=== PATIENT | male | born 1955 | race Caucasian/White ===

== ENCOUNTER → 2016-10-16 | Outpatient (CLI) | payer BC ==
[2016-10-16 19:36] LABS: Anisocytosis Slight; Basophils % (A) 0 %; CH 34.3; CHCM 34.5; Eosinophils # (A) 0.1 k/uL (0-0.7); Eosinophils % (A) 2 %; HCT 38.4 % (39.0-53.0); HDW 3.91; HGB 12.5 gm/dL (13.0-17.5); Luc # (Auto) 0.05; Luc % (Auto) 1; Lymphocytes # (A) 0.8 k/uL (1.0-4.8); Lymphocytes % (A) 16 %; MCH 32.6 pg (25.0-35.0); MCHC 32.6 g/dL (31.0-37.0); MCV 100.1 fL (80.0-100.0); Macrocytosis Slight; Mean Platelet Volume 8.7; Monocytes # (A) 0.2 k/uL (0-1.0); Monocytes % (A) 3 %; Neutrophils # (A) 3.7 k/uL (1.3-7.7); Neutrophils % (A) 77 %; Poikilocytosis Slight; RBC 3.84 m/uL (4.30-5.90); RDW 16.3 % (11.5-15.5); WBC 4.9 k/uL (3.8-10.6); WBC (Perox) 5.12
[2016-10-16 19:47] LABS: ALT 27 U/L (21-72); AST 23 U/L (17-59); Alkaline Phosphatase 72 U/L (38-126); Anion Gap 11 mmol/L; Blood Urea Nitrogen 13 mg/dL (9-20); Calcium 9.3 mg/dL (8.4-10.2); Carbon Dioxide 29 mmol/L (22-30); Chloride 103 mmol/L (98-107); Cholesterol 152 mg/dL (<200); Glucose 98 mg/dL (74-99); HDL Cholesterol 37 mg/dL (40-60); Non-African American GFR(MDRD) >60 (>60 ml/min/1.73 sqM); Potassium 3.8 mmol/L (3.5-5.1); Sodium 143 mmol/L (137-145); Total Bilirubin 1.8 mg/dL (0.2-1.3); Triglycerides 169 mg/dL (<150)
== END | disposition home or self-care (01) ==
LOC: MMGSC 09:51
PROVIDERS: ATTEND Family Medicine
DX: Z00.00 Encounter for general adult medical examination without abnormal findings (principal)
CPT/HCPCS: 36415; 80053; 80061; 84439; 84443; 85025

== ENCOUNTER → 2017-06-22 | Outpatient (CLI) | payer BC ==
[2017-06-22 20:14] LABS: Basophils % (A) 0 %; CH 35.4; CHCM 34.3; Eosinophils # (A) 0.1 k/uL (0-0.7); Eosinophils % (A) 3 %; HCT 34.5 % (39.0-53.0); HDW 3.94; Luc # (Auto) 0.04; Luc % (Auto) 1; Lymphocytes # (A) 0.8 k/uL (1.0-4.8); Lymphocytes % (A) 17 %; MCH 36.3 pg (25.0-35.0); MCHC 34.8 g/dL (31.0-37.0); MCV 104.3 fL (80.0-100.0); Macrocytosis Moderate; Mean Platelet Volume 8.4; Monocytes # (A) 0.2 k/uL (0-1.0); Monocytes % (A) 4 %; Neutrophils # (A) 3.7 k/uL (1.3-7.7); Neutrophils % (A) 76 %; Poikilocytosis Slight; RDW 15.7 % (11.5-15.5); WBC 4.9 k/uL (3.8-10.6); WBC (Perox) 5.14
[2017-06-22 20:22] LABS: ALT 25 U/L (21-72); AST 18 U/L (17-59); Alkaline Phosphatase 81 U/L (38-126); Amylase 92 U/L (30-110); Anion Gap 8 mmol/L; Blood Urea Nitrogen 14 mg/dL (9-20); Calcium 9.3 mg/dL (8.4-10.2); Carbon Dioxide 25 mmol/L (22-30); Chloride 106 mmol/L (98-107); Glucose 85 mg/dL (74-99); Non-African American GFR(MDRD) >60 (>60 ml/min/1.73 sqM); Potassium 4.1 mmol/L (3.5-5.1); Sodium 139 mmol/L (137-145); Total Bilirubin 1.8 mg/dL (0.2-1.3); Total Protein 6.7 g/dL (6.3-8.2)
== END | disposition home or self-care (01) ==
LOC: MMGSC 16:28
PROVIDERS: ATTEND Family Medicine
DX: R19.7 Diarrhea, unspecified (principal); R63.4 Abnormal weight loss
CPT/HCPCS: 36415; 80053; 82150; 83690; 84443; 85025

== ENCOUNTER → 2017-07-02 | Outpatient (CLI) | payer BC | LOC: MMGSC 10:09 | PROVIDERS: ATTEND Family Medicine | DX: R94.8 Abnormal results of function studies of other organs and systems (principal) | CPT/HCPCS: 36415; 82607; 82746 ==

== ENCOUNTER → 2017-07-12 | Outpatient (CLI) | payer BC ==
--- NOTE | 2017-07-12 14:11 | CT ---
EXAMINATION TYPE: CT abdomen pelvis w con DATE OF EXAM: 07/12/2017 COMPARISON: NONE HISTORY: Weight loss and diarrhea CT DLP: 458.60 mGycm Automated exposure control for dose reduction was used. TECHNIQUE: Helical acquisition of images was performed from the lung bases through the pelvis. CONTRAST: Performed with Oral Contrast and with IV Contrast, patient injected with 100 ml mL of Omnipaque 300. FINDINGS: LUNG BASES: Subsegmental bibasilar atelectasis is seen, record and left there is minimal independent. LIVER/GB: Single 6 mm hypoattenuating lesion is seen within the inferior right hepatic lobe on series 3 image 33 within segment 6 that is too small to accurately characterize. There is suggestion of a s mall either noncalcified gallstone, gallbladder folds, or gallbladder polyp on series 3 image 34 camille uring 5.7 mm. No common bile duct enlargement or pericolonic fat stranding. PANCREAS: No significant abnormality is seen. SPLEEN: The spleen is enlarged measuring 14.5 cm in craniocaudal dimension. ADRENALS: No significant abnormality is seen. KIDNEYS: The kidneys enhance and excrete symmetrically without focal lesion of the left kidney or hyd ronephrosis. Within the right kidney there ise a 9 mm simple renal cyst of the medial upper pole. FREE AIR: No free air is visualized. ADENOPATHY: No greater than 1 cm lymph nodes within the abdomen or pelvis. OSSEOUS STRUCTURES: Osseous structures appear intact with mild degenerative changes of the thoracolu mbar and lumbosacral spine. BOWEL: Multiple regions within the large bowel are incompletely evaluated as no oral contrast is seen throughout multiple portions and portions are nondistended, specifically within the ascending and he patic flexure of the large bowel. No evidence of obstruction to suggest underlying circumferential ob structing mass. Small hiatal hernia is present. OTHER: IMPRESSION: LIMITED EVALUATION OF THE NONDISTENDED COLON. COLONOSCOPY IS RECOMMENDED IN THIS PATIENT IF NOT RECEN TLY PERFORMED TO ENSURE NO UNDERLYING MASS AND A PATIENT WITH WEIGHT LOSS. 2. SINGLE INCOMPLETELY CHARACTERIZED SUBCENTIMETER HEPATIC LESION. COMPARISON WITH ANY PRIOR OUTSIDE IMAGING COULD BE PERFORMED TO DETERMINE STABILITY. ALTERNATIVELY MR COULD BE PERFORMED FOR FURTHER EV ALUATION OR SURVEILLANCE. 3. SPLENOMEGALY. 4. SIMPLE RENAL CYSTS.
== END | disposition home or self-care (01) ==
LOC: RADCTMAIN 12:29
PROVIDERS: ATTEND Family Medicine
DX: N28.1 Cyst of kidney, acquired (principal); K76.9 Liver disease, unspecified; R16.1 Splenomegaly, not elsewhere classified; R19.7 Diarrhea, unspecified; R63.4 Abnormal weight loss
CPT/HCPCS: 74177; Q9967

== ENCOUNTER 2019-11-28 11:38 | Observation (INO) | payer MEDICARE ==
[2019-11-28] MEDS ORDERED: SODIUM CHLORIDE 0.9% 500 ML 500 ML IV STA (11:50)
--- NOTE | 2019-11-28 12:07 | ED ---
General Adult HPI - General Chief complaint: Chest Pain Stated complaint: chest pain Time Seen by Provider: 11/28/19 11:43 Source: patient, RN notes reviewed, old records reviewed Mode of arrival: wheelchair Limitations: no limitations - History of Present Illness Initial comments: 64-year-old male presenting for evaluation of palpitations, abnormal EKG from urgent care. Patient has no history of A. fib or atrial flutter, no known coronary artery disease. He has been sick for the past 3 days with cough and cold symptoms. Cough productive of yellow sputum. He experiences some dyspnea with his palpitations with a been ongoing for several days as well. He was found to have an abnormal EKG and sent to the emergency department. Patient has been experiencing some upper chest tightness and chest pain associated with his symptoms. - Related Data Home Medications Medication Instructions Recorded Confirmed buPROPion HCL [Wellbutrin] 150 mg PO DAILY 03/12/15 08/11/15 clonazePAM [KlonoPIN] 0.5 mg PO HS PRN 03/12/15 08/11/15 ARIPiprazole [Abilify] 5 mg PO HS 04/16/15 08/11/15 Multivitamins, Thera Liquid 5 ml PO DAILY@1200 04/16/15 08/11/15 [Theragran Liquid] L.acidoph,Paracasei, B.lactis 2 each PO PC-BRKFST 08/11/15 08/11/15 [Probiotic] Mucus Relief-[employer] Brand 1 tab PO Q4HR PRN 08/11/15 08/11/15 Omeprazole [PriLOSEC] 20 mg PO AC-BRKFST 08/11/15 08/11/15 Allergies Allergy/AdvReac Type Severity Reaction Status Date / Time oxytetracycline Allergy "PAIN OF Verified 11/28/19 11:45 [From Terramycin] SKIN" VERY WEAK oxytetracycline HCl Allergy "PAIN OF Verified 11/28/19 11:45 [From Terramycin] SKIN" VERY WEAK Review of Systems ROS Statement: Those systems with pertinent positive or pertinent negative responses have been documented in the HPI. ROS Other: All systems not noted in ROS Statement are negative. Past Medical History Past Medical History: Eye Disorder, GERD/Reflux Additional Past Medical History / Comment(s): HIATAL HERNIA, SOMETIMES FOOD COMES BACK UP WHEN EATING, LOOSE STOOLS, GLASSES DAILY USE History of Any Multi-Drug Resistant Organisms: None Reported Past Surgical History: Adenoidectomy, Hernia Repair, Orthopedic Surgery, Tonsillectomy Additional Past Surgical History / Comment(s): UMBILICAL HERNIA, KAREN.INGUINAL HERNIA , EGD /COLONOSCOPY 04/20/15, LT WRIST SURGERY Past Anesthesia/Blood Transfusion Reactions: No Reported Reaction Past Psychological History: Anxiety, Depression Smoking Status: Former smoker Past Alcohol Use History: Occasional Past Drug Use History: None Reported - Past Family History Mother Family Medical History: Dementia, Neurologic Disorder Additional Family Medical History / Comment(s): HX PARKINSON'S Father Family Medical History: Coronary Artery Disease (CAD), CVA/TIA General Exam Limitations: no limitations General appearance: alert, in no apparent distress Head exam: Present: atraumatic, normocephalic Eye exam: Present: normal appearance, PERRL ENT exam: Present: normal exam Neck exam: Present: normal inspection. Absent: tenderness, meningismus Respiratory exam: Present: normal lung sounds bilaterally. Absent: respiratory distress, wheezes Cardiovascular Exam: Present: normal rhythm, tachycardia GI/Abdominal exam: Present: soft. Absent: distended, tenderness, guarding, rebound Extremities exam: Present: normal inspection, normal capillary refill. Absent: pedal edema Neurological exam: Present: alert, oriented X3, CN II-XII intact. Absent: motor sensory deficit Psychiatric exam: Present: normal affect, normal mood Skin exam: Present: warm, dry, intact. Absent: cyanosis, diaphoretic Course Vital Signs 11/28/19 11/28/19 11/28/19 11:40 12:00 12:10 Temperature 97.9 F Pulse Rate 144 H 94 90 Respiratory 18 18 18 Rate Blood Pressure 111/92 111/92 122/70 O2 Sat by Pulse 98 100 100 Oximetry EKG Findings - EKG Comments: EKG Findings:: Initial EKG at 1146 suspect atrial flutter with 2-1 AV conduction, rate of 157, QRS duration 102, QTC 468, no ST segment elevation, no complex tachycardia. Repeat EKG at 1152 sinus rhythm with PACs, rate of 87, MA interval 144, QRS duration 82, QTC 428, no ST segment elevation Medical Decision Making - Medical Decision Making 64-year-old male presenting with chest pain, congestion, palpitations. Found to be in a flutter with a 2-1 conduction. He converts in emergency department to sinus rhythm. He has a normal CBC, normal CMP, negative initial troponin. His influenza A positive. His chest x-ray is negative for focal pneumonia. He will be kept on telemetry, on Cardizem for rate control. He is treated for influenza . Serial cardiac enzymes will be obtained and cardiology placed on consult. Case is discussed with Dr. Tinoco who will admit this patient. Chads 2 vasc:1 - Lab Data Result diagrams: 11/28/19 11:57 11/28/19 11:57 Lab Results 11/28/19 11/28/19 11/28/19 Range/Units 11:57 11:57 11:57 WBC 4.4 (3.8-10.6) k/uL RBC 3.89 L (4.30-5.90) m/uL Hgb 13.5 (13.0-17.5) gm/dL Hct 37.1 L (39.0-53.0) % MCV 95.4 (80.0-100.0) fL MCH 34.7 (25.0-35.0) pg MCHC 36.4 (31.0-37.0) g/dL RDW 15.5 (11.5-15.5) % Plt Count 122 L (150-450) k/uL Neutrophils % 71 % Lymphocytes % 20 % Monocytes % 6 % Eosinophils % 1 % Basophils % 0 % Neutrophils # 3.1 (1.3-7.7) k/uL Lymphocytes # 0.9 L (1.0-4.8) k/uL Monocytes # 0.3 (0-1.0) k/uL Eosinophils # 0.0 (0-0.7) k/uL Basophils # 0.0 (0-0.2) k/uL Hyperchromasia Moderate Poikilocytosis Slight PT 9.8 (9.0-12.0) sec INR 0.9 (<1.2) APTT 40.9 H (22.0-30.0) sec Sodium 136 L (137-145) mmol/L Potassium 4.5 (3.5-5.1) mmol/L Chloride 102 (98-107) mmol/L Carbon Dioxide 22 (22-30) mmol/L Anion Gap 12 mmol/L BUN 18 (9-20) mg/dL Creatinine 1.02 (0.66-1.25) mg/dL Est GFR (CKD-EPI)AfAm 89 (>60 ml/min/1.73 sqM) Est GFR (CKD-EPI)NonAf 77 (>60 ml/min/1.73 sqM) Glucose 102 H (74-99) mg/dL Calcium 9.6 (8.4-10.2) mg/dL Magnesium 2.1 (1.6-2.3) mg/dL Total Bilirubin 4.6 H (0.2-1.3) mg/dL AST 32 (17-59) U/L ALT 18 (4-49) U/L Alkaline Phosphatase 84 (38-126) U/L Troponin I (0.000-0.034) ng/mL Total Protein 8.1 (6.3-8.2) g/dL Albumin 4.9 (3.5-5.0) g/dL Influenza Type A RNA (Not Detectd) Influenza Type B (PCR) (Not Detectd) 11/28/19 11/28/19 Range/Units 11:57 12:15 WBC (3.8-10.6) k/uL RBC (4.30-5.90) m/uL Hgb (13.0-17.5) gm/dL Hct (39.0-53.0) % MCV (80.0-100.0) fL MCH (25.0-35.0) pg MCHC (31.0-37.0) g/dL RDW (11.5-15.5) % Plt Count (150-450) k/uL Neutrophils % % Lymphocytes % % Monocytes % % Eosinophils % % Basophils % % Neutrophils # (1.3-7.7) k/uL Lymphocytes # (1.0-4.8) k/uL Monocytes # (0-1.0) k/uL Eosinophils # (0-0.7) k/uL Basophils # (0-0.2) k/uL Hyperchromasia Poikilocytosis PT (9.0-12.0) sec INR (<1.2) APTT (22.0-30.0) sec Sodium (137-145) mmol/L Potassium (3.5-5.1) mmol/L Chloride (98-107) mmol/L Carbon Dioxide (22-30) mmol/L Anion Gap mmol/L BUN (9-20) mg/dL Creatinine (0.66-1.25) mg/dL Est GFR (CKD-EPI)AfAm (>60 ml/min/1.73 sqM) Est GFR (CKD-EPI)NonAf (>60 ml/min/1.73 sqM) Glucose (74-99) mg/dL Calcium (8.4-10.2) mg/dL Magnesium (1.6-2.3) mg/dL Total Bilirubin (0.2-1.3) mg/dL AST (17-59) U/L ALT (4-49) U/L Alkaline Phosphatase (38-126) U/L Troponin I <0.012 (0.000-0.034) ng/mL Total Protein (6.3-8.2) g/dL Albumin (3.5-5.0) g/dL Influenza Type A RNA Detected H (Not Detectd) Influenza Type B (PCR) Not Detected (Not Detectd) Critical Care Time Critical Care Time: Yes Total Critical Care Time: 35 Disposition Clinical Impression: Atrial flutter with rapid ventricular response, Influenza A Disposition: [facility]MITTED [facility] Condition: Stable Is patient prescribed a controlled substance at d/c from ED?: No Referrals: Mirna Sarah MD [Primary Care Provider] - 1-2 days Decision to Admit Reason: Admit from EC Decision Date: 11/28/19 Decision Time: 13:31
[2019-11-28] MEDS ORDERED: DILTIAZEM 125 MG in SODIUM CHLORIDE 0.9% 100 ML IV SCH (12:15)
[2019-11-28 12:22] LABS: Albumin 4.9 g/dL (3.5-5.0); Calcium 9.6 mg/dL (8.4-10.2); Magnesium 2.1 mg/dL (1.6-2.3); Potassium 4.5 mmol/L (3.5-5.1); Total Bilirubin 4.6 mg/dL (0.2-1.3); Total Protein 8.1 g/dL (6.3-8.2)
[2019-11-28 12:24] LABS: INR 0.9 (<1.2); Partial Thromboplastin Time 40.9 sec (22.0-30.0); Prothrombin Time 9.8 sec (9.0-12.0)
--- NOTE | 2019-11-28 12:28 | XR ---
EXAMINATION TYPE: XR chest 2V DATE OF EXAM: 11/28/2019 COMPARISON: NONE HISTORY: Dysrhythmia, cough TECHNIQUE: Frontal and lateral views of the chest are obtained. FINDINGS: There is no focal air space opacity, pleural effusion, or pneumothorax seen. The cardiac silhouette size is within normal limits. The osseous structures are intact, there is a spinal curva ture, there is thoracic spondylosis. There are overlying cardiac leads. IMPRESSION: No acute cardiopulmonary process.
[2019-11-28 12:33] LABS: Basophils % (A) 0 %; Eosinophils % (A) 1 %; HCT 37.1 % (39.0-53.0); HGB 13.5 gm/dL (13.0-17.5); Hyperchromasia Moderate; Lymphocytes # (A) 0.9 k/uL (1.0-4.8); Lymphocytes % (A) 20 %; MCH 34.7 pg (25.0-35.0); MCHC 36.4 g/dL (31.0-37.0); MCV 95.4 fL (80.0-100.0); Mean Platelet Volume 8.8; Monocytes # (A) 0.3 k/uL (0-1.0); Monocytes % (A) 6 %; Neutrophils # (A) 3.1 k/uL (1.3-7.7); Neutrophils % (A) 71 %; Platelet Count 122 k/uL (150-450); Poikilocytosis Slight; RBC 3.89 m/uL (4.30-5.90); RDW 15.5 % (11.5-15.5); WBC 4.4 k/uL (3.8-10.6)
[2019-11-28] MEDS ORDERED: OSELTAMIVIR 75 MG CAP PO STA (13:13)
[2019-11-28] MEDS ORDERED: ASPIRIN 325 MG TAB PO STA (13:15)
[2019-11-28] MEDS ORDERED: NALOXONE 0.4 MG/ML 1 ML VIAL IV PRN (13:23)
[2019-11-28] MEDS ORDERED: ACETAMINOPHEN TAB 325 MG TAB PO PRN (13:23)
--- NOTE | 2019-11-28 16:16 | P.HPIM ---
History of Present Illness H&P Date: 11/28/19 Chief Complaint: chest heaviness 64-year-old malesignificant past medical history Patient comes in with 3-4 day history of not feeling well. He noticed decreased exercise tolerance over the past few days and then later on he developed some mild cough then became associated with productive yellow sputum denies any hemoptysis he denies any sore throat does admit to runny nose. He reports whole body aches. However today he experienced chest heaviness with difficulty in breathing for which he went to an urgent care and they suggested that he goes to the ER for evaluation as they found abnormal EKG with palpitations. He denies any cardiac history. He denies any recent traveling. He denies any recent history of immobilization or active diagnoses of cancer. He reports decreased exercise tolerance over the past few days with easy fatigability. He reports that his weight has been stable around 160 pounds however over the past year he dropped from 180-125 pounds and regained his weight back to 160 and he's been maintaining that weight for 6 months now. He reports having this colonoscopy is done in the past that were normal he denies any GI bleeding. He denies any smoking. He reports occasional alcohol he denies any drug abuse. Patient also reports chronic loose bowel movements she was diagnosed with IBS In the ED he was found to be in a flutter was converted with vagal maneuver and then was started on Cardizem. Patient describes his chest pain as heaviness central with difficulty breathing denies any sweating dizziness or lightheadedness. His pain is rated as 8 out of 10 in severity. Review of Systems Pertinent positives as noted in HPI. All other systems were reviewed and are negative Past Medical History Past Medical History: Eye Disorder, GERD/Reflux Additional Past Medical History / Comment(s): HIATAL HERNIA, SOMETIMES FOOD COMES BACK UP WHEN EATING, LOOSE STOOLS, GLASSES DAILY USE History of Any Multi-Drug Resistant Organisms: None Reported Past Surgical History: Adenoidectomy, Hernia Repair, Orthopedic Surgery, Tonsillectomy Additional Past Surgical History / Comment(s): UMBILICAL HERNIA, KAREN.INGUINAL HERNIA , EGD /COLONOSCOPY 04/20/15, LT WRIST SURGERY Past Anesthesia/Blood Transfusion Reactions: No Reported Reaction Past Psychological History: Anxiety, Depression Smoking Status: Former smoker Past Alcohol Use History: Occasional Past Drug Use History: None Reported - Past Family History Mother Family Medical History: Dementia, Neurologic Disorder Additional Family Medical History / Comment(s): HX PARKINSON'S Father Family Medical History: Coronary Artery Disease (CAD), CVA/TIA Medications and Allergies Home Medications Medication Instructions Recorded Confirmed Type Tolterodine ER [Detrol LA] 4 mg PO DAILY 11/28/19 11/28/19 History Allergies Allergy/AdvReac Type Severity Reaction Status Date / Time oxytetracycline AdvReac "PAIN OF Verified 11/28/19 13:38 [From Terramycin] SKIN" VERY WEAK oxytetracycline HCl AdvReac "PAIN OF Verified 11/28/19 13:38 [From Terramycin] SKIN" VERY WEAK Physical Exam Vitals: Vital Signs Temp Pulse Resp BP Pulse Ox 11/28/19 14:34 76 19 116/58 100 11/28/19 12:10 90 18 122/70 100 11/28/19 12:00 94 18 111/92 100 11/28/19 11:40 97.9 F 144 H 18 111/92 98 Intake and Output 11/27/19 11/28/19 11/28/19 22:59 06:59 14:59 Other: Weight 70.307 kg Constitutional: No acute distress, conversant, pleasant Eyes: Anicteric sclerae, moist conjunctiva, no lid-lag Pupils equal round reactive to light ENMT: NC/AT Oropharynx clear, no erythema, exudates Neck: Supple, FROM, no masses, or JVD No carotid bruits No thyromegaly Lungs: Clear to auscultation Clear to percussion Normal respiratory effort, no accessory muscle use Cardiovascular: Heart irregular in rate and rhythm, No murmurs, gallops, or rubs No peripheral edema Abdominal: Soft Nontender, no guarding, rebound or rigidity Abdomen moving with respiration Normoactive bowel sounds No hepatomegaly, No splenomegaly No palpable mass No abdominal wall hernia noted Skin: Normal temperature, tone, texture, turgor No induration No subcutaneous nodules No rash, lesions No ulcers Extremities: No digital cyanosis No clubbing Pedal pulses intact and symmetrical Radial pulses intact and symmetrical No calf tenderness Psychiatric: Alert and oriented to person, place and time Appropriate affect fair judgement Neuro Muscles Strength 5/5 in all 4 extremities Sensation to light touch grossly present throughout Cranial nerves II-XII grossly intact No focal sensory deficits Lymphatics: no palpable cervical or supraclavicular , or inguinal lymph nodes Results CBC & Chem 7: 11/28/19 11:57 11/28/19 11:57 Labs: Abnormal Lab Results - Last 24 Hours (Table) 11/28/19 11/28/19 11/28/19 Range/Units 11:57 11:57 11:57 RBC 3.89 L (4.30-5.90) m/uL Hct 37.1 L (39.0-53.0) % Plt Count 122 L (150-450) k/uL Lymphocytes # 0.9 L (1.0-4.8) k/uL APTT 40.9 H (22.0-30.0) sec Sodium 136 L (137-145) mmol/L Glucose 102 H (74-99) mg/dL Total Bilirubin 4.6 H (0.2-1.3) mg/dL Influenza Type A RNA (Not Detectd) 11/28/19 Range/Units 12:15 RBC (4.30-5.90) m/uL Hct (39.0-53.0) % Plt Count (150-450) k/uL Lymphocytes # (1.0-4.8) k/uL APTT (22.0-30.0) sec Sodium (137-145) mmol/L Glucose (74-99) mg/dL Total Bilirubin (0.2-1.3) mg/dL Influenza Type A RNA Detected H (Not Detectd) Assessment and Plan Assessment: 64-year-old male no significant past medical history Comes in due to chest heaviness and difficulty in breathing he was found to have palpitations and abnormal EKG at urgent care and was sent to our facility for further evaluation Here he was found to be in a flutter started on Cardizem drip chads vasc 1 Tested positive for flu a Elevated bilirubin Admitted as an obs with anticipated length of stay less than 2 minutes Plan: Atrial flutter Chest pain cardizem drip CHADS VASC 1 aspirin cardio eval check echo , TSH check lipids viral pneumonia with influenza A positive tamiflu supportive care elevated bilirubin check liver US DVT PPX heparin sc tid unintentional weight loss with loose bowel movement Cscope per patient report has been normal check for thyrotoxicosis CODE STATUS: Full code Discussed with: Patient, ER, RN Anticipated length of stay less than [address]: Home A total of 60 minutes was spent on the care of this complex patient more than 50% of the time was spent in counseling and care coordination.
[2019-11-28] MEDS: HEPARIN SODIUM,PORCINE 5,000 UNIT/ML 1 ML VIAL SQ SCH (23:44)
[2019-11-28] MEDS: SODIUM CHLORIDE 0.9% 1,000 ML IV SCH (23:44)
[2019-11-29] MEDS: OSELTAMIVIR 75 MG CAP PO SCH ×3 (03:49→20:04)
[2019-11-29 06:41] LABS: Basophils % (A) 0 %; Eosinophils # (A) 0.1 k/uL (0-0.7); Eosinophils % (A) 2 %; HCT 29.1 % (39.0-53.0); Hyperchromasia Moderate; Lymphocytes # (A) 0.8 k/uL (1.0-4.8); Lymphocytes % (A) 31 %; MCH 34.1 pg (25.0-35.0); MCHC 35.5 g/dL (31.0-37.0); MCV 96.1 fL (80.0-100.0); Mean Platelet Volume 8.9; Monocytes # (A) 0.1 k/uL (0-1.0); Monocytes % (A) 5 %; Neutrophils # (A) 1.6 k/uL (1.3-7.7); Neutrophils % (A) 60 %; Poikilocytosis Moderate; RBC 3.03 m/uL (4.30-5.90); RDW 15.4 % (11.5-15.5); WBC 2.7 k/uL (3.8-10.6)
[2019-11-29 06:50] LABS: HGB 10.3 gm/dL (13.0-17.5)
[2019-11-29 06:56] LABS: ALT 15 U/L (4-49); AST 27 U/L (17-59); African American GFR (CKD) >90 (>60 ml/min/1.73 sqM); Albumin 3.8 g/dL (3.5-5.0); Alkaline Phosphatase 64 U/L (38-126); Anion Gap 7 mmol/L; Blood Urea Nitrogen 15 mg/dL (9-20); Calcium 8.3 mg/dL (8.4-10.2); Carbon Dioxide 24 mmol/L (22-30); Chloride 105 mmol/L (98-107); Glucose 90 mg/dL (74-99); Non-African American GFR(CKD) >90 (>60 ml/min/1.73 sqM); Potassium 4.2 mmol/L (3.5-5.1); Sodium 136 mmol/L (137-145); Total Bilirubin 3.6 mg/dL (0.2-1.3); Total Protein 6.4 g/dL (6.3-8.2)
[2019-11-29 07:14] LABS: Platelet Count 87 k/uL (150-450)
[2019-11-29] MEDS: OXYBUTYNIN XL 5 MG TAB.ER.24 PO SCH (09:37)
[2019-11-29] MEDS: HEPARIN SODIUM,PORCINE 5,000 UNIT/ML 1 ML VIAL SQ SCH ×3 (09:38→22:47)
--- NOTE | 2019-11-29 13:11 | P.CRDCN ---
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 The patient was in his usual state of health until Sunday night when he woke up from sleep complaining of extensive cough. Subsequently he started experiencing chest tightness associated with palpitations and heart racing. No shortness of breath, dizziness, or syncope. The patient was experiencing cough productive of sputum as well. He denies any fever or chills. He was found to be positive for influenza and currently he is on isolation. We involved in the care of the patient because of abnormal EKG. The initial impression and reason for the consult was atrial flutter/atrial fibrillation but further evaluation of the EKG is consistent with atrial tachycardia. Currently the patient back in normal sinus mechanism. The patient is not aware of any prior cardiac history and he never seen any carbon brushes assembler in the past. Hemodynamically he is a stable. The chest x-ray did not show any acute abnormalities. The plan is to discharge the patient later on today. I am going to start the patient on metoprolol 12.5 mg by mouth twice a day. He definitely needs to have a stress test as an outpatient to rule out any severe coronary artery disease behind the chest discomfort which is likely related to the atrial tachycardia. Otherwise the patient can be discharged home. 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 HAS 2-3 DRINKS A WEEK Past Drug Use History: None Reported - Past Family History Sister(s) Family Medical History: Diabetes Mellitus Mother Family Medical History: Dementia, Neurologic Disorder Additional Family Medical History / Comment(s): HX PARKINSON'S Father Family Medical History: Coronary Artery Disease (CAD), CVA/TIA Medications and Allergies Home Medications Medication Instructions Recorded Confirmed Type Tolterodine ER [Detrol LA] 4 mg PO DAILY 11/28/19 11/28/19 History Allergies Allergy/AdvReac Type Severity Reaction Status Date / Time oxytetracycline AdvReac "PAIN OF Verified 11/28/19 13:38 [From Terramycin] SKIN" VERY WEAK oxytetracycline HCl AdvReac "PAIN OF Verified 11/28/19 13:38 [From Terramycin] SKIN" VERY WEAK Physical Exam Vitals: Vital Signs Temp Pulse Pulse Resp BP BP Pulse Ox 11/29/19 11:34 75 11/29/19 11:33 75 16 106/69 98 11/29/19 08:00 98.5 F 73 16 92/59 100 11/29/19 04:00 75 12 11/29/19 03:42 98.0 F 75 12 103/67 100 11/29/19 00:00 97.5 F L 141 H 12 127/67 98 11/28/19 20:00 98.1 F 96 12 117/58 99 11/28/19 19:00 84 124/70 100 11/28/19 18:30 87 19 110/70 97 11/28/19 18:00 76 19 108/58 98 11/28/19 17:00 81 18 106/59 98 11/28/19 16:30 121 H 19 114/55 100 11/28/19 15:30 100 18 117/61 100 11/28/19 14:34 76 19 116/58 100 Intake and Output 11/28/19 11/29/19 11/29/19 22:59 06:59 14:59 Intake Total 100 360 Balance 100 360 Intake: Intake, IV Titration 100 Amount Diltiazem 125 mg In 20 Sodium Chloride 0.9% 100 ml @ 5 MG/HR 5 mls/hr IV .Q24H LUIS Rx#:[id number] Sodium Chloride 0.9% 500 80 ml 500 ml @ 999 mls/hr IV .Q31M STA Rx#:[id number] Oral 360 Other: Voiding Method Toilet Toilet # Voids 2 Weight 70.307 kg 70.7 kg - Constitutional General appearance: no acute distress - Respiratory Respiratory: bilateral: CTA - Cardiovascular Rhythm: regular Heart sounds: normal: S1, S2 Results 11/29/19 06:13 11/29/19 06:13 Cardiac Enzymes 11/28/19 11/29/19 11/29/19 Range/Units 18:22 00:15 06:13 AST 27 (17-59) U/L Troponin I <0.012 <0.012 (0.000-0.034) ng/mL CBC 11/29/19 Range/Units 06:13 WBC 2.7 L (3.8-10.6) k/uL RBC 3.03 L (4.30-5.90) m/uL Hgb 10.3 L D (13.0-17.5) gm/dL Hct 29.1 L (39.0-53.0) % Plt Count 87 L (150-450) k/uL Comprehensive Metabolic Panel 11/29/19 Range/Units 06:13 Sodium 136 L (137-145) mmol/L Potassium 4.2 (3.5-5.1) mmol/L Chloride 105 (98-107) mmol/L Carbon Dioxide 24 (22-30) mmol/L BUN 15 (9-20) mg/dL Creatinine 0.75 (0.66-1.25) mg/dL Glucose 90 (74-99) mg/dL Calcium 8.3 L (8.4-10.2) mg/dL AST 27 (17-59) U/L ALT 15 (4-49) U/L Alkaline Phosphatase 64 (38-126) U/L Total Protein 6.4 (6.3-8.2) g/dL Albumin 3.8 (3.5-5.0) g/dL Current Medications Generic Name Dose Route Start Last Admin Trade Name Freq PRN Reason Stop Dose Admin Acetaminophen 650 mg 11/28/19 13:23 Tylenol Tab PO Q6HR PRN Mild Pain or Fever > 100.5 Heparin Sodium (Porcine) 5,000 unit 11/29/19 00:00 11/29/19 09:38 Heparin SQ 5,000 unit Q8HR LUIS Administration Sodium Chloride 1,000 mls @ 20 mls/hr 11/28/19 13:30 11/28/19 23:44 Saline 0.9% IV 20 mls/hr .Q24H LUIS Administration Metoprolol Tartrate 12.5 mg 11/29/19 21:00 Lopressor PO BID LUIS Naloxone HCl 0.2 mg 11/28/19 13:23 Narcan IV Q2M PRN Opioid Reversal Oseltamivir Phosphate 75 mg 11/29/19 02:15 11/29/19 09:37 Tamiflu PO 12/03/19 09:01 75 mg Q12HR LUIS Administration Oxybutynin Chloride 10 mg 11/29/19 09:00 11/29/19 09:37 Ditropan Xl PO 10 mg DAILY LUIS Administration Intake and Output 11/28/19 11/29/19 11/29/19 22:59 06:59 14:59 Intake Total 100 360 Balance 100 360 Intake: Intake, IV Titration 100 Amount Diltiazem 125 mg In 20 Sodium Chloride 0.9% 100 ml @ 5 MG/HR 5 mls/hr IV .Q24H LUIS Rx#:[id number] Sodium Chloride 0.9% 500 80 ml 500 ml @ 999 mls/hr IV .Q31M STA Rx#:[id number] Oral 360 Other: Voiding Method Toilet Toilet # Voids 2 Weight 70.307 kg 70.7 kg 11/29/19 06:13 11/29/19 06:13 Assessment and Plan Assessment: Assessment #1 influenza symptoms #2 atrial tachycardia #3 anemia probably chronic Plan #1 start the patient on metoprolol at 12.5 mg by mouth twice a day #2 follow-up with the patient. Thank you for allowing us participate in his care
--- NOTE | 2019-11-29 13:19 | US ---
EXAMINATION TYPE: US liver DATE OF EXAM: 11/29/2019 COMPARISON: CT 07/12/2017 CLINICAL HISTORY: elevated bilirubin. EXAM MEASUREMENTS: Liver Length: 16.6 cm Gallbladder Wall: 0.2 cm CBD: 0.5 cm Right Kidney: 10.9 x 3.7 x 4.8 cm Pancreas: Tail obscured by overlying bowel gas, visualized portions wnl Liver: wnl Gallbladder: stones visualized Evidence for sonographic Jiménez's sign: No CBD: wnl Right Kidney: No hydronephrosis or masses seen Limited views of the pancreas are unremarkable. The liver is normal in size without biliary dilatation. There are stones within the gallbladder. The gallbladder wall measures 2 mm. This common hepatic duct measures 5 mm. There is no sonographic Jiménez's sign. The right kidney is unremarkable. IMPRESSION: CHOLELITHIASIS.
--- NOTE | 2019-11-29 15:14 | ECHOF ---
Referral Reason:new atrial flutter MEASUREMENTS -------- HEIGHT: 177.8 cm WEIGHT: 70.3 kg BP: 103/67 RVIDd: 3.3 cm (< 3.3) IVSd: 1.4 cm (0.6 - 1.1) LVIDd: 4.1 cm (3.9 - 5.3) LVPWd: 1.7 cm (0.6 - 1.1) IVSs: 2.1 cm LVIDs: 2.9 cm LVPWs: 1.9 cm LAESV Index (A-L): 23.39 ml/m Ao Diam: 3.1 cm (2.0 - 3.7) AV Cusp: 2.2 cm (1.5 - 2.6) MV EXCURSION: 19.848 mm (> 18.000) MV EF SLOPE: 117 mm/s (70 - 150) EPSS: 0.6 cm MV E Jeffrey: 0.69 m/s MV DecT: 256 ms MV A Jeffrey: 0.78 m/s MV E/A Ratio: 0.88 RAP: 5.00 mmHg RVSP: 29.59 mmHg FINDINGS -------- Sinus rhythm. This was a technically adequate study. The left ventricular size is normal. There is moderate concentric left ventricular hypertrophy. O verall left ventricular systolic function is low-normal with, an EF between 50 - 55 %. The diastoli c filling pattern is normal for the age of the patient 8.60. The right ventricle is mildly enlarged. Normal LA size by volume 22+/-6 ml/m2. The right atrial size is normal. Interatrial and interventricular septum intact. There is no evidence of aortic regurgitation. There is no evidence of aortic stenosis. Mild mitral regurgitation is present. Mild tricuspid regurgitation present. There is no evidence of pulmonary hypertension. The right v entricular systolic pressure, as measured by Doppler, is 29.59mmHg. There is no pulmonic regurgitation present. The aortic root size is normal. Normal inferior vena cava with normal inspiratory collapse consistent with estimated right atrial pre ssure of 5 mmHg. There is no pericardial effusion. CONCLUSIONS -------- 1. Sinus rhythm. 2. This was a technically adequate study. 3. The left ventricular size is normal. 4. There is moderate concentric left ventricular hypertrophy. 5. Overall left ventricular systolic function is low-normal with, an EF between 50 - 55 %. 6. The diastolic filling pattern is normal for the age of the patient 8.60 7. The right ventricle is mildly enlarged. 8. Normal LA size by volume 22+/-6 ml/m2. 9. The right atrial size is normal. 10. Interatrial and interventricular septum intact. 11. There is no evidence of aortic regurgitation. 12. There is no evidence of aortic stenosis. 13. Mild mitral regurgitation is present. 14. Mild tricuspid regurgitation present. 15. There is no evidence of pulmonary hypertension. 16. The right ventricular systolic pressure, as measured by Doppler, is 29.59mmHg. 17. There is no pulmonic regurgitation present. 18. The aortic root size is normal. 19. Normal inferior vena cava with normal inspiratory collapse consistent with estimated right atrial pressure of 5 mmHg. 20. There is no pericardial effusion. SUPERVISOR BRAIDING: Mita Georges RDCS
[2019-11-29 15:31] VITALS: RESP 18
[2019-11-29] MEDS: SODIUM CHLORIDE 0.9% 1,000 ML IV SCH (15:41)
[2019-11-29 17:03] LABS: % Iron Saturation 24.65 (15.00-50.00)
[2019-11-29 17:14] LABS: Ferritin 472.5 ng/mL (22.0-322.0)
--- NOTE | 2019-11-29 17:21 | P.PN ---
Subjective Progress Note Date: 11/29/19 (delayed charting seen at 1030) Principal diagnosis: cough and decreased exercise tolerance Patient is a 64-year-old male with GERD, irritable bowel syndrome diarrhea prone, prior tobacco abuse, and hiatal hernia who presented to the emergency department with cough, sore throat, and whole body aches. On presentation to the emergency department he was found have an elevated heart rate with palpitations. He took 3 deep breaths and his heart rate normalized. Initially in the ER was concerns for atrial flutter. Initial laboratory analysis showed a hemoglobin of 13.5, hematocrit 37.1, platelets 122, PTT 40.9, sodium 136, and bilirubin of 4.6. Initial troponin was negative. He was positive for influenza A. Initial chest x-ray showed no acute process. He was started on Tamiflu and admitted for further monitoring. Cardiology was consulted. Echocardiogram was obtained which showed an ejection fraction of 50- 55%. EKG was reviewed and showed sinus tachycardia but no signs of atrial flutter. Due to his elevated bilirubin he underwent a liver ultrasound which showed evidence of cholelithiasis but no cholecystitis. His troponin remained negative. On the morning of 11/29 he had developed some pancytopenia. Clinically he is feeling much improved. His chest discomfort had resolved when his heart rate normalized. Patient seen and examined at bedside. He states that his body aches are better, cough is about the same as yesterday, no shortness of breath, no additional chest pain or palpitations. Objective - Vital Signs Vital signs: Vital Signs Temp 97.9 F 11/29/19 15:31 Pulse 80 11/29/19 15:32 Resp 18 11/29/19 15:31 BP 108/63 11/29/19 15:31 Pulse Ox 100 11/29/19 15:31 Intake & Output 11/28/19 11/29/19 11/29/19 18:59 06:59 18:59 Intake Total 100 900 Balance 100 900 Weight 70.307 kg 70.7 kg Intake: Intake, IV Titration 100 Amount Diltiazem 125 mg In 20 Sodium Chloride 0.9% 100 ml @ 5 MG/HR 5 mls/hr IV .Q24H LUIS Rx#:[id number] Sodium Chloride 0.9% 500 80 ml 500 ml @ 999 mls/hr IV .Q31M STA Rx#:[id number] Oral 900 Other: Voiding Method Toilet # Voids 2 1 - Exam General: non toxic, no distress, appears at stated age Derm: warm, dry Head: atraumatic, normocephalic, symmetric Eyes: EOMI, no lid lag, anicteric sclera Mouth: no lip lesion, mucus membranes moist Cardiovascular: S1S2 regular, no murmur, positive posterior tibial pulse bilateral, Lungs: Rhonchi left base , no accessory muscle use Abdominal: soft, nontender to palpation, no guarding, no appreciable organomegaly Ext: no gross muscle atrophy, no edema, no contractures Neuro: CN II-XI grossly intact, no focal neuro deficits Psych: Alert, oriented, appropriate affect - Labs CBC & Chem 7: 11/29/19 06:13 11/29/19 06:13 Labs: Abnormal Lab Results - Last 24 Hours (Table) 11/29/19 11/29/19 Range/Units 06:13 06:13 WBC 2.7 L (3.8-10.6) k/uL RBC 3.03 L (4.30-5.90) m/uL Hgb 10.3 L D (13.0-17.5) gm/dL Hct 29.1 L (39.0-53.0) % Plt Count 87 L (150-450) k/uL Lymphocytes # 0.8 L (1.0-4.8) k/uL Sodium 136 L (137-145) mmol/L Calcium 8.3 L (8.4-10.2) mg/dL Total Bilirubin 3.6 H (0.2-1.3) mg/dL Assessment and Plan Assessment: Influenza a - Tamiflu -Repeat chest x-ray in the morning -Supportive care with IV fluids and Tylenol Atrial tachycardia -Cardiology recommendations appreciated: Stress test as an outpatient once influenza improved Pancytopenia Anemia: Appears chronic may be related to malabsorption -Follow CBC -Check ferritin, B12, folic acid Thrombocytopenia, chronic worsened -Likely reactive -Follow CBC Leukocpenia - likely reactive Elevated bilirubin with cholelithiasis -Surgical consultation -Ultrasound without evidence of dilated common bile duct Patient is not optimized for discharge home as he has developed some pancytopenia as evidenced worsening of his anemia, white blood cell count, and platelet count overnight. At this point in time he is not stable for care in the outpatient setting as he also has cholelithiasis. My concern would be for possible developing sepsis his white blood cell count is down less than 4, at 2.7. He will need continued monitoring including close vital sign monitoring, repeat CBC in a.m., pain control, antiemetics, and Tamiflu. DVT prophylaxis: SCDs Discussed with: Patient, and Dr. Richardson, nursing Anticipated discharge: In a.m. Anticipated discharge place: Home A total of 35 minutes was spent on the care of this complex patient more than 50% of the time was spent in counseling and care coordination.
[2019-11-29] MEDS: METOPROLOL TARTRATE 12.5 MG TAB PO SCH (20:04)
[2019-11-30 06:16] LABS: HCT 30.8 % (39.0-53.0); Hyperchromasia Moderate; MCHC 35.7 g/dL (31.0-37.0); MCV 95.3 fL (80.0-100.0); Mean Platelet Volume 8.5; Platelet Count 107 k/uL (150-450); Poikilocytosis Moderate; RBC 3.23 m/uL (4.30-5.90); RDW 15.6 % (11.5-15.5); WBC 4.1 k/uL (3.8-10.6)
[2019-11-30 06:29] LABS: INR 0.9 (<1.2); Prothrombin Time 9.9 sec (9.0-12.0)
[2019-11-30 06:31] LABS: ALT 13 U/L (4-49); AST 25 U/L (17-59); African American GFR (CKD) >90 (>60 ml/min/1.73 sqM); Albumin 3.9 g/dL (3.5-5.0); Alkaline Phosphatase 67 U/L (38-126); Anion Gap 6 mmol/L; Blood Urea Nitrogen 12 mg/dL (9-20); Calcium 8.8 mg/dL (8.4-10.2); Carbon Dioxide 26 mmol/L (22-30); Chloride 104 mmol/L (98-107); Glucose 86 mg/dL (74-99); Magnesium 2.1 mg/dL (1.6-2.3); Non-African American GFR(CKD) >90 (>60 ml/min/1.73 sqM); Potassium 4.1 mmol/L (3.5-5.1); Sodium 136 mmol/L (137-145); Total Bilirubin 3.6 mg/dL (0.2-1.3); Total Protein 6.6 g/dL (6.3-8.2)
--- NOTE | 2019-11-30 06:52 | XR ---
EXAMINATION TYPE: XR chest 1V portable DATE OF EXAM: 11/30/2019 HISTORY: pneumonia. REFERENCE: Previous study dated 11/28/2019. FINDINGS: Lungs remain clear. Pleural spaces are clear. Heart size is normal. IMPRESSION: NO ACTIVE INTRATHORACIC DISEASE.
[2019-11-30] MEDS: OXYBUTYNIN XL 5 MG TAB.ER.24 PO SCH (09:22)
[2019-11-30] MEDS: OSELTAMIVIR 75 MG CAP PO SCH (09:22)
[2019-11-30] MEDS: METOPROLOL TARTRATE 12.5 MG TAB PO SCH (09:22)
[2019-11-30] MEDS: HEPARIN SODIUM,PORCINE 5,000 UNIT/ML 1 ML VIAL SQ SCH (09:22)
[2019-11-30 10:13] VITALS: BP 105/74; PULSE 85; TEMP 97.8
--- NOTE | 2019-11-30 10:20 | P.GSHP ---
History of Present Illness H&P Date: 11/30/19 Chief Complaint: Cholelithiasis Patient hospitalized because of cough and weakness. Found to be positive for influenza. Patient's found have an elevated bilirubin. Alkaline phosphatase ALT and AST all normal. Ultrasound was performed which showed gallstones. No biliary dilation noted. Patient is not aware of his outpatient bilirubin levels. Looking back at prior lab values he was as high as 3.1 in 2015. He does have a history of heavier than average alcohol use in the past although not currently. Patient has no abdominal discomfort. - Review of Systems Comment: The patient denies any acute changes in vision or hearing, no dysphagia or odynophagia, no chest pain or shortness of breath, no dysuria or hematuria, no headache, no runny nose, no rectal bleeding or melena, no unexplained weight loss Past Medical History Past Medical History: Eye Disorder, GERD/Reflux Additional Past Medical History / Comment(s): HIATAL HERNIA, SOMETIMES FOOD COMES BACK UP WHEN EATING, LOOSE STOOLS, GLASSES DAILY USE Pt states he has IBSD History of Any Multi-Drug Resistant Organisms: None Reported Past Surgical History: Adenoidectomy, Hernia Repair, Orthopedic Surgery, Tonsillectomy Additional Past Surgical History / Comment(s): UMBILICAL HERNIA, KAREN.INGUINAL HERNIA , EGD /COLONOSCOPY 04/20/15, LT WRIST SURGERY Past Anesthesia/Blood Transfusion Reactions: No Reported Reaction Past Psychological History: Anxiety, Depression Smoking Status: Former smoker Past Alcohol Use History: Occasional Additional Past Alcohol Use History / Comment(s): STARTED SMOKING AT 1970 & QUIT 1996- WAS 2 1/2- 3 PPD. HAS 2-3 DRINKS A WEEK Past Drug Use History: None Reported - Past Family History Sister(s) Family Medical History: Diabetes Mellitus Mother Family Medical History: Dementia, Neurologic Disorder Additional Family Medical History / Comment(s): HX PARKINSON'S Father Family Medical History: Coronary Artery Disease (CAD), CVA/TIA Medications and Allergies Home Medications Medication Instructions Recorded Confirmed Type Tolterodine ER [Detrol LA] 4 mg PO DAILY 11/28/19 11/28/19 History Allergies Allergy/AdvReac Type Severity Reaction Status Date / Time oxytetracycline AdvReac "PAIN OF Verified 11/28/19 13:38 [From Terramycin] SKIN" VERY WEAK oxytetracycline HCl AdvReac "PAIN OF Verified 11/28/19 13:38 [From Terramycin] SKIN" VERY WEAK Surgical - Exam Vital Signs Temp Pulse Resp BP Pulse Ox 97.9 F 144 H 18 111/92 98 11/28/19 11:40 11/28/19 11:40 11/28/19 11:40 11/28/19 11:40 11/28/19 11:40 Physical exam: General: Well-developed, well-nourished HEENT: Normocephalic, sclerae nonicteric Abdomen: Nontender, nondistended Extremities: No edema Neuro: Alert and oriented Results - Labs 11/30/19 05:29 11/30/19 05:29 Abnormal Lab Results - Last 24 Hours (Table) 11/29/19 11/30/19 11/30/19 Range/Units 06:13 05:29 05:29 RBC 3.23 L (4.30-5.90) m/uL Hgb 11.0 L (13.0-17.5) gm/dL Hct 30.8 L (39.0-53.0) % RDW 15.6 H (11.5-15.5) % Plt Count 107 L (150-450) k/uL Sodium 136 L (137-145) mmol/L Ferritin 472.5 H (22.0-322.0) ng/mL Total Bilirubin 3.6 H (0.2-1.3) mg/dL Diabetes panel 11/30/19 Range/Units 05:29 Sodium 136 L (137-145) mmol/L Potassium 4.1 (3.5-5.1) mmol/L Chloride 104 (98-107) mmol/L Carbon Dioxide 26 (22-30) mmol/L BUN 12 (9-20) mg/dL Creatinine 0.89 (0.66-1.25) mg/dL Glucose 86 (74-99) mg/dL Calcium 8.8 (8.4-10.2) mg/dL AST 25 (17-59) U/L ALT 13 (4-49) U/L Alkaline Phosphatase 67 (38-126) U/L Total Protein 6.6 (6.3-8.2) g/dL Albumin 3.9 (3.5-5.0) g/dL Calcium panel 11/30/19 Range/Units 05:29 Calcium 8.8 (8.4-10.2) mg/dL Albumin 3.9 (3.5-5.0) g/dL Pituitary panel 11/30/19 Range/Units 05:29 Sodium 136 L (137-145) mmol/L Potassium 4.1 (3.5-5.1) mmol/L Chloride 104 (98-107) mmol/L Carbon Dioxide 26 (22-30) mmol/L BUN 12 (9-20) mg/dL Creatinine 0.89 (0.66-1.25) mg/dL Glucose 86 (74-99) mg/dL Calcium 8.8 (8.4-10.2) mg/dL Adrenal panel 11/30/19 Range/Units 05:29 Sodium 136 L (137-145) mmol/L Potassium 4.1 (3.5-5.1) mmol/L Chloride 104 (98-107) mmol/L Carbon Dioxide 26 (22-30) mmol/L BUN 12 (9-20) mg/dL Creatinine 0.89 (0.66-1.25) mg/dL Glucose 86 (74-99) mg/dL Calcium 8.8 (8.4-10.2) mg/dL Total Bilirubin 3.6 H (0.2-1.3) mg/dL AST 25 (17-59) U/L ALT 13 (4-49) U/L Alkaline Phosphatase 67 (38-126) U/L Total Protein 6.6 (6.3-8.2) g/dL Albumin 3.9 (3.5-5.0) g/dL Assessment and Plan (1) Cholelithiasis Narrative/Plan: 64-year-old male with elevated bilirubin and underlying gallstones. Do not believe the patient has any choledocholithiasis therefore elevated bilirubin likely unrelated to the findings of cholelithiasis. No surgical intervention planned. May discharge from my standpoint. Outpatient follow-up with primary care and possible GI. Current Visit: Yes Status: Acute Code(s): K80.20 - CALCULUS OF GALLBLADDER W/O CHOLECYSTITIS W/O OBSTRUCTION SNOMED Code(s): 085115719
--- NOTE | 2019-11-30 10:44 | P.DS ---
Providers Date of admission: 11/28/19 13:23 Expected date of discharge: 11/30/19 Attending physician: César Juárez MD Consults: 11/28/19 13:24 Consult Physician Routine Consulting Provider: Jeffery Richardson Consult Reason/Comments: New-onset atrial flutter with RVR Do you want consulting provider notified?: Yes 11/29/19 17:00 Consult Physician Routine Consulting Provider: Frankie Mae Consult Reason/Comments: cholelithiasis Do you want consulting provider notified?: Yes, Notify in am Primary care physician: Mirna Sarah [facility] Course: Discharge Diagnosis: Influenza A Atrial tachycardia Atypical chest pain Anemia, chronic Thrombocytopena Leukocpenia, resolved Elevated bilirubin, Chronic Cholelithisis Hospital Course: Patient is a 64-year-old male with GERD, irritable bowel syndrome diarrhea prone, prior tobacco abuse, and hiatal hernia who presented to the emergency department with cough, sore throat, and whole body aches. On presentation to the emergency department he was found have an elevated heart rate with palpitations. He took 3 deep breaths and his heart rate normalized. Initially in the ER was concerns for atrial flutter. Initial laboratory analysis showed a hemoglobin of 13.5, hematocrit 37.1, platelets 122, PTT 40.9, sodium 136, and bilirubin of 4.6. Initial troponin was negative. He was positive for influenza A. Initial chest x-ray showed no acute process. He was started on Tamiflu and admitted for further monitoring. Cardiology was consulted. Echocardiogram was obtained which showed an ejection fraction of 50- 55%. EKG was reviewed and showed atrial tachycardia but no signs of atrial flutter. Due to his elevated bilirubin he underwent a liver ultrasound which showed evidence of cholelithiasis but no cholecystitis. His troponin remained negative. On the morning of 11/29 he had developed some pancytopenia. Clinically he was feeling much improved. His chest discomfort had resolved when his heart rate normalized. He is moving to [facility] and has not had any gallbladder symptoms, he will follow-up down there. He will follow with Dr. Harmon next week. He was started on metoprolol for his atrial tachycardia. Patient seen and examined at bedside. No chest pain, breathing is good, body aches better, no palpitations, no n/v/abdominal pain. Vital signs reviewed and stable. General: non toxic, no distress, appears at stated age Derm: warm, dry Head: atraumatic, normocephalic, symmetric Eyes: EOMI, no lid lag, anicteric sclera Mouth: no lip lesion, mucus membranes moist Cardiovascular: S1S2 reg, no murmur, positive posterior tibial pulse bilateral, Lungs: CTA bilateral, no rhonchi, no rales , no accessory muscle use Abdominal: soft, nontender to palpation, no guarding, no appreciable organomegaly Ext: no gross muscle atrophy, no edema, no contractures Neuro: CN II-XI grossly intact, no focal neuro deficits Psych: Alert, oriented, appropriate affect A total of 35 minutes of time were spent preparing this complex discharge summary . Patient Condition at Discharge: Stable Plan - Discharge Summary Discharge Rx Participant: Yes New Discharge Prescriptions: New Metoprolol Tartrate [Lopressor] 12.5 mg PO BID #60 tab Oseltamivir [Tamiflu] 75 mg PO Q12HR #5 cap Continue Tolterodine ER [Detrol LA] 4 mg PO DAILY Discharge Medication List Tolterodine ER [Detrol LA] 4 mg PO DAILY 11/28/19 [History] Metoprolol Tartrate [Lopressor] 12.5 mg PO BID #60 tab 11/30/19 [Rx] Oseltamivir [Tamiflu] 75 mg PO Q12HR #5 cap 11/30/19 [Rx] Follow up Appointment(s)/Referral(s): Jeffery Richardson MD [STAFF PHYSICIAN] - 2 Weeks Mirna Sarah MD [Primary Care Provider] - 1-2 days Frankie Mae MD [Medical Doctor] - As Needed Patient Instructions/Handouts: Gallstones (DC), Cholecystitis (GEN) Activity/Diet/Wound Care/Special Instructions: Activity: as tolerated Diet: heart healthy Discharge Disposition: HOME SELF-CARE
--- NOTE | 2019-11-30 12:17 | P.PN ---
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 The patient was in his usual state of health until Sunday night when he woke up from sleep complaining of extensive cough. Subsequently he started experiencing chest tightness associated with palpitations and heart racing. No shortness of breath, dizziness, or syncope. The patient was experiencing cough productive of sputum as well. He denies any fever or chills. He was found to be positive for influenza and currently he is on isolation. We involved in the care of the patient because of abnormal EKG. The initial impression and reason for the consult was atrial flutter/atrial fibrillation but further evaluation of the EKG is consistent with atrial t achycardia. Currently the patient back in normal sinus mechanism. 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 Hemodynamically he is a stable. The chest x-ray did not show any acute abnormalities. The plan is to discharge the patient later on today. I am going to start the patient on metoprolol 12.5 mg by mouth twice a day. He definitely needs to have a stress test as an outpatient to rule out any severe coronary artery disease behind the chest discomfort which is likely related to the atrial tachycardia. Otherwise the patient can be discharged home. The patient was seen today, November 302019. He is feeling overall better. He denies any chest pain or chest discomfort. The palpitations/heart racing arbiter as well. He was started yesterday on metoprolol 12.5 mg by mouth twice a day. Also he was seen by a general surgeon regarding abnormal liver function test but a conservative medical approach was advised. From the cardiac standpoint, the patient can be discharged home. Objective - Vital Signs Vital signs: Vital Signs Temp 97.8 F 11/30/19 08:00 Pulse 85 11/30/19 08:00 Resp 18 11/30/19 08:00 BP 105/74 11/30/19 08:00 Pulse Ox 100 11/30/19 08:00 Intake & Output 11/29/19 11/30/19 11/30/19 18:59 06:59 18:59 Intake Total 1140 240 Balance 1140 240 Weight 70 kg Intake: Oral 1140 240 Other: Voiding Method Toilet # Voids 1 2 - Constitutional General appearance: Present: no acute distress - Respiratory Respiratory: bilateral: CTA - Cardiovascular Rhythm: regular Heart sounds: normal: S1, S2 - Labs CBC & Chem 7: 11/30/19 05:29 11/30/19 05:29 Labs: Abnormal Lab Results - Last 24 Hours (Table) 11/29/19 11/30/19 11/30/19 Range/Units 06:13 05:29 05:29 RBC 3.23 L (4.30-5.90) m/uL Hgb 11.0 L (13.0-17.5) gm/dL Hct 30.8 L (39.0-53.0) % RDW 15.6 H (11.5-15.5) % Plt Count 107 L (150-450) k/uL Sodium 136 L (137-145) mmol/L Ferritin 472.5 H (22.0-322.0) ng/mL Total Bilirubin 3.6 H (0.2-1.3) mg/dL Assessment and Plan Assessment: Assessment #1 influenza symptoms #2 atrial tachycardia #3 anemia probably chronic Plan #1 continue the current medical regimen #2 the patient can be discharged home
[2019-12-01 10:15] LABS: % Iron Saturation 31.46 (15.00-50.00); Iron 95 ug/dL (65-175); Total Iron Binding Capacity 302 ug/dL (228-460)
[2019-12-01 13:00] LABS: Ferritin 443.3 ng/mL (22.0-322.0)
== END 2019-11-30 13:08 | disposition home or self-care (01) ==
LOC: EC 11:38 → 3SCARD 13:23
PROVIDERS: ADMIT Internal Medicine; ATTEND Internal Medicine
DX: J10.1 Influenza due to other identified influenza virus with other respiratory manifestations (principal); I47.1 Supraventricular tachycardia; R07.89 Other chest pain; K21.9 Gastro-esophageal reflux disease without esophagitis; K44.9 Diaphragmatic hernia without obstruction or gangrene; D64.9 Anemia, unspecified; F41.9 Anxiety disorder, unspecified; F32.9 Major depressive disorder, single episode, unspecified; Z87.891 Personal history of nicotine dependence; K58.0 Irritable bowel syndrome with diarrhea; D69.6 Thrombocytopenia, unspecified; K80.20 Calculus of gallbladder without cholecystitis without obstruction; Z88.1 Allergy status to other antibiotic agents; Z79.899 Other long term (current) drug therapy; Z90.89 Acquired absence of other organs; Z82.49 Family history of ischemic heart disease and other diseases of the circulatory system; Z83.3 Family history of diabetes mellitus; Z82.3 Family history of stroke; Z82.0 Family history of epilepsy and other diseases of the nervous system
CPT/HCPCS: 96366 ×3; 96372 ×3; 93005 ×2; 96361; 96365; 99291; 36415; 93306; 82747 ×2; 80053 ×3; 84443; 82607 ×2; 82728 ×2; 83540 ×2; 83550 ×2; 83735 ×2; 84484 ×2; 85025 ×2; 85027; 85610 ×2; 85730; 87502; 71045; 71046; 76705; G0378 ×3; J1644 ×3

== ENCOUNTER → 2023-05-23 | Outpatient (CLI) | payer MEDICARE, BC ==
--- NOTE | 2023-05-29 10:41 | MR ---
EXAMINATION TYPE: MR shoulder RT wo con DATE OF EXAM: 05/23/2023 COMPARISON: Outside radiograph 05/15/2023 HISTORY: 68-year-old male M25.511, Rt shoulder pain TECHNIQUE: Multiplanar, multisequence imaging of the right shoulder is performed without contrast. FINDINGS: The long head biceps tendon appears intact. Mild tenosynovial fluid along the bicipital groove. Heterogeneous signal of the subscapularis tendon which remains intact. There is moderate overall degenerative change at the acromioclavicular joint. Extensive subchondral c ystic change and associated ganglion cyst formation extending both superiorly measuring up to 1.9 cm along the distal aspect of the clavicle and inferiorly extending towards the rotator cuff interval me asuring up to 1.2 x 0.8 cm. Bulky superior spurring is noted. Lesser degree of inferior spurring thou gh there is minimal mass effect on to the underlying cuff. Mild to moderate effusion within the subacromial/subdeltoid bursa. Marked diffuse heterogeneity and extensive intrasubstance change along with bursal sided fraying thro ughout both supraspinatus and infraspinatus tendons. No high-grade partial or full-thickness tear is identified. There is isolated moderate fatty atrophy of the teres minor muscle. No mass lesion within the quadril ateral space. No significant atrophy of the remainder of the rotator cuff musculature. Mild degenerative cartilage thinning throughout the glenohumeral joint. Mild inferior humeral head sp urring. Degenerative blunting of the superior and posterior labrum with suspected small tear along th e posterior superior quadrant. No para labral cyst. Small joint effusion likely physiologic. Loose daniel dies in the subcoracoid recess measuring up to 6 mm. No Hill-Sachs deformity or os acromiale. Prominent red marrow hyperplasia is present and can be seen in the setting of anemia, smoking, chroni c disease. IMPRESSION: 1. Diffuse rotator cuff tendinosis. Particularly involving the supraspinatus and infraspinatus tendon s which demonstrate areas of intrasubstance change and bursal sided fraying. No high-grade partial or full-thickness rotator cuff tear is seen. 2. Moderate AC joint OA with prominent subchondral cystic change and periarticular ganglion cyst form ation measuring up to 1.9 cm along the superior aspect of the distal clavicle and inferiorly extendin g towards the rotator cuff interval measuring up to 1.2 cm. 3. While the AC joint OA demonstrates bulkier superior spurring, some inferior spurring may contribut e to subacromial impingement. Mild to moderate bursal effusion. 4. Mild glenohumeral joint OA. A couple loose bodies measuring up to 6 mm located in the subcoracoid recess. Degenerative glenoid labrum with a posterior superior labral tear. 5. Isolated moderate atrophy of the teres minor muscle may be idiopathic. It can also be seen in the setting of quadrilateral space syndrome.
== END | disposition home or self-care (01) ==
LOC: RADMRIMAIN 20:45
PROVIDERS: ATTEND Orthopaedic Surgery
DX: S43.431A Superior glenoid labrum lesion of right shoulder, initial encounter (principal); M67.813 Other specified disorders of tendon, right shoulder; M19.011 Primary osteoarthritis, right shoulder; M67.411 Ganglion, right shoulder; M62.511 Muscle wasting and atrophy, not elsewhere classified, right shoulder; M25.411 Effusion, right shoulder

== ENCOUNTER → 2023-06-18 | Outpatient (CLI) | payer MEDICARE, BC ==
[2023-06-18 11:00] LABS: Basophils # (A) 0.02 X 10*3/uL (0.00-0.10); Basophils % (A) 0.5 %; Eosinophils # (A) 0.11 X 10*3/uL (0.04-0.35); Eosinophils % (A) 2.8 %; HCT 31.4 % (39.6-50.0); HGB 10.6 d/dL (13.0-17.0); Lymphocytes # (A) 0.61 X 10*3/uL (0.90-5.00); Lymphocytes % (A) 15.4 %; MCH 34.5 pg (27.0-32.0); MCHC 33.8 d/dL (32.0-37.0); MCV 102.3 FL (80.0-97.0); Mean Platelet Volume 10.9 FL (9.5-12.2); Monocytes # (A) 0.19 X 10*3/uL (0.20-1.00); Monocytes % (A) 4.8 %; NRBC Per 100 WBC 0 X 10*3/uL (0.00-0.01); Neutrophils % (A) 75.5 %; Platelet Count 103 X 10*3/uL (140-440); RBC 3.07 X 10*6/uL (4.40-5.60); RDW 15.8 % (11.5-14.5); WBC 3.97 X 10*3/uL (4.50-10.00)
[2023-06-18 11:10] LABS: BUN/Creat Ratio 11.33 Ratio (12.00-20.00); Blood Urea Nitrogen 10.2 mg/dL (9.0-27.0); Chloride 105 mmol/L (96-109); Glucose 104 mg/dL (70-110); Potassium 4.5 mmol/L (3.5-5.5); Sodium 142 mmol/L (135-145)
[2023-06-18 11:11] LABS: Calcium 9.1 mg/dL (8.7-10.3); Carbon Dioxide 29.2 mmol/L (21.6-31.8)
== END | disposition home or self-care (01) ==
LOC: LABPAT 08:02
PROVIDERS: ATTEND Orthopaedic Surgery
DX: Z01.812 Encounter for preprocedural laboratory examination (principal); M75.41 Impingement syndrome of right shoulder; R00.1 Bradycardia, unspecified; R94.31 Abnormal electrocardiogram [ECG] [EKG]
CPT/HCPCS: 80048; 85025; 93005

== ENCOUNTER → 2023-08-20 | Outpatient (CLI) | payer MEDICARE, BC ==
--- NOTE | 2023-08-20 12:23 | US ---
EXAMINATION TYPE: US abdomen complete DATE OF EXAM: 08/20/2023 COMPARISON: NONE CLINICAL INDICATION: Male, 68 years old with history of K76.9 LIVER DISEASE, UNSPECIFIED; Pancytopeni a TECHNIQUE: Multiple sonographic images of the abdomen are obtained. FINDINGS: EXAM MEASUREMENTS: Liver Length: 18.0 cm Gallbladder Wall: 0.5 cm CBD: 0.6 cm Spleen: 16.1 cm Right Kidney: 10.7 x 4.4 x 5.1 cm Left Kidney: 12.8 x 5.7 x 5.7 cm Pancreas: Tail obscured by overlying bowel gas Liver: appears wnl Gallbladder: stones, thickened GB wall Evidence for sonographic Jiménez's sign: no CBD: upper limits of normal Spleen: enlarged Right Kidney: no evidence of hydronephrosis Left Kidney: dilated renal pelvis Upper IVC: wnl Abd Aorta: calcifications noted The liver is homogenous. The intrahepatic portion of the IVC and proximal abdominal aorta are within normal limits. Common bile duct is unremarkable. The visualized portions of the pancreas are homog enous. Kidneys are symmetric and free of hydronephrosis. No renal lesions are seen. IMPRESSION: 1. Gallbladder wall thickening with cholelithiasis. 2. Splenomegaly.
== END | disposition home or self-care (01) ==
LOC: RADUSWWP 10:10
PROVIDERS: ATTEND Internal Medicine Hematology & Oncology
DX: K80.20 Calculus of gallbladder without cholecystitis without obstruction (principal); K76.9 Liver disease, unspecified; K82.8 Other specified diseases of gallbladder; D64.89 Other specified anemias; R16.1 Splenomegaly, not elsewhere classified
CPT/HCPCS: 76700

== ENCOUNTER 2024-05-20 08:30 | Day surgery (SDC) | payer MEDICARE ==
[~2024-05-20 08:30] MED LIST: LACTATED RINGERS 1,000 ML BAG ONE
[2024-05-20] MEDS ORDERED: PROPOFOL 10 MG/ML 20 ML VIAL IV ONE (08:41)
--- NOTE | 2024-05-30 15:53 | PCN ---
PROCEDURE NOTE REQUESTING PHYSICIAN: Dr. Vizcarra. BRIEF HISTORY: The patient is a 69-year-old pleasant white male scheduled for an elective colonoscopy as part of screening for colorectal neoplasia. His last colonoscopy was 10 years ago. PROCEDURE PERFORMED: Colonoscopy. PREOPERATIVE DIAGNOSIS: Screening for colon cancer. ANESTHESIA: IV sedation per Anesthesia. DESCRIPTION OF PROCEDURE: After informed consent was obtained from the patient, he was brought in to the endoscopy unit. IV conscious sedation was administered by Anesthesia and continuous monitoring. Initial digital rectal examination was normal. The Olympus CF-190 video colonoscope was entered into the rectum, gradually advanced to the cecum. Careful examination was performed as the scope was gradually being withdrawn. The ileocecal valve and appendiceal orifice were visualized and appeared normal. The prep was excellent. Cecum, ascending colon, transverse colon, descending colon, sigmoid colon, and rectum appeared normal. In the rectum, retroflexion was performed. No lesions were noted. The patient tolerated the procedure well. IMPRESSION: Normal-appearing colon, rectum, and cecum with no evidence of colitis or colorectal neoplasia. RECOMMENDATIONS: Findings of this examination were discussed with the patient as well as his family. He was advised to have a repeat screening colonoscopy in 10 years. MMODL / IJN: [id number] /
== END 2024-05-20 09:32 ==
LOC: ORWHC2ENDO 08:30
PROVIDERS: ATTEND Internal Medicine Gastroenterology
DX: Z12.11 Encounter for screening for malignant neoplasm of colon
CPT/HCPCS: 45378

== ENCOUNTER → 2024-11-29 | Outpatient (CLI) | payer MEDICARE ==
--- NOTE | 2024-11-29 14:22 | XR ---
EXAMINATION TYPE: XR ribs RT DATE OF EXAM: 11/29/2024 12:37 PM COMPARISON: None. CLINICAL INDICATION: Male, 69 years old with history of X23.41XA, pain TECHNIQUE: 2 view(s) obtained. FINDINGS: No pneumothorax is evident. No displaced rib fractures identified. IMPRESSION: 1. No acute right rib fractures radiographically apparent. [facility], , 11/29/2024 2:20 PM
== END | disposition home or self-care (01) ==
LOC: RADXRMAIN 07:48
PROVIDERS: ATTEND Family Medicine
DX: S23.41XA Sprain of ribs, initial encounter (principal); W19.XXXA Unspecified fall, initial encounter

== ENCOUNTER 2025-01-03 16:57 | Inpatient (IN) | payer MEDICARE ==
--- NOTE | 2025-01-03 17:05 | ED ---
General Adult HPI <Jasbir Steele - Last Filed: 01/03/25 20:39> <Eric Reynoso - Last Filed: 01/03/25 20:48> - General Stated complaint: Hypotension - History of Present Illness Initial comments: Patient is a 69-year-old male with history of atrial fibrillation not on anti coagulant presented to the ER with lightheadedness, dizziness over the past 2 days. Patient did have 2 episodes of falls over the past 2 days. First time happened this morning at 2 AM. Second time happened earlier this afternoon. Patient denies hitting his head, losing consciousness or passing out, having prodromal symptoms like chest pain, palpitations, shortness of breath prior to falls. Patient has been having a productive cough has been going on for the past few weeks with no improvement in symptoms. Patient also endorsed having about 3 episodes of loose stool and diarrhea yesterday. Denies any fever, chills, chest pain, shortness of breath, nausea, vomiting, belly pain, lower ext remity swelling or tenderness, dysuria. (Jasbir Steele) - Related Data Home Medications Medication Instructions Recorded Confirmed Folic Acid (Unknown Dose) 1 tab PO DAILY 06/29/23 07/04/23 Loratadine 10 mg PO DAILY 06/29/23 07/04/23 Vibegron [Gemtesa] 75 mg PO Q48H 06/29/23 07/04/23 Vitamin B-12 (Unknown Dose) 1 dose .ROUTE DIRECTED 06/29/23 07/04/23 tadalafiL [Cialis] 5 mg PO Q48H 06/29/23 07/04/23 Previous Rx's Medication Instructions Recorded HYDROcodone/APAP 7.5-325MG [[place] 1 each PO Q6HR PRN #21 tab 07/04/23 7.5] Allergies Allergy/AdvReac Type Severity Reaction Status Date / Time oxytetracycline AdvReac "PAIN OF Verified 01/03/25 17:08 [From Terramycin] SKIN" VERY WEAK oxytetracycline HCl AdvReac "PAIN OF Verified 01/03/25 17:08 [From Terramycin] SKIN" VERY WEAK Review of Systems ROS Other: All systems not noted in ROS Statement are negative. Constitutional: Denies: fever, chills Respiratory: Reports: cough. Denies: dyspnea Cardiovascular: Denies: chest pain, palpitations Gastrointestinal: Reports: diarrhea. Denies: abdominal pain, nausea, vomiting, constipation Genitourinary: Denies: urgency, dysuria Neurological: Reports: weakness <Jasbir Steele - Last Filed: 01/03/25 20:39> ROS Other: All systems not noted in ROS Statement are negative. <Eric Reynoso - Last Filed: 01/03/25 20:48> ROS Statement: Those systems with pertinent positive or pertinent negative responses have been documented in the HPI. 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 HAS 2-3 DRINKS A WEEK - Past Family History Sister(s) Family Medical History: Diabetes Mellitus Mother Family Medical History: Dementia, Neurologic Disorder Additional Family Medical History / Comment(s): HX PARKINSON'S. Father Family Medical History: Coronary Artery Disease (CAD), CVA/TIA <Jasbir Steele - Last Filed: 01/03/25 20:39> General Exam <Jasbir Steele - Last Filed: 01/03/25 20:39> - General Exam Comments Initial Comments: GENERAL: This is a 69-year-old in no apparent distress at the time of examination. Pleasant and cooperative. HEENT: Head is atraumatic, normocephalic. Pupils are equal, round, and reactive to light. Sclerae anicteric. Conjunctivae are clear. Dry oral mucosa. RESPIRATORY: Clear to auscultation. No wheezes, rales, or rhonchi. No use of accessory muscles. CARDIOVASCULAR: Regular rate and rhythm. S1 and S2 noted. No systolic or diastolic murmur auscultated. No JVD noted. No S3 or S4 noted. GASTROINTESTINAL: No distention noted. Abdomen soft and round. No pain or tenderness noted upon palpation. INTEGUMENTARY: No cyanosis. No jaundice. No rashes noted. No cellulitis noted. EXTREMITIES: 2+ peripheral pulses. No evidence of peripheral edema. No calf tenderness noted. NEUROLOGIC: Cranial nerves II-XII intact. PSYCHIATRIC: Awake, alert, and oriented X 3. Appropriate affect. Intact judgement and insight. (Jasbir Steele) Course Vital Signs 01/03/25 01/03/25 16:59 20:09 Temperature 98.4 F Pulse Rate 128 H 117 H Respiratory 18 20 Rate Blood Pressure 108/78 100/63 O2 Sat by Pulse 96 99 Oximetry Medical Decision Making - Lab Data Result diagrams: 01/03/25 17:52 01/03/25 17:52 <Jasbir Steele - Last Filed: 01/03/25 20:39> - Lab Data Result diagrams: 01/03/25 17:52 01/03/25 17:52 <Eric Reynoso - Last Filed: 01/03/25 20:48> - Medical Decision Making Was pt. sent in by a medical professional or institution (, PA, GAS WORKER, urgent care, hospital, or correction...) When possible be specific @ -No Did you speak to anyone other than the patient for history (EMS, parent, family, police, friend...)? What history was obtained from this source @ -No Did you review nursing and triage notes (agree or disagree)? Why? @ -I reviewed and agree with nursing and triage notes Were old charts reviewed (outside hosp., previous admission, EMS record, old EKG, old radiological studies, urgent care reports/EKG's, correction records)? Report findings @ -No old charts were reviewed Differential Diagnosis? @ -Differential Weakness: Hypoglycemia, shock, sepsis, hyponatremia, anemia, infection, [place], ETOH, adverse medicine reaction, overdose, stroke, this is not meant to be an all-inclusive list. EKG interpreted by me (3pts min.). @ -EKG showed atrial fibrillation with rapid ventricular response with ve ntricular rate of 149 bpm, QTc interval 391 ms, no ST elevation or depression. Repeat EKG showed atrial fibrillation with rapid ventricular response with ventricular rate of 129 bpm, QTc interval 361 ms, no ST elevation or depression X-rays interpreted by me (1pt min.). @ -None done CT interpreted by me (1pt min.). @ -None done U/S interpreted by me (1pt. min.). @ -None done What testing was considered but not performed or refused? (CT, X-rays, U/S, labs)? Why? @ -None What meds were considered but not given or refused? Why? @ -None Did you discuss the management of the patient with other professionals (professionals i.e. , PA, GAS WORKER, lab, RT, psych nurse, social security benefits interviewer, rouge presser, teacher, combat systems officer, caser)? Give summary @ -Discussed with attending physician Was smoking cessation discussed for >3mins.? @ -No Was critical care preformed (if so, how long)? @ -No Were there social determinants of health that impacted care today? How? (Homelessness, low income, unemployed, alcoholism, drug addiction, transportation, low edu. Level, literacy, decrease access to med. care, alf, rehab)? @ -No Was there de-escalation of care discussed even if they declined (Discuss DNR or withdrawal of care, Hospice)? DNR status @ -No What co-morbidities impacted this encounter? (DM, HTN, Smoking, COPD, CAD, Cancer, CVA, ARF, Chemo, Hep., AIDS, mental health diagnosis, sleep apnea, morbid obesity)? @ -Atrial fibrillation Was patient admitted / discharged? Hospital course, mention meds given and route, prescriptions, significant lab abnormalities, going to OR and other pertinent info. @ -69-year-old male history of atrial fibrillation presented to the ER with weakness and lightheadedness going on for the past 2 days. EKG showed atrial fibrillation with rapid ventricular response with ventricular rate of 149 bpm, QTc interval 391 ms, no ST elevation or depression. After 1 L bolus of normal saline was given, patient remained in atrial fibrillation with rapid ventricular response. Patient will be admitted to internal medicine service with consult to cardiology. A one time dose of 15mg IV cardizem given in the ED. Undiagnosed new problem with uncertain prognosis? @ -No Drug Therapy requiring intensive monitoring for toxicity (Heparin, Nitro, Insulin, Cardizem)? @ -No Were any procedures done? @ -No Diagnosis/symptom? @ -A-fib with RVR, COVID-19 Acute, or Chronic, or Acute on Chronic? @ -Acute Uncomplicated (without systemic symptoms) or Complicated (systemic symptoms)? @ -Uncomplicated Side effects of treatment? @ -No Exacerbation, Progression, or Severe Exacerbation? @ -No Poses a threat to life or bodily function? How? (Chest pain, [place], [place], pneumonia, PE, COPD, DKA, ARF, appy, cholecystitis, CVA, Diverticulitis, Homicidal, Suicidal, threat to staff... and all critical care pts) @ -No (Cedric,Jasbir) I personally saw the patient and performed the critical portion of the service. I discussed the patient care with the resident or medical student. I directed management, care planning and final disposition of the patient. This includes, but not limited to, review of all lab work, radiological studies, EKG's, consultations, vital signs, and nursing notes. EKG interpreted by me (3pts min.) @Both of the patient's EKGs were reviewed myself. They both demonstrate atrial fibrillation with RVR, normal QRS duration and no ST elevation. X-Rays interpreted by me (1 pt min.) @Chest x-ray was reviewed myself and shows no acute cardiopulmonary process. I agree with the radiologist's interpretation. CT interpreted by me ( 1pt min.) @None U/S interpreted by me (1 pt min.) @None (Eric Reynoso) - Lab Data Lab Results 01/03/25 01/03/25 01/03/25 Range/Units 17:52 17:52 17:52 WBC 3.6 L (3.8-10.6) k/uL RBC 2.66 L (4.30-5.90) m/uL Hgb 8.9 L (13.0-17.5) gm/dL Hct 25.3 L (39.0-53.0) % MCV 95.1 (80.0-100.0) fL MCH 33.5 (25.0-35.0) pg MCHC 35.2 (31.0-37.0) g/dL RDW 16.1 H (11.5-15.5) % Plt Count 102 L (150-450) k/uL MPV 9.1 Neutrophils % 74 % Lymphocytes % 19 % Monocytes % 4 % Eosinophils % 1 % Basophils % 0 % Neutrophils # 2.7 (1.3-7.7) k/uL Lymphocytes # 0.7 L (1.0-4.8) k/uL Monocytes # 0.2 (0-1.0) k/uL Eosinophils # 0.0 (0-0.7) k/uL Basophils # 0.0 (0-0.2) k/uL Poikilocytosis Slight Anisocytosis Slight PT 10.7 (10.0-12.5) sec INR 1.0 (<1.2) APTT 43.5 H (22.0-30.0) sec Sodium 137 (137-145) mmol/L Potassium 4.0 (3.5-5.1) mmol/L Chloride 104 (98-107) mmol/L Carbon Dioxide 26 (22-30) mmol/L Anion Gap 7 mmol/L BUN 23 H (9-20) mg/dL Creatinine 1.02 (0.66-1.25) mg/dL Est GFR (CKD-EPI)AfAm 86 (>60 ml/min/1.73 sqM) Est GFR (CKD-EPI)NonAf 74 (>60 ml/min/1.73 sqM) Glucose 96 (74-99) mg/dL Calcium 8.3 L (8.4-10.2) mg/dL Total Bilirubin 1.7 H (0.2-1.3) mg/dL AST 20 (17-59) U/L ALT 11 (4-49) U/L Alkaline Phosphatase 68 (38-126) U/L Troponin I (0.000-0.034) ng/mL NT-Pro-B Natriuret Pep 1860 pg/mL Total Protein 6.2 L (6.3-8.2) g/dL Albumin 3.6 (3.5-5.0) g/dL Urine Color Urine Appearance (Clear) Urine pH (5.0-8.0) Ur Specific Bessie (1.001-1.035) Urine Protein (Negative) Urine Glucose (UA) (Negative) Urine Ketones (Negative) Urine Blood (Negative) Urine Nitrite (Negative) Urine Bilirubin (Negative) Urine Urobilinogen (<2.0) mg/dL Ur Leukocyte Esterase (Negative) Urine RBC (0-5) /hpf Urine WBC (0-5) /hpf Hyaline Casts (0-2) /lpf Urine Mucus (None) /hpf Influenza Type A (PCR) (Not Detectd) Influenza Type B (PCR) (Not Detectd) RSV (PCR) (Not Detectd) SARS-CoV-2 (PCR) (Not Detectd) 01/03/25 01/03/25 01/03/25 Range/Units 17:52 17:52 18:49 WBC (3.8-10.6) k/uL RBC (4.30-5.90) m/uL Hgb (13.0-17.5) gm/dL Hct (39.0-53.0) % MCV (80.0-100.0) fL MCH (25.0-35.0) pg MCHC (31.0-37.0) g/dL RDW (11.5-15.5) % Plt Count (150-450) k/uL MPV Neutrophils % % Lymphocytes % % Monocytes % % Eosinophils % % Basophils % % Neutrophils # (1.3-7.7) k/uL Lymphocytes # (1.0-4.8) k/uL Monocytes # (0-1.0) k/uL Eosinophils # (0-0.7) k/uL Basophils # (0-0.2) k/uL Poikilocytosis Anisocytosis PT (10.0-12.5) sec INR (<1.2) APTT (22.0-30.0) sec Sodium (137-145) mmol/L Potassium (3.5-5.1) mmol/L Chloride (98-107) mmol/L Carbon Dioxide (22-30) mmol/L Anion Gap mmol/L BUN (9-20) mg/dL Creatinine (0.66-1.25) mg/dL Est GFR (CKD-EPI)AfAm (>60 ml/min/1.73 sqM) Est GFR (CKD-EPI)NonAf (>60 ml/min/1.73 sqM) Glucose (74-99) mg/dL Calcium (8.4-10.2) mg/dL Total Bilirubin (0.2-1.3) mg/dL AST (17-59) U/L ALT (4-49) U/L Alkaline Phosphatase (38-126) U/L Troponin I <0.012 (0.000-0.034) ng/mL NT-Pro-B Natriuret Pep pg/mL Total Protein (6.3-8.2) g/dL Albumin (3.5-5.0) g/dL Urine Color Yellow Urine Appearance Clear (Clear) Urine pH 6.0 (5.0-8.0) Ur Specific Bessie 1.022 (1.001-1.035) Urine Protein 1+ H (Negative) Urine Glucose (UA) Negative (Negative) Urine Ketones Trace H (Negative) Urine Blood Negative (Negative) Urine Nitrite Negative (Negative) Urine Bilirubin Negative (Negative) Urine Urobilinogen 2.0 (<2.0) mg/dL Ur Leukocyte Esterase Negative (Negative) Urine RBC 1 (0-5) /hpf Urine WBC 1 (0-5) /hpf Hyaline Casts 6 H (0-2) /lpf Urine Mucus Rare H (None) /hpf Influenza Type A (PCR) Not Detected (Not Detectd) Influenza Type B (PCR) Not Detected (Not Detectd) RSV (PCR) Not Detected (Not Detectd) SARS-CoV-2 (PCR) Detected A (Not Detectd) Disposition Time of Disposition: 20:35 <Jasbir Steele - Last Filed: 01/03/25 20:39> Is patient prescribed a controlled substance at d/c from ED?: No <Eric Reynoso - Last Filed: 01/03/25 20:48> Clinical Impression: Atrial fibrillation with rapid ventricular response, Acute COVID-19 Disposition: ADMITTED IP TO THIS HOSP Condition: Stable Referrals: Mirna Sarah MD [Primary Care Provider] - 1-2 days
[2025-01-03] MEDS: SODIUM CHLORIDE 0.9% 1,000 ML IV ONE (17:54)
[2025-01-03 18:00] LABS: Anisocytosis Slight; Basophils % (A) 0 %; Eosinophils % (A) 1 %; HCT 25.3 % (39.0-53.0); HGB 8.9 gm/dL (13.0-17.5); Lymphocytes # (A) 0.7 k/uL (1.0-4.8); Lymphocytes % (A) 19 %; MCH 33.5 pg (25.0-35.0); MCHC 35.2 g/dL (31.0-37.0); MCV 95.1 fL (80.0-100.0); Mean Platelet Volume 9.1; Monocytes # (A) 0.2 k/uL (0-1.0); Monocytes % (A) 4 %; Neutrophils # (A) 2.7 k/uL (1.3-7.7); Neutrophils % (A) 74 %; Platelet Count 102 k/uL (150-450); Poikilocytosis Slight; RBC 2.66 m/uL (4.30-5.90); RDW 16.1 % (11.5-15.5); WBC 3.6 k/uL (3.8-10.6)
[2025-01-03 18:13] LABS: Partial Thromboplastin Time 43.5 sec (22.0-30.0); Prothrombin Time 10.7 sec (10.0-12.5)
--- NOTE | 2025-01-03 18:20 | XR ---
EXAMINATION TYPE: XR chest 2V DATE OF EXAM: 01/03/2025 6:04 PM COMPARISON: Chest radiographs from 11/29/2024 TECHNIQUE: XR chest 2V Frontal and lateral views of the chest. CLINICAL INDICATION:Male, 69 years old with history of cough; FINDINGS: Lungs/Pleura: There is no evidence of pleural effusion, focal consolidation, or pneumothorax. Right apical pleural thickening. Pulmonary vascularity: Unremarkable. Heart/mediastinum: Cardiomediastinal silhouette is unremarkable. Musculoskeletal: Multiple level degenerative disc disease changes seen throughout the spine. IMPRESSION: No acute cardiopulmonary disease/process. [facility], , 01/03/2025 6:18 PM
[2025-01-03 18:34] LABS: Influenza A Not Detected (Not Detectd); Influenza B Not Detected (Not Detectd); RSV Not Detected (Not Detectd)
[2025-01-03 18:35] LABS: ALT 11 U/L (4-49); AST 20 U/L (17-59); African American GFR (CKD) 86 (>60 ml/min/1.73 sqM); Albumin 3.6 g/dL (3.5-5.0); Alkaline Phosphatase 68 U/L (38-126); Anion Gap 7 mmol/L; Blood Urea Nitrogen 23 mg/dL (9-20); Calcium 8.3 mg/dL (8.4-10.2); Carbon Dioxide 26 mmol/L (22-30); Chloride 104 mmol/L (98-107); Glucose 96 mg/dL (74-99); Non-African American GFR(CKD) 74 (>60 ml/min/1.73 sqM); Sodium 137 mmol/L (137-145); Total Bilirubin 1.7 mg/dL (0.2-1.3); Total Protein 6.2 g/dL (6.3-8.2)
[2025-01-03 18:43] LABS: NT-Pro-B-Type Natriuretic Pept 1860 pg/mL
[2025-01-03 19:01] LABS: Appearance,Urine Clear (Clear); Bilirubin,Urine Negative (Negative); Blood,Urine Negative (Negative); Color,Urine Yellow; Glucose,Urine (UA) Negative (Negative); Hyaline Casts,Urine 6 /lpf (0-2); Ketones,Urine Trace (Negative); Leukocyte Esterase,Urine Negative (Negative); Mucus,Urine Rare /hpf; Nitrite,Urine Negative (Negative); Protein,Urine 1+ (Negative); RBC,Urine 1 /hpf (0-5); Specific Gravity,Urine 1.022 (1.001-1.035); WBC,Urine 1 /hpf (0-5)
[2025-01-03] MEDS ORDERED: NALOXONE 0.4 MG/ML 1 ML VIAL IV PRN (20:31)
[2025-01-03] MEDS: DILTIAZEM 5 MG/ML 5 ML VIAL IVP STA (20:48)
[2025-01-03] MEDS: DILTIAZEM 125 MG in SODIUM CHLORIDE 0.9% 100 ML IV SCH (22:22)
[2025-01-03] MEDS: SODIUM CHLORIDE 0.9% 1,000 ML IV SCH (22:34)
[2025-01-03] MEDS ORDERED: ACETAMINOPHEN TAB 325 MG TAB PO PRN (22:56)
[2025-01-03] MEDS ORDERED: MELATONIN 5 MG TABLET PO PRN (22:56)
--- NOTE | 2025-01-03 22:58 | P.HPIM ---
History of Present Illness H&P Date: 01/03/25 Patient is a 69-year-old male with no significant medical history presented to the ED with lightheadedness and dizziness. Patient stated he been feeling dizzy for the past 2 days. Patient states last night at around 2 AM states that he fell down while going to the bathroom. He is reports that he lost balance and felt weak and fell down. Patient denies tripping over anything. He denies any head trauma. Patient denies any syncope, chest pain, heart palpitations, shortness shortness of breath prior to this fall. Patient states he has had a productive cough over the past month and had a minor cold as well. States symptoms have not improved. He also reports of having multiple episodes of non-bloody diarrhea yesterday and today. Patient currently denies any fever, chills, headache, vision changes, chest pain, shortness of breath, nausea, vomiting, vomiting, urinary symptoms. EKG independent with displaying atrial fibrillation with RVR, rate 129, QTc 361 ms CXR independently interpreted displaying no acute cardiopulmonary process T98.4 F, MA 128, RR 18, BP 108/78, O2 saturation 96% on room air Review of systems: Pertinent positives and negatives as discussed in HPI, a complete review of systems was performed and all other systems are negative. Physical examination: Vital signs reviewed General: non toxic, no distress, appears at stated age, normal weight Derm: no unusual rashes/lesions, warm Head: atraumatic, normocephalic, symmetric Eyes: EOMI, anicteric sclera, pupils equal round reactive to light ENT: Nose and ears atraumatic Mouth: no lip lesion, mucus membranes moist Cardiovascular: S1S2 reg, no murmur, positive dorsalis pedis pulse bilateral, no edema Lungs: CTA bilateral, bilateral coarse rhonchi, no rales, no accessory muscle use Abdominal: soft, nontender to palpation, no guarding Ext: muscle strength 5 out of 5 in all 4 extremities grossly, no gross muscle atrophy Neuro: CN II-XI grossly intact, no gross focal neuro deficits Psych: Alert, oriented to person, place, and time Assessment/Plan: Patient is a 69-year-old male with a PMH of atrial fibrillation not on anticoagulation presented to the ED with lightheadedness and dizziness. ED documentation reviewed. Discussed with the patient. The patient is admitted with an anticipated less than 2 midnight stay for evaluation of atrial fibrillation with RVR. #. Atrial fibrillation with RVR in setting of COVID-19 infection Patient currently asymptomatic [id number] 2 score of 1 , not currently on anticoagulation at home, full anticoagulation with lovenox sc 65 mg bid CXR displaying no acute cardiopulmonary process S/p [address] on Cardizem drip TSH ordered Echocardiogram ordered Cardiac telemetry Cardiology consulted #. Weakness/debility Fall precautions PT/OT consult #. Multiple episodes of diarrhea C. difficile negative Order Imodium 2mg PO prn Normal saline at 50 cc an hour #. Normocytic anemia #. Thrombocytopenia Hgb 8.9, MCV 95.1 Likely of chronic disease, possibly due to malabsorption B12, folate ordered No signs of acute bleeding F: NS at 50 cc an hour E: Replete electrolytes as needed N: Heart healthy diet A: Fall precautions, PT/OT consult DVT prophylaxis: Lovenox 65 mg sc bid for afib CODE STATUS: Full code Anticipated discharge place: Pending clinical course. Melida Dougherty MD PGY-1 IM Dictation was produced using [employer] dictation software. please excuse any grammatical, word or spelling errors. I have seen and evaluated the patient today. I Discussed the case with the resid ent and agree with the resident's findings I edited the assessment and plan as necessary as documented in the resident's note. Past Medical History Past Medical History: Eye Disorder, GERD/Reflux Additional Past Medical History / Comment(s): HIATAL HERNIA, SOMETIMES FOOD COMES BACK UP WHEN EATING, LOOSE STOOLS, History of Any Multi-Drug Resistant Organisms: None Reported Past Surgical History: Adenoidectomy, Hernia Repair, Orthopedic Surgery, Tonsillectomy Additional Past Surgical History / Comment(s): UMBILICAL HERNIA, KAREN.INGUINAL HERNIA , EGD /COLONOSCOPY 04/20/15, LT WRIST SURGERY Past Anesthesia/Blood Transfusion Reactions: No Reported Reaction Additional Past Alcohol Use History / Comment(s): STARTED SMOKING AT 1969 & QUIT 1996- WAS 2 1/2- 3 PPD. HAS 2-3 DRINKS A WEEK - Past Family History Sister(s) Family Medical History: Diabetes Mellitus Mother Family Medical History: Dementia, Neurologic Disorder Additional Family Medical History / Comment(s): HX PARKINSON'S. Father Family Medical History: Coronary Artery Disease (CAD), CVA/TIA Medications and Allergies Home Medications Medication Instructions Recorded Confirmed Type Folic Acid (Unknown Dose) 1 tab PO DAILY 06/29/23 07/04/23 History Loratadine 10 mg PO DAILY 06/29/23 07/04/23 History Vibegron [Gemtesa] 75 mg PO Q48H 06/29/23 07/04/23 History Vitamin B-12 (Unknown Dose) 1 dose .ROUTE DIRECTED 06/29/23 07/04/23 History tadalafiL [Cialis] 5 mg PO Q48H 06/29/23 07/04/23 History HYDROcodone/APAP 7.5-325MG [[place] 1 each PO Q6HR PRN #21 tab 07/04/23 Rx 7.5] Allergies Allergy/AdvReac Type Severity Reaction Status Date / Time oxytetracycline AdvReac "PAIN OF Verified 01/03/25 17:08 [From Terramycin] SKIN" VERY WEAK oxytetracycline HCl AdvReac "PAIN OF Verified 01/03/25 17:08 [From Terramycin] SKIN" VERY WEAK Physical Exam Vitals: Vital Signs Temp Pulse Resp BP Pulse Ox 01/03/25 20:09 117 H 20 100/63 99 01/03/25 16:59 98.4 F 128 H 18 108/78 96 Intake and Output 01/03/25 01/03/25 01/03/25 06:59 14:59 22:59 Other: Weight 65.771 kg Results CBC & Chem 7: 01/03/25 17:52 01/03/25 17:52 Labs: Abnormal Lab Results - Last 24 Hours (Table) 01/03/25 01/03/25 01/03/25 Range/Units 17:52 17:52 17:52 WBC 3.6 L (3.8-10.6) k/uL RBC 2.66 L (4.30-5.90) m/uL Hgb 8.9 L (13.0-17.5) gm/dL Hct 25.3 L (39.0-53.0) % RDW 16.1 H (11.5-15.5) % Plt Count 102 L (150-450) k/uL Lymphocytes # 0.7 L (1.0-4.8) k/uL APTT 43.5 H (22.0-30.0) sec BUN 23 H (9-20) mg/dL Calcium 8.3 L (8.4-10.2) mg/dL Total Bilirubin 1.7 H (0.2-1.3) mg/dL Total Protein 6.2 L (6.3-8.2) g/dL Urine Protein (Negative) Urine Ketones (Negative) Hyaline Casts (0-2) /lpf Urine Mucus (None) /hpf SARS-CoV-2 (PCR) (Not Detectd) 01/03/25 01/03/25 Range/Units 17:52 18:49 WBC (3.8-10.6) k/uL RBC (4.30-5.90) m/uL Hgb (13.0-17.5) gm/dL Hct (39.0-53.0) % RDW (11.5-15.5) % Plt Count (150-450) k/uL Lymphocytes # (1.0-4.8) k/uL APTT (22.0-30.0) sec BUN (9-20) mg/dL Calcium (8.4-10.2) mg/dL Total Bilirubin (0.2-1.3) mg/dL Total Protein (6.3-8.2) g/dL Urine Protein 1+ H (Negative) Urine Ketones Trace H (Negative) Hyaline Casts 6 H (0-2) /lpf Urine Mucus Rare H (None) /hpf SARS-CoV-2 (PCR) Detected A (Not Detectd)
[2025-01-04] MEDS: DILTIAZEM 125 MG in SODIUM CHLORIDE 0.9% 100 ML IV SCH (01:59)
[2025-01-04] MEDS: ENOXAPARIN 60 MG/0.6 ML SYRINGE SQ SCH (07:57)
[2025-01-04] MEDS: LOPERAMIDE 2 MG CAP PO PRN (08:02)
[2025-01-04 08:52] LABS: ALT 11 U/L (4-49); AST 17 U/L (17-59); African American GFR (CKD) >90 (>60 ml/min/1.73 sqM); Albumin 3.2 g/dL (3.5-5.0); Albumin/Globulin Ratio 1.3; Alkaline Phosphatase 66 U/L (38-126); Anion Gap 6 mmol/L; Blood Urea Nitrogen 19 mg/dL (9-20); Carbon Dioxide 25 mmol/L (22-30); Chloride 106 mmol/L (98-107); Globulin 2.5 g/dL; Glucose 95 mg/dL (74-99); Non-African American GFR(CKD) >90 (>60 ml/min/1.73 sqM); Potassium 3.7 mmol/L (3.5-5.1); Sodium 137 mmol/L (137-145); Total Bilirubin 1.4 mg/dL (0.2-1.3); Total Protein 5.7 g/dL (6.3-8.2)
[2025-01-04] MEDS ORDERED: ENOXAPARIN 40 MG/0.4 ML SYRINGE SQ SCH (09:00)
[2025-01-04 11:05] LABS: Basophils # (A) 0.01 X 10*3/uL (0.00-0.10); Basophils % (A) 0.2 %; Eosinophils # (A) 0.05 X 10*3/uL (0.04-0.35); Eosinophils % (A) 1.2 %; HCT 24.1 % (39.6-50.0); HGB 8.1 g/dL (13.0-17.0); Immature Platelet Fraction 5.6 % (1.1-6.1); Lymphocytes # (A) 0.86 X 10*3/uL (0.90-5.00); Lymphocytes % (A) 20.4 %; MCH 33.8 pg (27.0-32.0); MCHC 33.6 g/dL (32.0-37.0); MCV 100.4 FL (80.0-97.0); Mean Platelet Volume 10.6 FL (9.5-12.2); Monocytes # (A) 0.32 X 10*3/uL (0.20-1.00); Monocytes % (A) 7.6 %; NRBC Per 100 WBC 0 X 10*3/uL (0.00-0.01); Neutrophils # (A) 2.94 X 10*3/uL (1.80-7.70); Neutrophils % (A) 69.9 %; Platelet Count 83 X 10*3/uL (140-440); RDW 16.7 % (11.5-14.5); WBC 4.21 X 10*3/uL (4.50-10.00)
--- NOTE | 2025-01-04 12:03 | P.PN ---
Subjective Progress Note Date: 01/04/25 Hospital course: Patient is a very pleasant 69-year-old male with a past medical history of hiatal hernia with GERD. He presented to the emergency department on 01/03/2025 with a chief complaint of lightheadedness and dizziness x 2 days accompanied by diarrhea and productive cough/upper respiratory infection x 1 month.. On arrival to our facility, patient underwent evaluation in the emergency department. Vital signs upon arrival show blood pressure 108/78, heart rate 128, respiratory rate 18, temp 98.4 F, and SpO2 of 96% on room air. EKG completed showing atrial fibrillation with RVR to 149 bpm. Chest x-ray completed negative for acute cardiopulmonary process. Labs completed and reviewed. CBC showing pancytopenia with WBC count of 3.6, hemoglobin 8.9 and platelet count of 102. Coagulation profile showing elevated PTT of 43.5 otherwise normal findings. BMP showing mild prerenal azotemia with BUN of 23, creatinine 1.02 and GFR of 74. Blood glucose 96. Liver profile showing elevated total bili of 1.7 otherwise normal findings. Troponin was negative at less than 0.012 and proBNP was 1860. Urinalysis negative for infection. C. difficile was negative. Influenza A influenza B, and RSV were negative. COVID PCR was positive. Patient was given Cardizem bolus followed by infusion and started on therapeutic Lovenox 60 mg every 12 hours. He was admitted under our services with consult to cardiology. Repeat EKG showing patient converted from A-fib RVR into normal sinus rhythm at 62 with no noted T wave or ST abnormality showing no signs of acute ischemia. TSH was normal findings at 1.230. Physical exam: Patient seen and fully evaluated at bedside this morning he currently reports feeling better and states dizziness/lightheadedness has resolved and diarrhea has improved. Patient denies feeling any chest pain or palpitations. Heart rate was elevated in 160s this morning and Cardizem infusion was increased. Discussed plan of care with patient and all questions answered at this time. Vital signs reviewed and stable. General: Nontoxic, no distress and appears stated age. Derm: Skin warm and dry, normal coloration for ethnicity. Head: Atraumatic, normocephalic and symmetric. Eyes: EOM's intact, no lid lag, and anicteric sclera Mouth: no lip lesions, mucus membranes moist Cardiovascular: Irregularly irregular, no murmur, positive posterior tibial pulses bilaterally, and cap refill < 2 seconds. Lungs: Respirations even, regular, and unlabored on room air. Lungs CTA bilaterally, no rhonchi, no rales, no wheezing, and no accessory muscle usage. Abdominal: soft, nontender to palpation, no guarding, no appreciable organomegaly Ext: ROM intact. No gross muscle atrophy, no edema, no contractures Neuro: Speech clear, face symmetrical and CN II-XII grossly intact with no noted focal neuro deficits Psych: Alert and oriented to person, place, time, and situation. Appropriate and pleasant affect. Assessment and Plan of Care: Atrial fibrillation with RVR, new onset Dizziness and lightheadedness, secondary to above -Cardiology discussed plan of care with Dr. Richardson. -Secondary to persistent atrial fibrillation with RVR with heart rate in 160s patient's observation status upgraded to inpatient at this time. Patient requiring increased on rate of Cardizem infusion to 10 mg/h -Telemetry monitoring -Continue therapeutic Lovenox 60 mg IV every 12 hours, will transition to oral Eliquis once ventricular rate is controlled. -Echocardiogram COVID infection Pancytopenia, likely secondary to above Diarrhea, likely secondary to above -Symptomatic and supportive management. -Gentle IV fluid hydration with 0.9% normal saline at 100 cc/h. -C. difficile negative. -Imodium 2 mg p.o. 4 times daily as needed for diarrhea. -Continue close monitoring of CBC for improvement/resolution of pancytopenia. GERD -Protonix 40 mg daily for GI prophylaxis. Data and imaging reviewed: Morning labs reviewed. CBC showing cytopenia with WBC count of 4.21, hemoglobin of 8.1, and platelet count of 83. BMP unremarkable. Magnesium 2.0. Total bili elevated but improved to 1.4. Total protein 5.7 and albumin of 3.2. TSH was normal findings at 1.230. Vital signs reviewed. Blood pressure 107/64, heart rate 63, respiratory rate 18, temp 97.6 F, and SpO2 of 97% on room air. CODE STATUS: Full code DVT prophylaxis: Lovenox Discussed with: Patient, RN, and sporting goods sales associate Anticipated discharge date: Pending clinical course and control of rapid ventricular rate. Anticipated discharge place: Home Patient was seen independently by Nurse Pracitioner. This document was prepared using crobo dictation software. Please allow for errors in hospitalist nocturnist physician, while rare they do occur. Jamal Arana NP rendered care for this patient independently, reviewed the findings and plan as documented in the note above and agree with plan. I did not physically speak with or examine the patient on this date. Objective - Vital Signs Vital signs: Vital Signs Temp 97.6 F 01/04/25 07:23 Pulse 63 01/04/25 07:23 Resp 18 01/04/25 07:23 BP 107/64 01/04/25 07:23 Pulse Ox 97 01/04/25 07:23 FiO2 Intake & Output 01/03/25 01/04/25 01/04/25 18:59 06:59 18:59 Intake Total 29.583 Balance 29.583 Weight 65.771 kg 65.771 kg Intake: Intake, IV Titration 29.583 Amount Diltiazem 125 mg In 29.583 Sodium Chloride 0.9% 100 ml @ 5 MG/HR 5 mls/hr IV .Q24H [facility] Rx#:[id number] Other: # Voids 2 - Labs CBC & Chem 7: 01/04/25 06:26 01/04/25 06:26 Labs: Abnormal Lab Results - Last 24 Hours (Table) 01/03/25 01/03/25 01/03/25 Range/Units 17:52 17:52 17:52 WBC 3.6 L (3.8-10.6) k/uL RBC 2.66 L (4.30-5.90) m/uL Hgb 8.9 L (13.0-17.5) gm/dL Hct 25.3 L (39.0-53.0) % RDW 16.1 H (11.5-15.5) % Plt Count 102 L (150-450) k/uL Lymphocytes # 0.7 L (1.0-4.8) k/uL APTT 43.5 H (22.0-30.0) sec BUN 23 H (9-20) mg/dL Calcium 8.3 L (8.4-10.2) mg/dL Total Bilirubin 1.7 H (0.2-1.3) mg/dL Total Protein 6.2 L (6.3-8.2) g/dL Albumin (3.5-5.0) g/dL Urine Protein (Negative) Urine Ketones (Negative) Hyaline Casts (0-2) /lpf Urine Mucus (None) /hpf SARS-CoV-2 (PCR) (Not Detectd) 01/03/25 01/03/25 01/04/25 Range/Units 17:52 18:49 06:26 WBC (3.8-10.6) k/uL RBC (4.30-5.90) m/uL Hgb (13.0-17.5) gm/dL Hct (39.0-53.0) % RDW (11.5-15.5) % Plt Count (150-450) k/uL Lymphocytes # (1.0-4.8) k/uL APTT (22.0-30.0) sec BUN (9-20) mg/dL Calcium 8.0 L (8.4-10.2) mg/dL Total Bilirubin 1.4 H (0.2-1.3) mg/dL Total Protein 5.7 L (6.3-8.2) g/dL Albumin 3.2 L (3.5-5.0) g/dL Urine Protein 1+ H (Negative) Urine Ketones Trace H (Negative) Hyaline Casts 6 H (0-2) /lpf Urine Mucus Rare H (None) /hpf SARS-CoV-2 (PCR) Detected A (Not Detectd)
--- NOTE | 2025-01-04 12:46 | P.CRDCN ---
History of Present Illness Consult date: 01/04/25 History of present illness: The patient is a 69-year-old gentleman who does not follow-up with any medical data analyst on regular basis with a past medical history significant for chronic anemia continues to be seen by hematology on regular basis with a baseline hemoglobin around 10 but the patient does not recall the etiology for the anemia with no clear-cut evidence of GI bleeding as well as history of "atrial fibrillation" was not receiving any oral anticoagulation probably because of anemia was admitted to the hospital with generalized weakness and fatigue and he fell at home with no change in mental status. No other cardiovascular symptoms of any pain in the chest or shortness of breath or presyncope or syncope. He underwent further evaluation including troponin came to be unremarkable as well as EKG showing atrial fibrillation with RVR and subsequently was started on Cardizem drip and converted to normal sinus mechanism and has been in normal sinus mechanism since then. He was not on any AV duarte tess agents at home. The hemoglobin was around 8. The physical examination is remarkable for regular rhythm with a clear breathing sounds bilaterally and no edema was noted in the lower extremities. Also please note that the patient was tested positive for COVID-19 infection. Assessment COVID-19 infection Generalized weakness and fatigue Atrial fibrillation with RVR and currently the patient is in sinus mechanism History of anemia of unknown etiology Plan Start the patient on AV duarte tess agents with metoprolol Try to wean the patient from Cardizem IV Further risk stratification including an echocardiogram Hold on any anticoagulation at this point till we have more details about the etiology of the anemia Follow-up with the serial cardiac enzymes Follow-up with the patient Past Medical History Past Medical History: Eye Disorder, GERD/Reflux Additional Past Medical History / Comment(s): HIATAL HERNIA, SOMETIMES FOOD COMES BACK UP WHEN EATING, LOOSE STOOLS, History of Any Multi-Drug Resistant Organisms: None Reported Past Surgical History: Adenoidectomy, Hernia Repair, Orthopedic Surgery, Tonsillectomy Additional Past Surgical History / Comment(s): UMBILICAL HERNIA, KAREN.INGUINAL HERNIA , EGD /COLONOSCOPY 04/20/15, LT WRIST SURGERY Past Anesthesia/Blood Transfusion Reactions: No Reported Reaction Additional Past Alcohol Use History / Comment(s): STARTED SMOKING AT 1969 & QUIT 1996- WAS 2 1/2- 3 PPD. HAS 2-3 DRINKS A WEEK - Past Family History Sister(s) Family Medical History: Diabetes Mellitus Mother Family Medical History: Dementia, Neurologic Disorder Additional Family Medical History / Comment(s): HX PARKINSON'S. Father Family Medical History: Coronary Artery Disease (CAD), CVA/TIA Medications and Allergies Home Medications Medication Instructions Recorded Confirmed Type Mirabegron [Myrbetriq] 50 mg PO DAILY 01/04/25 01/04/25 History Allergies Allergy/AdvReac Type Severity Reaction Status Date / Time oxytetracycline AdvReac "PAIN OF Verified 01/04/25 12:18 [From Terramycin] SKIN" VERY WEAK oxytetracycline HCl AdvReac "PAIN OF Verified 01/04/25 12:18 [From Terramycin] SKIN" VERY WEAK Physical Exam Vitals: Vital Signs Temp Pulse Pulse Resp BP BP BP 01/04/25 07:53 160 H 01/04/25 07:23 97.6 F 63 18 107/64 01/04/25 03:03 112/64 01/04/25 02:05 123/69 01/04/25 00:55 97.6 F 117 H 17 108/67 01/03/25 23:21 97.6 F 63 17 100/63 01/03/25 22:28 97.8 F 62 17 93/58 01/03/25 21:53 64 01/03/25 20:09 117 H 20 100/63 01/03/25 16:59 98.4 F 128 H 18 108/78 Pulse Ox 01/04/25 07:53 01/04/25 07:23 97 01/04/25 03:03 01/04/25 02:05 01/04/25 00:55 96 01/03/25 23:21 95 01/03/25 22:28 96 01/03/25 21:53 99 01/03/25 20:09 99 01/03/25 16:59 96 Intake and Output 01/03/25 01/04/25 01/04/25 22:59 06:59 14:59 Intake Total 29.583 Balance 29.583 Intake: Intake, IV Titration 29.583 Amount Diltiazem 125 mg In 29.583 Sodium Chloride 0.9% 100 ml @ 5 MG/HR 5 mls/hr IV .Q24H [facility] Rx#:[id number] Other: # Voids 2 Weight 65.771 kg 65.771 kg Results 03/30/25 06:26 01/04/25 06:26 Cardiac Enzymes 01/03/25 01/03/25 01/04/25 Range/Units 17:52 17:52 06:26 AST 20 17 (17-59) U/L Troponin I <0.012 (0.000-0.034) ng/mL Coagulation 01/03/25 Range/Units 17:52 PT 10.7 (10.0-12.5) sec APTT 43.5 H (22.0-30.0) sec CBC 01/03/25 01/04/25 Range/Units 17:52 06:26 WBC 3.6 L 4.21 L (3.8-10.6) k/uL RBC 2.66 L 2.40 L (4.30-5.90) m/uL Hgb 8.9 L 8.1 L (13.0-17.5) gm/dL Hct 25.3 L 24.1 L (39.0-53.0) % Plt Count 102 L 83 L (150-450) k/uL Comprehensive Metabolic Panel 01/03/25 01/04/25 Range/Units 17:52 06:26 Sodium 137 137 (137-145) mmol/L Potassium 4.0 3.7 (3.5-5.1) mmol/L Chloride 104 106 (98-107) mmol/L Carbon Dioxide 26 25 (22-30) mmol/L BUN 23 H 19 (9-20) mg/dL Creatinine 1.02 0.76 (0.66-1.25) mg/dL Glucose 96 95 (74-99) mg/dL Calcium 8.3 L 8.0 L (8.4-10.2) mg/dL AST 20 17 (17-59) U/L ALT 11 11 (4-49) U/L Alkaline Phosphatase 68 66 (38-126) U/L Total Protein 6.2 L 5.7 L (6.3-8.2) g/dL Albumin 3.6 3.2 L (3.5-5.0) g/dL Current Medications Generic Name Dose Route Start Last Admin Trade Name Freq PRN Reason Stop Dose Admin Acetaminophen 650 mg 01/03/25 22:56 Acetaminophen Tab 325 Mg Tab PO Q6HR PRN Fever and/ or Pain Enoxaparin Sodium 60 mg 03/30/25 09:00 01/04/25 07:57 Enoxaparin 60 Mg/0.6 Ml Syringe SQ 60 mg Q12HR LUIS Administration Sodium Chloride 1,000 mls @ 100 mls/hr 01/03/25 22:45 01/03/25 22:34 Saline 0.9% IV 50 mls/hr .Q10H [facility] Administration Diltiazem HCl 125 mg/ Sodium 125 mls @ 10 mls/hr 01/04/25 01:45 01/04/25 07:54 Chloride IV 10 mg/hr .[id number] LUIS 10 mls/hr Infusion 10 MG/HR Loperamide HCl 2 mg 01/04/25 01:18 01/04/25 08:02 Loperamide 2 Mg Cap PO 2 mg QID PRN Administration Diarrhea Melatonin 5 mg 01/03/25 22:56 Melatonin 5 Mg Tablet PO HS PRN Insomnia Naloxone HCl 0.2 mg 01/03/25 20:31 Naloxone 0.4 Mg/Ml 1 Ml Vial IV Q2M PRN Opioid Reversal Pantoprazole Sodium 40 mg 01/04/25 12:00 Pantoprazole 40 Mg/10 Ml Vial IVP DAILY LUIS Intake and Output 01/03/25 01/04/25 01/04/25 22:59 06:59 14:59 Intake Total 29.583 Balance 29.583 Intake: Intake, IV Titration 29.583 Amount Diltiazem 125 mg In 29.583 Sodium Chloride 0.9% 100 ml @ 5 MG/HR 5 mls/hr IV .Q24H [facility] Rx#:[id number] Other: # Voids 2 Weight 65.771 kg 65.771 kg 01/04/25 06:26 01/04/25 06:26
[2025-01-04] MEDS ORDERED: METOPROLOL SUCCINATE (ER) 25 MG TAB.ER.24H PO STA (13:15)
[2025-01-04] MEDS: METOPROLOL TARTRATE 25 MG TAB PO STA (13:32)
[2025-01-04] MEDS: PANTOPRAZOLE 40 MG/10 ML VIAL IVP SCH (13:33)
[2025-01-04] MEDS: METOPROLOL TARTRATE 25 MG TAB PO SCH (20:24)
[2025-01-05 08:12] VITALS: RESP 16
[2025-01-05 09:17] LABS: ALT 8 U/L (10-49); AST 15 U/L (14-35); Albumin 3.4 g/dL (3.8-4.9); Alkaline Phosphatase 68 U/L (41-126); BUN/Creat Ratio 17.86 Ratio (12.00-20.00); Blood Urea Nitrogen 12.5 mg/dL (9.0-27.0); Calcium 7.8 mg/dL (8.7-10.3); Chloride 107 mmol/L (96-109); Glucose 99 mg/dL (70-110); Magnesium 1.9 mg/dL (1.5-2.4); Potassium 3.8 mmol/L (3.5-5.5); Sodium 140 mmol/L (135-145); Total Protein 5.4 g/dL (6.2-8.2)
[2025-01-05 10:17] LABS: HCT 23.2 % (39.6-50.0); HGB 7.8 g/dL (13.0-17.0); MCH 33.5 pg (27.0-32.0); MCHC 33.6 g/dL (32.0-37.0); MCV 99.6 FL (80.0-97.0); Mean Platelet Volume 10.7 FL (9.5-12.2); NRBC Per 100 WBC 0 X 10*3/uL (0.00-0.01); Platelet Count 82 X 10*3/uL (140-440); RBC 2.33 X 10*6/uL (4.40-5.60); RDW 16.9 % (11.5-14.5); WBC 4.34 X 10*3/uL (4.50-10.00)
--- NOTE | 2025-01-05 15:16 | P.DS ---
Providers Date of admission: 01/03/25 20:33 Expected date of discharge: 01/05/25 Attending physician: César Juárez MD Consults: 01/03/25 21:41 Consult Physician Urgent Consulting Provider: Jesse Andersen Consult Reason/Comments: a fib with rvr Do you want consulting provider notified?: Yes Primary care physician: [facility] Course: Discharge Diagnosis: Atrial fibrillation with RVR, new onset. Currently maintaining sinus mechanism. He was evaluated by cardiology and started on metoprolol 25 mg twice daily. Initially started on therapeutic Lovenox but this was discontinued per cardiology to hold off on anticoagulant pending further investigation on chronic anemia. Echocardiogram completed showing a preserved EF of 55 to 60% with mild pulmonary hypertension, left atrial enlargement and mild mitral regurgitation. Patient remains in normal sinus mechanism and is free from any complaints. He is medically optimized for discharge and to follow-up with PCP in 1 to 2 days and with food preparation kitchen aide in 1 week. Dizziness and lightheadedness, secondary to above. Resolved after conversion to normal sinus mechanism. COVID infection Pancytopenia, acute on chronic likely secondary to COVID-19 infection Diarrhea, likely secondary to COVID-19 infection and resolved. GERD Hospital Course: Patient is a very pleasant 69-year-old male with a past medical history of hiatal hernia with GERD. He presented to the emergency department on 01/03/2025 with a chief complaint of lightheadedness and dizziness x 2 days accompanied by diarrhea and productive cough/upper respiratory infection x 1 month.. On arrival to our facility, patient underwent evaluation in the emergency department. Vital signs upon arrival show blood pressure 108/78, heart rate 128, respiratory rate 18, temp 98.4 F, and SpO2 of 96% on room air. EKG completed showing atrial fibrillation with RVR to 149 bpm. Chest x-ray complet ed negative for acute cardiopulmonary process. Labs completed and reviewed. CBC showing pancytopenia with WBC count of 3.6, hemoglobin 8.9 and platelet count of 102. Coagulation profile showing elevated PTT of 43.5 otherwise normal findings. BMP showing mild prerenal azotemia with BUN of 23, creatinine 1.02 and GFR of 74. Blood glucose 96. Liver profile showing elevated total bili of 1.7 otherwise normal findings. Troponin was negative at less than 0.012 and proBNP was 1860. Urinalysis negative for infection. C. difficile was negative. Influenza A influenza B, and RSV were negative. COVID PCR was positive. Patient was given Cardizem bolus followed by infusion and started on therapeutic Lovenox 60 mg every 12 hours. He was admitted under our services with consult to cardiology. Repeat EKG showing patient converted from A-fib RVR into normal sinus rhythm at 62 with no noted T wave or ST abnormality showing no signs of acute ischemia. TSH was normal findings at 1.230. Patient has remained in normal sinus rhythm since conversion. He was evaluated by cardiology and started on metoprolol 25 mg twice daily. Lovenox discontinued per cardiology to hold off on anticoagulant pending further investigation on chronic anemia. Patient remains in normal sinus mechanism and he continues to deny having any complaints at this time. Echocardiogram completed showing a preserved EF of 55 to 60% with mild pulmonary hypertension, left atrial enlargement and mild mitral regurgitation. Patient medically optimized for discharge and to follow-up with PCP in 1 to 2 days and with food preparation kitchen aide in 1 week. Physical exam: Vital signs reviewed and stable. General: Nontoxic, no distress and appears stated age. Derm: Skin warm and dry, normal coloration for ethnicity. Head: Atraumatic, normocephalic and symmetric. Eyes: EOM's intact, no lid lag, and anicteric sclera Mouth: no lip lesions, mucus membranes moist Cardiovascular: Regular rate and rhythm, no murmur, positive posterior tibial pulses bilaterally, and cap refill < 2 seconds. Lungs: Respirations even, regular, and unlabored on room air. Lungs CTA bilaterally, no rhonchi, no rales, no wheezing, and no accessory muscle usage. Abdominal: soft, nontender to palpation, no guarding, no appreciable organomegaly Ext: ROM intact. No gross muscle atrophy, no edema, no contractures Neuro: Speech clear, face symmetrical and CN II-XII grossly intact with no noted focal neuro deficits Psych: Alert and oriented to person, place, time, and situation. Appropriate and pleasant affect. A total of 31 minutes of time were spent preparing this complex discharge summary. Pt was discharged on 01/05/2025 at 3:23 PM Patient was seen independently by Nurse Practitioner. This document was prepared using EVault dictation software. Please allow for errors in tufter operator while rare they do occur. Jamal Arana NP rendered care for this patient independently, reviewed the findings and plan as documented in the note above. I did not physically speak with or examine the patient on this date. Patient Condition at Discharge: Stable Plan - Discharge Summary Discharge Rx Participant: No New Discharge Prescriptions: New Metoprolol Tartrate [Lopressor] 25 mg PO BID 30 Days #60 tab Continue Mirabegron [Myrbetriq] 50 mg PO DAILY Discharge Medication List Mirabegron [Myrbetriq] 50 mg PO DAILY 01/04/25 [History] Metoprolol Tartrate [Lopressor] 25 mg PO BID 30 Days #60 tab 01/05/25 [Rx] Follow up Appointment(s)/Referral(s): Jeffery Richardson MD [STAFF PHYSICIAN] - 1 Week Mirna Sarah MD [Primary Care Provider] - 1-2 days Patient Instructions/Handouts: A-fib (Atrial Fibrillation) (DC), COVID-19 (Coronavirus Disease 2019) (DC) Activity/Diet/Wound Care/Special Instructions: Activity: As tolerated. Take breaks as needed. Diet: Heart healthy and carb consistent diet. Avoid salts, or foods with hidden salts such as canned or boxed foods and frozen dinners. Extra salt makes your heart work harder and traps the fluid in your body for longer. Special Instructions: Take all of your medications as directed and remember to keep all of your doctor's appointments and follow-up as needed. Per recommendations of food preparation kitchen aide, we are going to hold off on any anticoagulation at this point untill we have more details about the etiology of your chronic anemia from your assistant education director. Jennifer from [facility] office will be contacting you in the next 24 to 48 hours to schedule your appointment. Thank you for allowing us to participate in your care, it was truly a pleasure having you for our patient!!!
[2025-01-05 15:32] VITALS: BP 111/73; PULSE 62; TEMP 98.7
--- NOTE | 2025-01-05 16:38 | CA ---
Transthoracic Echo Report Name: Bebeto Harris Age: 69 Gender: M : 1955 Exam Date: 01/05/2025 08:52 Exam Location: [facility] Ht (in): 70 Wt (lb): 145 Ordering Physician: Melida Dougherty MD Attending/Referring Phys: County Judge Beatriz Dixon RDCS Procedure CPT: Indications: afib Cardiac Hx: Technical Quality: Good Contrast 1: Total Dose (mL): Contrast 2: Total Dose (mL): MEASUREMENTS (Male / Female) Normal Values 2D ECHO LV Diastolic Diameter PLAX 4.3 cm 4.2 - 5.9 / 3.9 - 5.3 cm LV Systolic Diameter PLAX 3.2 cm IVS Diastolic Thickness 1.1 cm 0.6 - 1.0 / 0.6 - 0.9 cm LVPW Diastolic Thickness 1.1 cm 0.6 - 1.0 / 0.6 - 0.9 cm LV Relative Wall Thickness 0.5 RV Internal Dim ED PLAX 3.4 cm LA Systolic Diameter LX 4.1 cm 3.0 - 4.0 / 2.7 - 3.8 cm LV Diastolic Volume MOD 4C 133.3 cm??? LV Systolic Volume MOD 4C 67.7 cm??? LV Ejection Fraction MOD 4C 49.2 % LV Cardiac Index MOD 4C 2370.8 cm???/min???m??? LV Diastolic Length 4C 8.5 cm LV Systolic Length 4C 6.9 cm LV Diastolic Volume MOD 2C 151.8 cm??? LV Systolic Volume MOD 2C 59.7 cm??? LV Ejection Fraction MOD 2C 60.7 % LV Cardiac Index MOD 2C 3330.3 cm???/min???m??? LV Diastolic Length 2C 9.2 cm LV Systolic Length 2C 7.3 cm LA Volume 82.6 cm??? 18 - 58 / 22 - 52 cm??? LA Volume Index 46.0 cm???/m??? 16 - 28 cm???/m??? M-MODE Aortic Root Diameter MM 3.4 cm DOPPLER AV Peak Velocity 112.0 cm/s AV Peak Gradient 5.0 mmHg MV Area PHT 3.3 cm??? Mitral E Point Velocity 128.9 cm/s Mitral A Point Velocity 94.4 cm/s Mitral E to A Ratio 1.4 MV Deceleration Time 229.9 ms TR Peak Velocity 303.9 cm/s TR Peak Gradient 36.9 mmHg Right Ventricular Systolic Press 41.2 mmHg FINDINGS Left Ventricle Left ventricular ejection fraction is estimated at 55-60 %. Left ventricular cavity size normal. Mildly increased septal wall thickness. No obvious regional wall motion abnormalities. Right Ventricle Mild right ventricular dilatation. Mild pulmonary hypertension. Right Atrium Mild right atrial dilatation. No right atrial thrombus or mass seen. Left Atrium Severely increased left atrial volume. Mildly increased left atrial area. No left atrial thrombus or mass present. Mitral Valve Structurally normal mitral valve. Mild mitral regurgitation. No evidence for mitral valve prolapse. No mitral stenosis. Aortic Valve Trileaflet aortic valve. No aortic valve stenosis or regurgitation. Tricuspid Valve Structurally normal tricuspid valve. Mild tricuspid regurgitation. Pulmonic Valve Structurally normal pulmonic valve. Trace pulmonic regurgitation. Pericardium No pericardial effusion. Aorta Normal size aortic root and proximal ascending aorta. CONCLUSIONS Indication: Atrial fibrillation Preserved LV systolic function Left atrial enlargement Mild mitral regurgitation Previewed by: Dr. Davie Grant MD (Electronically Signed) Final Date: 05 January 2025 16:37
--- NOTE | 2025-01-05 16:43 | P.PN ---
Subjective Progress Note Date: 01/05/25 Hospital course: Patient is a very pleasant 69-year-old male with a past medical history of hiatal hernia with GERD. He presented to the emergency department on 01/03/2025 with a chief complaint of lightheadedness and dizziness x 2 days accompanied by diarrhea and productive cough/upper respiratory infection x 1 month.. On arrival to our facility, patient underwent evaluation in the emergency department. Vital signs upon arrival show blood pressure 108/78, heart rate 128, respiratory rate 18, temp 98.4 F, and SpO2 of 96% on room air. EKG completed showing atrial fibrillation with RVR to 149 bpm. Chest x-ray completed negative for acute cardiopulmonary process. Labs completed and reviewed. CBC showing pancytopenia with WBC count of 3.6, hemoglobin 8.9 and platelet count of 102. Coagulation profile showing elevated PTT of 43.5 otherwise normal findings. BMP showing mild prerenal azotemia with BUN of 23, creatinine 1.02 and GFR of 74. Blood glucose 96. Liver profile showing elevated total bili of 1.7 otherwise normal findings. Troponin was negative at less than 0.012 and proBNP was 1860. Urinalysis negative for infection. C. difficile was negative. Influenza A influenza B, and RSV were negative. COVID PCR was positive. Patient was given Cardizem bolus followed by infusion and started on therapeutic Lovenox 60 mg every 12 hours. He was admitted under our services with consult to cardiology. Repeat EKG showing patient converted from A-fib RVR into normal sinus rhythm at 62 with no noted T wave or ST abnormality showing no signs of acute ischemia. TSH was normal findings at 1.230. Patient has remained in normal sinus rhythm since conversion. He continues to deny having any complaints at this time. Patient requesting discharge. Updated patient we are awaiting echocardiogram results and will plan for discharge later today. Physical exam: Patient seen and fully evaluated at bedside this morning he currently denies any complaints, questions, needs, or concerns. Vital signs reviewed and stable. General: Nontoxic, no distress and appears stated age. Derm: Skin warm and dry, normal coloration for ethnicity. Head: Atraumatic, normocephalic and symmetric. Eyes: EOM's intact, no lid lag, and anicteric sclera Mouth: no lip lesions, mucus membranes moist Cardiovascular: Regular rate and rhythm, no murmur, positive posterior tibial pulses bilaterally, and cap refill < 2 seconds. Lungs: Respirations even, regular, and unlabored on room air. Lungs CTA bilaterally, no rhonchi, no rales, no wheezing, and no accessory muscle usage. Abdominal: soft, nontender to palpation, no guarding, no appreciable organomegaly Ext: ROM intact. No gross muscle atrophy, no edema, no contractures Neuro: Speech clear, face symmetrical and CN II-XII grossly intact with no noted focal neuro deficits Psych: Alert and oriented to person, place, time, and situation. Appropriate and pleasant affect. Assessment and Plan of Care: Atrial fibrillation with RVR, new onset. Currently maintaining sinus mechanism. Dizziness and lightheadedness, secondary to above. Resolved. -Cardiology discussed plan of care with Dr. Richardson. -Continue metoprolol 25 mg twice daily. -Telemetry monitoring -Lovenox discontinued per cardiology hold off on Eliquis pending further investigation on chronic anemia. -Echocardiogram completed and pending results. COVID infection Pancytopenia, likely secondary to above Diarrhea, likely secondary to above and resolved. -Symptomatic and supportive management. -Gentle IV fluid hydration with 0.9% normal saline at 100 cc/h. -C. difficile negative. -Imodium 2 mg p.o. 4 times daily as needed for diarrhea. -Continue close monitoring of CBC for improvement/resolution of pancytopenia. GERD -Protonix 40 mg daily for GI prophylaxis. Data and imaging reviewed: Morning labs reviewed. CBC showing pancytopenia with hemoglobin of 7.8, WBC count of 4.34, platelet count of 82. Lovenox discontinued. BMP unremarkable. Magnesium 1.9. Total protein 5.4 and albumin 3.4. Vital signs reviewed. Blood pressure 133/73, heart rate 61, respiratory rate 16, temp 98.2 F, and SpO2 of 97% on room air CODE STATUS: Full code DVT prophylaxis: SCDs. Discussed with: Patient and RN Anticipated discharge date: Pending echocardiogram results. Anticipated discharge place: Home Patient was seen independently by Nurse Pracitioner. This document was prepared using [employer] dictation software. Please allow for errors in data processing systems project planner, while rare they do occur. Jamal Arana NP rendered care for this patient independently, reviewed the findings and plan as documented in the note above and agree with plan. I did not physically speak with or examine the patient on this date. Objective - Vital Signs Vital signs: Vital Signs Temp 98.2 F 01/05/25 07:30 Pulse 61 01/05/25 07:30 Resp 16 01/05/25 07:30 BP 133/73 01/05/25 07:30 Pulse Ox 97 01/05/25 07:30 FiO2 Intake & Output 01/04/25 01/05/25 01/05/25 18:59 06:59 18:59 Intake Total 505.833 Output Total 300 Balance 205.833 Intake: Intake, IV Titration 105.833 Amount Diltiazem 125 mg In 105.833 Sodium Chloride 0.9% 100 ml @ 10 MG/HR 10 mls/hr IV .[id number] [facility] Rx#: [id number] Oral 400 Output: Urine 300 Other: Voiding Method Toilet # Voids 2 - Labs CBC & Chem 7: 01/05/25 05:13 01/05/25 05:13 Labs: Abnormal Lab Results - Last 24 Hours (Table) 01/04/25 01/05/25 Range/Units 06:26 05:13 WBC 4.21 L (4.50-10.00) X 10*3/uL RBC 2.40 L (4.40-5.60) X 10*6/uL Hgb 8.1 L (13.0-17.0) g/dL Hct 24.1 L (39.6-50.0) % MCV 100.4 H (80.0-97.0) FL MCH 33.8 H (27.0-32.0) pg RDW 16.7 H (11.5-14.5) % Plt Count 83 L (140-440) X 10*3/uL Lymphocytes # 0.86 L (0.90-5.00) X 10*3/uL Calcium 7.8 L (8.7-10.3) mg/dL ALT 8 L (10-49) U/L Total Protein 5.4 L (6.2-8.2) g/dL Albumin 3.4 L (3.8-4.9) g/dL
== END 2025-01-05 16:51 | disposition home or self-care (01) | DRG 308 ==
LOC: EC 16:57 → 6NMEDSUR 20:33 → OBSVTOIN 20:34 → 6NMEDSUR 22:56
PROVIDERS: ADMIT Internal Medicine; ATTEND Internal Medicine
DX: I48.19 Other persistent atrial fibrillation (principal); U07.1 COVID-19; D61.818 Other pancytopenia; I27.22 Pulmonary hypertension due to left heart disease; D64.9 Anemia, unspecified; I34.0 Nonrheumatic mitral (valve) insufficiency; K90.9 Intestinal malabsorption, unspecified; D69.59 Other secondary thrombocytopenia; Z79.899 Other long term (current) drug therapy; W01.0XXA Fall on same level from slipping, tripping and stumbling without subsequent striking against object, initial encounter; Y92.002 Bathroom of unspecified non-institutional (private) residence as the place of occurrence of the external cause; R53.81 Other malaise; Z87.891 Personal history of nicotine dependence; K21.9 Gastro-esophageal reflux disease without esophagitis; I51.7 Cardiomegaly; R79.1 Abnormal coagulation profile
CPT/HCPCS: 36415; 71046; 80053; 81001; 82607; 82747; 83735; 83880; 84443; 84484; 85025; 85027; 85610; 85730; 87324; 87636; 93005; 93306; 96361; 96374; 99285

== ENCOUNTER 2025-01-22 18:15 | Emergency (ER) | payer MEDICARE ==
--- NOTE | 2025-01-22 19:14 | ED ---
General Adult HPI - General Chief complaint: Dizziness Stated complaint: Dizziness Time Seen by Provider: 01/22/25 18:17 Source: patient, EMS Mode of arrival: EMS Limitations: no limitations - History of Present Illness Initial comments: Dictation was produced using [employer] dictation software. please excuse any grammatical, word or spelling errors. Chief Complaint: 69 yo Male presents after fall History of Present Illness: Patient is a 69-year-old male states that he was at the grocery store. He was pushing a cart when the cart rolled in front of him. He states that he was able to grab onto the cart and slowly let himself down. Patient states that he is currently undergoing significant workup with neurology and cardiology for lightheadedness. States that he felt a little lightheaded when he fell. Denies any palpitations. Apparently he is scheduled to have a Holter monitor tomorrow. The ROS documented in this emergency department record has been reviewed and confirmed by me. Those systems with pertinent positive or negative responses have been documented in the HPI. All other systems are other negative and/or noncontributory. - Related Data Home Medications Medication Instructions Recorded Confirmed Mirabegron [Myrbetriq] 50 mg PO DAILY 01/04/25 01/04/25 Previous Rx's Medication Instructions Recorded Metoprolol Tartrate [Lopressor] 25 mg PO BID 30 Days #60 tab 01/05/25 Allergies Allergy/AdvReac Type Severity Reaction Status Date / Time oxytetracycline AdvReac "PAIN OF Verified 01/04/25 12:18 [From Terramycin] SKIN" VERY WEAK oxytetracycline HCl AdvReac "PAIN OF Verified 01/04/25 12:18 [From Terramycin] SKIN" VERY WEAK Review of Systems ROS Statement: Those systems with pertinent positive or pertinent negative responses have been documented in the HPI. ROS Other: All systems not noted in ROS Statement are negative. Past Medical History Past Medical History: Atrial Fibrillation, Eye Disorder, GERD/Reflux Additional Past Medical History / Comment(s): HIATAL HERNIA, SOMETIMES FOOD COMES BACK UP WHEN EATING, LOOSE STOOLS History of Any Multi-Drug Resistant Organisms: None Reported Past Surgical History: Adenoidectomy, Hernia Repair, Orthopedic Surgery, Tonsillectomy Additional Past Surgical History / Comment(s): UMBILICAL HERNIA, KAREN.INGUINAL HERNIA , EGD /COLONOSCOPY 04/20/15, LT WRIST SURGERY Past Anesthesia/Blood Transfusion Reactions: No Reported Reaction Past Psychological History: Anxiety Smoking Status: Former smoker Past Alcohol Use History: Rare Past Drug Use History: Marijuana - Past Family History Sister(s) Family Medical History: Diabetes Mellitus Mother Family Medical History: Dementia, Neurologic Disorder Additional Family Medical History / Comment(s): HX PARKINSON'S. Father Family Medical History: Coronary Artery Disease (CAD), CVA/TIA General Exam - General Exam Comments Initial Comments: PHYSICAL EXAM: General Impression: Alert and oriented x3, not in acute distress HEENT: Normocephalic atraumatic, extra-ocular movements intact, pupils equal and reactive to light bilaterally, mucous membranes moist. Cardiovascular: Heart regular rate and rhythm Chest: Able to complete full sentences, no retractions, no tachypnea Abdomen: abdomen soft, non-tender, non-distended, no organomegaly Musculoskeletal: Pulses present and equal in all extremities, no peripheral edema Motor: no focal deficits noted Neurological: CN II-XII grossly intact, no focal motor or sensory deficits noted Skin: Intact with no visualized rashes Psych: Normal affect and mood Limitations: no limitations Course Vital Signs 01/22/25 18:18 Temperature 99 F Pulse Rate 68 Respiratory 18 Rate Blood Pressure 111/63 O2 Sat by Pulse 98 Oximetry - Reevaluation(s) Reevaluation #1: 01/22/25 19:53 Patient observed in the emergency department for an hour and 45 minutes. alarm security or surveillance monitor reviewed showing no life-threatening dysrhythmias. EKG Findings - EKG Comments: EKG Findings:: My EKG interpretation: Ventricular rate 67, sinus rhythm,. 149, QRS 89, QTc 399. No VT prolongation, no QTC prolongation, no ST or T-wave changes notedOverall, this EKG is unremarkable Medical Decision Making - Medical Decision Making Was pt. sent in by a medical professional or institution (, PA, PALEONTOLOGY TEACHER, urgent care, hospital, or retirement...) When possible be specific @ -No Did you speak to anyone other than the patient for history (EMS, parent, family, police, friend...)? What history was obtained from this source @ -No Did you review nursing and triage notes (agree or disagree)? Why? @ -I reviewed and agree with nursing and triage notes Were old charts reviewed (outside hosp., previous admission, EMS record, old EKG, old radiological studies, urgent care reports/EKG's, retirement records)? Report findings @ -No old charts were reviewed Differential Diagnosis (chest pain, altered mental status, abdominal pain women, abdominal pain men, vaginal bleeding, musculoskeletal, weakness, fever, dyspnea, syncope, headache, dizziness, GI bleed, back pain, seizure, CVA, palpatations, mental health)? @ -Differential Weakness: Hypoglycemia, shock, sepsis, hyponatremia, anemia, infection, MO, ETOH, adverse medicine reaction, overdose, stroke, this is not meant to be an all-inclusive list. EKG interpreted by me (3pts min.). @ -See above X-rays interpreted by me (1pt min.). @ -None done CT interpreted by me (1pt min.). @ -None done U/S interpreted by me (1pt. min.). @ -None done What testing was considered but not performed or refused? (CT, X-rays, U/S, labs)? Why? @ -None What meds were considered but not given or refused? Why? @ -None Was smoking cessation discussed for >3mins.? @ -No Were there social determinants of health that impacted care today? How? (Homelessness, low income, unemployed, alcoholism, drug addiction, transportation, low edu. Level, literacy, decrease access to med. care, [place] [facility], rehab)? @ -No Was there de-escalation of care discussed even if they declined (Discuss DNR or withdrawal of care, Hospice)? DNR status @ -No What co-morbidities impacted this encounter? (DM, HTN, Smoking, COPD, CAD, Cancer, CVA, ARF, Chemo, Hep., AIDS, mental health diagnosis, sleep apnea, morbid obesity)? @ -None Was patient admitted / discharged? Hospital course, mention meds given and route, prescriptions, significant lab abnormalities, going to OR and other pertinent info. @ -69-year-old male presents to the emergency department after he fell his legs gave out and he fell to the ground. Patient states did not hurt himself does not take any anticoagulation medications. Patient undergoing extensive workup outpatient for weakness and falls. Vital signs are stable. Laboratory evaluation is unremarkable. Troponin is negative. Discussed with patient disposition options he is agreeable with discharge and to maintain his appointments with cardiology and neurology and primary care doctor. Did you discuss the management of the patient with other professionals (professionals i.e. , PA, PALEONTOLOGY TEACHER, lab, RT, psych nurse, oncology social worker, head of biology, teacher, loan review officer, watch caser)? Give summary @ -No Was critical care preformed (if so, how long)? @ -No Undiagnosed new problem with uncertain prognosis? @ -No Drug Therapy requiring intensive monitoring for toxicity (Heparin, Nitro, Insul in, Cardizem)? @ -No Were any procedures done? @ -No Diagnosis/symptom? Acute, or Chronic, or Acute on Chronic? Uncomplicated (without systemic symptoms) or Complicated (systemic symptoms)? @ -Fall Side effects of treatment? @ -No Exacerbation, Progression, or Severe Exacerbation? @ -No Poses a threat to life or bodily function? How? (Chest pain, USA, MO, pneumonia, PE, COPD, DKA, ARF, appy, cholecystitis, CVA, Diverticulitis, Homicidal, Suicidal, threat to staff... and all critical care pts) @ -No - Lab Data Result diagrams: 01/22/25 19:14 Lab Results 01/22/25 01/22/25 Range/Units 19:14 19:14 Sodium 139 (137-145) mmol/L Potassium 3.5 (3.5-5.1) mmol/L Chloride 103 (98-107) mmol/L Carbon Dioxide 28 (22-30) mmol/L Anion Gap 8 mmol/L BUN 12 (9-20) mg/dL Creatinine 0.75 (0.66-1.25) mg/dL Est GFR (CKD-EPI)AfAm >90 (>60 ml/min/1.73 sqM) Est GFR (CKD-EPI)NonAf >90 (>60 ml/min/1.73 sqM) Glucose 90 (74-99) mg/dL Calcium 8.5 (8.4-10.2) mg/dL Total Bilirubin 1.1 (0.2-1.3) mg/dL AST 16 L (17-59) U/L ALT 11 (4-49) U/L Alkaline Phosphatase 90 (38-126) U/L Troponin I <0.012 (0.000-0.034) ng/mL Total Protein 6.1 L (6.3-8.2) g/dL Albumin 3.2 L (3.5-5.0) g/dL Disposition Clinical Impression: Fall Disposition: HOME SELF-CARE Condition: Fair Instructions (If sedation given, give patient instructions): Fall Prevention for Older Adults (ED) Is patient prescribed a controlled substance at d/c from ED?: No Referrals: Mirna Sarah MD [Primary Care Provider] - 1-2 days Time of Disposition: 20:05
--- NOTE | 2025-01-22 19:35 | XR ---
EXAMINATION TYPE: XR chest 1V portable DATE OF EXAM: 01/22/2025 7:23 PM COMPARISON: Prior chest radiograph dated 01/03/2025. CLINICAL INDICATION: Male, 69 years old with history of syncope?; [facility] TECHNIQUE: XR chest 1V portable Frontal view of the chest. FINDINGS: Lungs/Pleura: There is no evidence of pleural effusion, focal consolidation, or pneumothorax. Mild a symmetric elevation of the left hemidiaphragm. Pulmonary vascularity: Unremarkable. Heart/mediastinum: Cardiomediastinal silhouette is unremarkable. Musculoskeletal: No acute osseous pathology. Other findings: None IMPRESSION: No acute cardiopulmonary disease/process. [facility], , 01/22/2025 7:33 PM
[2025-01-22 19:59] LABS: ALT 11 U/L (4-49); AST 16 U/L (17-59); African American GFR (CKD) >90 (>60 ml/min/1.73 sqM); Albumin 3.2 g/dL (3.5-5.0); Alkaline Phosphatase 90 U/L (38-126); Anion Gap 8 mmol/L; Blood Urea Nitrogen 12 mg/dL (9-20); Calcium 8.5 mg/dL (8.4-10.2); Carbon Dioxide 28 mmol/L (22-30); Chloride 103 mmol/L (98-107); Glucose 90 mg/dL (74-99); Non-African American GFR(CKD) >90 (>60 ml/min/1.73 sqM); Potassium 3.5 mmol/L (3.5-5.1); Sodium 139 mmol/L (137-145); Total Bilirubin 1.1 mg/dL (0.2-1.3); Total Protein 6.1 g/dL (6.3-8.2)
[2025-01-22 20:06] VITALS: BP 105/65; PULSE 65; RESP 16; TEMP 98.6
== END 2025-01-22 20:15 | disposition home or self-care (01) ==
LOC: EC 18:15
DX: R42 Dizziness and giddiness (principal); Z88.8 Allergy status to other drugs, medicaments and biological substances; Z87.891 Personal history of nicotine dependence
CPT/HCPCS: 36415; 71045; 80053; 84484; 93005; 99285

== ENCOUNTER 2025-02-26 03:17 | Inpatient (IN) | payer MEDICARE ==
--- NOTE | 2025-02-26 03:46 | ED ---
General Adult HPI - General Chief complaint: Weakness Stated complaint: Weakness Time Seen by Provider: 02/26/25 03:18 Source: EMS Mode of arrival: EMS - History of Present Illness Initial comments: Dictation was produced using [employer] dictation software. please excuse any grammatical, word or spelling errors. Chief Complaint: 69-year-old male with recently diagnosed A-fib presents to the emergency department weakness and hypotension History of Present Illness: Patient is a 69-year-old male presents emergency department the weakness and hypotension states that he went to bed last night in his usual state of health. Got up approximately 1 hour prior to arrival to go and use the bathroom. States that he had some diarrhea. Patient got up and felt really lightheaded and had to lower himself down slowly. Patient states he feels slightly weak at the bedside does have some mild right lower quadrant abdominal pain. The ROS documented in this emergency department record has been reviewed and confirmed by me. Those systems with pertinent positive or negative responses have been documented in the HPI. All other systems are other negative and/or noncontributory. - Related Data Home Medications Medication Instructions Recorded Confirmed Mirabegron [Myrbetriq] 50 mg PO DAILY 01/04/25 02/09/25 Certrazine 10 mg PO DAILY 02/03/25 02/09/25 Dicyclomine [Bentyl] 10 mg PO TID 02/03/25 02/09/25 Multivitamin [Multivitamins Adult 1 each PO DAILY 02/03/25 02/09/25 Gummies] Previous Rx's Medication Instructions Recorded Metoprolol Tartrate [Lopressor] 25 mg PO BID 30 Days #60 tab 01/05/25 Allergies Allergy/AdvReac Type Severity Reaction Status Date / Time oxytetracycline AdvReac "PAIN OF Verified 02/09/25 08:33 [From Terramycin] SKIN" VERY WEAK oxytetracycline HCl AdvReac "PAIN OF Verified 02/09/25 08:33 [From Terramycin] SKIN" VERY WEAK Review of Systems ROS Statement: Those systems with pertinent positive or pertinent negative responses have been documented in the HPI. ROS Other: All systems not noted in ROS Statement are negative. Past Medical History Past Medical History: Atrial Fibrillation, Eye Disorder, GERD/Reflux Additional Past Medical History / Comment(s): HIATAL HERNIA, SOMETIMES FOOD COMES BACK UP WHEN EATING, LOOSE STOOLS History of Any Multi-Drug Resistant Organisms: None Reported Past Surgical History: Adenoidectomy, Hernia Repair, Orthopedic Surgery, Tonsillectomy Additional Past Surgical History / Comment(s): UMBILICAL HERNIA, KAREN.INGUINAL HERNIA , EGD /COLONOSCOPY 04/20/15, LT WRIST SURGERY Past Anesthesia/Blood Transfusion Reactions: No Reported Reaction Past Psychological History: Anxiety Smoking Status: Former smoker Past Alcohol Use History: None Reported - Past Family History Sister(s) Family Medical History: Diabetes Mellitus Mother Family Medical History: Dementia, Neurologic Disorder Additional Family Medical History / Comment(s): HX PARKINSON'S. Father Family Medical History: Coronary Artery Disease (CAD), CVA/TIA General Exam - General Exam Comments Initial Comments: PHYSICAL EXAM: General Impression: Alert and oriented x3, not in acute distress HEENT: Normocephalic atraumatic, extra-ocular movements intact, pupils equal and reactive to light bilaterally, mucous membranes moist. Cardiovascular: Heart regular rate and rhythm Chest: Able to complete full sentences, no retractions, no tachypnea Abdomen: abdomen soft, mild palpatory right lower quadrant tenderness, non- distended, no organomegaly Musculoskeletal: Pulses present and equal in all extremities, no peripheral edema Motor: no focal deficits noted Neurological: CN II-XII grossly intact, no focal motor or sensory deficits noted Skin: Intact with no visualized rashes Psych: Normal affect and mood Course Vital Signs 02/26/25 02/26/25 03:20 05:13 Pulse Rate 77 68 Respiratory 18 16 Rate Blood Pressure 73/40 90/59 O2 Sat by Pulse 92 L 98 Oximetry EKG Findings - EKG Comments: EKG Findings:: My EKG interpretation: Ventricular rate 73, sinus rhythm,. 122, QRS 95, QTc 419. No CO prolongation, no QTC prolongation, no ST or T-wave changes noted. Overall, this EKG is unremarkable Procedures - Sepsis Sepsis Focused Exam #1 Time Sepsis Criteria Met: : Sepsis Focused Exam Date: 02/26/25 Sepsis Focused Exam Time: : Sepsis Focused Exam Complete: Yes Vital Signs & RN Notes Reviewed: Yes Capillary Refill: < 2 Seconds: Fingers, Toes Peripheral Pulses: Normal: Radial (R), Radial (L), Posterior Tibialis (R), Posterior Tibialis (L), Dorsalis Pedis (R), Dorsalis Pedis (L) Skin Color: Normal for Patient Respiratory Exam: normal lung sounds Cardiovascular Exam: regular rate Medical Decision Making - Medical Decision Making Was pt. sent in by a medical professional or institution (TREMAYNE Hyatt, REFLEXOLOGIST, urgent care, hospital, or penitentiary...) When possible be specific @ -No Did you speak to anyone other than the patient for history (EMS, parent, family, police, friend...)? What history was obtained from this source @ -No Did you review nursing and triage notes (agree or disagree)? Why? @ -I reviewed and agree with nursing and triage notes Were old charts reviewed (outside hosp., previous admission, EMS record, old EKG, old radiological studies, urgent care reports/EKG's, penitentiary records)? Report findings @ -No old charts were reviewed Differential Diagnosis (chest pain, altered mental status, abdominal pain women, abdominal pain men, vaginal bleeding, musculoskeletal, weakness, fever, dyspnea, syncope, headache, dizziness, GI bleed, back pain, seizure, CVA, palpatations, mental health)? @ -Differential Abdominal Pain Men: Appendicitis, cholecystitis, diverticulosis, ischemic bowel, pancreatitis, hepatitis, UTI, gastroenteritis, AAA, incarcerated hernia, bowel obstruction, constipation, inflammatory bowel, hepatitis, peptic ulcer disease, splenic infarction, perforated viscus, testicular torsion, this is not meant to be an all-inclusive list EKG interpreted by me (3pts min.). @ -Above X-rays interpreted by me (1pt min.). @ -X-ray shows no acute processes CT interpreted by me (1pt min.). @ -Brain shows no acute processes, CT shows acute cholecystitis U/S interpreted by me (1pt. min.). @ -None done What testing was considered but not performed or refused? (CT, X-rays, U/S, labs)? Why? @ -None What meds were considered but not given or refused? Why? @ -None Was smoking cessation discussed for >3mins.? @ -No Were there social determinants of health that impacted care today? How? (Homelessness, low income, unemployed, alcoholism, drug addiction, transportation, low edu. Level, literacy, decrease access to med. care, longterm, rehab)? @ -No Was there de-escalation of care discussed even if they declined (Discuss DNR or withdrawal of care, Hospice)? DNR status @ -No What co-morbidities impacted this encounter? (DM, HTN, Smoking, COPD, CAD, Cancer, CVA, ARF, Chemo, Hep., AIDS, mental health diagnosis, sleep apnea, morb id obesity)? @ -None Was patient admitted / discharged? Hospital course, mention meds given and rou te, prescriptions, significant lab abnormalities, going to OR and other pertinent info. @ -69-year-old male with dizziness lightheadedness and abdominal pain. Vital signs upon arrival shows blood pressure of 73/40. Patient given 30 cc/kg bolus based on ideal body weight. Patient otherwise afebrile not having any constitutional symptoms. Does have some tenderness to his right abdomen. Laboratory evaluation obtained. No leukocytosis. Labs otherwise within acceptable limits except for some mild hypokalemia treated with parenteral potassium. Viral testing negative. CT brain negative. Chest x-ray is nonacute. CT abdomen pelvis shows emphysematous acute cholecystitis. Patient started antibiotics. Case discussed with general surgery Dr. Estes. Patient's blood pressure improved after IV fluids. Still however has soft blood pressure. Will be admitted to ICU. Did you discuss the management of the patient with other professionals (professionals i.e. , PA, REFLEXOLOGIST, lab, RT, psych nurse, social worker health services, community health agent, teacher, chief technical officer, nurse case manager)? Give summary @ -See above Was critical care preformed (if so, how long)? @ -yes, 33 minutes for management of septic shock Undiagnosed new problem with uncertain prognosis? @ -No Drug Therapy requiring intensive monitoring for toxicity (Heparin, Nitro, Insulin, Cardizem)? @ -No Were any procedures done? @ -No Diagnosis/symptom? Acute, or Chronic, or Acute on Chronic? Uncomplicated (without systemic symptoms) or Complicated (systemic symptoms)? @ -Acute complicated cholecystitis Side effects of treatment? @ -No Exacerbation, Progression, or Severe Exacerbation? @ -No Poses a threat to life or bodily function? How? (Chest pain, USA, MD, pneumonia, PE, COPD, DKA, ARF, appy, cholecystitis, CVA, Diverticulitis, Homicidal, Suicidal, threat to staff... and all critical care pts) @ -yes - Lab Data Result diagrams: 02/26/25 03:40 02/26/25 03:40 Lab Results 02/26/25 02/26/25 02/26/25 Range/Units 03:40 03:40 03:40 WBC 7.36 (4.50-10.00) 10*3/uL RBC 2.70 L (4.40-5.60) 10*6/uL Hgb 8.0 L (13.0-17.0) g/dL Hct 24.7 L (39.6-50.0) % MCV 91.5 (80.0-97.0) fL MCH 29.6 (27.0-32.0) pg MCHC 32.4 (32.0-37.0) g/dL Plt Count 120 L (140-440) 10*3/uL MPV 9.9 (9.5-12.2) fL Immature Gran % (Auto) 0.7 % Neutrophils % 90.2 % Lymphocytes % 3.4 % Monocytes % 5.4 % Eosinophils % 0.0 % Basophils % 0.3 % Immature Gran # 0.05 H (0.00-0.04) 10*3/uL Neutrophils # 6.64 (1.80-7.70) 10*3/uL Lymphocytes # 0.25 L (0.90-5.00) 10*3/uL Monocytes # 0.40 (0.20-1.00) 10*3/uL Eosinophils # 0.00 L (0.04-0.35) 10*3/uL Basophils # 0.02 (0.00-0.10) 10*3/uL PT (10.0-12.5) sec INR (<1.2) APTT (22.0-30.0) sec Sodium 135 L (137-145) mmol/L Potassium 3.0 L (3.5-5.1) mmol/L Chloride 102 (98-107) mmol/L Carbon Dioxide 25 (22-30) mmol/L Anion Gap 8 mmol/L BUN 27 H (9-20) mg/dL Creatinine 0.84 (0.66-1.25) mg/dL Est GFR (CKD-EPI)AfAm >90 (>60 ml/min/1.73 sqM) Est GFR (CKD-EPI)NonAf 89 (>60 ml/min/1.73 sqM) Glucose 127 H (74-99) mg/dL Plasma Lactic Acid Seng (0.7-2.0) mmol/L Calcium 8.0 L (8.4-10.2) mg/dL Magnesium 1.9 (1.6-2.3) mg/dL Total Bilirubin 2.2 H (0.2-1.3) mg/dL AST 48 (17-59) U/L ALT 28 (4-49) U/L Alkaline Phosphatase 87 (38-126) U/L Troponin I (0.000-0.034) ng/mL Total Protein 5.3 L (6.3-8.2) g/dL Albumin 2.6 L (3.5-5.0) g/dL Influenza Type A (PCR) Not Detected (Not Detectd) Influenza Type B (PCR) Not Detected (Not Detectd) RSV (PCR) Not Detected (Not Detectd) SARS-CoV-2 (PCR) Not Detected (Not Detectd) 02/26/25 02/26/25 02/26/25 Range/Units 03:40 03:40 03:40 WBC (4.50-10.00) 10*3/uL RBC (4.40-5.60) 10*6/uL Hgb (13.0-17.0) g/dL Hct (39.6-50.0) % MCV (80.0-97.0) fL MCH (27.0-32.0) pg MCHC (32.0-37.0) g/dL Plt Count (140-440) 10*3/uL MPV (9.5-12.2) fL Immature Gran % (Auto) % Neutrophils % % Lymphocytes % % Monocytes % % Eosinophils % % Basophils % % Immature Gran # (0.00-0.04) 10*3/uL Neutrophils # (1.80-7.70) 10*3/uL Lymphocytes # (0.90-5.00) 10*3/uL Monocytes # (0.20-1.00) 10*3/uL Eosinophils # (0.04-0.35) 10*3/uL Basophils # (0.00-0.10) 10*3/uL PT 13.5 H (10.0-12.5) sec INR 1.3 H (<1.2) APTT 33.1 H (22.0-30.0) sec Sodium (137-145) mmol/L Potassium (3.5-5.1) mmol/L Chloride (98-107) mmol/L Carbon Dioxide (22-30) mmol/L Anion Gap mmol/L BUN (9-20) mg/dL Creatinine (0.66-1.25) mg/dL Est GFR (CKD-EPI)AfAm (>60 ml/min/1.73 sqM) Est GFR (CKD-EPI)NonAf (>60 ml/min/1.73 sqM) Glucose (74-99) mg/dL Plasma Lactic Acid Seng 1.9 (0.7-2.0) mmol/L Calcium (8.4-10.2) mg/dL Magnesium (1.6-2.3) mg/dL Total Bilirubin (0.2-1.3) mg/dL AST (17-59) U/L ALT (4-49) U/L Alkaline Phosphatase (38-126) U/L Troponin I <0.012 (0.000-0.034) ng/mL Total Protein (6.3-8.2) g/dL Albumin (3.5-5.0) g/dL Influenza Type A (PCR) (Not Detectd) Influenza Type B (PCR) (Not Detectd) RSV (PCR) (Not Detectd) SARS-CoV-2 (PCR) (Not Detectd) Disposition Clinical Impression: Acute cholecystitis Disposition: ADMITTED IP TO THIS [facility] Condition: Critical Referrals: Mirna Sarah MD [Primary Care Provider] - 1-2 days Decision Time: 06:10
[2025-02-26 03:51] LABS: Basophils # (A) 0.02 10*3/uL (0.00-0.10); Basophils % (A) 0.3 %; HCT 24.7 % (39.6-50.0); Lymphocytes # (A) 0.25 10*3/uL (0.90-5.00); Lymphocytes % (A) 3.4 %; MCH 29.6 pg (27.0-32.0); MCHC 32.4 g/dL (32.0-37.0); MCV 91.5 fL (80.0-97.0); Mean Platelet Volume 9.9 fL (9.5-12.2); Monocytes % (A) 5.4 %; Neutrophils # (A) 6.64 10*3/uL (1.80-7.70); Neutrophils % (A) 90.2 %; Platelet Count 120 10*3/uL (140-440); RDW 19.9 % (11.5-14.5); WBC 7.36 10*3/uL (4.50-10.00)
[2025-02-26] MEDS: SODIUM CHLORIDE 0.9% IV STA (04:02)
[2025-02-26] MEDS: SODIUM CHLORIDE 0.9% 1,000 ML IV STA (04:03)
[2025-02-26 04:08] LABS: INR 1.3 (<1.2); Partial Thromboplastin Time 33.1 sec (22.0-30.0); Prothrombin Time 13.5 sec (10.0-12.5)
[2025-02-26 04:15] LABS: ALT 28 U/L (4-49); AST 48 U/L (17-59); African American GFR (CKD) >90 (>60 ml/min/1.73 sqM); Albumin 2.6 g/dL (3.5-5.0); Alkaline Phosphatase 87 U/L (38-126); Anion Gap 8 mmol/L; Blood Urea Nitrogen 27 mg/dL (9-20); Carbon Dioxide 25 mmol/L (22-30); Chloride 102 mmol/L (98-107); Glucose 127 mg/dL (74-99); Magnesium 1.9 mg/dL (1.6-2.3); Non-African American GFR(CKD) 89 (>60 ml/min/1.73 sqM); Sodium 135 mmol/L (137-145); Total Bilirubin 2.2 mg/dL (0.2-1.3); Total Protein 5.3 g/dL (6.3-8.2)
[2025-02-26 04:27] LABS: Influenza A Not Detected (Not Detectd); Influenza B Not Detected (Not Detectd); RSV Not Detected (Not Detectd)
--- NOTE | 2025-02-26 04:57 | CT ---
EXAM: CT Head Without Intravenous Contrast CLINICAL HISTORY: ITS.REASON CT Reason: fall TECHNIQUE: Axial computed tomography images of the head/brain without intravenous contrast. CTDI is 49.1 mGy and DLP is 1152 mGy-cm. This CT exam was performed using one or more of the following dose reduction techniques: automated exposure control, adjustment of the mA and/or kV according to patient size, and/or use of iterative reconstruction technique. COMPARISON: No relevant prior studies available. FINDINGS: No acute intracranial hemorrhage. No midline shift or mass effect. The territorial bullock-white matter differentiation is maintained throughout. Age-related cerebral volume loss. Periventricular and subcortical white matter hypoattenuation, consistent with chronic microangiopathy. The visualized orbits appear grossly unremarkable. The calvarium is intact. The visualized paranasal sinuses and mastoid air cells are grossly clear. IMPRESSION: No acute intracranial hemorrhage, midline shift, or mass effect.
--- NOTE | 2025-02-26 05:34 | XR ---
EXAM: XR Chest, 1 View CLINICAL HISTORY: weak TECHNIQUE: Frontal view of the chest. COMPARISON: No relevant prior studies available. FINDINGS: Lungs: Small amount of bibasilar atelectasis. Pleural space: Unremarkable. Mediastinum: Unremarkable. Normal mediastinal contour. Bones/joints: No acute findings. IMPRESSION: Small amount of bibasilar atelectasis.
--- NOTE | 2025-02-26 05:41 | CT ---
EXAM: CT Abdomen and Pelvis With Intravenous Contrast CLINICAL HISTORY: Generalized weakness, hypotensive, dizziness. RLQ pain TECHNIQUE: Axial computed tomography images of the abdomen and pelvis with intravenous contrast. Coronal and sagittal reconstructions are performed. CTDI is 8.6 mGy and DLP is 551.5 mGy-cm. This CT exam was performed using one or more of the following dose reduction techniques: automated exposure control, adjustment of the mA and/or kV according to patient size, and/or use of iterative reconstruction technique. COMPARISON: No relevant prior studies available. FINDINGS: Lung bases: Small amount of bibasilar atelectasis. Small scattered pleural calcification/thickening. ABDOMEN: Liver: Mild periportal edema, nonspecific, can be related to gallbladder findings. Moderate hepatomegaly. Tiny pockets of gas possibly within the liver parenchyma on series 501 image 37 adjacent to the gallbladder Gallbladder and bile ducts: Gallbladder is markedly overdistended with 2 large stones in the dependent portion measuring up to 17 mm, likely mixed with sludge. Tiny pockets of gas in the nondependent portion, possibly within the wall of the gallbladder. Suspect surrounding mesenteric inflammation. Pancreas: Unremarkable. No mass. No ductal dilation. Spleen: Moderate splenomegaly measuring about 17 cm craniocaudally. Adrenals: Unremarkable. No mass. Kidneys and ureters: 14 mm upper pole right renal cyst. No hydronephrosis. Stomach and bowel: Unremarkable. No obstruction. No mucosal thickening. PELVIS: Appendix: No findings to suggest acute appendicitis. Bladder: Unremarkable. No mass. Reproductive: No acute findings. ABDOMEN and PELVIS: Intraperitoneal space: Unremarkable. No free air. No significant fluid collection. Bones/joints: No acute findings. Soft tissues: Moderate anasarca. Vasculature: Unremarkable. No abdominal aortic aneurysm. Lymph nodes: Unremarkable. No enlarged lymph nodes. IMPRESSION: 1. Findings of the gallbladder suggest cholecystitis. Tiny pockets of gas within the gallbladder and possibly within adjacent liver parenchyma suggest abscess versus emphysematous cholecystitis. 2. Moderate anasarca. <MYCVCSECTION> Communications: 02/26/25 06:46 Verify Receipt Verified receipt with clerk Reina on 02/26 06:46 (-04:00)
[2025-02-26] MEDS ORDERED: NALOXONE 0.4 MG/ML 1 ML VIAL IV PRN (06:04)
[2025-02-26] MEDS: PIPERACILLIN-TAZOBACTAM 3.375 GM in SODIUM CHLORIDE 0.9% 100 ML IVPB ONE (06:39)
[2025-02-26] MEDS: LACTATED RINGERS 1,000 ML IV SCH (06:40)
--- NOTE | 2025-02-26 07:16 | P.CNPUL ---
History of Present Illness Consult date: 02/26/25 Requesting physician: Aries Palmer Reason for consult: other (Hypertension, cholecystitis) Chief complaint: Abdominal pain History of present illness: Patient is a 69-year-old male with past medical history significant for atrial fibrillation, hypertension, GERD, hiatal hernia, Monet fundoplication, cholelithiasis. Presented to the emergency department via EMS earlier this morning with chief complaint of right-sided abdominal pain. Also, noted to be weak and lightheaded. Found to be hypotensive in the ED. Blood pressure was 73/40 mmHg. Patient was bolused with 2.5 L of normal saline. Workup including abdominal/pelvis showing markedly distended gallbladder with 2 large stones in the dependent portion, tiny pockets of gas within the gallbladder and possibly within adjacent liver parenchyma, and surrounding mesenteric inflammation. Concerning for abscess versus emphysematous cholecystitis. Remaining workup including a CBC with a WBC count of 7.4, hemoglobin 8, platelets 120. CMP: Sodium 135, potassium 3, chloride 102, serum bicarb 25, BUN 27, creatinine 0.84, glucose 127. Total bilirubin 2.2. LFTs not elevated. Lactic 1.9. Troponin less than 0.012. Patient currently being evaluated in the emergency department. Resting comfortably on room air. Blood pressures currently 100/54 mmHg. Nontachycardic. Lactated Ringer's infusing at 130 mL/h. Abdominal pain is currently rated 3 out of 10 on a 10 point numerical scale. Localized to the right lower abdominal quadrant. No radiation. No nausea or vomiting. He states the pain for started approximately 3 to 4 days ago. He has not had much of an appetite. No nausea or vomiting. Awaiting general surgery recommendation Review of Systems Constitutional: Reports poor appetite, Denies chills, Denies fatigue, Denies fever, Denies weight gain, Denies weight loss Ears, nose, mouth and throat: Denies dysphagia, Denies headache, Denies nasal co ngestion, Denies nasal discharge, Denies post-nasal drip, Denies sinus pain, Denies sinus pressure, Denies sore throat Cardiovascular: Reports leg edema, Denies chest pain, Denies lightheadedness, Denies orthopnea, Denies palpitations, Denies paroxysmal nocturnal dyspnea, De nies syncope Respiratory: Denies congestion, Denies cough, Denies cough with sputum, Denies home oxygen Gastrointestinal: Reports as per HPI Genitourinary: Denies dysuria Musculoskeletal: Denies limitation of motion Integumentary: Denies rash Neurological: Denies seizures, Denies syncope Psychiatric: Denies anxiety, Denies depression Past Medical History Past Medical History: Atrial Fibrillation, Eye Disorder, GERD/Reflux Additional Past Medical History / Comment(s): HIATAL HERNIA, SOMETIMES FOOD COMES BACK UP WHEN EATING, LOOSE STOOLS History of Any Multi-Drug Resistant Organisms: None Reported Past Surgical History: Adenoidectomy, Hernia Repair, Orthopedic Surgery, Tonsillectomy Additional Past Surgical History / Comment(s): UMBILICAL HERNIA, KAREN.INGUINAL HERNIA , EGD /COLONOSCOPY 04/20/15, LT WRIST SURGERY Past Anesthesia/Blood Transfusion Reactions: No Reported Reaction Past Psychological History: Anxiety Smoking Status: Former smoker Past Alcohol Use History: None Reported - Past Family History Sister(s) Family Medical History: Diabetes Mellitus Mother Family Medical History: Dementia, Neurologic Disorder Additional Family Medical History / Comment(s): HX PARKINSON'S. Father Family Medical History: Coronary Artery Disease (CAD), CVA/TIA Medications and Allergies Home Medications Medication Instructions Recorded Confirmed Type Mirabegron [Myrbetriq] 50 mg PO DAILY 01/04/25 02/09/25 History Metoprolol Tartrate [Lopressor] 25 mg PO BID 30 Days #60 tab 01/05/25 02/09/25 Rx Certrazine 10 mg PO DAILY 02/03/25 02/09/25 History Dicyclomine [Bentyl] 10 mg PO TID 02/03/25 02/09/25 History Multivitamin [Multivitamins Adult 1 each PO DAILY 02/03/25 02/09/25 History Gummies] Allergies Allergy/AdvReac Type Severity Reaction Status Date / Time oxytetracycline AdvReac "PAIN OF Verified 02/09/25 08:33 [From Terramycin] SKIN" VERY WEAK oxytetracycline HCl AdvReac "PAIN OF Verified 02/09/25 08:33 [From Terramycin] SKIN" VERY WEAK Physical Exam Vitals: Vital Signs Pulse Resp BP Pulse Ox 02/26/25 05:13 68 16 90/59 98 02/26/25 03:20 77 18 73/40 92 L Intake and Output 02/25/25 02/25/25 02/26/25 14:59 22:59 06:59 Other: Weight 63.957 kg GENERAL EXAM: Alert, 69-year-old male, fairly comfortable in no apparent distress. HEAD: Normocephalic and atraumatic EYES: Normal reaction of pupils, equal size. NOSE: Clear with pink turbinates. THROAT: No erythema or exudates. NECK: No masses, no JVD. CHEST: No chest wall deformity. LUNGS: Equal air entry with no crackles, wheeze, rhonchi or dullness. On room air. No conversational dyspnea or accessory muscle use.. CVS: S1 and S2 normal with no audible murmur, regular rhythm. No extra heart sounds ABDOMEN: Soft abdomen, active bowel sounds, positive Jiménez sign. SPINE: No scoliosis or deformity SKIN: No rashes CENTRAL NERVOUS SYSTEM: No focal deficits, tone is normal in all 4 extremities. EXTREMITIES: There is no peripheral edema, clubbing, or cyanosis. Peripheral pulses are intact. Results - Laboratory Findings CBC and BMP: 02/26/25 03:40 02/26/25 03:40 PT/INR, D-dimer PT 13.5 sec (10.0-12.5) H 02/26/25 03:40 INR 1.3 (<1.2) H 02/26/25 03:40 Abnormal lab findings: Abnormal Labs 02/26/25 02/26/25 02/26/25 03:40 03:40 03:40 RBC 2.70 L Hgb 8.0 L Hct 24.7 L Plt Count 120 L Immature Gran # 0.05 H Lymphocytes # 0.25 L Eosinophils # 0.00 L PT 13.5 H INR 1.3 H APTT 33.1 H Sodium 135 L Potassium 3.0 L BUN 27 H Glucose 127 H Calcium 8.0 L Total Bilirubin 2.2 H Total Protein 5.3 L Albumin 2.6 L - Diagnostic Findings Chest x-ray: image reviewed Assessment and Plan Assessment: Acute cholecystitis, with possible abscess versus emphysematous cholecystitis. General surgery is on the case. Hypotension, improved fluid 2.5 L normal saline fluid resuscitation. History of hypertension History of atrial fibrillation, currently sinus mechanism Chronic anemia History of hiatal hernia with previous Monet fundoplication GERD Plan: General Surgery has been consulted, tentative plans for exploratory laparotomy Blood pressure improved with fluid resuscitation No need for vasopressors at this time Empiric Zosyn has been added In the meantime, patient is going to be monitored in the intensive care unit I have personally seen and examined the patient, performed the documentation and the assessment and plan as written. Number of minutes spent on the visit:20 Time with Patient: Greater than 30
[2025-02-26] MEDS: ACETAMINOPHEN IV (For NPO) 1,000 MG in SALINE 1 100ML.BAG IVPB ONE (07:20)
[2025-02-26] MEDS: POTASSIUM CHLORIDE 40 MEQ in WATER FOR INJECTION 1 100ML.BAG IVPB STA (07:42)
[2025-02-26] MEDS: PANTOPRAZOLE 40 MG/10 ML VIAL IVP SCH (08:37)
[2025-02-26] MEDS ORDERED: Potassium Replacement Protocol 1 EACH MISC MISCELLANE PRN (09:32)
[2025-02-26] MEDS ORDERED: Magnesium Replacement Protocol 1 EACH MISC MISCELLANE PRN (09:32)
[2025-02-26 09:41] LABS: Glucose,Whole Blood 145 mg/dL (70-110)
[2025-02-26] MEDS ORDERED: MIDAZOLAM 2 MG/2 ML VIAL ONE (10:31)
[2025-02-26] MEDS ORDERED: fentaNYL (PF) 50 MCG/ML 2 ML AMP ONE (10:31)
[2025-02-26] MEDS ORDERED: PHENYLEPHRINE 10 MG/ML VIAL ONE (10:31)
[2025-02-26] MEDS ORDERED: ETOMIDATE 2 MG/ML 10 ML VIAL ONE (10:31)
[2025-02-26] MEDS ORDERED: SUCCINYLCHOLINE CHLORIDE 200 MG/10 ML VIAL IV ONE (10:31)
[2025-02-26] MEDS ORDERED: ROCURONIUM 10 MG/ML (5 ML VIAL) IV ONE (10:31)
[2025-02-26] MEDS ORDERED: LIDOCAINE 1% INJ 10MG/ML (20 ML MDV) ONE (10:31)
[2025-02-26] MEDS ORDERED: ePHEDrine 50 MG/ML 1 ML VIAL ONE (10:31)
[2025-02-26] MEDS: LACTATED RINGERS 1,000 ML IV ONE ×2 (10:36→11:27)
[2025-02-26] MEDS: SODIUM CHLORIDE 0.9% 100 ML with ceFAZolin 1,000 MG IV ONE (11:02)
[2025-02-26] MEDS: LIDOCAINE 1%-EPI 1:100,000 20 ML VIAL SQ ONE (11:04)
--- NOTE | 2025-02-26 11:17 | P.ANPRN ---
Procedure Note - Anesthesia - Invasive Line Left Arterial Line Time Out Performed: Yes Date of Procedure: 02/26/25 Time of Procedure: 10:45 Location of Patient: OR Preparation: Sterile Prep, Sterile Dressing Arterial Line Location: Radial Ultrasound Used: No Purpose - Visualization and Identification of Vasculature: No Needle Guage: 20 Image Stored and Saved: No Narrative: Invasive line placement per sterile protocol utilized.
--- NOTE | 2025-02-26 11:59 | P.OP ---
Date of Procedure: 02/26/25 Preoperative Diagnosis: ccholecystitis Postoperative Diagnosis: gangrenous cholecystitis with almost complete necrosis of gallbladder Abscess with 500 mL of purulent fluid Cholelithiasis Procedure(s) Performed: diagnostic laparoscopy Exploratory laparotomy Cholecystectomy Drainage of abscess Anesthesia: ARUN Surgeon: Brian Estes Estimated Blood Loss (ml): 20 Pathology: other (gallbladder) Condition: critical Disposition: ICU Operative Findings: almost complete necrosis of gallbladder with 500 mL abscess Description of Procedure: patient's placed on the operative table in supine position. He received general anesthesia. His abdomen was prepped and draped usual sterile fashion. The patient had a previous hernia repair at his umbilicus. Due to this a 5 mm optical trochars placed under direct vision the left upper quadrant. The abdom en was insufflated. After adequate insufflation a 500 trochars placed near the umbilicus. The camera is placed at the umbilicus and the right upper quadrant exam. There appeared to be inflammatory mass or quadrant. Due to the massive side perform an open cholecystectomy. The abdomen was entered through a right subcostal incision. The abdominal wall was divided with electrocautery. The mass was palpated. It appeared to be approximately 15 cm diameter. The dome of the gallbladder appeared to be necrotic. This was peeled away from the omentum and then a large abscess cavity was entered. The prostate 500 mL of pus was aspirated from the abscess. The gallbladder wall was also incontinent entirely necrosis. There is a small portion of the dome of the gallbladder which appeared to be skin. This was divided left cautery and sent to pathology. The gallbladder liver bed appeared to be necrosis as well. A stone was found at the base of the gallbladder cavity. This was removed and sent to pathology. Due to the dense inflammation no attempt was made to find the cystic duct. This point a ALONSO drain is placed in the gallbladder fossa and brought out through the left abdominal wall. The abdomen was irrigated there is no bleeding seen. The fascia is closed with looped #1 PDS suture. Skin was closed clint. Patient was sent to the ICU intubated.
[2025-02-26 12:21] LABS: Glucose,Whole Blood 134 mg/dL (70-110)
[2025-02-26] MEDS: PIPERACILLIN-TAZOBACTAM 3.375 GM in SODIUM CHLORIDE 0.9% 100 ML IVPB SCH (12:45)
[2025-02-26] MEDS: POTASSIUM CHLORIDE 20 MEQ in WATER FOR INJECTION 1 100ML.BAG IVPB STA ×2 (12:47→16:36)
[2025-02-26] MEDS ORDERED: DEXTROSE 50% SYRINGE 50 ML IVP PRN ×2 (12:50)
--- NOTE | 2025-02-26 13:05 | XR ---
EXAMINATION TYPE: XR chest 1V portable DATE OF EXAM: 02/26/2025 12:58 PM COMPARISON: Earlier today CLINICAL INDICATION: Male, 69 years old with history of Tube placement, , FINDINGS: ET and NG tubes are satisfactory. Heart upper limits of normal in size. Diffuse interstitial densitie s persist. Patchy bibasilar opacities have increased since earlier today. Small left pleural effusion again noted. IMPRESSION: Similar to slightly worsened CHF with pulmonary vascular congestion. Suspect early interstitial pulmo nary edema. Patchy bibasilar opacities have worsened. Ongoing small left pleural effusion. [facility], Workstation: [id number], 02/26/2025 1:02 PM
[2025-02-26 13:11] LABS: ABG Base Excess 0.1 mmol/L; ABG HCO3 27 mmol/L (21-25); ABG Oxygen Saturation >100.0 % (94-97); ABG PCO2 53 mmHg (35-45); ABG PH 7.31 (7.35-7.45); ABG PO2 418 mmHg (83-108); ABG TCO2 28 mmol/L (19-24); Allen Test Performed? Yes
[2025-02-26] MEDS ORDERED: POTASSIUM BICARBONATE/CIT AC 20 MEQ TABLET.EFF PO ONE (14:00)
--- NOTE | 2025-02-26 14:47 | P.GSHP ---
History of Present Illness H&P Date: 02/26/25 CHIEF COMPLAINT: Weakness HISTORY OF PRESENT ILLNESS: This is a 69-year-old male who presented to the ER with weakness and hypotension. Patient had diarrhea at home. Had reported right lower abdominal pain. He felt lightheaded. CT scan abdomen pelvis reports findings of the gallbladder suggest cholecystitis. Tiny pockets of gas within the gallbladder and possibly within the adjacent liver parenchyma suggest abscess versus emphysematous cholecystitis. Moderate anasarca. Patient been hypotensive. Patient admitted to surgical service for cholecystitis. PAST MEDICAL HISTORY: Atrial Fibrillation, Eye Disorder, GERD/Reflux, hiatal hernia PAST SURGICAL HISTORY: UMBILICAL HERNIA, KAREN.INGUINAL HERNIA , EGD /COLONOSCOPY 04/20/15, LT WRIST SURGERY, adenoidectomy MEDICATIONS: See below ALLERGIES: See below SOCIAL HISTORY: No illicit drug use. REVIEW OF SYSTEMS: CONSTITUTIONAL: Denies fever or chills. HEENT: Denies blurred vision, vision changes, or eye pain. Denies hemoptysis CARDIOVASCULAR: Denies chest pain or pressure. RESPIRATORY: No shortness of breath. GASTROINTESTINAL: See HPI for pertinent findings HEMATOLOGIC: Denies bleeding disorders. GENITOURINARY: Denies any blood in urine or increased urinary frequency. SKIN: Denies pruitis. Denies rash. PHYSICAL EXAM: Patient seen and examined by Dr. Estes VITAL SIGNS: Reviewed GENERAL: Well-developed in no acute distress. HEENT: No sclera icterus. Extraocular movements grossly intact. Moist buccal mucosa. Head is atraumatic, normocephalic. No nasal drainage. ABDOMEN: Soft. Nondistended. Tenderness palpation right side abdomen NEUROLOGIC: Alert and oriented. Cranial nerves II through XII grossly intact. LABORATORY DATA: WBC 7.36 Hgb 8.0 platelets 120 INR 1.3 Sodium 135 potassium 3.0 creatinine 0.84 Lactic acid 1.9 total bilirubin 2.2 LFTs normal IMAGING: CT scan abdomen pelvis reports findings of the gallbladder suggest cholecystitis. Tiny pockets of gas within the gallbladder and possibly within the adjacent liver proximal suggest abscess versus emphysematous cholecystitis. Moderate anasarca. ASSESSMENT: 1. Acute cholecystitis. CT scan findings report tiny pockets of gas within the gallbladder and possibly within the adjacent liver suggest abscess versus emphysematous cholecystitis PLAN: - Patient scheduled for laparoscopic cholecystectomy today with Dr. Estes - Continue IV antibiotics - Continue IV fluids - Patient admitted to the ICU Physician [employer] Officer note has been reviewed by physician. Signing provider agrees with the documented findings, assessment, and plan of care. Past Medical History Past Medical History: Atrial Fibrillation, Eye Disorder, GERD/Reflux Additional Past Medical History / Comment(s): HIATAL HERNIA, SOMETIMES FOOD COMES BACK UP WHEN EATING, LOOSE STOOLS History of Any Multi-Drug Resistant Organisms: None Reported Past Surgical History: Adenoidectomy, Hernia Repair, Orthopedic Surgery, Tonsillectomy Additional Past Surgical History / Comment(s): UMBILICAL HERNIA, KAREN.INGUINAL HERNIA , EGD /COLONOSCOPY 04/20/15, LT WRIST SURGERY Past Anesthesia/Blood Transfusion Reactions: No Reported Reaction Past Psychological History: Anxiety Smoking Status: Former smoker Past Alcohol Use History: None Reported - Past Family History Sister(s) Family Medical History: Diabetes Mellitus Mother Family Medical History: Dementia, Neurologic Disorder Additional Family Medical History / Comment(s): HX PARKINSON'S. Father Family Medical History: Coronary Artery Disease (CAD), CVA/TIA Medications and Allergies Home Medications Medication Instructions Recorded Confirmed Type Mirabegron [Myrbetriq] 50 mg PO DAILY 01/04/25 02/26/25 History Metoprolol Tartrate [Lopressor] 25 mg PO BID 30 Days #60 tab 01/05/25 02/26/25 Rx Dicyclomine [Bentyl] 10 mg PO AC-TID 02/03/25 02/26/25 History Multivitamin [Multivitamins Adult 1 tab PO DAILY 02/03/25 02/26/25 History Gummies] Cetirizine HCl [Zyrtec] 10 mg PO DAILY 02/26/25 02/26/25 History Allergies Allergy/AdvReac Type Severity Reaction Status Date / Time oxytetracycline AdvReac "PAIN OF Verified 02/26/25 08:00 [From Terramycin] SKIN" VERY WEAK oxytetracycline HCl AdvReac "PAIN OF Verified 02/26/25 08:00 [From Terramycin] SKIN" VERY WEAK Surgical - Exam Vital Signs Temp Pulse Resp BP Pulse Ox 97.4 F L 77 18 73/40 92 L 02/26/25 03:20 02/26/25 03:20 02/26/25 03:20 02/26/25 03:20 02/26/25 03:20 Results - Labs 02/26/25 03:40 02/26/25 03:40 Abnormal Lab Results - Last 24 Hours (Table) 02/26/25 02/26/25 02/26/25 Range/Units 03:40 03:40 03:40 RBC 2.70 L (4.40-5.60) 10*6/uL Hgb 8.0 L (13.0-17.0) g/dL Hct 24.7 L (39.6-50.0) % Plt Count 120 L (140-440) 10*3/uL Immature Gran # 0.05 H (0.00-0.04) 10*3/uL Lymphocytes # 0.25 L (0.90-5.00) 10*3/uL Eosinophils # 0.00 L (0.04-0.35) 10*3/uL PT 13.5 H (10.0-12.5) sec INR 1.3 H (<1.2) APTT 33.1 H (22.0-30.0) sec ABG pH (7.35-7.45) ABG pCO2 (35-45) mmHg ABG pO2 (83-108) mmHg ABG HCO3 (21-25) mmol/L ABG Total CO2 (19-24) mmol/L ABG O2 Saturation (94-97) % Hemoglobin (13.0-17.5) gm/dL Sodium 135 L (137-145) mmol/L Potassium 3.0 L (3.5-5.1) mmol/L BUN 27 H (9-20) mg/dL Glucose 127 H (74-99) mg/dL POC Glucose (mg/dL) (70-110) mg/dL Calcium 8.0 L (8.4-10.2) mg/dL Total Bilirubin 2.2 H (0.2-1.3) mg/dL Total Protein 5.3 L (6.3-8.2) g/dL Albumin 2.6 L (3.5-5.0) g/dL 02/26/25 02/26/25 02/26/25 Range/Units 09:40 12:20 13:06 RBC (4.40-5.60) 10*6/uL Hgb (13.0-17.0) g/dL Hct (39.6-50.0) % Plt Count (140-440) 10*3/uL Immature Gran # (0.00-0.04) 10*3/uL Lymphocytes # (0.90-5.00) 10*3/uL Eosinophils # (0.04-0.35) 10*3/uL PT (10.0-12.5) sec INR (<1.2) APTT (22.0-30.0) sec ABG pH 7.31 L (7.35-7.45) ABG pCO2 53 H (35-45) mmHg ABG pO2 418 H (83-108) mmHg ABG HCO3 27 H (21-25) mmol/L ABG Total CO2 28 H (19-24) mmol/L ABG O2 Saturation >100.0 H (94-97) % Hemoglobin 6.7 L* (13.0-17.5) gm/dL Sodium (137-145) mmol/L Potassium (3.5-5.1) mmol/L BUN (9-20) mg/dL Glucose (74-99) mg/dL POC Glucose (mg/dL) 145 H 134 H (70-110) mg/dL Calcium (8.4-10.2) mg/dL Total Bilirubin (0.2-1.3) mg/dL Total Protein (6.3-8.2) g/dL Albumin (3.5-5.0) g/dL Diabetes panel 02/26/25 Range/Units 03:40 Sodium 135 L (137-145) mmol/L Potassium 3.0 L (3.5-5.1) mmol/L Chloride 102 (98-107) mmol/L Carbon Dioxide 25 (22-30) mmol/L BUN 27 H (9-20) mg/dL Creatinine 0.84 (0.66-1.25) mg/dL Glucose 127 H (74-99) mg/dL Calcium 8.0 L (8.4-10.2) mg/dL AST 48 (17-59) U/L ALT 28 (4-49) U/L Alkaline Phosphatase 87 (38-126) U/L Total Protein 5.3 L (6.3-8.2) g/dL Albumin 2.6 L (3.5-5.0) g/dL Calcium panel 02/26/25 Range/Units 03:40 Calcium 8.0 L (8.4-10.2) mg/dL Albumin 2.6 L (3.5-5.0) g/dL Pituitary panel 02/26/25 Range/Units 03:40 Sodium 135 L (137-145) mmol/L Potassium 3.0 L (3.5-5.1) mmol/L Chloride 102 (98-107) mmol/L Carbon Dioxide 25 (22-30) mmol/L BUN 27 H (9-20) mg/dL Creatinine 0.84 (0.66-1.25) mg/dL Glucose 127 H (74-99) mg/dL Calcium 8.0 L (8.4-10.2) mg/dL Adrenal panel 02/26/25 Range/Units 03:40 Sodium 135 L (137-145) mmol/L Potassium 3.0 L (3.5-5.1) mmol/L Chloride 102 (98-107) mmol/L Carbon Dioxide 25 (22-30) mmol/L BUN 27 H (9-20) mg/dL Creatinine 0.84 (0.66-1.25) mg/dL Glucose 127 H (74-99) mg/dL Calcium 8.0 L (8.4-10.2) mg/dL Total Bilirubin 2.2 H (0.2-1.3) mg/dL AST 48 (17-59) U/L ALT 28 (4-49) U/L Alkaline Phosphatase 87 (38-126) U/L Total Protein 5.3 L (6.3-8.2) g/dL Albumin 2.6 L (3.5-5.0) g/dL
[2025-02-26] MEDS ORDERED: HYDROmorphone 1 MG/ML 1 ML SYRINGE IVP PRN (14:54)
[2025-02-26] MEDS: NOREPINEPHRINE 4 MG in SODIUM CHLORIDE 0.9% 250 ML IV SCH (15:18)
[2025-02-26] MEDS: SODIUM CHLORIDE 0.9% 1,000 ML IV ONE (15:20)
--- NOTE | 2025-02-26 16:29 | P.CONS ---
History of Present Illness - Reason for Consult Consult date: 02/26/25 - History of Present Illness Patient is a 69-year-old male with past medical history of A-fib with RVR not on anticoagulation due to chronic anemia, chronic anemia, chronic thrombocytopenia, GERD, history of cholelithiasis, Monet fundoplication, who presented to the ER on 02/26 with right lower quadrant abdominal pain with associated weakness and lightheadedness. Symptoms ongoing for the past couple days. On arrival afebrile, heart rate in 70s, BP low 73/40, SpO2 92% on room air. Patient received fluid resuscitation in the ER. Lab work significant for normal WBC count, hemoglobin 8.0, stable from 2 months ago, platelet count 120, improved from 2-month ago, INR 1.3, sodium 135, potassium 3.0, normal bicarb, creatinine, glucose elevated 127, lactic acid 1.9, total bilirubin 2.2, normal AST, ALT, ALP, magnesium normal, troponin negative, Cepheid negative. EKG sinus rhythm with PVCs, low QRS voltage, QTc 419. CT abdomen showed markedly distended gallbladder with large stones, tiny pockets of gas within the gallbladder and possibly within adjacent liver parenchyma suggest abscess versus emphysematous cholecystitis, moderate hepatomegaly, unremarkable pancreas, moderate splenomegaly unremarkable adrenals, moderate anasarca Chest x-ray bibasilar atelectasis. CT brain showed no acute findings. Patient admitted to ICU under surgery service for possible ex lap, started on Zosyn, pulm crit consulted, sound physicians consulted for medical management. Patient was taken to the OR for ex lap, was found to have gangrenous cholecystitis, abscess with 500 cc of purulent fluid aspirated, he was transferred to the ICU, intubated on propofol, Levophed. Pertinent positives and negatives as discussed in HPI, a complete review of systems was performed and all other systems are negative. Patient seen and examined at bedside. Vital signs reviewed General: Intubated and sedated Derm: warm, dry Head: atraumatic, normocephalic, symmetric Eyes: , pupils equal round reactive to light ENT: Nose and ears atraumatic Neck: No thyromegaly, supple Mouth: no lip lesion, mucus membranes moist Cardiovascular: S1S2 reg, no murmur, no edema Lungs: clear to auscultation bilateral, no rhonchi, no rales, no wheeze, no accessory muscle use Abdominal: Surgical dressing intact Ext: no gross muscle atrophy, intubated sedated Neuro: Intubated sedated Psych: Intubated and sedated Assessment/Plan: Sepsis secondary to acute gangrenous cholecystitis, abscess status post ex lap with cholecystectomy and drainage of abscess on 02/26/2025 Intubated and sedated after ex lap Cholelithiasis moderate hepatomegaly moderate splenomegaly moderate anasarca -Continue vent management per ICU -Continue propofol, Levophed, wean off as tolerated - Your surgical management -Will start scheduled Zosyn 3.375 every 8 hours SOT 02/26/2025 -Ordered daily CBC and CMP -Follow-up blood cultures, intraoperative cultures -Continue IV fluids with LR at 130 cc/h Hypokalemia: Replaced with 40 mEq IV, monitor BMP daily of A-fib with RVR not on anticoagulation due to chronic anemia chronic anemia: At baseline, monitor CBC daily chronic thrombocytopenia: Improved from before, monitor daily CBC GERD: Holding home PPIs, proceed with IV Protonix 40 daily Monet fundoplication Hypertension: Hold home metoprolol 25 p.o. twice daily due to hypotension DVT prophylaxis: SCD Past Medical History Past Medical History: Atrial Fibrillation, Eye Disorder, GERD/Reflux Additional Past Medical History / Comment(s): HIATAL HERNIA, SOMETIMES FOOD COMES BACK UP WHEN EATING, LOOSE STOOLS History of Any Multi-Drug Resistant Organisms: None Reported Past Surgical History: Adenoidectomy, Hernia Repair, Orthopedic Surgery, Tonsillectomy Additional Past Surgical History / Comment(s): UMBILICAL HERNIA, KAREN.INGUINAL HERNIA , EGD /COLONOSCOPY 04/20/15, LT WRIST SURGERY Past Anesthesia/Blood Transfusion Reactions: No Reported Reaction Past Psychological History: Anxiety Smoking Status: Former smoker Past Alcohol Use History: None Reported - Past Family History Sister(s) Family Medical History: Diabetes Mellitus Mother Family Medical History: Dementia, Neurologic Disorder Additional Family Medical History / Comment(s): HX PARKINSON'S. Father Family Medical History: Coronary Artery Disease (CAD), CVA/TIA Medications and Allergies Home Medications Medication Instructions Recorded Confirmed Type Mirabegron [Myrbetriq] 50 mg PO DAILY 01/04/25 02/26/25 History Metoprolol Tartrate [Lopressor] 25 mg PO BID 30 Days #60 tab 01/05/25 02/26/25 Rx Dicyclomine [Bentyl] 10 mg PO AC-TID 02/03/25 02/26/25 History Multivitamin [Multivitamins Adult 1 tab PO DAILY 02/03/25 02/26/25 History Gummies] Cetirizine HCl [Zyrtec] 10 mg PO DAILY 02/26/25 02/26/25 History Allergies Allergy/AdvReac Type Severity Reaction Status Date / Time oxytetracycline AdvReac "PAIN OF Verified 02/26/25 08:00 [From Terramycin] SKIN" VERY WEAK oxytetracycline HCl AdvReac "PAIN OF Verified 02/26/25 08:00 [From Terramycin] SKIN" VERY WEAK Physical Exam Vitals: Vital Signs Temp Pulse Resp BP Pulse Ox 02/26/25 07:19 62 17 85/54 95 02/26/25 06:40 68 16 100/54 99 02/26/25 05:13 68 16 90/59 98 02/26/25 03:20 97.4 F L 77 18 73/40 92 L Intake and Output 02/25/25 02/26/25 02/26/25 22:59 06:59 14:59 Other: Weight 63.957 kg Results CBC & Chem 7: 02/26/25 03:40 02/26/25 15:30 Labs: Abnormal Lab Results - Last 24 Hours (Table) 02/26/25 02/26/25 02/26/25 Range/Units 03:40 03:40 03:40 RBC 2.70 L (4.40-5.60) 10*6/uL Hgb 8.0 L (13.0-17.0) g/dL Hct 24.7 L (39.6-50.0) % Plt Count 120 L (140-440) 10*3/uL Immature Gran # 0.05 H (0.00-0.04) 10*3/uL Lymphocytes # 0.25 L (0.90-5.00) 10*3/uL Eosinophils # 0.00 L (0.04-0.35) 10*3/uL PT 13.5 H (10.0-12.5) sec INR 1.3 H (<1.2) APTT 33.1 H (22.0-30.0) sec Sodium 135 L (137-145) mmol/L Potassium 3.0 L (3.5-5.1) mmol/L BUN 27 H (9-20) mg/dL Glucose 127 H (74-99) mg/dL Calcium 8.0 L (8.4-10.2) mg/dL Total Bilirubin 2.2 H (0.2-1.3) mg/dL Total Protein 5.3 L (6.3-8.2) g/dL Albumin 2.6 L (3.5-5.0) g/dL
[2025-02-26 17:41] LABS: Glucose,Whole Blood 143 mg/dL (70-110)
[2025-02-27 00:04] LABS: Glucose,Whole Blood 157 mg/dL (70-110)
[2025-02-27 05:04] LABS: Glucose,Whole Blood 145 mg/dL (70-110)
[2025-02-27] MEDS: NOREPINEPHRINE 8 MG in SODIUM CHLORIDE 0.9% 250 ML IV SCH (05:14)
[2025-02-27 05:40] LABS: ALT 45 U/L (4-49); AST 50 U/L (17-59); African American GFR (CKD) >90 (>60 ml/min/1.73 sqM); Albumin 2.2 g/dL (3.5-5.0); Alkaline Phosphatase 95 U/L (38-126); Anion Gap 4 mmol/L; Blood Urea Nitrogen 15 mg/dL (9-20); Calcium 8.2 mg/dL (8.4-10.2); Carbon Dioxide 27 mmol/L (22-30); Chloride 107 mmol/L (98-107); Glucose 118 mg/dL (74-99); Magnesium 1.9 mg/dL (1.6-2.3); Non-African American GFR(CKD) >90 (>60 ml/min/1.73 sqM); Potassium 3.9 mmol/L (3.5-5.1); Sodium 138 mmol/L (137-145); Total Protein 4.8 g/dL (6.3-8.2)
[2025-02-27 06:12] LABS: Basophils # (A) 0.02 10*3/uL (0.00-0.10); Basophils % (A) 0.3 %; Eosinophils # (A) 0.07 10*3/uL (0.04-0.35); Eosinophils % (A) 1.1 %; Lymphocytes # (A) 0.49 10*3/uL (0.90-5.00); Lymphocytes % (A) 7.9 %; MCHC 31.1 g/dL (32.0-37.0); MCV 93.2 fL (80.0-97.0); Mean Platelet Volume 9.7 fL (9.5-12.2); Monocytes # (A) 0.31 10*3/uL (0.20-1.00); Neutrophils % (A) 85.1 %; Platelet Count 141 10*3/uL (140-440); RBC 2.07 10*6/uL (4.40-5.60); RDW 20.2 % (11.5-14.5); WBC 6.23 10*3/uL (4.50-10.00)
[2025-02-27 06:18] LABS: ABG HCO3 27 mmol/L (21-25); ABG Oxygen Saturation >100.0 % (94-97); ABG PCO2 40 mmHg (35-45); ABG PH 7.43 (7.35-7.45); ABG PO2 154 mmHg (83-108); ABG TCO2 28 mmol/L (19-24); Allen Test Performed? Yes
[2025-02-27] MEDS: POTASSIUM BICARBONATE/CIT AC 20 MEQ TABLET.EFF NG-TUBE SCH (06:29)
[2025-02-27 06:31] LABS: HCT 19.3 % (39.6-50.0)
[2025-02-27] MEDS: MAGNESIUM SULFATE-D5W PMX 1 GM in DEXTROSE/WATER 1 100ML.BAG IVPB ONE (06:39)
--- NOTE | 2025-02-27 08:17 | XR ---
EXAMINATION TYPE: XR chest 1V portable DATE OF EXAM: 02/27/2025 5:32 AM COMPARISON: 02/26/2025 CLINICAL INDICATION: Male, 69 years old with history of Tube placement, , FINDINGS: ET tube satisfactory. NG tube appears to have pulled back, tip now near the GE junction level. Recomm end further advancement so that the sidehole in the stomach. Heart borderline enlarged. Diffuse inter stitial opacities persist. Patchy bibasilar opacities persist, slightly worsened. IMPRESSION: 1. Note that the NG tube has been pulled back, tip now at the GE junction level. Recommend further ad vancement so that the side hole enters the stomach. 2. Correlate for ongoing pulmonary vascular congestion. Worsening small bilateral pleural effusions w ith adjacent atelectasis and/or consolidation. [facility], , 02/27/2025 8:15 AM
[2025-02-27] MEDS: ACETAMINOPHEN IV (For NPO) 1,000 MG in EMPTY BAG 1 BAG IVPB SCH (10:55)
[2025-02-27 11:57] LABS: ABG HCO3 27 mmol/L (21-25); ABG Oxygen Saturation >100.0 % (94-97); ABG PCO2 39 mmHg (35-45); ABG PH 7.45 (7.35-7.45); ABG PO2 149 mmHg (83-108); ABG TCO2 29 mmol/L (19-24); Allen Test Performed? Yes
[2025-02-27 12:02] LABS: Glucose,Whole Blood 121 mg/dL (70-110)
--- NOTE | 2025-02-27 12:15 | P.PN ---
Subjective Progress Note Date: 02/27/25 Principal diagnosis: Acute cholecystitis, and sepsis Patient is a 69-year-old male with past medical history significant for atrial fibrillation, hypertension, GERD, hiatal hernia, Monet fundoplication, cholelithiasis. Presented to the emergency department via EMS earlier this morning with chief complaint of right-sided abdominal pain. Also, noted to be weak and lightheaded. Found to be hypotensive in the ED. Blood pressure was 73/40 mmHg. Patient was bolused with 2.5 L of normal saline. Workup including abdominal/pelvis showing markedly distended gallbladder with 2 large stones in the dependent portion, tiny pockets of gas within the gallbladder and possibly within adjacent liver parenchyma, and surrounding mesenteric inflammation. Concerning for abscess versus emphysematous cholecystitis. Remaining workup including a CBC with a WBC count of 7.4, hemoglobin 8, platelets 120. CMP: Sodium 135, potassium 3, chloride 102, serum bicarb 25, BUN 27, creatinine 0.84, glucose 127. Total bilirubin 2.2. LFTs not elevated. Lactic 1.9. Troponin less than 0.012. Patient currently being evaluated in the emergency department. Resting comfortably on room air. Blood pressures currently 100/54 mmHg. Nontachycardic. Lactated Ringer's infusing at 130 mL/h. Abdominal pain is currently rated 3 out of 10 on a 10 point numerical scale. Localized to the right lower abdominal quadrant. No radiation. No nausea or vomiting. He states the pain for started approximately 3 to 4 days ago. He has not had much of an appetite. No nausea or vomiting. Awaiting general surgery recommendation Patient was seen today on 02/27/2025, remains in the ICU, intubated and mechanically ventilated. He is on assist-control rate of 20 tidal volume 450 FiO2 40% PEEP of 5 ABG showed a pO2 of 154 pCO2 4 0 pH of 7.43. Patient still on LR at 150 cc/h norepinephrine at 0.06 mcg/kg/min propofol at 20 mg/kg/min, his hemoglobin this morning is 6, patient is receiving a unit of packed RBCs. Patient has good urine output, his blood pressure is soft/marginal, I think will likely improve after unit of packed RBCs, patient's hemoglobin today is 6. Remains on Zosyn, today I plan to give the patient a weaning trial, will check weaning parameters, and if tolerated may even consider extubating the patient today. Speech ABG was noted and his FiO2 was cut down to 35%. Chest x-ray showed minimal pulmonary vascular congestion with small pleural effusion/atelectasis. Objective - Vital Signs Vital signs: Vital Signs Temp 99.9 F H 02/27/25 10:37 Pulse 68 02/27/25 11:15 Resp 20 02/27/25 11:15 BP 105/58 02/27/25 11:15 Pulse Ox 100 02/27/25 11:15 FiO2 35 02/27/25 11:25 Intake & Output 02/26/25 02/27/25 02/27/25 18:59 06:59 18:59 Intake Total 3264.065 0775.299 3229.316 Output Total 727 910 400 Balance 2537.065 506.446 0001.316 Weight 73.9 kg Intake: IV 1100 1463 665 0.9 pressure bag 33 15 Lactated Ringers 1,000 ml 1430 650 @ 130 mls/hr IV .Q7H42M [facility] Rx#:[id number] Intake, IV Titration 2164.065 444.956 553.316 Amount ACETAMINOPHEN IV (For NPO 100 ) 1,000 mg In Empty Bag 1 bag @ 400 mls/hr IVPB Q6HR [facility] Rx#:[id number] Lactated Ringers 1,000 ml 910 130 @ 130 mls/hr IV .Q7H42M [facility] Rx#:[id number] Magnesium Sulfate-D5w Pmx 100 1 gm In Dextrose/Water 1 100ml.bag @ 100 mls/hr IVPB ONCE ONE Rx#: [id number] Norepinephrine 4 mg In 13.483 251.637 85.328 Sodium Chloride 0.9% 250 ml @ 0.03 MCG/KG/MIN 7.31 mls/hr IV .Q24H [facility] Rx#: [id number] Piperacillin-Tazobactam 3 100 .375 gm In Sodium Chloride 0.9% 100 ml @ 200 mls/hr IVPB ONCE ONE Rx#:[id number] Piperacillin-Tazobactam 3 200 .375 gm In Sodium Chloride 0.9% 100 ml @ 25 mls/hr IVPB Q8HR [facility] Rx# :[id number] Potassium Chloride 20 meq 100 In Water For Injection 1 100ml.bag @ 50 mls/hr IVPB ONCE STA Rx#: [id number] Sodium Chloride 0.9% 1, 1000 000 ml @ 999 mls/hr IV . Q1H1M [facility] Rx#:[id number] propofoL 1,000 mg In 40.582 63.319 67.988 Empty Bag 1 bag @ 15 MCG/ KG/MIN 5.756 mls/hr IV . [id number] [facility] Rx#:[id number] Blood Product 310 Rc As-1 Unit 310 [id number] Output: Drainage 90 40 Left Abdomen 90 40 Urine 615 870 400 Stool 2 Estimated Blood Loss 20 Other: Voiding Method Indwelling Catheter # Voids 1 # Bowel Movements 0 ABP, PAP, CO, CI - Last Documented Arterial Blood Pressure 110/46 - Exam GENERAL EXAM: Alert, 69-year-old male, intubated mechanically ventilated, arousable but lethargic on propofol. HEAD: Normocephalic and atraumatic endotracheal tube and orogastric tube are intact. EYES: Normal reaction of pupils, equal size. NOSE: Clear with pink turbinates. THROAT: No erythema or exudates. NECK: No masses, no JVD. CHEST: No chest wall deformity. LUNGS: Diminished breath sounds at the bases no rhonchi no wheezes CVS: S1 and S2 normal with no audible murmur, regular rhythm. No extra heart sounds ABDOMEN: Postsurgical, soft, ALONSO drain is noted SKIN: No rashes CENTRAL NERVOUS SYSTEM: No focal deficits, tone is normal in all 4 extremities. EXTREMITIES: There is no peripheral edema, clubbing, or cyanosis. Peripheral pulses are intact. - Labs CBC & Chem 7: 02/27/25 05:56 02/27/25 05:00 Labs: Abnormal Lab Results - Last 24 Hours (Table) 02/26/25 02/26/25 02/26/25 Range/Units 12:20 13:06 17:39 RBC (4.40-5.60) 10*6/uL Hgb (13.0-17.0) g/dL Hct (39.6-50.0) % MCHC (32.0-37.0) g/dL Lymphocytes # (0.90-5.00) 10*3/uL ABG pH 7.31 L (7.35-7.45) ABG pCO2 53 H (35-45) mmHg ABG pO2 418 H (83-108) mmHg ABG HCO3 27 H (21-25) mmol/L ABG Total CO2 28 H (19-24) mmol/L ABG O2 Saturation >100.0 H (94-97) % Hemoglobin 6.7 L* (13.0-17.5) gm/dL Creatinine (0.66-1.25) mg/dL Glucose (74-99) mg/dL POC Glucose (mg/dL) 134 H 143 H (70-110) mg/dL Calcium (8.4-10.2) mg/dL Total Bilirubin (0.2-1.3) mg/dL Total Protein (6.3-8.2) g/dL Albumin (3.5-5.0) g/dL Crossmatch 02/27/25 02/27/25 02/27/25 Range/Units 00:03 05:00 05:02 RBC (4.40-5.60) 10*6/uL Hgb (13.0-17.0) g/dL Hct (39.6-50.0) % MCHC (32.0-37.0) g/dL Lymphocytes # (0.90-5.00) 10*3/uL ABG pH (7.35-7.45) ABG pCO2 (35-45) mmHg ABG pO2 (83-108) mmHg ABG HCO3 (21-25) mmol/L ABG Total CO2 (19-24) mmol/L ABG O2 Saturation (94-97) % Hemoglobin (13.0-17.5) gm/dL Creatinine 0.61 L (0.66-1.25) mg/dL Glucose 118 H (74-99) mg/dL POC Glucose (mg/dL) 157 H 145 H (70-110) mg/dL Calcium 8.2 L (8.4-10.2) mg/dL Total Bilirubin 2.0 H (0.2-1.3) mg/dL Total Protein 4.8 L (6.3-8.2) g/dL Albumin 2.2 L (3.5-5.0) g/dL Crossmatch 02/27/25 02/27/25 02/27/25 Range/Units 05:56 06:04 06:14 RBC 2.07 L (4.40-5.60) 10*6/uL Hgb 6.0 L* D (13.0-17.0) g/dL Hct 19.3 L* (39.6-50.0) % MCHC 31.1 L (32.0-37.0) g/dL Lymphocytes # 0.49 L (0.90-5.00) 10*3/uL ABG pH (7.35-7.45) ABG pCO2 (35-45) mmHg ABG pO2 154 H (83-108) mmHg ABG HCO3 27 H (21-25) mmol/L ABG Total CO2 28 H (19-24) mmol/L ABG O2 Saturation >100.0 H (94-97) % Hemoglobin 6.3 L* (13.0-17.5) gm/dL Creatinine (0.66-1.25) mg/dL Glucose (74-99) mg/dL POC Glucose (mg/dL) (70-110) mg/dL Calcium (8.4-10.2) mg/dL Total Bilirubin (0.2-1.3) mg/dL Total Protein (6.3-8.2) g/dL Albumin (3.5-5.0) g/dL Crossmatch See Detail Assessment and Plan Assessment: Impression Acute abdominal sepsis secondary to acute cholecystitis Status post laparoscopic cholecystectomy and abscess drainage of gallbladder. Hypotension secondary to hypovolemia and possible septic shock, requiring pressors and requiring blood transfusion Acute blood loss anemia History of chronic anemia Chronic atrial fibrillation, patient is now in sinus rhythm History of hiatal hernia with previous Monet fundoplication. Recommendation: Continue ventilatory support however the plan is to try to wean norepinephrine, transfuse patient with 1 unit of packed RBCs, and give the patient a weaning trial if tolerated may even consider extubating the patient today. Titrate norepinephrine accordingly maintaining mean arterial pressure above 65. Continue antibiotics/Zosyn Close monitoring of CBC today in the next few hours after his blood transfusion and daily thereafter. Continue GI and DVT prophylaxis Continue hemodynamic support but titrate norepinephrine as possible and possibly discontinue after the blood transfusion Nutritional support to be addressed, patient will likely be placed on enteral feeding if not we could consider TPN Patient remains critically ill Critical care time is 34 minutes Time with Patient: Greater than 30
--- NOTE | 2025-02-27 12:24 | P.PN ---
Subjective Progress Note Date: 02/27/25 SURGICAL PROGRESS NOTE CHIEF COMPLAINT: Gangrenous cholecystitis HISTORY OF PRESENT ILLNESS: Patient is postop day #1 status post diagnostic laparoscopy, exploratory laparotomy, cholecystectomy, drainage of abscess. Patient is currently in the ICU intubated and mechanical ventilation. Patient is undergoing weaning trial and likely be extubated later today. His hemoglobin did drop to 6 and he is receiving 1 unit of blood. Patient is awake. Does have some abdominal pain. ALONSO drain 110ml serosanguineous output but more serous in color. Low-grade temp 99.9 WBC 6.23 Hgb 6.0 platelets 141 total bilirubin 2.0 LFTs normal. Patient is on a small amount of Levophed. PHYSICAL EXAM: VITAL SIGNS: Reviewed. GENERAL: Well-developed in no acute distress. HEENT: No sclera icterus. Extraocular movements grossly intact. Moist buccal mucosa. Head is atraumatic, normocephalic. ABDOMEN: Soft. Mildly distended. Incisional dressings clean dry and intact. ALONSO drain serosanguineous drainage more serous NEUROLOGIC: Awake and currently on the vent ASSESSMENT: 1. Gangrenous cholecystitis with almost complete necrosis of gallbladder, Abscess with 500 mL of purulent fluid, Cholelithiasis 2. Anemia is dilutional PLAN: -Add IV Dilaudid and IV Tylenol for pain -Consult infectious disease for antibiotic management of gangrenous cholecystitis -Patient received 1 unit of blood for hemoglobin of 6 - Repeat CBC in a.m. -Continue antibiotics -Continue supportive care -Continue IV fluids -DVT prophylaxis SCDs Physician Concession Worker note has been reviewed by physician. Signing provider agrees with the documented findings, assessment, and plan of care. Objective - Vital Signs Vital signs: Vital Signs Temp 99.9 F H 02/27/25 10:37 Pulse 68 02/27/25 11:15 Resp 20 02/27/25 11:15 BP 105/58 02/27/25 11:15 Pulse Ox 100 02/27/25 11:15 FiO2 35 02/27/25 11:25 Intake & Output 02/26/25 02/27/25 02/27/25 18:59 06:59 18:59 Intake Total 3264.065 1257.425 4508.316 Output Total 727 910 400 Balance 2537.065 067.030 5387.316 Weight 73.9 kg Intake: IV 1100 1463 665 0.9 pressure bag 33 15 Lactated Ringers 1,000 ml 1430 650 @ 130 mls/hr IV .Q7H42M [facility] Rx#:[id number] Intake, IV Titration 2164.065 444.956 553.316 Amount ACETAMINOPHEN IV (For NPO 100 ) 1,000 mg In Empty Bag 1 bag @ 400 mls/hr IVPB Q6HR [facility] Rx#:[id number] Lactated Ringers 1,000 ml 910 130 @ 130 mls/hr IV .Q7H42M [facility] Rx#:[id number] Magnesium Sulfate-D5w Pmx 100 1 gm In Dextrose/Water 1 100ml.bag @ 100 mls/hr IVPB ONCE ONE Rx#: [id number] Norepinephrine 4 mg In 13.483 251.637 85.328 Sodium Chloride 0.9% 250 ml @ 0.03 MCG/KG/MIN 7.31 mls/hr IV .Q24H [facility] Rx#: [id number] Piperacillin-Tazobactam 3 100 .375 gm In Sodium Chloride 0.9% 100 ml @ 200 mls/hr IVPB ONCE ONE Rx#:[id number] Piperacillin-Tazobactam 3 200 .375 gm In Sodium Chloride 0.9% 100 ml @ 25 mls/hr IVPB Q8HR [facility] Rx# :[id number] Potassium Chloride 20 meq 100 In Water For Injection 1 100ml.bag @ 50 mls/hr IVPB ONCE STA Rx#: [id number] Sodium Chloride 0.9% 1, 1000 000 ml @ 999 mls/hr IV . Q1H1M [facility] Rx#:[id number] propofoL 1,000 mg In 40.582 63.319 67.988 Empty Bag 1 bag @ 15 MCG/ KG/MIN 5.756 mls/hr IV . [id number] [facility] Rx#:[id number] Blood Product 310 Rc As-1 Unit 310 [id number] Output: Drainage 90 40 Left Abdomen 90 40 Urine 615 870 400 Stool 2 Estimated Blood Loss 20 Other: Voiding Method Indwelling Catheter # Voids 1 # Bowel Movements 0 ABP, PAP, CO, CI - Last Documented Arterial Blood Pressure 110/46 - Labs CBC & Chem 7: 02/27/25 05:56 02/27/25 05:00 Labs: Abnormal Lab Results - Last 24 Hours (Table) 02/26/25 02/26/25 02/26/25 Range/Units 12:20 13:06 17:39 RBC (4.40-5.60) 10*6/uL Hgb (13.0-17.0) g/dL Hct (39.6-50.0) % MCHC (32.0-37.0) g/dL Lymphocytes # (0.90-5.00) 10*3/uL ABG pH 7.31 L (7.35-7.45) ABG pCO2 53 H (35-45) mmHg ABG pO2 418 H (83-108) mmHg ABG HCO3 27 H (21-25) mmol/L ABG Total CO2 28 H (19-24) mmol/L ABG O2 Saturation >100.0 H (94-97) % Hemoglobin 6.7 L* (13.0-17.5) gm/dL Creatinine (0.66-1.25) mg/dL Glucose (74-99) mg/dL POC Glucose (mg/dL) 134 H 143 H (70-110) mg/dL Calcium (8.4-10.2) mg/dL Total Bilirubin (0.2-1.3) mg/dL Total Protein (6.3-8.2) g/dL Albumin (3.5-5.0) g/dL Crossmatch 02/27/25 02/27/25 02/27/25 Range/Units 00:03 05:00 05:02 RBC (4.40-5.60) 10*6/uL Hgb (13.0-17.0) g/dL Hct (39.6-50.0) % MCHC (32.0-37.0) g/dL Lymphocytes # (0.90-5.00) 10*3/uL ABG pH (7.35-7.45) ABG pCO2 (35-45) mmHg ABG pO2 (83-108) mmHg ABG HCO3 (21-25) mmol/L ABG Total CO2 (19-24) mmol/L ABG O2 Saturation (94-97) % Hemoglobin (13.0-17.5) gm/dL Creatinine 0.61 L (0.66-1.25) mg/dL Glucose 118 H (74-99) mg/dL POC Glucose (mg/dL) 157 H 145 H (70-110) mg/dL Calcium 8.2 L (8.4-10.2) mg/dL Total Bilirubin 2.0 H (0.2-1.3) mg/dL Total Protein 4.8 L (6.3-8.2) g/dL Albumin 2.2 L (3.5-5.0) g/dL Crossmatch 02/27/25 02/27/25 02/27/25 Range/Units 05:56 06:04 06:14 RBC 2.07 L (4.40-5.60) 10*6/uL Hgb 6.0 L* D (13.0-17.0) g/dL Hct 19.3 L* (39.6-50.0) % MCHC 31.1 L (32.0-37.0) g/dL Lymphocytes # 0.49 L (0.90-5.00) 10*3/uL ABG pH (7.35-7.45) ABG pCO2 (35-45) mmHg ABG pO2 154 H (83-108) mmHg ABG HCO3 27 H (21-25) mmol/L ABG Total CO2 28 H (19-24) mmol/L ABG O2 Saturation >100.0 H (94-97) % Hemoglobin 6.3 L* (13.0-17.5) gm/dL Creatinine (0.66-1.25) mg/dL Glucose (74-99) mg/dL POC Glucose (mg/dL) (70-110) mg/dL Calcium (8.4-10.2) mg/dL Total Bilirubin (0.2-1.3) mg/dL Total Protein (6.3-8.2) g/dL Albumin (3.5-5.0) g/dL Crossmatch See Detail 02/27/25 02/27/25 Range/Units 11:55 12:00 RBC (4.40-5.60) 10*6/uL Hgb (13.0-17.0) g/dL Hct (39.6-50.0) % MCHC (32.0-37.0) g/dL Lymphocytes # (0.90-5.00) 10*3/uL ABG pH (7.35-7.45) ABG pCO2 (35-45) mmHg ABG pO2 149 H (83-108) mmHg ABG HCO3 27 H (21-25) mmol/L ABG Total CO2 29 H (19-24) mmol/L ABG O2 Saturation >100.0 H (94-97) % Hemoglobin 6.7 L* (13.0-17.5) gm/dL Creatinine (0.66-1.25) mg/dL Glucose (74-99) mg/dL POC Glucose (mg/dL) 121 H (70-110) mg/dL Calcium (8.4-10.2) mg/dL Total Bilirubin (0.2-1.3) mg/dL Total Protein (6.3-8.2) g/dL Albumin (3.5-5.0) g/dL Crossmatch
--- NOTE | 2025-02-27 13:37 | P.PN ---
Subjective Progress Note Date: 02/27/25 Patient is a 69-year-old male with past medical history of A-fib with RVR not on anticoagulation due to chronic anemia, chronic anemia, chronic thrombocytopenia, GERD, history of cholelithiasis, Monet fundoplication, who presented to the ER on 02/26 with right lower quadrant abdominal pain with associated weakness and lightheadedness. Symptoms ongoing for the past couple days. On arrival afebrile, heart rate in 70s, BP low 73/40, SpO2 92% on room air. Patient received fluid resuscitation in the ER. Lab work significant for normal WBC count, hemoglobin 8.0, stable from 2 months ago, platelet count 120, improved from 2-month ago, INR 1.3, sodium 135, potassium 3.0, normal bicarb, creatinine, glucose elevated 127, lactic acid 1.9, total bilirubin 2.2, normal AST, ALT, ALP, magnesium normal, troponin negative, Cepheid negative. EKG sinus rhythm with PVCs, low QRS voltage, QTc 419. CT abdomen showed markedly distended gallbladder with large stones, tiny pockets of gas within the gallbladder and possibly within adjacent liver parenchyma suggest abscess versus emphysematous cholecystitis, moderate hepatomegaly, unremarkable pancreas, moderate splenomegaly unremarkable adrenals, moderate anasarca Chest x-ray bibasilar atelectasis. CT brain showed no acute findings. Patient admitted to ICU under surgery service for possible ex lap, started on Zosyn, pulm crit consulted, sound physicians consulted for medical management. Patient was taken to the OR for ex lap, was found to have gangrenous cholecystitis, abscess with 500 cc of purulent fluid aspirated, he was transferred to the ICU, intubated on propofol, Levophed. 02/27/2025: Seen and examined at bedside, intubated, awake, follows commands, tries to communicate. Denied abdominal pain. Discussed with RN, plan for SBT, possible extubation. Maintain on norepinephrine. CBC this morning showed hemoglobin of 6.0, 1 unit of PRBC ordered. Sodium, potassium normal, creatinine 0.61, total bili 2.0, normal AST and ALT, ABG showed normal pH. Cultures pending, continue Zosyn Patient seen and examined at bedside. Vital signs reviewed General: Intubated, nontoxic appearance Derm: warm, dry Head: atraumatic, normocephalic, symmetric Eyes: , pupils equal round reactive to light ENT: Nose and ears atraumatic Neck: No thyromegaly, supple Mouth: no lip lesion, mucus membranes moist Cardiovascular: S1S2 reg, no murmur, no edema Lungs: clear to auscultation bilateral, no rhonchi, no rales, no wheeze, no accessory muscle use Abdominal: Surgical dressing intact Ext: no gross muscle atrophy, intubated Neuro: Follows commands Psych: Alert, oriented Assessment/Plan: Sepsis secondary to acute gangrenous cholecystitis, abscess status post ex lap with cholecystectomy and drainage of abscess on 02/26/2025 Intubated after ex lap Cholelithiasis moderate hepatomegaly moderate splenomegaly moderate anasarca -Continue vent management per ICU -Continue Levophed, wean off as tolerated - Your surgical management - Continue Zosyn 3.375 every 8 hours SOT 02/26/2025, ID consulted -daily CBC and CMP -discussed with RN, possible extubation today, 1 U PRBC -Follow-up blood cultures, intraoperative cultures -Continue IV fluids with LR at 130 cc/h Hypokalemia: Replaced with 40 mEq IV, monitor BMP daily of A-fib with RVR not on anticoagulation due to chronic anemia Acute blood loss anemia Chronic anemia - Hemoglobin down to 6.0, 1 unit of PRBC 02/27/2025, monitor CBC chronic thrombocytopenia: Improved from before, monitor daily CBC GERD: Holding home PPIs, proceed with IV Protonix 40 daily Monet fundoplication Hypertension: Hold home metoprolol 25 p.o. twice daily due to hypotension DVT prophylaxis: SCD Objective - Vital Signs Vital signs: Vital Signs Temp 98.4 F 02/27/25 12:15 Pulse 70 02/27/25 13:30 Resp 28 H 02/27/25 13:30 BP 93/51 02/27/25 13:30 Pulse Ox 100 02/27/25 13:30 FiO2 35 02/27/25 11:45 Intake & Output 02/26/25 02/27/25 02/27/25 18:59 06:59 18:59 Intake Total 3264.065 4212.839 8186.927 Output Total 727 910 400 Balance 2537.065 686.119 6034.927 Weight 73.9 kg Intake: IV 1100 1463 665 0.9 pressure bag 33 15 Lactated Ringers 1,000 ml 1430 650 @ 130 mls/hr IV .Q7H42M [facility] Rx#:[id number] Intake, IV Titration 2164.065 444.956 561.927 Amount ACETAMINOPHEN IV (For NPO 100 ) 1,000 mg In Empty Bag 1 bag @ 400 mls/hr IVPB Q6HR [facility] Rx#:[id number] Lactated Ringers 1,000 ml 910 130 @ 130 mls/hr IV .Q7H42M [facility] Rx#:[id number] Magnesium Sulfate-D5w Pmx 100 1 gm In Dextrose/Water 1 100ml.bag @ 100 mls/hr IVPB ONCE ONE Rx#: [id number] Norepinephrine 4 mg In 13.483 251.637 93.939 Sodium Chloride 0.9% 250 ml @ 0.03 MCG/KG/MIN 7.31 mls/hr IV .Q24H [facility] Rx#: [id number] Piperacillin-Tazobactam 3 100 .375 gm In Sodium Chloride 0.9% 100 ml @ 200 mls/hr IVPB ONCE ONE Rx#:[id number] Piperacillin-Tazobactam 3 200 .375 gm In Sodium Chloride 0.9% 100 ml @ 25 mls/hr IVPB Q8HR [facility] Rx# :[id number] Potassium Chloride 20 meq 100 In Water For Injection 1 100ml.bag @ 50 mls/hr IVPB ONCE STA Rx#: [id number] Sodium Chloride 0.9% 1, 1000 000 ml @ 999 mls/hr IV . Q1H1M [facility] Rx#:[id number] propofoL 1,000 mg In 40.582 63.319 67.988 Empty Bag 1 bag @ 15 MCG/ KG/MIN 5.756 mls/hr IV . [id number] [facility] Rx#:[id number] Blood Product 310 Rc As-1 Unit 310 [id number] Output: Drainage 90 40 Left Abdomen 90 40 Urine 615 870 400 Stool 2 Estimated Blood Loss 20 Other: Voiding Method Indwelling Catheter # Voids 1 # Bowel Movements 0 ABP, PAP, CO, CI - Last Documented Arterial Blood Pressure 112/50 - Labs CBC & Chem 7: 02/27/25 05:56 02/27/25 05:00 Labs: Abnormal Lab Results - Last 24 Hours (Table) 05/22/25 05/23/25 05/23/25 Range/Units 17:39 00:03 05:00 RBC (4.40-5.60) 10*6/uL Hgb (13.0-17.0) g/dL Hct (39.6-50.0) % MCHC (32.0-37.0) g/dL Lymphocytes # (0.90-5.00) 10*3/uL ABG pO2 (83-108) mmHg ABG HCO3 (21-25) mmol/L ABG Total CO2 (19-24) mmol/L ABG O2 Saturation (94-97) % Hemoglobin (13.0-17.5) gm/dL Creatinine 0.61 L (0.66-1.25) mg/dL Glucose 118 H (74-99) mg/dL POC Glucose (mg/dL) 143 H 157 H (70-110) mg/dL Calcium 8.2 L (8.4-10.2) mg/dL Total Bilirubin 2.0 H (0.2-1.3) mg/dL Total Protein 4.8 L (6.3-8.2) g/dL Albumin 2.2 L (3.5-5.0) g/dL Crossmatch 02/27/25 02/27/25 02/27/25 Range/Units 05:02 05:56 06:04 RBC 2.07 L (4.40-5.60) 10*6/uL Hgb 6.0 L* D (13.0-17.0) g/dL Hct 19.3 L* (39.6-50.0) % MCHC 31.1 L (32.0-37.0) g/dL Lymphocytes # 0.49 L (0.90-5.00) 10*3/uL ABG pO2 (83-108) mmHg ABG HCO3 (21-25) mmol/L ABG Total CO2 (19-24) mmol/L ABG O2 Saturation (94-97) % Hemoglobin (13.0-17.5) gm/dL Creatinine (0.66-1.25) mg/dL Glucose (74-99) mg/dL POC Glucose (mg/dL) 145 H (70-110) mg/dL Calcium (8.4-10.2) mg/dL Total Bilirubin (0.2-1.3) mg/dL Total Protein (6.3-8.2) g/dL Albumin (3.5-5.0) g/dL Crossmatch See Detail 02/27/25 02/27/25 02/27/25 Range/Units 06:14 11:55 12:00 RBC (4.40-5.60) 10*6/uL Hgb (13.0-17.0) g/dL Hct (39.6-50.0) % MCHC (32.0-37.0) g/dL Lymphocytes # (0.90-5.00) 10*3/uL ABG pO2 154 H 149 H (83-108) mmHg ABG HCO3 27 H 27 H (21-25) mmol/L ABG Total CO2 28 H 29 H (19-24) mmol/L ABG O2 Saturation >100.0 H >100.0 H (94-97) % Hemoglobin 6.3 L* 6.7 L* (13.0-17.5) gm/dL Creatinine (0.66-1.25) mg/dL Glucose (74-99) mg/dL POC Glucose (mg/dL) 121 H (70-110) mg/dL Calcium (8.4-10.2) mg/dL Total Bilirubin (0.2-1.3) mg/dL Total Protein (6.3-8.2) g/dL Albumin (3.5-5.0) g/dL Crossmatch Microbiology - Last 24 Hours (Table) 02/26/25 11:53 Gram Stain - Preliminary Other - Other
[2025-02-27 13:46] LABS: Basophils # (A) 0.01 10*3/uL (0.00-0.10); Basophils % (A) 0.2 %; Eosinophils # (A) 0.07 10*3/uL (0.04-0.35); Eosinophils % (A) 1.4 %; HCT 20.1 % (39.6-50.0); Lymphocytes # (A) 0.45 10*3/uL (0.90-5.00); Lymphocytes % (A) 9.1 %; MCH 29.4 pg (27.0-32.0); MCHC 31.8 g/dL (32.0-37.0); MCV 92.2 fL (80.0-97.0); Mean Platelet Volume 9.7 fL (9.5-12.2); Monocytes # (A) 0.32 10*3/uL (0.20-1.00); Monocytes % (A) 6.4 %; Neutrophils # (A) 4.09 10*3/uL (1.80-7.70); Neutrophils % (A) 82.3 %; Platelet Count 139 10*3/uL (140-440); RBC 2.18 10*6/uL (4.40-5.60); RDW 19.4 % (11.5-14.5); WBC 4.97 10*3/uL (4.50-10.00)
[2025-02-27 14:08] LABS: HGB 6.4 g/dL (13.0-17.0)
[2025-02-27 17:14] LABS: Glucose,Whole Blood 121 mg/dL (70-110)
[2025-02-27 20:23] LABS: Basophils # (A) 0.02 10*3/uL (0.00-0.10); Basophils % (A) 0.4 %; Eosinophils # (A) 0.09 10*3/uL (0.04-0.35); Eosinophils % (A) 1.6 %; HCT 21.8 % (39.6-50.0); Lymphocytes # (A) 0.57 10*3/uL (0.90-5.00); Lymphocytes % (A) 10.1 %; MCH 28.8 pg (27.0-32.0); MCHC 32.1 g/dL (32.0-37.0); MCV 89.7 fL (80.0-97.0); Mean Platelet Volume 9.3 fL (9.5-12.2); Monocytes # (A) 0.32 10*3/uL (0.20-1.00); Monocytes % (A) 5.6 %; Neutrophils # (A) 4.63 10*3/uL (1.80-7.70); Neutrophils % (A) 81.6 %; Platelet Count 129 10*3/uL (140-440); RBC 2.43 10*6/uL (4.40-5.60); RDW 20.1 % (11.5-14.5); WBC 5.67 10*3/uL (4.50-10.00)
[2025-02-27 21:16] LABS: Glucose,Whole Blood 110 mg/dL (70-110)
[2025-02-27] MEDS: HYDROmorphone 0.5 MG/0.5 ML SYRINGE IVP PRN (21:26)
[2025-02-27 23:31] LABS: Glucose,Whole Blood 109 mg/dL (70-110)
[2025-02-28 04:56] LABS: Basophils # (A) 0.01 10*3/uL (0.00-0.10); Basophils % (A) 0.2 %; Eosinophils # (A) 0.14 10*3/uL (0.04-0.35); Eosinophils % (A) 2.6 %; HCT 21.9 % (39.6-50.0); Lymphocytes # (A) 0.64 10*3/uL (0.90-5.00); Lymphocytes % (A) 11.9 %; MCH 28.5 pg (27.0-32.0); MCHC 31.5 g/dL (32.0-37.0); MCV 90.5 fL (80.0-97.0); Mean Platelet Volume 10.8 fL (9.5-12.2); Monocytes # (A) 0.26 10*3/uL (0.20-1.00); Monocytes % (A) 4.8 %; Neutrophils # (A) 4.29 10*3/uL (1.80-7.70); Neutrophils % (A) 79.9 %; Platelet Count 140 10*3/uL (140-440); RBC 2.42 10*6/uL (4.40-5.60); RDW 20.3 % (11.5-14.5); WBC 5.37 10*3/uL (4.50-10.00)
[2025-02-28 04:58] LABS: ALT 33 U/L (4-49); AST 30 U/L (17-59); African American GFR (CKD) >90 (>60 ml/min/1.73 sqM); Alkaline Phosphatase 87 U/L (38-126); Anion Gap 5 mmol/L; Blood Urea Nitrogen 14 mg/dL (9-20); Carbon Dioxide 25 mmol/L (22-30); Chloride 105 mmol/L (98-107); Glucose 84 mg/dL (74-99); Magnesium 2.1 mg/dL (1.6-2.3); Non-African American GFR(CKD) >90 (>60 ml/min/1.73 sqM); Potassium 3.8 mmol/L (3.5-5.1); Sodium 135 mmol/L (137-145); Total Bilirubin 1.7 mg/dL (0.2-1.3); Total Protein 4.5 g/dL (6.3-8.2)
[2025-02-28 05:04] LABS: HGB 6.9 g/dL (13.0-17.0)
[2025-02-28 05:47] LABS: Glucose,Whole Blood 101 mg/dL (70-110)
[2025-02-28 06:05] LABS: HCT 22.2 % (39.6-50.0); HGB 7.1 g/dL (13.0-17.0); MCH 28.9 pg (27.0-32.0); MCV 90.2 fL (80.0-97.0); Mean Platelet Volume 10.1 fL (9.5-12.2); Platelet Count 136 10*3/uL (140-440); RBC 2.46 10*6/uL (4.40-5.60); RDW 20.1 % (11.5-14.5); WBC 5.56 10*3/uL (4.50-10.00)
[2025-02-28] MEDS: POTASSIUM CHLORIDE 10 MEQ in WATER FOR INJECTION 1 100ML.BAG IVPB SCH (06:51)
--- NOTE | 2025-02-28 09:18 | P.PN ---
Subjective Progress Note Date: 02/28/25 Patient is resting comfortably in his bed. He denies any significant abdominal pain. He states he feels better overall. On exam vital signs appear stable. Abdomen soft. Incision is clean dry intact. There is a change in the quality of his ALONSO drainage. There appears to be a slight bile tinge to it. This is new compared to yesterday. Status post subtotal cholecystectomy for gangrenous gallbladder with full- thickness necrosis of gallbladder wall and subsequent empyema of gallbladder. The patient will continue to receive IV antibiotics to be observed. If his bilious drainage increases he will need ERCP stent placement. I have discussed this with the patient. Objective - Vital Signs Vital signs: Vital Signs Temp 97.7 F 02/28/25 07:45 Pulse 74 02/28/25 09:00 Resp 14 02/28/25 09:00 BP 105/59 02/27/25 20:00 Pulse Ox 97 02/28/25 09:00 FiO2 35 02/27/25 12:00 Intake & Output 02/27/25 02/28/25 02/28/25 18:59 06:59 18:59 Intake Total 2905.706 2353 699 Output Total 755 700 165 Balance 2150.706 1653 534 Weight 77.5 kg Intake: IV 1596 1593 399 0.9 pressure bag 36 33 9 Lactated Ringers 1,000 ml 1560 1560 390 @ 130 mls/hr IV .Q7H42M [facility] Rx#:[id number] Intake, IV Titration 689.706 300 300 Amount ACETAMINOPHEN IV (For NPO 100 200 ) 1,000 mg In Empty Bag 1 bag @ 400 mls/hr IVPB Q6HR [facility] Rx#:[id number] Magnesium Sulfate-D5w Pmx 100 1 gm In Dextrose/Water 1 100ml.bag @ 100 mls/hr IVPB ONCE ONE Rx#: [id number] Norepinephrine 4 mg In 121.718 Sodium Chloride 0.9% 250 ml @ 0.03 MCG/KG/MIN 7.31 mls/hr IV .Q24H [facility] Rx#: [id number] Piperacillin-Tazobactam 3 300 100 200 .375 gm In Sodium Chloride 0.9% 100 ml @ 25 mls/hr IVPB Q8HR [facility] Rx# :[id number] Potassium Chloride 10 meq 100 In Water For Injection 1 100ml.bag @ 100 mls/hr IVPB Q1H [facility] Rx#: [id number] propofoL 1,000 mg In 67.988 Empty Bag 1 bag @ 15 MCG/ KG/MIN 5.756 mls/hr IV . [id number] [facility] Rx#:[id number] Oral 460 Blood Product 620 Rc As-1 Unit 310 [id number] Rc As-1 Unit 310 [id number] Output: Drainage 80 170 Left Abdomen 80 170 Urine 675 530 165 Other: Voiding Method Indwelling Catheter Indwelling Catheter Indwelling Catheter # Voids 1 ABP, PAP, CO, CI - Last Documented Arterial Blood Pressure 130/48 - Labs CBC & Chem 7: 02/28/25 05:46 02/28/25 04:25 Labs: Abnormal Lab Results - Last 24 Hours (Table) 02/27/25 02/27/25 02/27/25 Range/Units 06:04 11:55 12:00 RBC (4.40-5.60) 10*6/uL Hgb (13.0-17.0) g/dL Hct (39.6-50.0) % MCHC (32.0-37.0) g/dL Plt Count (140-440) 10*3/uL MPV (9.5-12.2) fL Lymphocytes # (0.90-5.00) 10*3/uL ABG pO2 149 H (83-108) mmHg ABG HCO3 27 H (21-25) mmol/L ABG Total CO2 29 H (19-24) mmol/L ABG O2 Saturation >100.0 H (94-97) % Hemoglobin 6.7 L* (13.0-17.5) gm/dL Sodium (137-145) mmol/L Creatinine (0.66-1.25) mg/dL POC Glucose (mg/dL) 121 H (70-110) mg/dL Calcium (8.4-10.2) mg/dL Total Bilirubin (0.2-1.3) mg/dL Total Protein (6.3-8.2) g/dL Albumin (3.5-5.0) g/dL Crossmatch See Detail 02/27/25 02/27/25 02/27/25 Range/Units 13:28 17:12 20:17 RBC 2.18 L 2.43 L (4.40-5.60) 10*6/uL Hgb 6.4 L* 7.0 L (13.0-17.0) g/dL Hct 20.1 L 21.8 L (39.6-50.0) % MCHC 31.8 L (32.0-37.0) g/dL Plt Count 139 L 129 L (140-440) 10*3/uL MPV 9.3 L (9.5-12.2) fL Lymphocytes # 0.45 L 0.57 L (0.90-5.00) 10*3/uL ABG pO2 (83-108) mmHg ABG HCO3 (21-25) mmol/L ABG Total CO2 (19-24) mmol/L ABG O2 Saturation (94-97) % Hemoglobin (13.0-17.5) gm/dL Sodium (137-145) mmol/L Creatinine (0.66-1.25) mg/dL POC Glucose (mg/dL) 121 H (70-110) mg/dL Calcium (8.4-10.2) mg/dL Total Bilirubin (0.2-1.3) mg/dL Total Protein (6.3-8.2) g/dL Albumin (3.5-5.0) g/dL Crossmatch 02/28/25 02/28/25 02/28/25 Range/Units 04:25 04:25 05:46 RBC 2.42 L 2.46 L (4.40-5.60) 10*6/uL Hgb 6.9 L* 7.1 L (13.0-17.0) g/dL Hct 21.9 L 22.2 L (39.6-50.0) % MCHC 31.5 L (32.0-37.0) g/dL Plt Count 136 L (140-440) 10*3/uL MPV (9.5-12.2) fL Lymphocytes # 0.64 L (0.90-5.00) 10*3/uL ABG pO2 (83-108) mmHg ABG HCO3 (21-25) mmol/L ABG Total CO2 (19-24) mmol/L ABG O2 Saturation (94-97) % Hemoglobin (13.0-17.5) gm/dL Sodium 135 L (137-145) mmol/L Creatinine 0.63 L (0.66-1.25) mg/dL POC Glucose (mg/dL) (70-110) mg/dL Calcium 8.0 L (8.4-10.2) mg/dL Total Bilirubin 1.7 H (0.2-1.3) mg/dL Total Protein 4.5 L (6.3-8.2) g/dL Albumin 2.0 L (3.5-5.0) g/dL Crossmatch Microbiology - Last 24 Hours (Table) 02/26/25 11:53 Gram Stain - Preliminary Other - Other Wound Culture - Preliminary Escherichia coli
--- NOTE | 2025-02-28 11:27 | P.CONS ---
History of Present Illness - Reason for Consult Consult date: 02/27/25 Gangrenous gallbladder Requesting physician: Awa Cespedes - Chief Complaint Weakness abdominal pain x 1 day - History of Present Illness Patient is a 69-year-old male with a past medical history significant for atrial fibrillation reflux presenting to the hospital for evaluation of diarrhea felt lightheaded complaining of weakness and did have right upper fareed drant pain patient was describing pain to be sharp moderate to severe intensity without radiation some nausea but no vomiting patient on presentation to the hospital was afebrile did have low-grade fever of 99.9 F this morning patient was not tachycardic hypotensive did have white count 5.67 creatinine 0.63 liver enzymes with mild elevated, patient did have abdominal pelvis CT concerning for cholecystitis and tiny pockets of gas within the gallbladder patient was eval by general surgery he was taken to the OR with evidence of gangrenous cord status cholelithiasis status post laparotomy cholecystectomy and drainage of the abscess abdominal cultures were obtained patient is being treated with Zosyn infectious disease was consulted for further management of antibiotic therapy Review of Systems Positive point and negatives has been mentioned in the HPI, complete review of systems was performed and all other systems are negative Past Medical History Past Medical History: Atrial Fibrillation, Eye Disorder, GERD/Reflux Additional Past Medical History / Comment(s): HIATAL HERNIA, SOMETIMES FOOD COMES BACK UP WHEN EATING, LOOSE STOOLS History of Any Multi-Drug Resistant Organisms: None Reported Past Surgical History: Adenoidectomy, Hernia Repair, Orthopedic Surgery, Tonsillectomy Additional Past Surgical History / Comment(s): UMBILICAL HERNIA, KAREN.INGUINAL HERNIA , EGD /COLONOSCOPY 04/20/15, LT WRIST SURGERY Past Anesthesia/Blood Transfusion Reactions: No Reported Reaction Past Psychological History: Anxiety Smoking Status: Former smoker Past Alcohol Use History: None Reported - Past Family History Sister(s) Family Medical History: Diabetes Mellitus Mother Family Medical History: Dementia, Neurologic Disorder Additional Family Medical History / Comment(s): HX PARKINSON'S. Father Family Medical History: Coronary Artery Disease (CAD), CVA/TIA Medications and Allergies Home Medications Medication Instructions Recorded Confirmed Type Mirabegron [Myrbetriq] 50 mg PO DAILY 01/04/25 02/26/25 History Metoprolol Tartrate [Lopressor] 25 mg PO BID 30 Days #60 tab 01/05/25 02/26/25 Rx Dicyclomine [Bentyl] 10 mg PO AC-TID 02/03/25 02/26/25 History Multivitamin [Multivitamins Adult 1 tab PO DAILY 02/03/25 02/26/25 History Gummies] Cetirizine HCl [Zyrtec] 10 mg PO DAILY 02/26/25 02/26/25 History Allergies Allergy/AdvReac Type Severity Reaction Status Date / Time oxytetracycline AdvReac "PAIN OF Verified 02/26/25 08:00 [From Terramycin] SKIN" VERY WEAK oxytetracycline HCl AdvReac "PAIN OF Verified 02/26/25 08:00 [From Terramycin] SKIN" VERY WEAK Physical Exam Vitals: Vital Signs Temp Pulse Resp BP Pulse Ox FiO2 02/27/25 11:25 35 02/27/25 11:15 68 20 105/58 100 02/27/25 11:00 67 20 105/58 100 02/27/25 10:45 68 20 100 02/27/25 10:37 99.9 F H 66 21 118/48 100 02/27/25 10:30 69 20 100 02/27/25 10:15 69 22 100 02/27/25 10:00 67 20 100 35 02/27/25 09:45 71 21 100 02/27/25 09:30 70 22 100 02/27/25 09:15 70 21 100 02/27/25 09:00 71 21 100/50 100 02/27/25 08:57 99.4 F 70 21 121/50 100 02/27/25 08:45 71 21 100 02/27/25 08:37 99.1 F 71 24 115/44 100 02/27/25 08:34 40 02/27/25 08:30 70 21 100 02/27/25 08:27 98.8 F 71 21 124/48 100 02/27/25 08:15 69 20 100 02/27/25 08:00 98.8 F 68 20 100 40 02/27/25 07:45 67 20 100 02/27/25 07:30 66 20 100 02/27/25 07:15 68 20 100 02/27/25 07:00 66 20 102/58 100 02/27/25 06:45 66 20 106/54 100 02/27/25 06:30 66 20 100 05 06:15 66 20 100 05 06:00 65 20 106/54 100 05 05:45 64 20 100 05 05:30 66 20 100 05 05:15 68 20 100 05 05:00 67 20 106/58 100 05 04:45 68 20 100 05 04:42 40 05 04:30 67 20 100 05 04:15 67 20 100 05 04:00 98.9 F 63 20 104/62 100 40 05 03:45 68 20 100 05 03:30 67 20 100 05 03:21 40 05 03:15 66 20 100 05 03:00 66 20 104/62 100 05 02:45 67 20 100 05 02:30 67 20 100 05 02:15 67 20 100 05 02:00 68 20 103/55 100 05 01:45 67 20 100 05 01:30 66 20 100 05 01:15 66 20 100 05 01:00 66 21 107/60 100 05 00:45 68 20 100 05 00:30 66 20 100 05 00:15 67 20 100 05 00:00 99.2 F 67 20 103/55 100 40 05 23:52 40 05 23:45 67 20 100 05 23:30 66 20 100 0525 23:15 68 20 100 05 23:00 69 20 108/54 100 0525 22:45 69 20 100 0525 22:30 68 20 100 0525 22:15 70 20 100 05 22:00 71 20 108/58 100 0525 21:45 72 20 100 05 21:30 71 20 100 052225 21:15 72 20 100 052225 21:00 72 20 107/56 100 05 20:51 40 05 20:45 74 20 100 02/26/25 20:30 73 22 100 02/26/25 20:15 74 20 100 02/26/25 20:00 97.5 F L 73 20 107/58 100 40 02/26/25 19:45 74 20 100 02/26/25 19:30 74 20 99/65 100 02/26/25 19:15 74 20 100 02/26/25 19:00 75 21 109/67 100 02/26/25 18:00 77 22 100 02/26/25 17:00 86 22 136/70 100 02/26/25 16:00 97.8 F 87 16 96 40 02/26/25 15:56 40 02/26/25 15:00 86 21 112/60 100 02/26/25 14:00 87 20 125/64 99 02/26/25 13:22 40 Intake and Output 02/26/25 02/27/25 02/27/25 22:59 06:59 14:59 Intake Total 5365.163 4337.374 1528.316 Output Total 665 610 400 Balance 565.975 632.723 4812.316 Intake: IV 399 1064 665 0.9 pressure bag 9 24 15 Lactated Ringers 1,000 ml 390 1040 650 @ 130 mls/hr IV .Q7H42M [facility] Rx#:[id number] Intake, IV Titration 831.975 186.374 553.316 Amount ACETAMINOPHEN IV (For NPO 100 ) 1,000 mg In Empty Bag 1 bag @ 400 mls/hr IVPB Q6HR [facility] Rx#:[id number] Lactated Ringers 1,000 ml 650 @ 130 mls/hr IV .Q7H42M [facility] Rx#:[id number] Magnesium Sulfate-D5w Pmx 100 1 gm In Dextrose/Water 1 100ml.bag @ 100 mls/hr IVPB ONCE ONE Rx#: [id number] Norepinephrine 4 mg In 142.065 123.055 85.328 Sodium Chloride 0.9% 250 ml @ 0.03 MCG/KG/MIN 7.31 mls/hr IV .Q24H [facility] Rx#: [id number] Piperacillin-Tazobactam 3 200 .375 gm In Sodium Chloride 0.9% 100 ml @ 25 mls/hr IVPB Q8HR [facility] Rx# :[id number] propofoL 1,000 mg In 39.91 63.319 67.988 Empty Bag 1 bag @ 15 MCG/ KG/MIN 5.756 mls/hr IV . [id number] [facility] Rx#:[id number] Blood Product 310 Rc As-1 Unit 310 [id number] Output: Drainage 130 Left Abdomen 130 Urine 535 610 400 Other: Voiding Method Indwelling Catheter Indwelling Catheter # Bowel Movements 0 Weight 73.9 kg ABP, PAP, CO, CI - Last 8 Hours Arterial Blood Pressure 110/46 Arterial Blood Pressure 101/43 Arterial Blood Pressure 107/45 Arterial Blood Pressure 120/49 Arterial Blood Pressure 122/54 Arterial Blood Pressure 111/44 Arterial Blood Pressure 97/40 Arterial Blood Pressure 113/45 Arterial Blood Pressure 126/50 Arterial Blood Pressure 103/40 Arterial Blood Pressure 113/45 Arterial Blood Pressure 118/46 Arterial Blood Pressure 119/47 Arterial Blood Pressure 122/49 Arterial Blood Pressure 103/43 Arterial Blood Pressure 121/49 Arterial Blood Pressure 108/45 Arterial Blood Pressure 114/46 Arterial Blood Pressure 109/44 Arterial Blood Pressure 110/44 Arterial Blood Pressure 116/45 Arterial Blood Pressure 123/48 Arterial Blood Pressure 112/44 Arterial Blood Pressure 118/47 GENERAL DESCRIPTION: Elderly male lying in bed, no distress. No tachypnea or accessory muscle of respiration use. HEENT: Shows Pallor , no scleral icterus. Oral mucous membrane is dry. No pharyngeal erythema or thrush NECK: Trachea central, no thyromegaly. LUNGS: Unlabored breathing. Clear to auscultation anteriorly. No wheeze or crackle. HEART: S1, S2, regular rate and rhythm. No loud murmur ABDOMEN: Soft, mild tenderness ,no guarding or rigidity, no organomegaly EXTREMITIES: No edema of feet. SKIN: No rash, no masses palpable. NEUROLOGICAL: The patient is awake, alert, oriented x3, mood and affect normal. Results CBC & Chem 7: 02/28/25 05:46 02/28/25 04:25 Labs: Abnormal Lab Results - Last 24 Hours (Table) 02/26/25 02/27/25 02/27/25 Range/Units 17:39 00:03 05:00 RBC (4.40-5.60) 10*6/uL Hgb (13.0-17.0) g/dL Hct (39.6-50.0) % MCHC (32.0-37.0) g/dL Lymphocytes # (0.90-5.00) 10*3/uL ABG pO2 (83-108) mmHg ABG HCO3 (21-25) mmol/L ABG Total CO2 (19-24) mmol/L ABG O2 Saturation (94-97) % Hemoglobin (13.0-17.5) gm/dL Creatinine 0.61 L (0.66-1.25) mg/dL Glucose 118 H (74-99) mg/dL POC Glucose (mg/dL) 143 H 157 H (70-110) mg/dL Calcium 8.2 L (8.4-10.2) mg/dL Total Bilirubin 2.0 H (0.2-1.3) mg/dL Total Protein 4.8 L (6.3-8.2) g/dL Albumin 2.2 L (3.5-5.0) g/dL Crossmatch 02/27/25 02/27/25 02/27/25 Range/Units 05:02 05:56 06:04 RBC 2.07 L (4.40-5.60) 10*6/uL Hgb 6.0 L* D (13.0-17.0) g/dL Hct 19.3 L* (39.6-50.0) % MCHC 31.1 L (32.0-37.0) g/dL Lymphocytes # 0.49 L (0.90-5.00) 10*3/uL ABG pO2 (83-108) mmHg ABG HCO3 (21-25) mmol/L ABG Total CO2 (19-24) mmol/L ABG O2 Saturation (94-97) % Hemoglobin (13.0-17.5) gm/dL Creatinine (0.66-1.25) mg/dL Glucose (74-99) mg/dL POC Glucose (mg/dL) 145 H (70-110) mg/dL Calcium (8.4-10.2) mg/dL Total Bilirubin (0.2-1.3) mg/dL Total Protein (6.3-8.2) g/dL Albumin (3.5-5.0) g/dL Crossmatch See Detail 02/27/25 02/27/25 02/27/25 Range/Units 06:14 11:55 12:00 RBC (4.40-5.60) 10*6/uL Hgb (13.0-17.0) g/dL Hct (39.6-50.0) % MCHC (32.0-37.0) g/dL Lymphocytes # (0.90-5.00) 10*3/uL ABG pO2 154 H 149 H (83-108) mmHg ABG HCO3 27 H 27 H (21-25) mmol/L ABG Total CO2 28 H 29 H (19-24) mmol/L ABG O2 Saturation >100.0 H >100.0 H (94-97) % Hemoglobin 6.3 L* 6.7 L* (13.0-17.5) gm/dL Creatinine (0.66-1.25) mg/dL Glucose (74-99) mg/dL POC Glucose (mg/dL) 121 H (70-110) mg/dL Calcium (8.4-10.2) mg/dL Total Bilirubin (0.2-1.3) mg/dL Total Protein (6.3-8.2) g/dL Albumin (3.5-5.0) g/dL Crossmatch Microbiology - Last 24 Hours (Table) 02/26/25 11:53 Gram Stain - Preliminary Other - Other Assessment and Plan (1) Acute cholecystitis Current Visit: Yes Status: Acute Code(s): K81.0 - ACUTE CHOLECYSTITIS SNOMED Code(s): 02402053 Plan: 1patient presented to hospital with weakness abdominal pain has been diagnosed with gangrenous cholecystitis with empyema in this patient who is status post open cholecystectomy and drainage of the abscess will need to cover for the enteric gram-negative due to the likely pathogen 2-abdominal cultures obtained will check blood culture as well 3-patient to be treated with Zosyn 3.375 g every 8 hours while waiting for the culture final We will follow on clinical condition and cultures to further adjust medication if needed Thank you for this consultation we will follow the patient along with you Dictation was produced using irisnote dictation software. please excuse any grammatical, word or spelling errors. Time with Patient: Greater than 30
[2025-02-28 11:53] LABS: Glucose,Whole Blood 139 mg/dL (70-110)
--- NOTE | 2025-02-28 12:41 | P.PN ---
Subjective Progress Note Date: 02/28/25 Patient is a 69-year-old male with past medical history of A-fib with RVR not on anticoagulation due to chronic anemia, chronic anemia, chronic thrombocytopenia, GERD, history of cholelithiasis, Monet fundoplication, who presented to the ER on 02/26 with right lower quadrant abdominal pain with associated weakness and lightheadedness. Symptoms ongoing for the past couple days. On arrival afebrile, heart rate in 70s, BP low 73/40, SpO2 92% on room air. Patient received fluid resuscitation in the ER. Lab work significant for normal WBC count, hemoglobin 8.0, stable from 2 months ago, platelet count 120, improved from 2-month ago, INR 1.3, sodium 135, potassium 3.0, normal bicarb, creatinine, glucose elevated 127, lactic acid 1.9, total bilirubin 2.2, normal AST, ALT, ALP, magnesium normal, troponin negative, Cepheid negative. EKG sinus rhythm with PVCs, low QRS voltage, QTc 419. CT abdomen showed markedly distended gallbladder with large stones, tiny pockets of gas within the gallbladder and possibly within adjacent liver parenchyma suggest abscess versus emphysematous cholecystitis, moderate hepatomegaly, unremarkable pancreas, moderate splenomegaly unremarkable adrenals, moderate anasarca Chest x-ray bibasilar atelectasis. CT brain showed no acute findings. Patient admitted to ICU under surgery service for possible ex lap, started on Zosyn, pulm crit consulted, sound physicians consulted for medical management. Patient was taken to the OR for ex lap, was found to have gangrenous cholecystitis, abscess with 500 cc of purulent fluid aspirated, he was transferred to the ICU, intubated on propofol, Levophed. 02/27/2025: Seen and examined at bedside, intubated, awake, follows commands, tries to communicate. Denied abdominal pain. Discussed with RN, plan for SBT, possible extubation. Maintain on norepinephrine. CBC this morning showed hemoglobin of 6.0, 1 unit of PRBC ordered. Sodium, potassium normal, creatinine 0.61, total bili 2.0, normal AST and ALT, ABG showed normal pH. Cultures pending, continue Zosyn. Later on 02/27 patient received 1 more unit of PRBC for hemoglobin of 6.4. 02/28/2025: Seen and examined at bedside, sitting in the recliner, patient was extubated, now on room air, states that he has dull abdominal discomfort, does not pass gas. Levo was of, maintains blood pressure. Abdominal drain in place with dark brown drainage.. Intraoperative cultures growing E. coli, pansensitive, ID was consulted by surgical team. Patient seen and examined at bedside. Vital signs reviewed General: Not in acute distress, nontoxic Derm: warm, dry Head: atraumatic, normocephalic, symmetric Eyes: , pupils equal round reactive to light ENT: Nose and ears atraumatic Neck: No thyromegaly, supple Mouth: no lip lesion, mucus membranes moist Cardiovascular: S1S2 reg, no murmur, Lungs: clear to auscultation bilateral, no rhonchi, no rales, no wheeze, no accessory muscle use Abdominal: Surgical dressing intact, drain in place with dark brown output with some greenish Ext: no gross muscle atrophy, bilateral pedal edema 2+ Neuro: Intact Psych: Alert, oriented Assessment/Plan: Sepsis secondary to acute gangrenous cholecystitis, abscess status post ex lap with cholecystectomy and drainage of abscess on 02/26/2025 Intubated after ex lap, s/p extubation Cholelithiasis moderate hepatomegaly moderate splenomegaly moderate anasarca - Your surgical management - Continue Zosyn 3.375 every 8 hours SOT 02/26/2025, ID consulted -daily CBC and CMP -Repeat CBC 1 PM -Follow-up blood cultures, intraoperative cultures-pansensitive E. coli - Continue LR at 75 cc/h, surgery advance diet to CLD Hypokalemia: Replaced with 40 mEq IV, monitor BMP daily of A-fib with RVR not on anticoagulation due to chronic anemia Acute blood loss anemia Chronic anemia - Hemoglobin down to 6.0, 2 unit of PRBC 02/27/2025, monitor CBC additional CBC for this afternoon, discussed with tape calender thrombocytopenia: Improved from before, monitor daily CBC GERD: Holding home PPIs, proceed with IV Protonix 40 daily Monet fundoplication Hypertension: Hold home metoprolol 25 p.o. twice daily due to hypotension DVT prophylaxis: SCD Objective - Vital Signs Vital signs: Vital Signs Temp 98.5 F 02/28/25 11:30 Pulse 79 02/28/25 12:00 Resp 23 02/28/25 12:00 BP 105/59 02/27/25 20:00 Pulse Ox 95 02/28/25 12:00 FiO2 35 02/27/25 12:00 Intake & Output 02/27/25 02/28/25 02/28/25 18:59 06:59 18:59 Intake Total 2905.706 2353 943 Output Total 755 700 360 Balance 2150.706 1653 583 Weight 77.5 kg Intake: IV 1596 1593 743 0.9 pressure bag 36 33 18 Lactated Ringers 1,000 ml 1560 1560 725 @ 75 mls/hr IV .[id number] [facility] Rx#:[id number] Intake, IV Titration 689.706 300 200 Amount ACETAMINOPHEN IV (For NPO 100 200 ) 1,000 mg In Empty Bag 1 bag @ 400 mls/hr IVPB Q6HR [facility] Rx#:[id number] Magnesium Sulfate-D5w Pmx 100 1 gm In Dextrose/Water 1 100ml.bag @ 100 mls/hr IVPB ONCE ONE Rx#: [id number] Norepinephrine 4 mg In 121.718 Sodium Chloride 0.9% 250 ml @ 0.03 MCG/KG/MIN 7.31 mls/hr IV .Q24H [facility] Rx#: [id number] Piperacillin-Tazobactam 3 300 100 100 .375 gm In Sodium Chloride 0.9% 100 ml @ 25 mls/hr IVPB Q8HR [facility] Rx# :[id number] Potassium Chloride 10 meq 100 In Water For Injection 1 100ml.bag @ 100 mls/hr IVPB Q1H [facility] Rx#: [id number] propofoL 1,000 mg In 67.988 Empty Bag 1 bag @ 15 MCG/ KG/MIN 5.756 mls/hr IV . [id number] [facility] Rx#:[id number] Oral 460 Blood Product 620 Rc As-1 Unit 310 [id number] Rc As-1 Unit 310 [id number] Output: Drainage 80 170 30 Left Abdomen 80 170 30 Urine 675 530 330 Other: Voiding Method Indwelling Catheter Indwelling Catheter Indwelling Catheter # Voids 1 ABP, PAP, CO, CI - Last Documented Arterial Blood Pressure 141/55 - Labs CBC & Chem 7: 02/28/25 05:46 02/28/25 04:25 Labs: Abnormal Lab Results - Last 24 Hours (Table) 02/27/25 02/27/25 02/27/25 Range/Units 06:04 13:28 17:12 RBC 2.18 L (4.40-5.60) 10*6/uL Hgb 6.4 L* (13.0-17.0) g/dL Hct 20.1 L (39.6-50.0) % MCHC 31.8 L (32.0-37.0) g/dL Plt Count 139 L (140-440) 10*3/uL MPV (9.5-12.2) fL Lymphocytes # 0.45 L (0.90-5.00) 10*3/uL Sodium (137-145) mmol/L Creatinine (0.66-1.25) mg/dL POC Glucose (mg/dL) 121 H (70-110) mg/dL Calcium (8.4-10.2) mg/dL Total Bilirubin (0.2-1.3) mg/dL Total Protein (6.3-8.2) g/dL Albumin (3.5-5.0) g/dL Crossmatch See Detail 02/27/25 02/28/25 02/28/25 Range/Units 20:17 04:25 04:25 RBC 2.43 L 2.42 L (4.40-5.60) 10*6/uL Hgb 7.0 L 6.9 L* (13.0-17.0) g/dL Hct 21.8 L 21.9 L (39.6-50.0) % MCHC 31.5 L (32.0-37.0) g/dL Plt Count 129 L (140-440) 10*3/uL MPV 9.3 L (9.5-12.2) fL Lymphocytes # 0.57 L 0.64 L (0.90-5.00) 10*3/uL Sodium 135 L (137-145) mmol/L Creatinine 0.63 L (0.66-1.25) mg/dL POC Glucose (mg/dL) (70-110) mg/dL Calcium 8.0 L (8.4-10.2) mg/dL Total Bilirubin 1.7 H (0.2-1.3) mg/dL Total Protein 4.5 L (6.3-8.2) g/dL Albumin 2.0 L (3.5-5.0) g/dL Crossmatch 02/28/25 02/28/25 Range/Units 05:46 11:51 RBC 2.46 L (4.40-5.60) 10*6/uL Hgb 7.1 L (13.0-17.0) g/dL Hct 22.2 L (39.6-50.0) % MCHC (32.0-37.0) g/dL Plt Count 136 L (140-440) 10*3/uL MPV (9.5-12.2) fL Lymphocytes # (0.90-5.00) 10*3/uL Sodium (137-145) mmol/L Creatinine (0.66-1.25) mg/dL POC Glucose (mg/dL) 139 H (70-110) mg/dL Calcium (8.4-10.2) mg/dL Total Bilirubin (0.2-1.3) mg/dL Total Protein (6.3-8.2) g/dL Albumin (3.5-5.0) g/dL Crossmatch Microbiology - Last 24 Hours (Table) 02/26/25 11:53 Gram Stain - Final Other - Other Wound Culture - Final Escherichia coli
[2025-02-28 12:49] LABS: HCT 22.7 % (39.6-50.0); HGB 7.4 g/dL (13.0-17.0); MCH 29.1 pg (27.0-32.0); MCHC 32.6 g/dL (32.0-37.0); MCV 89.4 fL (80.0-97.0); Mean Platelet Volume 9.4 fL (9.5-12.2); Platelet Count 146 10*3/uL (140-440); RBC 2.54 10*6/uL (4.40-5.60); WBC 6.53 10*3/uL (4.50-10.00)
--- NOTE | 2025-02-28 13:39 | P.PN ---
Subjective Progress Note Date: 02/28/25 Principal diagnosis: Acute cholecystitis, and sepsis Patient is a 69-year-old male with past medical history significant for atrial fibrillation, hypertension, GERD, hiatal hernia, Monet fundoplication, cholelithiasis. Presented to the emergency department via EMS earlier this morning with chief complaint of right-sided abdominal pain. Also, noted to be weak and lightheaded. Found to be hypotensive in the ED. Blood pressure was 73/40 mmHg. Patient was bolused with 2.5 L of normal saline. Workup including abdominal/pelvis showing markedly distended gallbladder with 2 large stones in the dependent portion, tiny pockets of gas within the gallbladder and possibly within adjacent liver parenchyma, and surrounding mesenteric inflammation. Concerning for abscess versus emphysematous cholecystitis. Remaining workup including a CBC with a WBC count of 7.4, hemoglobin 8, platelets 120. CMP: Sodium 135, potassium 3, chloride 102, serum bicarb 25, BUN 27, creatinine 0.84, glucose 127. Total bilirubin 2.2. LFTs not elevated. Lactic 1.9. Troponin less than 0.012. Patient currently being evaluated in the emergency department. Resting comfortably on room air. Blood pressures currently 100/54 mmHg. Nontachycardic. Lactated Ringer's infusing at 130 mL/h. Abdominal pain is currently rated 3 out of 10 on a 10 point numerical scale. Localized to the right lower abdominal quadrant. No radiation. No nausea or vomiting. He states the pain for started approximately 3 to 4 days ago. He has not had much of an appetite. No nausea or vomiting. Awaiting general surgery recommendation Patient was seen today on 02/27/2025, remains in the ICU, intubated and mechanically ventilated. He is on assist-control rate of 20 tidal volume 450 FiO2 40% PEEP of 5 ABG showed a pO2 of 154 pCO2 4 0 pH of 7.43. Patient still on LR at 150 cc/h norepinephrine at 0.06 mcg/kg/min propofol at 20 mg/kg/min, his hemoglobin this morning is 6, patient is receiving a unit of packed RBCs. Patient has good urine output, his blood pressure is soft/marginal, I think will likely improve after unit of packed RBCs, patient's hemoglobin today is 6. Remains on Zosyn, today I plan to give the patient a weaning trial, will check weaning parameters, and if tolerated may even consider extubating the patient today. Speech ABG was noted and his FiO2 was cut down to 35%. Chest x-ray showed minimal pulmonary vascular congestion with small pleural effusion/atelectasis. Patient was seen today on 02/24/2025, patient is in no distress, doing well, on room air, IV fluid at 130 cc/h and I cut it down to 75 cc/h in the form of LR. Patient is doing well with incentive spirometry, his hemoglobin however drifted down yesterday and he required 2 units of packed RBCs. Remains on antibiotics, continues to have ALONSO drain in place, hemoglobin this morning is 7.1, follow-up was 7.4. Remains on GI and DVT prophylaxis, pain is fairly well-controlled. Antibiotics jean patient is on Zosyn. Objective - Vital Signs Vital signs: Vital Signs Temp 98.5 F 02/28/25 11:30 Pulse 77 02/28/25 13:00 Resp 21 02/28/25 13:00 BP 105/59 02/27/25 20:00 Pulse Ox 98 02/28/25 13:00 FiO2 35 02/27/25 12:00 Intake & Output 02/27/25 02/28/25 02/28/25 18:59 06:59 18:59 Intake Total 2905.706 2353 943 Output Total 755 700 360 Balance 2150.706 1653 583 Weight 77.5 kg Intake: IV 1596 1593 743 0.9 pressure bag 36 33 18 Lactated Ringers 1,000 ml 1560 1560 725 @ 75 mls/hr IV .[id number] [facility] Rx#:[id number] Intake, IV Titration 689.706 300 200 Amount ACETAMINOPHEN IV (For NPO 100 200 ) 1,000 mg In Empty Bag 1 bag @ 400 mls/hr IVPB Q6HR [facility] Rx#:[id number] Magnesium Sulfate-D5w Pmx 100 1 gm In Dextrose/Water 1 100ml.bag @ 100 mls/hr IVPB ONCE ONE Rx#: [id number] Norepinephrine 4 mg In 121.718 Sodium Chloride 0.9% 250 ml @ 0.03 MCG/KG/MIN 7.31 mls/hr IV .Q24H [facility] Rx#: [id number] Piperacillin-Tazobactam 3 300 100 100 .375 gm In Sodium Chloride 0.9% 100 ml @ 25 mls/hr IVPB Q8HR [facility] Rx# :[id number] Potassium Chloride 10 meq 100 In Water For Injection 1 100ml.bag @ 100 mls/hr IVPB Q1H [facility] Rx#: [id number] propofoL 1,000 mg In 67.988 Empty Bag 1 bag @ 15 MCG/ KG/MIN 5.756 mls/hr IV . [id number] [facility] Rx#:[id number] Oral 460 Blood Product 620 Rc As-1 Unit 310 [id number] Rc As-1 Unit 310 [id number] Output: Drainage 80 170 30 Left Abdomen 80 170 30 Urine 675 530 330 Other: Voiding Method Indwelling Catheter Indwelling Catheter Indwelling Catheter # Voids 1 ABP, PAP, CO, CI - Last Documented Arterial Blood Pressure 124/83 - Exam GENERAL EXAM: Alert, 69-year-old male, sitting at the bedside chair, in no distress HEAD: Normocephalic and atraumatic EYES: Normal reaction of pupils, equal size. NOSE: Clear with pink turbinates. THROAT: No erythema or exudates. NECK: No masses, no JVD. CHEST: No chest wall deformity. LUNGS: Diminished breath sounds at the bases no rhonchi no wheezes CVS: S1 and S2 normal with no audible murmur, regular rhythm. No extra heart sounds ABDOMEN: Postsurgical, soft, ALONSO drain is noted SKIN: No rashes CENTRAL NERVOUS SYSTEM: Alert oriented x 3 no focal deficit EXTREMITIES: There is no peripheral edema, clubbing, or cyanosis. Peripheral pulses are intact. - Labs CBC & Chem 7: 02/28/25 12:26 02/28/25 04:25 Labs: Abnormal Lab Results - Last 24 Hours (Table) 02/27/25 02/27/25 02/27/25 Range/Units 06:04 13:28 17:12 RBC 2.18 L (4.40-5.60) 10*6/uL Hgb 6.4 L* (13.0-17.0) g/dL Hct 20.1 L (39.6-50.0) % MCHC 31.8 L (32.0-37.0) g/dL Plt Count 139 L (140-440) 10*3/uL MPV (9.5-12.2) fL Lymphocytes # 0.45 L (0.90-5.00) 10*3/uL Sodium (137-145) mmol/L Creatinine (0.66-1.25) mg/dL POC Glucose (mg/dL) 121 H (70-110) mg/dL Calcium (8.4-10.2) mg/dL Total Bilirubin (0.2-1.3) mg/dL Total Protein (6.3-8.2) g/dL Albumin (3.5-5.0) g/dL Crossmatch See Detail 02/27/25 02/28/25 02/28/25 Range/Units 20:17 04:25 04:25 RBC 2.43 L 2.42 L (4.40-5.60) 10*6/uL Hgb 7.0 L 6.9 L* (13.0-17.0) g/dL Hct 21.8 L 21.9 L (39.6-50.0) % MCHC 31.5 L (32.0-37.0) g/dL Plt Count 129 L (140-440) 10*3/uL MPV 9.3 L (9.5-12.2) fL Lymphocytes # 0.57 L 0.64 L (0.90-5.00) 10*3/uL Sodium 135 L (137-145) mmol/L Creatinine 0.63 L (0.66-1.25) mg/dL POC Glucose (mg/dL) (70-110) mg/dL Calcium 8.0 L (8.4-10.2) mg/dL Total Bilirubin 1.7 H (0.2-1.3) mg/dL Total Protein 4.5 L (6.3-8.2) g/dL Albumin 2.0 L (3.5-5.0) g/dL Crossmatch 02/28/25 02/28/25 02/28/25 Range/Units 05:46 11:51 12:26 RBC 2.46 L 2.54 L (4.40-5.60) 10*6/uL Hgb 7.1 L 7.4 L (13.0-17.0) g/dL Hct 22.2 L 22.7 L (39.6-50.0) % MCHC (32.0-37.0) g/dL Plt Count 136 L (140-440) 10*3/uL MPV 9.4 L (9.5-12.2) fL Lymphocytes # (0.90-5.00) 10*3/uL Sodium (137-145) mmol/L Creatinine (0.66-1.25) mg/dL POC Glucose (mg/dL) 139 H (70-110) mg/dL Calcium (8.4-10.2) mg/dL Total Bilirubin (0.2-1.3) mg/dL Total Protein (6.3-8.2) g/dL Albumin (3.5-5.0) g/dL Crossmatch Microbiology - Last 24 Hours (Table) 02/26/25 11:53 Gram Stain - Final Other - Other Wound Culture - Final Escherichia coli Assessment and Plan Assessment: Impression Acute abdominal sepsis secondary to acute cholecystitis Status post laparoscopic cholecystectomy and abscess drainage of gallbladder. Postoperative day #2 Hypotension secondary to hypovolemia and possible septic shock, requiring pressors and requiring blood transfusion, patient received a total of 2 units of packed RBCs Acute blood loss anemia History of chronic anemia Chronic atrial fibrillation, patient is now in sinus rhythm History of hiatal hernia with previous Monet fundoplication. Recommendation: Continue to monitor in the ICU for the next 24 hours Continue present supportive care Continue IV fluids but cut down to 75 cc/h Continue antibiotics/Zosyn Continue to monitor serial hemoglobin hematocrit/CBC Continue GI and DVT prophylaxis Advance diet as recommended by surgery Incentive spirometry Early ambulation Will continue to follow Time with Patient: Less than 30
--- NOTE | 2025-02-28 15:28 | P.PN ---
Subjective Progress Note Date: 02/28/25 Principal diagnosis: Reason for follow-up is gangrenous cholecystitis Patient is a 69-year-old male with a past medical history significant for atrial fibrillation reflux presenting to the hospital for evaluation of diarrhea felt lightheaded complaining of weakness and did have right upper quadrant pain, patient be diagnosed with gangrenous cholecystitis status post open cholecystectomy and drainage of the abscess. On today's evaluation that is 02/28/2025,the patient remains to be afebrile, patient is on 2 L nasal cannula supplemental oxygen and denies any shortness of breath no chest pain or cough.Patient abdominal pain is currently controlled no nausea vomiting or diarrhea. Patient white count 6.53 creatinine 0.63 abdominal culture with E. coli that is a sensitive pathogen Objective - Vital Signs Vital signs: Vital Signs Temp 97.7 F 02/28/25 07:45 Pulse 78 02/28/25 11:00 Resp 24 02/28/25 11:00 BP 105/59 02/27/25 20:00 Pulse Ox 95 02/28/25 11:00 FiO2 35 02/27/25 12:00 Intake & Output 02/27/25 02/28/25 02/28/25 18:59 06:59 18:59 Intake Total 2905.706 2353 865 Output Total 755 700 315 Balance 2150.706 1653 550 Weight 77.5 kg Intake: IV 1596 1593 665 0.9 pressure bag 36 33 15 Lactated Ringers 1,000 ml 1560 1560 650 @ 75 mls/hr IV .[id number] [facility] Rx#:[id number] Intake, IV Titration 689.706 300 200 Amount ACETAMINOPHEN IV (For NPO 100 200 ) 1,000 mg In Empty Bag 1 bag @ 400 mls/hr IVPB Q6HR [facility] Rx#:[id number] Magnesium Sulfate-D5w Pmx 100 1 gm In Dextrose/Water 1 100ml.bag @ 100 mls/hr IVPB ONCE ONE Rx#: [id number] Norepinephrine 4 mg In 121.718 Sodium Chloride 0.9% 250 ml @ 0.03 MCG/KG/MIN 7.31 mls/hr IV .Q24H [facility] Rx#: [id number] Piperacillin-Tazobactam 3 300 100 100 .375 gm In Sodium Chloride 0.9% 100 ml @ 25 mls/hr IVPB Q8HR [facility] Rx# :[id number] Potassium Chloride 10 meq 100 In Water For Injection 1 100ml.bag @ 100 mls/hr IVPB Q1H [facility] Rx#: [id number] propofoL 1,000 mg In 67.988 Empty Bag 1 bag @ 15 MCG/ KG/MIN 5.756 mls/hr IV . [id number] [facility] Rx#:[id number] Oral 460 Blood Product 620 Rc As-1 Unit 310 [id number] Rc As-1 Unit 310 [id number] Output: Drainage 80 170 30 Left Abdomen 80 170 30 Urine 675 530 285 Other: Voiding Method Indwelling Catheter Indwelling Catheter Indwelling Catheter # Voids 1 ABP, PAP, CO, CI - Last Documented Arterial Blood Pressure 139/53 - Exam GENERAL DESCRIPTION: An elderly male lying in bed in no distress RESPIRATORY SYSTEM: Unlabored breathing , decreased breath sounds at bases HEART: S1 S2 regular rate and rhythm , ABDOMEN: Soft , no tenderness EXTREMITIES: No edema feet - Labs CBC & Chem 7: 02/28/25 12:26 02/28/25 04:25 Labs: Abnormal Lab Results - Last 24 Hours (Table) 02/27/25 02/27/25 02/27/25 Range/Units 06:04 11:55 12:00 RBC (4.40-5.60) 10*6/uL Hgb (13.0-17.0) g/dL Hct (39.6-50.0) % MCHC (32.0-37.0) g/dL Plt Count (140-440) 10*3/uL MPV (9.5-12.2) fL Lymphocytes # (0.90-5.00) 10*3/uL ABG pO2 149 H (83-108) mmHg ABG HCO3 27 H (21-25) mmol/L ABG Total CO2 29 H (19-24) mmol/L ABG O2 Saturation >100.0 H (94-97) % Hemoglobin 6.7 L* (13.0-17.5) gm/dL Sodium (137-145) mmol/L Creatinine (0.66-1.25) mg/dL POC Glucose (mg/dL) 121 H (70-110) mg/dL Calcium (8.4-10.2) mg/dL Total Bilirubin (0.2-1.3) mg/dL Total Protein (6.3-8.2) g/dL Albumin (3.5-5.0) g/dL Crossmatch See Detail 02/27/25 02/27/25 02/27/25 Range/Units 13:28 17:12 20:17 RBC 2.18 L 2.43 L (4.40-5.60) 10*6/uL Hgb 6.4 L* 7.0 L (13.0-17.0) g/dL Hct 20.1 L 21.8 L (39.6-50.0) % MCHC 31.8 L (32.0-37.0) g/dL Plt Count 139 L 129 L (140-440) 10*3/uL MPV 9.3 L (9.5-12.2) fL Lymphocytes # 0.45 L 0.57 L (0.90-5.00) 10*3/uL ABG pO2 (83-108) mmHg ABG HCO3 (21-25) mmol/L ABG Total CO2 (19-24) mmol/L ABG O2 Saturation (94-97) % Hemoglobin (13.0-17.5) gm/dL Sodium (137-145) mmol/L Creatinine (0.66-1.25) mg/dL POC Glucose (mg/dL) 121 H (70-110) mg/dL Calcium (8.4-10.2) mg/dL Total Bilirubin (0.2-1.3) mg/dL Total Protein (6.3-8.2) g/dL Albumin (3.5-5.0) g/dL Crossmatch 02/28/25 02/28/25 02/28/25 Range/Units 04:25 04:25 05:46 RBC 2.42 L 2.46 L (4.40-5.60) 10*6/uL Hgb 6.9 L* 7.1 L (13.0-17.0) g/dL Hct 21.9 L 22.2 L (39.6-50.0) % MCHC 31.5 L (32.0-37.0) g/dL Plt Count 136 L (140-440) 10*3/uL MPV (9.5-12.2) fL Lymphocytes # 0.64 L (0.90-5.00) 10*3/uL ABG pO2 (83-108) mmHg ABG HCO3 (21-25) mmol/L ABG Total CO2 (19-24) mmol/L ABG O2 Saturation (94-97) % Hemoglobin (13.0-17.5) gm/dL Sodium 135 L (137-145) mmol/L Creatinine 0.63 L (0.66-1.25) mg/dL POC Glucose (mg/dL) (70-110) mg/dL Calcium 8.0 L (8.4-10.2) mg/dL Total Bilirubin 1.7 H (0.2-1.3) mg/dL Total Protein 4.5 L (6.3-8.2) g/dL Albumin 2.0 L (3.5-5.0) g/dL Crossmatch Microbiology - Last 24 Hours (Table) 02/26/25 11:53 Gram Stain - Final Other - Other Wound Culture - Final Escherichia coli Assessment and Plan (1) Acute cholecystitis Current Visit: Yes Status: Acute Code(s): K81.0 - ACUTE CHOLECYSTITIS SNOMED Code(s): 13136956 Plan: 1patient presented to hospital with weakness abdominal pain has been diagnosed with gangrenous cholecystitis with empyema in this patient who is status post open cholecystectomy and drainage of the abscess will need to cover for the enteric gram-negative due to the likely pathogen 2-abdominal cultures currently growing E. coli that is a sensitive pathogen 3-I will discontinue Zosyn and start the patient on Unasyn and monitor clinical course closely Dictation was produced using [employer] dictation software. please excuse any gramma tical, word or spelling errors. Time with Patient: Less than 30
[2025-02-28] MEDS: AMPICILLIN-SULBACTAM 3 GM in SODIUM CHLORIDE 0.9% 100 ML IVPB SCH (17:10)
[2025-02-28 17:57] LABS: Glucose,Whole Blood 177 mg/dL (70-110)
[2025-02-28 23:07] LABS: Glucose,Whole Blood 127 mg/dL (70-110)
[2025-02-28] MEDS: LACTATED RINGERS 1,000 ML IV SCH (23:47)
[2025-02-28] MEDS: SODIUM CHLORIDE 0.9% 1,000 ML IV ONE (23:47)
[2025-03-01 05:15] LABS: Eosinophils # (A) 0.14 10*3/uL (0.04-0.35); Eosinophils % (A) 2.6 %; HCT 22.8 % (39.6-50.0); HGB 7.3 g/dL (13.0-17.0); Lymphocytes # (A) 0.85 10*3/uL (0.90-5.00); MCH 28.6 pg (27.0-32.0); MCV 89.4 fL (80.0-97.0); Mean Platelet Volume 9.8 fL (9.5-12.2); Monocytes # (A) 0.27 10*3/uL (0.20-1.00); Monocytes % (A) 5.1 %; Neutrophils # (A) 3.99 10*3/uL (1.80-7.70); Neutrophils % (A) 75.2 %; Platelet Count 139 10*3/uL (140-440); RBC 2.55 10*6/uL (4.40-5.60); RDW 19.8 % (11.5-14.5); WBC 5.31 10*3/uL (4.50-10.00)
[2025-03-01 05:31] LABS: ALT 24 U/L (4-49); AST 20 U/L (17-59); African American GFR (CKD) >90 (>60 ml/min/1.73 sqM); Alkaline Phosphatase 92 U/L (38-126); Anion Gap 4 mmol/L; Blood Urea Nitrogen 8 mg/dL (9-20); Calcium 7.7 mg/dL (8.4-10.2); Carbon Dioxide 28 mmol/L (22-30); Chloride 102 mmol/L (98-107); Glucose 93 mg/dL (74-99); Non-African American GFR(CKD) >90 (>60 ml/min/1.73 sqM); Potassium 3.6 mmol/L (3.5-5.1); Sodium 134 mmol/L (137-145); Total Bilirubin 1.2 mg/dL (0.2-1.3); Total Protein 4.6 g/dL (6.3-8.2)
[2025-03-01] MEDS ORDERED: Potassium Replacement Protocol 1 EACH MISC MISCELLANE PRN (06:47)
[2025-03-01] MEDS: POTASSIUM CHLORIDE ER 20 MEQ TAB.ER PO SCH (07:00)
--- NOTE | 2025-03-01 08:28 | XR ---
EXAMINATION TYPE: XR chest 1V portable DATE OF EXAM: 03/01/2025 7:54 AM COMPARISON: 02/28/2025 CLINICAL INDICATION: Male, 69 years old with history of sob, TECHNIQUE: XR chest 1V portable view(s) obtained. FINDINGS: The heart size is normal. The pulmonary vasculature is normal. Bibasilar infiltrates are present. Small effusions are likely present. Lines and catheters been removed. IMPRESSION: 1. Bibasilar infiltrates. Correlate for atelectasis and small effusions. [facility], , 03/01/2025 8:26 AM
[2025-03-01] MEDS: FUROSEMIDE 10 MG/ML 2 ML VIAL IV ONE (08:31)
--- NOTE | 2025-03-01 09:16 | P.PN ---
Subjective Progress Note Date: 03/01/25 The patient is up in his chair. He states he feels better. He has less abdominal pain. On exam vital signs appear stable. There is less bilious tinge in the ALONSO drain this morning. Incision is clean dry intact. Status post cholecystectomy for gangrenous purulent cholecystitis. Patient's ALONSO drain will be watched closely. He may require ERCP with stent placement. Objective - Vital Signs Vital signs: Vital Signs Temp 97.9 F 03/01/25 08:00 Pulse 74 03/01/25 09:00 Resp 16 03/01/25 09:00 BP 110/69 03/01/25 09:00 Pulse Ox 99 03/01/25 09:00 FiO2 35 02/27/25 12:00 Intake & Output 02/28/25 03/01/25 03/01/25 18:59 06:59 18:59 Intake Total 1411 2653 1719 Output Total 740 860 680 Balance 671 1793 1039 Weight 79.4 kg Intake: IV 1211 408 9 0.9 pressure bag 36 33 9 Lactated Ringers 1,000 ml 1175 375 @ 75 mls/hr IV .[id number] [facility] Rx#:[id number] Intake, IV Titration 200 2075 270 Amount Ampicillin-Sulbactam 3 gm 200 In Sodium Chloride 0.9% 100 ml @ 200 mls/hr IVPB Q6HR [facility] Rx#:[id number] Lactated Ringers 1,000 ml 875 270 @ 20 mls/hr IV .Q24H [facility] Rx#:[id number] Piperacillin-Tazobactam 3 100 .375 gm In Sodium Chloride 0.9% 100 ml @ 25 mls/hr IVPB Q8HR [facility] Rx# :[id number] Potassium Chloride 10 meq 100 In Water For Injection 1 100ml.bag @ 100 mls/hr IVPB Q1H [facility] Rx#: [id number] Sodium Chloride 0.9% 1, 1000 000 ml @ 999 mls/hr IV . Q1H1M ONE Rx#:[id number] Oral 170 1440 Output: Drainage 60 140 65 Left Abdomen 60 140 65 Urine 680 720 615 Other: Voiding Method Indwelling Catheter Indwelling Catheter Indwelling Catheter ABP, PAP, CO, CI - Last Documented Arterial Blood Pressure 135/50 - Labs CBC & Chem 7: 03/01/25 05:00 05/25/25 05:00 Labs: Abnormal Lab Results - Last 24 Hours (Table) 02/28/25 02/28/25 02/28/25 Range/Units 11:51 12:26 17:56 RBC 2.54 L (4.40-5.60) 10*6/uL Hgb 7.4 L (13.0-17.0) g/dL Hct 22.7 L (39.6-50.0) % Plt Count (140-440) 10*3/uL MPV 9.4 L (9.5-12.2) fL Immature Gran # (0.00-0.04) 10*3/uL Lymphocytes # (0.90-5.00) 10*3/uL Sodium (137-145) mmol/L BUN (9-20) mg/dL Creatinine (0.66-1.25) mg/dL POC Glucose (mg/dL) 139 H 177 H (70-110) mg/dL Calcium (8.4-10.2) mg/dL Total Protein (6.3-8.2) g/dL Albumin (3.5-5.0) g/dL 02/28/25 03/01/25 03/01/25 Range/Units 23:06 05:00 05:00 RBC 2.55 L (4.40-5.60) 10*6/uL Hgb 7.3 L (13.0-17.0) g/dL Hct 22.8 L (39.6-50.0) % Plt Count 139 L (140-440) 10*3/uL MPV (9.5-12.2) fL Immature Gran # 0.06 H (0.00-0.04) 10*3/uL Lymphocytes # 0.85 L (0.90-5.00) 10*3/uL Sodium 134 L (137-145) mmol/L BUN 8 L (9-20) mg/dL Creatinine 0.55 L (0.66-1.25) mg/dL POC Glucose (mg/dL) 127 H (70-110) mg/dL Calcium 7.7 L (8.4-10.2) mg/dL Total Protein 4.6 L (6.3-8.2) g/dL Albumin 2.0 L (3.5-5.0) g/dL Microbiology - Last 24 Hours (Table) 02/27/25 13:28 Blood Culture - Preliminary Blood 02/26/25 11:53 Gram Stain - Final Other - Other Wound Culture - Final Escherichia coli
--- NOTE | 2025-03-01 10:25 | P.PN ---
Subjective Progress Note Date: 03/01/25 Principal diagnosis: Acute cholecystitis, and sepsis Patient is a 69-year-old male with past medical history significant for atrial fibrillation, hypertension, GERD, hiatal hernia, Monet fundoplication, cholelithiasis. Presented to the emergency department via EMS earlier this morning with chief complaint of right-sided abdominal pain. Also, noted to be weak and lightheaded. Found to be hypotensive in the ED. Blood pressure was 73/40 mmHg. Patient was bolused with 2.5 L of normal saline. Workup including abdominal/pelvis showing markedly distended gallbladder with 2 large stones in the dependent portion, tiny pockets of gas within the gallbladder and possibly within adjacent liver parenchyma, and surrounding mesenteric inflammation. Concerning for abscess versus emphysematous cholecystitis. Remaining workup including a CBC with a WBC count of 7.4, hemoglobin 8, platelets 120. CMP: Sodium 135, potassium 3, chloride 102, serum bicarb 25, BUN 27, creatinine 0.84, glucose 127. Total bilirubin 2.2. LFTs not elevated. Lactic 1.9. Troponin less than 0.012. Patient currently being evaluated in the emergency department. Resting comfortably on room air. Blood pressures currently 100/54 mmHg. Nontachycardic. Lactated Ringer's infusing at 130 mL/h. Abdominal pain is currently rated 3 out of 10 on a 10 point numerical scale. Localized to the right lower abdominal quadrant. No radiation. No nausea or vomiting. He states the pain for started approximately 3 to 4 days ago. He has not had much of an appetite. No nausea or vomiting. Awaiting general surgery recommendation Patient was seen today on 02/27/2025, remains in the ICU, intubated and mechanically ventilated. He is on assist-control rate of 20 tidal volume 450 FiO2 40% PEEP of 5 ABG showed a pO2 of 154 pCO2 4 0 pH of 7.43. Patient still on LR at 150 cc/h norepinephrine at 0.06 mcg/kg/min propofol at 20 mg/kg/min, his hemoglobin this morning is 6, patient is receiving a unit of packed RBCs. Patient has good urine output, his blood pressure is soft/marginal, I think will likely improve after unit of packed RBCs, patient's hemoglobin today is 6. Remains on Zosyn, today I plan to give the patient a weaning trial, will check weaning parameters, and if tolerated may even consider extubating the patient today. Speech ABG was noted and his FiO2 was cut down to 35%. Chest x-ray showed minimal pulmonary vascular congestion with small pleural effusion/atelectasis. Patient was seen today on 02/28/2025, patient is in no distress, doing well, on room air, IV fluid at 130 cc/h and I cut it down to 75 cc/h in the form of LR. Patient is doing well with incentive spirometry, his hemoglobin however drifted down yesterday and he required 2 units of packed RBCs. Remains on antibiotics, continues to have ALONSO drain in place, hemoglobin this morning is 7.1, follow-up was 7.4. Remains on GI and DVT prophylaxis, pain is fairly well-controlled. Antibiotics jean patient is on Zosyn. Patient was seen today on 03/01/2025, remains in the ICU, he had a bit of issues with low blood pressure last night, given fluid boluses did not require pressors, responded well to fluids. This morning his chest x-ray is showing evidence of fluid overload, hence I recommended cutting down the IV fluids and I recommended Lasix x 1 dose. Patient is sitting at the bedside chair, does not seem to be in any distress, he is on room air, hemodynamically stable. Labs were reviewed WBC count is 5.3 hemoglobin 7.3 electrolytes are normal renal profile is normal patient is doing better with incentive spirometry, he does have also some component of atelectasis at the base of his lungs but overall is doing great. Objective - Vital Signs Vital signs: Vital Signs Temp 97.9 F 03/01/25 08:00 Pulse 80 03/01/25 10:00 Resp 16 03/01/25 10:00 BP 96/59 03/01/25 10:00 Pulse Ox 98 03/01/25 10:00 FiO2 35 02/27/25 12:00 Intake & Output 02/28/25 03/01/25 03/01/25 18:59 06:59 18:59 Intake Total 1411 2653 2222 Output Total 686 658 0839 Balance 671 1793 567 Weight 79.4 kg Intake: IV 1211 408 12 0.9 pressure bag 36 33 12 Lactated Ringers 1,000 ml 1175 375 @ 75 mls/hr IV .[id number] [facility] Rx#:[id number] Intake, IV Titration 200 2075 290 Amount Ampicillin-Sulbactam 3 gm 200 In Sodium Chloride 0.9% 100 ml @ 200 mls/hr IVPB Q6HR [facility] Rx#:[id number] Lactated Ringers 1,000 ml 875 290 @ 20 mls/hr IV .Q24H [facility] Rx#:[id number] Piperacillin-Tazobactam 3 100 .375 gm In Sodium Chloride 0.9% 100 ml @ 25 mls/hr IVPB Q8HR [facility] Rx# :[id number] Potassium Chloride 10 meq 100 In Water For Injection 1 100ml.bag @ 100 mls/hr IVPB Q1H [facility] Rx#: [id number] Sodium Chloride 0.9% 1, 1000 000 ml @ 999 mls/hr IV . Q1H1M [facility] Rx#:[id number] Oral 170 1920 Output: Drainage 60 140 65 Left Abdomen 60 140 65 Urine 515 104 3854 Other: Voiding Method Indwelling Catheter Indwelling Catheter Indwelling Catheter ABP, PAP, CO, CI - Last Documented Arterial Blood Pressure 135/50 - Exam GENERAL EXAM: Alert, 69-year-old male, sitting at the bedside chair, in no distress, on room air HEAD: Normocephalic and atraumatic EYES: Normal reaction of pupils, equal size. NOSE: Clear with pink turbinates. THROAT: No erythema or exudates. NECK: No masses, no JVD. CHEST: No chest wall deformity. LUNGS: Diminished breath sounds at the bases no rhonchi no wheezes CVS: S1 and S2 normal with no audible murmur, regular rhythm. No extra heart sounds ABDOMEN: Postsurgical, soft, ALONSO drain is noted SKIN: No rashes CENTRAL NERVOUS SYSTEM: Alert oriented x 3 no focal deficit EXTREMITIES: There is no peripheral edema, clubbing, or cyanosis. Peripheral pulses are intact. - Labs CBC & Chem 7: 03/01/25 05:00 03/01/25 05:00 Labs: Abnormal Lab Results - Last 24 Hours (Table) 02/28/25 02/28/25 02/28/25 Range/Units 11:51 12:26 17:56 RBC 2.54 L (4.40-5.60) 10*6/uL Hgb 7.4 L (13.0-17.0) g/dL Hct 22.7 L (39.6-50.0) % Plt Count (140-440) 10*3/uL MPV 9.4 L (9.5-12.2) fL Immature Gran # (0.00-0.04) 10*3/uL Lymphocytes # (0.90-5.00) 10*3/uL Sodium (137-145) mmol/L BUN (9-20) mg/dL Creatinine (0.66-1.25) mg/dL POC Glucose (mg/dL) 139 H 177 H (70-110) mg/dL Calcium (8.4-10.2) mg/dL Total Protein (6.3-8.2) g/dL Albumin (3.5-5.0) g/dL 02/28/25 03/01/25 03/01/25 Range/Units 23:06 05:00 05:00 RBC 2.55 L (4.40-5.60) 10*6/uL Hgb 7.3 L (13.0-17.0) g/dL Hct 22.8 L (39.6-50.0) % Plt Count 139 L (140-440) 10*3/uL MPV (9.5-12.2) fL Immature Gran # 0.06 H (0.00-0.04) 10*3/uL Lymphocytes # 0.85 L (0.90-5.00) 10*3/uL Sodium 134 L (137-145) mmol/L BUN 8 L (9-20) mg/dL Creatinine 0.55 L (0.66-1.25) mg/dL POC Glucose (mg/dL) 127 H (70-110) mg/dL Calcium 7.7 L (8.4-10.2) mg/dL Total Protein 4.6 L (6.3-8.2) g/dL Albumin 2.0 L (3.5-5.0) g/dL Microbiology - Last 24 Hours (Table) 02/27/25 13:28 Blood Culture - Preliminary Blood 02/26/25 11:53 Gram Stain - Final Other - Other Wound Culture - Final Escherichia coli Assessment and Plan Assessment: Impression Acute abdominal sepsis secondary to acute cholecystitis Status post laparoscopic cholecystectomy and abscess drainage of gallbladder. Postoperative day #3 Hypotension secondary to hypovolemia and possible septic shock, requiring pressors and requiring blood transfusion, patient received a total of 2 units of packed RBCs Acute blood loss anemia History of chronic anemia Chronic atrial fibrillation, patient is now in sinus rhythm History of hiatal hernia with previous Monet fundoplication. Postoperative atelectasis, expected will improve with incentive spirometry and some component of fluid overload,, will improve with diuretics Recommendation: Discontinue arterial line Consider transfer to a cardiac floor/3 S. Gentle diuresis IV fluid to KVO Continue present supportive care Continue Zosyn Continue to monitor daily labs and hemoglobin. Continue GI and DVT prophylaxis Advance diet as recommended by surgery Continue incentive spirometry Ambulate as tolerated Will continue to follow Time with Patient: Less than 30
--- NOTE | 2025-03-01 10:44 | P.PN ---
Subjective Progress Note Date: 03/01/25 Patient is a 69-year-old male with past medical history of A-fib with RVR not on anticoagulation due to chronic anemia, chronic anemia, chronic thrombocytopenia, GERD, history of cholelithiasis, Monet fundoplication, who presented to the ER on 02/26 with right lower quadrant abdominal pain with associated weakness and lightheadedness. Symptoms ongoing for the past couple days. On arrival afebrile, heart rate in 70s, BP low 73/40, SpO2 92% on room air. Patient received fluid resuscitation in the ER. Lab work significant for normal WBC count, hemoglobin 8.0, stable from 2 months ago, platelet count 120, improved from 2-month ago, INR 1.3, sodium 135, potassium 3.0, normal bicarb, creatinine, glucose elevated 127, lactic acid 1.9, total bilirubin 2.2, normal AST, ALT, ALP, magnesium normal, troponin negative, Cepheid negative. EKG sinus rhythm with PVCs, low QRS voltage, QTc 419. CT abdomen showed markedly distended gallbladder with large stones, tiny pockets of gas within the gallbladder and possibly within adjacent liver parenchyma suggest abscess versus emphysematous cholecystitis, moderate hepatomegaly, unremarkable pancreas, moderate splenomegaly unremarkable adrenals, moderate anasarca Chest x-ray bibasilar atelectasis. CT brain showed no acute findings. Patient admitted to ICU under surgery service for possible ex lap, started on Zosyn, pulm crit consulted, sound physicians consulted for medical management. Patient was taken to the OR for ex lap, was found to have gangrenous cholecystitis, abscess with 500 cc of purulent fluid aspirated, he was transferred to the ICU, intubated on propofol, Levophed. 02/27 hemoglobin of 6.0, 1 unit of PRBC ordered. Later on 02/27 patient received 1 more unit of PRBC for hemoglobin of 6.4. Extubated later that day 02/28. Levo was of, Abdominal drain in place with dark brown drainage.. Intraoperative cultures growing E. coli, pansensitive, ID was consulted by surgical team. Patient switched to Unasyn. 03/01: Examined at bedside, overnight became hypotensive and responded well to fluids, however, morning x-ray showed fluid overload and 1 dose of IV Lasix 20 provide by ICU team. Patient was significantly recliner, he ambulated well in the hallway today, does not pass gas, very mild abdominal pain, surgery is watc rpimo ALONSO drain output. Hemoglobin stabilized at 7.3, kidney function normal. Patient will be downgraded to 3 S. Patient seen and examined at bedside. Vital signs reviewed General: Not in acute distress, nontoxic Derm: warm, dry Head: atraumatic, normocephalic, symmetric Eyes: , pupils equal round reactive to light ENT: Nose and ears atraumatic Neck: No thyromegaly, supple Mouth: no lip lesion, mucus membranes moist Cardiovascular: S1S2 reg, no murmur, Lungs: clear to auscultation bilateral, no rhonchi, no rales, no wheeze, no accessory muscle use Abdominal: Surgical dressing intact, drain in place with dark brown output with some greenish Ext: no gross muscle atrophy, bilateral pedal edema 2+ Neuro: Intact Psych: Alert, oriented Assessment/Plan: Sepsis secondary to acute gangrenous cholecystitis, abscess status post ex lap with cholecystectomy and drainage of abscess on 02/26/2025 Intubated after ex lap, s/p extubation Cholelithiasis moderate hepatomegaly moderate splenomegaly moderate anasarca - Your surgical management - Continue Unasyn 3 g every 6 hours per ID, antibiotics SOT 02/26/2025 -daily CBC and CMP -Follow-up blood cultures, intraoperative cultures-pansensitive E. 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 twice daily due to hypotension DVT prophylaxis: SCD Objective - Vital Signs Vital signs: Vital Signs Temp 97.9 F 03/01/25 08:00 Pulse 80 03/01/25 10:00 Resp 16 03/01/25 10:00 BP 96/59 03/01/25 10:00 Pulse Ox 98 03/01/25 10:00 FiO2 35 02/27/25 12:00 Intake & Output 02/28/25 03/01/2525 18:59 06:59 18:59 Intake Total 1411 2653 2222 Output Total 509 717 5397 Balance 671 1793 567 Weight 79.4 kg Intake: IV 1211 408 12 0.9 pressure bag 36 33 12 Lactated Ringers 1,000 ml 1175 375 @ 75 mls/hr IV .[id number] [facility] Rx#:[id number] Intake, IV Titration 200 2075 290 Amount Ampicillin-Sulbactam 3 gm 200 In Sodium Chloride 0.9% 100 ml @ 200 mls/hr IVPB Q6HR [facility] Rx#:[id number] Lactated Ringers 1,000 ml 875 290 @ 20 mls/hr IV .Q24H [facility] Rx#:[id number] Piperacillin-Tazobactam 3 100 .375 gm In Sodium Chloride 0.9% 100 ml @ 25 mls/hr IVPB Q8HR [facility] Rx# :[id number] Potassium Chloride 10 meq 100 In Water For Injection 1 100ml.bag @ 100 mls/hr IVPB Q1H [facility] Rx#: [id number] Sodium Chloride 0.9% 1, 1000 000 ml @ 999 mls/hr IV . Q1H1M [facility] Rx#:[id number] Oral 170 1920 Output: Drainage 60 140 65 Left Abdomen 60 140 65 Urine 869 552 7860 Other: Voiding Method Indwelling Catheter Indwelling Catheter Indwelling Catheter ABP, PAP, CO, CI - Last Documented Arterial Blood Pressure 135/50 - Labs CBC & Chem 7: 03/01/25 05:00 03/01/25 05:00 Labs: Abnormal Lab Results - Last 24 Hours (Table) 02/28/25 02/28/25 02/28/25 Range/Units 11:51 12:26 17:56 RBC 2.54 L (4.40-5.60) 10*6/uL Hgb 7.4 L (13.0-17.0) g/dL Hct 22.7 L (39.6-50.0) % Plt Count (140-440) 10*3/uL MPV 9.4 L (9.5-12.2) fL Immature Gran # (0.00-0.04) 10*3/uL Lymphocytes # (0.90-5.00) 10*3/uL Sodium (137-145) mmol/L BUN (9-20) mg/dL Creatinine (0.66-1.25) mg/dL POC Glucose (mg/dL) 139 H 177 H (70-110) mg/dL Calcium (8.4-10.2) mg/dL Total Protein (6.3-8.2) g/dL Albumin (3.5-5.0) g/dL 02/28/25 03/01/25 03/01/25 Range/Units 23:06 05:00 05:00 RBC 2.55 L (4.40-5.60) 10*6/uL Hgb 7.3 L (13.0-17.0) g/dL Hct 22.8 L (39.6-50.0) % Plt Count 139 L (140-440) 10*3/uL MPV (9.5-12.2) fL Immature Gran # 0.06 H (0.00-0.04) 10*3/uL Lymphocytes # 0.85 L (0.90-5.00) 10*3/uL Sodium 134 L (137-145) mmol/L BUN 8 L (9-20) mg/dL Creatinine 0.55 L (0.66-1.25) mg/dL POC Glucose (mg/dL) 127 H (70-110) mg/dL Calcium 7.7 L (8.4-10.2) mg/dL Total Protein 4.6 L (6.3-8.2) g/dL Albumin 2.0 L (3.5-5.0) g/dL Microbiology - Last 24 Hours (Table) 02/27/25 13:28 Blood Culture - Preliminary Blood 02/26/25 11:53 Gram Stain - Final Other - Other Wound Culture - Final Escherichia coli
--- NOTE | 2025-03-01 14:44 | P.PN ---
Subjective Progress Note Date: 03/01/25 Principal diagnosis: Reason for follow-up is gangrenous cholecystitis Patient is a 69-year-old male with a past medical history significant for atrial fibrillation reflux presenting to the hospital for evaluation of diarrhea felt lightheaded complaining of weakness and did have right upper quadrant pain, patient be diagnosed with gangrenous cholecystitis status post open cholecystectomy and drainage of the abscess. On today's evaluation that is 03/01/2025, the patient continues to be afebrile, the patient is on 1 L nasal oxygen and breathing comfortably, the Pt denies having any chest pain or cough, the patient abdominal pain decrease in intensity no nausea vomiting or diarrhea. Patient white count is 5.31, creatinine 0.55 blood culture negative Objective - Vital Signs Vital signs: Vital Signs Temp 98.1 F 03/01/25 12:00 Pulse 75 03/01/25 14:00 Resp 35 H 03/01/25 14:00 BP 91/58 03/01/25 14:00 Pulse Ox 98 03/01/25 14:00 FiO2 35 02/27/25 12:00 Intake & Output 02/28/25 03/01/25 03/01/25 18:59 06:59 18:59 Intake Total 1411 2653 4234 Output Total 296 222 4512 Balance 671 1793 1759 Weight 79.4 kg Intake: IV 1211 408 24 0.9 pressure bag 36 33 24 Lactated Ringers 1,000 ml 1175 375 @ 75 mls/hr IV .[id number] [facility] Rx#:[id number] Intake, IV Titration 200 2075 370 Amount Ampicillin-Sulbactam 3 gm 200 In Sodium Chloride 0.9% 100 ml @ 200 mls/hr IVPB Q6HR [facility] Rx#:[id number] Lactated Ringers 1,000 ml 875 370 @ 20 mls/hr IV .Q24H [facility] Rx#:[id number] Piperacillin-Tazobactam 3 100 .375 gm In Sodium Chloride 0.9% 100 ml @ 25 mls/hr IVPB Q8HR [facility] Rx# :[id number] Potassium Chloride 10 meq 100 In Water For Injection 1 100ml.bag @ 100 mls/hr IVPB Q1H [facility] Rx#: [id number] Sodium Chloride 0.9% 1, 1000 000 ml @ 999 mls/hr IV . Q1H1M [facility] Rx#:[id number] Oral 170 3840 Output: Drainage 60 140 110 Left Abdomen 60 140 110 Urine 102 404 6115 Other: Voiding Method Indwelling Catheter Indwelling Catheter Indwelling Catheter ABP, PAP, CO, CI - Last Documented Arterial Blood Pressure 135/50 - Exam GENERAL DESCRIPTION: An elderly male lying in bed in no distress RESPIRATORY SYSTEM: Unlabored breathing , decreased breath sounds at bases HEART: S1 S2 regular rate and rhythm , ABDOMEN: Soft , no tenderness EXTREMITIES: No edema feet - Labs CBC & Chem 7: 03/01/25 05:00 03/01/25 05:00 Labs: Abnormal Lab Results - Last 24 Hours (Table) 02/28/25 02/28/25 03/01/25 Range/Units 17:56 23:06 05:00 RBC 2.55 L (4.40-5.60) 10*6/uL Hgb 7.3 L (13.0-17.0) g/dL Hct 22.8 L (39.6-50.0) % Plt Count 139 L (140-440) 10*3/uL Immature Gran # 0.06 H (0.00-0.04) 10*3/uL Lymphocytes # 0.85 L (0.90-5.00) 10*3/uL Sodium (137-145) mmol/L BUN (9-20) mg/dL Creatinine (0.66-1.25) mg/dL POC Glucose (mg/dL) 177 H 127 H (70-110) mg/dL Calcium (8.4-10.2) mg/dL Total Protein (6.3-8.2) g/dL Albumin (3.5-5.0) g/dL 03/01/25 Range/Units 05:00 RBC (4.40-5.60) 10*6/uL Hgb (13.0-17.0) g/dL Hct (39.6-50.0) % Plt Count (140-440) 10*3/uL Immature Gran # (0.00-0.04) 10*3/uL Lymphocytes # (0.90-5.00) 10*3/uL Sodium 134 L (137-145) mmol/L BUN 8 L (9-20) mg/dL Creatinine 0.55 L (0.66-1.25) mg/dL POC Glucose (mg/dL) (70-110) mg/dL Calcium 7.7 L (8.4-10.2) mg/dL Total Protein 4.6 L (6.3-8.2) g/dL Albumin 2.0 L (3.5-5.0) g/dL Microbiology - Last 24 Hours (Table) 02/27/25 13:28 Blood Culture - Preliminary Blood Assessment and Plan (1) Acute cholecystitis Current Visit: Yes Status: Acute Code(s): K81.0 - ACUTE CHOLECYSTITIS SNOMED Code(s): 14931790 Plan: 1patient presented to hospital with weakness abdominal pain has been diagnosed with gangrenous cholecystitis with empyema in this patient who is status post open cholecystectomy and drainage of the abscess will need to cover for the en teric gram-negative due to the likely pathogen 2-abdominal cultures currently growing E. coli that is a sensitive pathogen 3-patient is afebrile white count has been normal we will continue with Unasyn and monitor clinical course closely Dictation was produced using [employer] dictation software. please excuse any grammatical, word or spelling errors. Time with Patient: Less than 30
[2025-03-01] MEDS: ZOLPIDEM 5 MG TAB PO PRN (21:10)
[2025-03-02] MEDS: FUROSEMIDE 10 MG/ML 2 ML VIAL IV ONE (02:46)
[2025-03-02 05:59] LABS: MCH 28.5 pg (27.0-32.0); MCHC 31.4 g/dL (32.0-37.0); MCV 90.6 fL (80.0-97.0); Mean Platelet Volume 10.4 fL (9.5-12.2); Platelet Count 168 10*3/uL (140-440); RBC 3.09 10*6/uL (4.40-5.60); RDW 19.9 % (11.5-14.5); WBC 6.52 10*3/uL (4.50-10.00)
[2025-03-02 06:01] LABS: HGB 8.8 g/dL (13.0-17.0)
[2025-03-02 06:13] LABS: African American GFR (CKD) >90 (>60 ml/min/1.73 sqM); Anion Gap 5 mmol/L; Blood Urea Nitrogen 8 mg/dL (9-20); Calcium 8.2 mg/dL (8.4-10.2); Carbon Dioxide 34 mmol/L (22-30); Chloride 98 mmol/L (98-107); Glucose 119 mg/dL (74-99); Non-African American GFR(CKD) >90 (>60 ml/min/1.73 sqM); Potassium 3.5 mmol/L (3.5-5.1); Sodium 137 mmol/L (137-145)
--- NOTE | 2025-03-02 08:38 | XR ---
EXAMINATION TYPE: XR chest 1V portable DATE OF EXAM: 03/02/2025 5:33 AM COMPARISON: 03/01/2025 CLINICAL INDICATION: Male, 69 years old with history of increased work of breathing post extubation, TECHNIQUE: XR chest 1V portable view(s) obtained. FINDINGS: The heart size is normal. There is shift of the mediastinum to the right The pulmonary vasculature is normal. There is opacification of right mid and lower lung field. IMPRESSION: 1. Correlate for worsening right lower lobe pneumonia. Pleural effusion may be present. Follow-up is recommended [facility] Jose Dunham, , 03/02/2025 8:36 AM
--- NOTE | 2025-03-02 10:26 | P.PN ---
Subjective Progress Note Date: 03/02/25 Principal diagnosis: Acute cholecystitis, and sepsis Patient is a 69-year-old male with past medical history significant for atrial fibrillation, hypertension, GERD, hiatal hernia, Monet fundoplication, cholelithiasis. Presented to the emergency department via EMS earlier this morning with chief complaint of right-sided abdominal pain. Also, noted to be weak and lightheaded. Found to be hypotensive in the ED. Blood pressure was 73/40 mmHg. Patient was bolused with 2.5 L of normal saline. Workup including abdominal/pelvis showing markedly distended gallbladder with 2 large stones in the dependent portion, tiny pockets of gas within the gallbladder and possibly within adjacent liver parenchyma, and surrounding mesenteric inflammation. Concerning for abscess versus emphysematous cholecystitis. Remaining workup including a CBC with a WBC count of 7.4, hemoglobin 8, platelets 120. CMP: Sodium 135, potassium 3, chloride 102, serum bicarb 25, BUN 27, creatinine 0.84, glucose 127. Total bilirubin 2.2. LFTs not elevated. Lactic 1.9. Troponin less than 0.012. Patient currently being evaluated in the emergency department. Resting comfortably on room air. Blood pressures currently 100/54 mmHg. Nontachycardic. Lactated Ringer's infusing at 130 mL/h. Abdominal pain is currently rated 3 out of 10 on a 10 point numerical scale. Localized to the right lower abdominal quadrant. No radiation. No nausea or vomiting. He states the pain for started approximately 3 to 4 days ago. He has not had much of an appetite. No nausea or vomiting. Awaiting general surgery recommendation Patient was seen today on 02/27/2025, remains in the ICU, intubated and mechanically ventilated. He is on assist-control rate of 20 tidal volume 450 FiO2 40% PEEP of 5 ABG showed a pO2 of 154 pCO2 4 0 pH of 7.43. Patient still on LR at 150 cc/h norepinephrine at 0.06 mcg/kg/min propofol at 20 mg/kg/min, his hemoglobin this morning is 6, patient is receiving a unit of packed RBCs. Patient has good urine output, his blood pressure is soft/marginal, I think will likely improve after unit of packed RBCs, patient's hemoglobin today is 6. Remains on Zosyn, today I plan to give the patient a weaning trial, will check weaning parameters, and if tolerated may even consider extubating the patient today. Speech ABG was noted and his FiO2 was cut down to 35%. Chest x-ray showed minimal pulmonary vascular congestion with small pleural effusion/atelectasis. Patient was seen today on 02/28/2025, patient is in no distress, doing well, on room air, IV fluid at 130 cc/h and I cut it down to 75 cc/h in the form of LR. Patient is doing well with incentive spirometry, his hemoglobin however drifted down yesterday and he required 2 units of packed RBCs. Remains on antibiotics, continues to have ALONSO drain in place, hemoglobin this morning is 7.1, follow-up was 7.4. Remains on GI and DVT prophylaxis, pain is fairly well-controlled. Antibiotics jean patient is on Zosyn. Patient was seen today on 03/01/2025, remains in the ICU, he had a bit of issues with low blood pressure last night, given fluid boluses did not require pressors, responded well to fluids. This morning his chest x-ray is showing evidence of fluid overload, hence I recommended cutting down the IV fluids and I recommended Lasix x 1 dose. Patient is sitting at the bedside chair, does not seem to be in any distress, he is on room air, hemodynamically stable. Labs were reviewed WBC count is 5.3 hemoglobin 7.3 electrolytes are normal renal profile is normal patient is doing better with incentive spirometry, he does have also some component of atelectasis at the base of his lungs but overall is doing great. Patient was seen today on 03/02/2025, yesterday the patient was downgraded to go to medical surgical floor, however overnight the patient developed opacification of the right t lung, and this is certainly secondary to mucous plugging involving the left mainstem bronchus. Has the patient had to be placed on BiPAP, he is now on chest PT, albuterol with acetylcysteine, and encouraged to use incentive spirometry to clear his own mucous plugs. The right lung is not fully opacified, there is a chance that the patient may not require bronchoscopy however if it does become completely opacified in the next 24 hours and there is no improvement, patient may have to undergo bedside bronchoscopy and suctioning of mucous plugs. Will try conservative measures for now before proceeding with bronchoscopy. Patient looks comfortable, he is not in any distress, and he is moving good tidal volumes on BiPAP. WBC count is 6.5 hemoglobin 8.8 electrolytes are normal bicarb is 34 BUN is 8 creatinine 0.57 antibiotics jean, patient remains on Zosyn. Objective - Vital Signs Vital signs: Vital Signs Temp 97.0 F L 03/02/25 04:00 Pulse 78 03/02/25 04:00 Resp 20 03/02/25 04:00 BP 114/61 03/02/25 04:00 Pulse Ox 96 03/02/25 05:42 FiO2 40 03/02/25 08:38 Intake & Output 03/01/25 03/02/25 03/02/25 18:59 06:59 18:59 Intake Total 2386 23 Output Total 2710 740 Balance -324 -717 Weight 75.1 kg Intake: IV 36 3 0.9 pressure bag 36 3 Intake, IV Titration 430 20 Amount Lactated Ringers 1,000 ml 430 20 @ 20 mls/hr IV .Q24H [facility] Rx#:[id number] Oral 1920 Output: Drainage 110 140 Left Abdomen 110 140 Urine 2600 600 Other: Voiding Method Indwelling Catheter # Voids 1 ABP, PAP, CO, CI - Last Documented Arterial Blood Pressure 135/50 - Exam GENERAL EXAM: Alert, 69-year-old male, sitting at the bedside chair, in no distress, on BiPAP 12/5/40% HEAD: Normocephalic and atraumatic EYES: Normal reaction of pupils, equal size. NOSE: Clear with pink turbinates. THROAT: No erythema or exudates. NECK: No masses, no JVD. CHEST: No chest wall deformity. LUNGS: Diminished breath sounds at the right base, left side is relatively clear CVS: S1 and S2 normal with no audible murmur, regular rhythm. No extra heart sounds ABDOMEN: Postsurgical, soft, ALONSO drain is noted SKIN: No rashes CENTRAL NERVOUS SYSTEM: Alert oriented x 3 no focal deficit EXTREMITIES: There is no peripheral edema, clubbing, or cyanosis. Peripheral pulses are intact. - Labs CBC & Chem 7: 03/02/25 05:26 03/02/25 05:26 Labs: Abnormal Lab Results - Last 24 Hours (Table) 03/02/25 03/02/25 Range/Units 05: 05: RBC 3.09 L (4.40-5.60) 10*6/uL Hgb 8.8 L D (13.0-17.0) g/dL Hct 28.0 L (39.6-50.0) % MCHC 31.4 L (32.0-37.0) g/dL Carbon Dioxide 34 H (22-30) mmol/L BUN 8 L (9-20) mg/dL Creatinine 0.57 L (0.66-1.25) mg/dL Glucose 119 H (74-99) mg/dL Calcium 8.2 L (8.4-10.2) mg/dL Microbiology - Last 24 Hours (Table) 02/27/25 13:28 Blood Culture - Preliminary Blood Assessment and Plan Assessment: Impression Acute abdominal sepsis secondary to acute cholecystitis Status post laparoscopic cholecystectomy and abscess drainage of gallbladder. Postoperative day #4 Hypotension secondary to hypovolemia and possible septic shock, requiring pressors and requiring blood transfusion, patient received a total of 2 units of packed RBCs Acute blood loss anemia History of chronic anemia Chronic atrial fibrillation, patient is now in sinus rhythm History of hiatal hernia with previous Monet fundoplication. Right lower lobe pneumonia, possible endobronchial mucous plugging with opacification of the right lung and tracheal shift to the ipsilateral side. Recommendation: Patient to remain in the ICU today. Continue antibiotics/Zosyn Incentive spirometry, chest PT, albuterol with Mucomyst Repeat chest x-ray in a.m. Gentle diuresis IV fluid to KVO Continue present supportive care Monitor daily labs, Continue GI DVT prophylaxis Advance diet as tolerated Ambulate as tolerated Will continue to follow Time with Patient: Less than 30
--- NOTE | 2025-03-02 10:29 | P.PN ---
Progress Note - Text Progress Note Date: 03/02/25 Patient had some shortness of breath overnight. Patient has whiteout of the right lung. Pulmonology believes he has a mucous f plug. Apparently he will be undergo bronchoscopy tomorrow. The patient's ALONSO drain is mainly serosanguineous. There is no bile in the drain today. On exam vital signs appear stable. Patient is currently on BiPAP. Abdomen is soft incisions clean dry intact. Status post open cholecystectomy for gangrenous cholecystitis. Patient will continue receive supportive care. He may undergo bronchoscopy in the a.m.
[2025-03-02] MEDS: ACETYLCYSTEINE 800 MG/4 ML VIAL INHALATION SCH (12:48)
[2025-03-02] MEDS: ALBUTEROL NEBULIZED 2.5 MG/3 ML INHALATION SCH (12:48)
--- NOTE | 2025-03-02 15:25 | P.PN ---
Subjective Progress Note Date: 03/02/25 Principal diagnosis: Reason for follow-up is gangrenous cholecystitis Patient is a 69-year-old male with a past medical history significant for atrial fibrillation reflux presenting to the hospital for evaluation of diarrhea felt lightheaded complaining of weakness and did have right upper quadrant pain, patient be diagnosed with gangrenous cholecystitis status post open cholecystectomy and drainage of the abscess. On today's evaluation that is 03/02/2025, Patient is afebrile patient is currently on 4 L current oxygen patient did require BiPAP this morning denies any chest pain worsening cough no abdominal pain or diarrhea. Patient white count 6.52, creatinine 0.57 blood culture have been negative chest x-ray with worsening right lower lobe pneumonia Objective - Vital Signs Vital signs: Vital Signs Temp 99.2 F 03/02/25 13:00 Pulse 80 03/02/25 14:00 Resp 20 03/02/25 14:00 BP 93/54 03/02/25 14:00 Pulse Ox 98 03/02/25 14:00 FiO2 40 03/02/25 08:38 Intake & Output 03/01/25 03/02/25 03/02/25 18:59 06:59 18:59 Intake Total 2386 23 600 Output Total 2710 740 500 Balance -324 -717 100 Weight 75.1 kg Intake: IV 36 3 100 0.9 pressure bag 36 3 Ampicillin-Sulbactam 3 gm 100 In Sodium Chloride 0.9% 100 ml @ 200 mls/hr IVPB Q6HR [facility] Rx#:[id number] Intake, IV Titration 430 20 20 Amount Lactated Ringers 1,000 ml 430 20 20 @ 20 mls/hr IV .Q24H [facility] Rx#:[id number] Oral 1920 480 Output: Drainage 110 140 Left Abdomen 110 140 Urine 2600 600 500 Other: Voiding Method Indwelling Catheter External Catheter # Voids 1 ABP, PAP, CO, CI - Last Documented Arterial Blood Pressure 135/50 - Exam GENERAL DESCRIPTION: An elderly male lying in bed in no distress RESPIRATORY SYSTEM: Unlabored breathing , decreased breath sounds at bases HEART: S1 S2 regular rate and rhythm , ABDOMEN: Soft , no tenderness EXTREMITIES: No edema feet - Labs CBC & Chem 7: 03/02/25 05:26 03/02/25 05:26 Labs: Abnormal Lab Results - Last 24 Hours (Table) 03/02/25 03/02/25 Range/Units 05:26 05:26 RBC 3.09 L (4.40-5.60) 10*6/uL Hgb 8.8 L D (13.0-17.0) g/dL Hct 28.0 L (39.6-50.0) % MCHC 31.4 L (32.0-37.0) g/dL Carbon Dioxide 34 H (22-30) mmol/L BUN 8 L (9-20) mg/dL Creatinine 0.57 L (0.66-1.25) mg/dL Glucose 119 H (74-99) mg/dL Calcium 8.2 L (8.4-10.2) mg/dL Microbiology - Last 24 Hours (Table) 02/27/25 13:28 Blood Culture - Preliminary Blood Assessment and Plan (1) Acute cholecystitis Current Visit: Yes Status: Acute Code(s): K81.0 - ACUTE CHOLECYSTITIS SNOMED Code(s): 00628430 Plan: 1patient presented to hospital with weakness abdominal pain has been diagnosed with gangrenous cholecystitis with empyema in this patient who is status post open cholecystectomy and drainage of the abscess will need to cover for the enteric gram-negative due to the likely pathogen 2-abdominal cultures currently growing E. coli that is a sensitive pathogen 3-patient is afebrile white count has been normal seem to have worsening of his respiratory status and question of possible mucous plugging per discussion with nursing staff possible plan for bronchoscopy tomorrow for now continue with the BiPAP along with the Unasyn and monitor clinical course closely Dictation was produced using [employer] dictation software. please excuse any grammatical, word or spelling errors. Time with Patient: Less than 30
[2025-03-02] MEDS: DEXTROSE 5% IN WATER 100 ML with AMIODARONE 150 MG IV ONE (17:30)
[2025-03-02] MEDS: MAGNESIUM SULFATE-D5W PMX 1 GM in DEXTROSE/WATER 1 100ML.BAG IVPB SCH (17:41)
--- NOTE | 2025-03-02 17:59 | P.PN ---
Subjective Progress Note Date: 03/02/25 Patient was seen and examined this morning. On BiPAP. No bowel movement. Not passing gas. No nausea or vomiting. CBC and BMP significant for RBC 3.09, Hg 8.8, Hct 28, bicarb 34, BUN 8, Cr 0.57, glu 119, Ca 8.2. CXR done today shows RLL PNA. BP 96/55, HR 82, RR 23, 99% on 4L NC. General: no distress, appears at stated age Derm: warm, dry Head: atraumatic, normocephalic, symmetric Mouth: no lip lesion, mucus membranes moist Cardiovascular: S1 S2 reg. No murmur Lungs: Decreased BS bilaterally, no accessory muscle use Abd: No bowel sounds appreciated. + ALONSO drain Ext: no gross muscle atrophy, no edema, no contractures. Neuro: No focal neurologic deficits. Psych: Alert and oriented Based on my assessment of this patient, this patient meets a high complexity level of care. Acute hypoxic respiratory failure secondary to RLL PNA versus mucous plugging: Albuterol neb QID scheduled. Mucormyst 200 mg INH TID. Possible bronchoscopy if not improved. Supplemental O2 to maintain O2 sat > 92%. Pulmonary on board. Septic shock secondary to gangrenous cholecystitis: Status post ex lap with cholecystectomy and drainage of abscess on 02/26/2025. Intraoperative cultures growing E. coli. Continue Unasyn 3g IV Q6H. Diet advanced per Surgery. ID and Surgery on board. Acute blood loss anemia: Status post 2 unit PRBC. Daily CBC. Transfuse if Hg < 7. A-fib with RVR: Likely due to acute anemia. Metoprolol on hold due to hypotension. AC on hold due to anemia. Cardiology consulted. GERD with history of Monet fundoplication: Holding home PPIs, proceed with IV Protonix 40 daily CODE STATUS: FULL CODE DVT Prophylaxis: SCD GI Prophylaxis: Protonix IV Designated medical POA if patient is not able to make medical decisions for themselves: I have reviewed the following regional sales consultant notes: Pulmonary, Surgery, ID I have reviewed the results of the following tests: CBC, BMP. I have ordered the following tests: CBC and BMP in the AM. I have discussed the care of this patient with the following independent historian: . I have independently interpreted the following test below: I have discussed the management of this patient with the following physician: Objective - Vital Signs Vital signs: Vital Signs Temp 99.2 F 03/02/25 13:00 Pulse 82 03/02/25 16:00 Resp 23 03/02/25 16:00 BP 96/55 03/02/25 16:00 Pulse Ox 99 03/02/25 16:00 FiO2 40 03/02/25 08:38 Intake & Output 03/01/25 03/02/25 03/02/25 18:59 06:59 18:59 Intake Total 2386 23 600 Output Total 2710 740 500 Balance -324 -717 100 Weight 75.1 kg Intake: IV 36 3 100 0.9 pressure bag 36 3 Ampicillin-Sulbactam 3 gm 100 In Sodium Chloride 0.9% 100 ml @ 200 mls/hr IVPB Q6HR [facility] Rx#:[id number] Intake, IV Titration 430 20 20 Amount Lactated Ringers 1,000 ml 430 20 20 @ 20 mls/hr IV .Q24H [facility] Rx#:[id number] Oral 1920 480 Output: Drainage 110 140 Left Abdomen 110 140 Urine 2600 600 500 Other: Voiding Method Indwelling Catheter External Catheter # Voids 1 ABP, PAP, CO, CI - Last Documented Arterial Blood Pressure 135/50 - Labs CBC & Chem 7: 03/02/25 05:26 03/02/25 05:26 Labs: Abnormal Lab Results - Last 24 Hours (Table) 03/02/25 03/02/25 Range/Units 05:26 05:26 RBC 3.09 L (4.40-5.60) 10*6/uL Hgb 8.8 L D (13.0-17.0) g/dL Hct 28.0 L (39.6-50.0) % MCHC 31.4 L (32.0-37.0) g/dL Carbon Dioxide 34 H (22-30) mmol/L BUN 8 L (9-20) mg/dL Creatinine 0.57 L (0.66-1.25) mg/dL Glucose 119 H (74-99) mg/dL Calcium 8.2 L (8.4-10.2) mg/dL Microbiology - Last 24 Hours (Table) 02/27/25 13:28 Blood Culture - Preliminary Blood
[2025-03-02] MEDS: HEPARIN SODIUM 1,000 UN/ML (10ML VL) IV ONE (18:59)
[2025-03-02] MEDS: HEPARIN SOD,PORK IN 0.45% NACL 25,000 UNIT in 0.45% NACL 1 250ML.BAG IV SCH (19:00)
[2025-03-02 20:28] LABS: INR 1.2 (<1.2); Prothrombin Time 12.9 sec (10.0-12.5)
[2025-03-02 20:31] LABS: Partial Thromboplastin Time 166.8 sec (22.0-30.0)
[2025-03-02] MEDS: AMIODARONE 360 MG in DEXTROSE 5% IN WATER 200 ML IV ONE (20:38)
[2025-03-03] MEDS: ACETAMINOPHEN TAB 325 MG TAB PO PRN (00:05)
[2025-03-03] MEDS: MELATONIN 5 MG TABLET PO SCH (00:30)
[2025-03-03] MEDS: AMIODARONE 450 MG in DEXTROSE 5% IN WATER 250 ML IV SCH (02:44)
[2025-03-03] MEDS: HEPARIN SODIUM 1,000 UN/ML (10ML VL) IV PRN (02:47)
[2025-03-03 05:33] LABS: Basophils # (A) 0.01 10*3/uL (0.00-0.10); Basophils % (A) 0.2 %; Eosinophils # (A) 0.13 10*3/uL (0.04-0.35); Eosinophils % (A) 2.5 %; HCT 22.8 % (39.6-50.0); HGB 7.4 g/dL (13.0-17.0); Lymphocytes # (A) 0.88 10*3/uL (0.90-5.00); Lymphocytes % (A) 16.9 %; MCHC 32.5 g/dL (32.0-37.0); MCV 89.4 fL (80.0-97.0); Mean Platelet Volume 9.9 fL (9.5-12.2); Monocytes # (A) 0.26 10*3/uL (0.20-1.00); Neutrophils % (A) 74.6 %; Platelet Count 147 10*3/uL (140-440); RBC 2.55 10*6/uL (4.40-5.60); RDW 19.9 % (11.5-14.5); WBC 5.22 10*3/uL (4.50-10.00)
[2025-03-03 05:45] LABS: African American GFR (CKD) >90 (>60 ml/min/1.73 sqM); Anion Gap 4 mmol/L; Blood Urea Nitrogen 9 mg/dL (9-20); Calcium 7.8 mg/dL (8.4-10.2); Carbon Dioxide 34 mmol/L (22-30); Chloride 96 mmol/L (98-107); Glucose 111 mg/dL (74-99); Non-African American GFR(CKD) >90 (>60 ml/min/1.73 sqM); Potassium 3.4 mmol/L (3.5-5.1); Sodium 134 mmol/L (137-145)
[2025-03-03 06:08] LABS: INR 1.2 (<1.2); Prothrombin Time 12.5 sec (10.0-12.5)
[2025-03-03] MEDS: POTASSIUM CHLORIDE ER 20 MEQ TAB.ER PO SCH (06:23)
--- NOTE | 2025-03-03 07:23 | XR ---
EXAMINATION TYPE: XR chest 1V portable DATE OF EXAM: 03/03/2025 6:01 AM COMPARISON: 03/02/2025 CLINICAL INDICATION: Male, 69 years old with history of f/u right lung opacification, with tracheal s hift, TECHNIQUE: XR chest 1V portable views of the chest are obtained. FINDINGS: Demonstrated are scattered senescent parenchymal change. Significant improvement in right lower lobe pneumonia with residual noted. Small right-sided effusion . The heart is stable. Hilar and mediastinal structures are within normal limits. Degenerative changes are seen of the dorsal spine. IMPRESSION: 1. Significant improvement in right lower lobe pneumonia with residual noted. Small right-sided effu ramiro. [facility], , 03/03/2025 7:20 AM
--- NOTE | 2025-03-03 10:34 | P.HPCAR ---
History of Present Illness This is Dr. Grant dictating a consult on this patient The patient was interviewed and examined IMPRESSION / ASSESSMENT: Postoperative pneumonitis and postoperative atrial fibrillation with RVR Transient benefit with IV magnesium 4 g over 1 hour. IV amiodarone initiated PLAN: Switch from IV heparin to p.o. Eliquis 5 mg twice daily Short-term amiodarone 200 twice daily for 4 weeks then stop completely Continue anticoagulation thereafter and if he has no further atrial fibrillation in the next few months thereafter then this will be discontinued. Continue metoprolol HPI Patient presented to the ER with weakness and low blood pressure. The diagnosis in the ER was acute cholecystitis. EKG on 26 February showed sinus rhythm normal [place] narrow QRS. Yyesterday cardiology was consulted for A-fib with RVR. I treated him with IV magnesium 4 g over 1 hour. Initial rate control down to 120 beats a minute followed by cardioversion. However he had a recurrence and then amiodarone was initiated. He is in sinus rhythm this morning. Feels well He is being treated for pneumonitis His white count is normal hemoglobin is 7.4. He is on IV heparin and IV amiodarone. Potassium 3.5 normal kidney function ROS: No fever chills or rigors, no cough, phlegm or expectoration, no nausea, vomiting or diarrhea, no hematuria, dysuria, no musculoskeletal complaints, no strokes or seizures, no skin lesions. EXAMINATION: Blood pressure 103/61 mmHg pulse rate 74 beats a minute in sinus rhythm Heart sounds S1-S2 normal Breath sounds are reduced bilaterally especially right side REVIEW OF LABS, ECG & MEDICAL DATA Currently on IV amiodarone, IV heparin Home medications include Lopressor 25 mg twice daily Physical Exam Vitals: Vital Signs Temp Pulse Resp BP Pulse Ox FiO2 03/03/25 10:00 74 21 103/61 95 03/03/25 09:17 72 03/03/25 09:04 68 03/03/25 09:00 70 23 101/58 99 03/03/25 08:00 98.4 F 67 14 113/64 99 03/03/25 07:00 64 18 117/73 99 03/03/25 06:00 68 16 102/62 95 03/03/25 05:00 63 15 109/66 99 03/03/25 04:23 40 03/03/25 04:00 97.6 F 63 19 95/54 98 50 05/27/25 03:00 68 19 97/56 98 03/03/25 02:00 68 18 93/56 99 03/03/25 01:00 115 H 18 68/57 97 03/03/25 00:00 97.6 F 115 H 29 H 86/59 97 55 03/02/25 23:43 113 H 22 90/60 95 03/02/25 23:00 78 26 H 78/57 99 55 03/02/25 22:00 123 H 21 84/51 99 03/02/25 21:00 138 H 25 H 80/59 99 50 03/02/25 20:32 79 20 03/02/25 20:25 81 20 03/02/25 20:00 97.6 F 83 22 98/54 98 03/02/25 19:00 140 H 31 H 88/52 99 03/02/25 18:00 138 H 15 73/52 97 03/02/25 17:00 152 H 24 130/67 98 03/02/25 16:00 82 23 96/55 99 03/02/25 15:36 80 03/02/25 15:25 76 03/02/25 15:00 78 21 108/62 96 03/02/25 14:00 80 20 93/54 98 03/02/25 13:00 99.2 F 82 30 H 138/71 100 03/02/25 12:48 79 03/02/25 12:00 78 29 H 116/64 97 03/02/25 11:00 71 18 135/70 95 Intake and Output 03/02/25 03/03/25 03/03/25 22:59 06:59 14:59 Intake Total 895.02 34.246 798 Output Total 160 410 450 Balance 735.02 -375.754 348 Intake: IV 400 Ampicillin-Sulbactam 3 gm 100 In Sodium Chloride 0.9% 100 ml @ 200 mls/hr IVPB Q6HR [facility] Rx#:[id number] Magnesium Sulfate-D5w Pmx 300 1 gm In Dextrose/Water 1 100ml.bag @ 400 mls/hr IVPB Q15M [facility] Rx#: [id number] Intake, IV Titration 15.02 34.246 78 Amount Amiodarone 450 mg In 48 Dextrose 5% in Water 250 ml @ 0.5 MG/MIN 16.667 mls/hr IV .Q15H [facility] Rx#: [id number] Heparin Sod,Pork in 0.45% 15.02 34.246 NaCl 25,000 unit In 0.45 % NaCl 1 250ml.bag @ 12 UNITS/KG/HR 9.012 mls/hr IV .Q24H [facility] Rx#: [id number] Lactated Ringers 1,000 ml 30 @ 20 mls/hr IV .Q24H [facility] Rx#:[id number] Oral 480 720 Output: Drainage 60 60 30 Left Abdomen 60 60 30 Urine 100 350 420 Other: Voiding Method External Catheter External Catheter External Catheter # Bowel Movements 2 1 Weight 88.2 kg Past Medical History Past Medical History: Atrial Fibrillation, Eye Disorder, GERD/Reflux Additional Past Medical History / Comment(s): HIATAL HERNIA, SOMETIMES FOOD COMES BACK UP WHEN EATING, LOOSE STOOLS History of Any Multi-Drug Resistant Organisms: None Reported Past Surgical History: Adenoidectomy, Hernia Repair, Orthopedic Surgery, Tonsill ectomy Additional Past Surgical History / Comment(s): UMBILICAL HERNIA, KAREN.INGUINAL HERNIA , EGD /COLONOSCOPY 04/20/15, LT WRIST SURGERY Past Anesthesia/Blood Transfusion Reactions: No Reported Reaction Past Psychological History: Anxiety Smoking Status: Former smoker Past Alcohol Use History: None Reported - Past Family History Sister(s) Family Medical History: Diabetes Mellitus Mother Family Medical History: Dementia, Neurologic Disorder Additional Family Medical History / Comment(s): HX PARKINSON'S. Father Family Medical History: Coronary Artery Disease (CAD), CVA/TIA Physical Examination Vital Signs Temp Pulse Resp BP Pulse Ox FiO2 03/03/25 10:00 74 21 103/61 95 03/03/25 09:17 72 03/03/25 09:04 68 03/03/25 09:00 70 23 101/58 99 03/03/25 08:00 98.4 F 67 14 113/64 99 03/03/25 07:00 64 18 117/73 99 03/03/25 06:00 68 16 102/62 95 03/03/25 05:00 63 15 109/66 99 03/03/25 04:23 40 03/03/25 04:00 97.6 F 63 19 95/54 98 50 03/03/25 03:00 68 19 97/56 98 03/03/25 02:00 68 18 93/56 99 03/03/25 01:00 115 H 18 68/57 97 03/03/25 00:00 97.6 F 115 H 29 H 86/59 97 55 03/02/25 23:43 113 H 22 90/60 95 03/02/25 23:00 78 26 H 78/57 99 55 03/02/25 22:00 123 H 21 84/51 99 03/02/25 21:00 138 H 25 H 80/59 99 50 03/02/25 20:32 79 20 03/02/25 20:25 81 20 03/02/25 20:00 97.6 F 83 22 98/54 98 03/02/25 19:00 140 H 31 H 88/52 99 03/02/25 18:00 138 H 15 73/52 97 03/02/25 17:00 152 H 24 130/67 98 03/02/25 16:00 82 23 96/55 99 03/02/25 15:36 80 03/02/25 15:25 76 03/02/25 15:00 78 21 108/62 96 03/02/25 14:00 80 20 93/54 98 03/02/25 13:00 99.2 F 82 30 H 138/71 100 03/02/25 12:48 79 03/02/25 12:00 78 29 H 116/64 97 03/02/25 11:00 71 18 135/70 95 Intake and Output 03/02/25 03/03/25 03/03/25 22:59 06:59 14:59 Intake Total 895.02 34.246 798 Output Total 160 410 450 Balance 735.02 -375.754 348 Intake: IV 400 Ampicillin-Sulbactam 3 gm 100 In Sodium Chloride 0.9% 100 ml @ 200 mls/hr IVPB Q6HR [facility] Rx#:[id number] Magnesium Sulfate-D5w Pmx 300 1 gm In Dextrose/Water 1 100ml.bag @ 400 mls/hr IVPB Q15M [facility] Rx#: [id number] Intake, IV Titration 15.02 34.246 78 Amount Amiodarone 450 mg In 48 Dextrose 5% in Water 250 ml @ 0.5 MG/MIN 16.667 mls/hr IV .Q15H [facility] Rx#: [id number] Heparin Sod,Pork in 0.45% 15.02 34.246 NaCl 25,000 unit In 0.45 % NaCl 1 250ml.bag @ 12 UNITS/KG/HR 9.012 mls/hr IV .Q24H [facility] Rx#: [id number] Lactated Ringers 1,000 ml 30 @ 20 mls/hr IV .Q24H [facility] Rx#:[id number] Oral 480 720 Output: Drainage 60 60 30 Left Abdomen 60 60 30 Urine 100 350 420 Other: Voiding Method External Catheter External Catheter External Catheter # Bowel Movements 2 1 Weight 88.2 kg Results 03/03/25 05:07 03/03/25 05:07 Coagulation 03/02/25 03/03/25 03/03/25 Range/Units 19:27 00:37 05:07 PT 12.9 H 12.5 (10.0-12.5) sec APTT 166.8 H* 32.6 H (22.0-30.0) sec 03/03/25 Range/Units 08:50 PT (10.0-12.5) sec APTT 37.7 H (22.0-30.0) sec CBC 03/03/25 Range/Units 05:07 WBC 5.22 (4.50-10.00) 10*3/uL RBC 2.55 L (4.40-5.60) 10*6/uL Hgb 7.4 L (13.0-17.0) g/dL Hct 22.8 L (39.6-50.0) % Plt Count 147 (140-440) 10*3/uL Comprehensive Metabolic Panel 03/03/25 Range/Units 05:07 Sodium 134 L (137-145) mmol/L Potassium 3.4 L (3.5-5.1) mmol/L Chloride 96 L (98-107) mmol/L Carbon Dioxide 34 H (22-30) mmol/L BUN 9 (9-20) mg/dL Creatinine 0.57 L (0.66-1.25) mg/dL Glucose 111 H (74-99) mg/dL Calcium 7.8 L (8.4-10.2) mg/dL Current Medications Generic Name Dose Route Start Last Admin Trade Name Freq PRN Reason Stop Dose Admin Acetaminophen 650 mg 03/02/25 23:31 03/03/25 00:05 Acetaminophen Tab 325 Mg Tab PO 650 mg Q6HR PRN Administration Fever and/ or Pain Acetylcysteine 200 mg 03/02/25 13:00 03/03/25 08:56 Acetylcysteine 800 Mg/4 Ml Vial INHALATION 03/05/25 07:00 200 mg RT-TID [facility] Administration Albuterol Sulfate 2.5 mg 03/02/25 12:00 03/03/25 08:56 Albuterol Nebulized 2.5 Mg/3 Ml INHALATION 2.5 mg RT-QID [facility] Administration Amiodarone HCl 200 mg 03/03/25 21:00 Amiodarone 200 Mg Tab PO BID [facility] Apixaban 5 mg 03/03/25 10:15 Apixaban 5 Mg Tab PO BID [facility] Protocol Dextrose/Water 25 ml 02/26/25 12:50 Dextrose 50% Syringe 50 Ml IVP PER PROTOCOL PRN Hypoglycemia Protocol Dextrose/Water 50 ml 02/26/25 12:50 Dextrose 50% Syringe 50 Ml IVP PER PROTOCOL PRN Hypoglycemia Protocol Hydromorphone HCl 1 mg 02/27/25 09:44 03/01/25 06:22 Hydromorphone 0.5 Mg/0.5 Ml Syringe IVP 1 mg Q3HR PRN Administration Pain Ampicillin Sodium/Sulbactam 100 mls @ 200 mls/hr 02/28/25 18:00 03/03/25 06:23 Sodium 3 gm/ Sodium Chloride IVPB 200 mls/hr Q6HR [facility] Administration Protocol Lactated Ringer's 1,000 mls @ 20 mls/hr 02/28/25 23:45 03/03/25 07:48 Lactated Ringers IV Not Given .Q24H [facility] Melatonin 5 mg 03/03/25 00:24 03/03/25 00:30 Melatonin 5 Mg Tablet PO 5 mg HS [facility] Administration Miscellaneous Information 1 each 02/26/25 09:32 Magnesium Replacement Protocol 1 Each Misc MISCELLANE DAILY PRN Per Protocol Protocol Miscellaneous Information 1 each 03/01/25 06:47 Potassium Replacement Protocol 1 Each Misc MISCELLANE DAILY PRN Per Protocol Protocol Naloxone HCl 0.2 mg 02/26/25 06:04 Naloxone 0.4 Mg/Ml 1 Ml Vial IV Q2M PRN Opioid Reversal Pantoprazole Sodium 40 mg 02/26/25 09:00 03/03/25 07:50 Pantoprazole 40 Mg/10 Ml Vial IVP 40 mg DAILY [facility] Administration Intake and Output 03/02/25 03/03/25 03/03/25 22:59 06:59 14:59 Intake Total 895.02 34.246 798 Output Total 160 410 450 Balance 735.02 -375.754 348 Intake: IV 400 Ampicillin-Sulbactam 3 gm 100 In Sodium Chloride 0.9% 100 ml @ 200 mls/hr IVPB Q6HR [facility] Rx#:[id number] Magnesium Sulfate-D5w Pmx 300 1 gm In Dextrose/Water 1 100ml.bag @ 400 mls/hr IVPB Q15M [facility] Rx#: [id number] Intake, IV Titration 15.02 34.246 78 Amount Amiodarone 450 mg In 48 Dextrose 5% in Water 250 ml @ 0.5 MG/MIN 16.667 mls/hr IV .Q15H [facility] Rx#: [id number] Heparin Sod,Pork in 0.45% 15.02 34.246 NaCl 25,000 unit In 0.45 % NaCl 1 250ml.bag @ 12 UNITS/KG/HR 9.012 mls/hr IV .Q24H [facility] Rx#: [id number] Lactated Ringers 1,000 ml 30 @ 20 mls/hr IV .Q24H [facility] Rx#:[id number] Oral 480 720 Output: Drainage 60 60 30 Left Abdomen 60 60 30 Urine 100 350 420 Other: Voiding Method External Catheter External Catheter External Catheter # Bowel Movements 2 1 Weight 88.2 kg 03/03/25 05:07 03/03/25 05:07
[2025-03-03] MEDS: APIXABAN 5 MG TAB PO SCH (10:40)
--- NOTE | 2025-03-03 11:18 | P.PN ---
Subjective Progress Note Date: 03/03/25 69 year old M with PMH AFib, GERD presents to the ED for RLQ abdominal pain, generalized weakness, lightheadedness and diarrhea. In the ED he underwent extensive evaluation. BP 73/40, HR 77, T 97.4F, RR 18, 92% on RA. Labs significant for RBC 2.7, Hg 8, Hct 24.7, Plt 120, PT 13.5, INR 1.3, APTT 33.1, Na 135, K 3, BUN 27, glu 127, Ca 8, T. Bili 2.2, alb 2.6. Trop < 0.012. Mag 1.9. Lactic acid 1.9. ABG pH 7.31, pCO2 53, pO2 [address] AP concerning for cholecystitis with abscess versus emphysematous cholecystitis and moderate anasarca. Started on IV hydration, Zosyn and admitted to surgery. Underwent ex lap with cholecystectomy and drainage of abscess on 02/26/2025. Intraoperative cultures growing E. coli, ID consulted, Abx switched to Unasyn. Hospital course complicated by ABLA requiring 2 unit PRBC and post operative dyspnea with CXR showing RLL PNA versus mucous plugging. 03/03 Patient was seen and examined this morning. Went into A-Fib with RVR yesterday, Cardiology consulted, started on Amiodarone drip and Heparin drip. On 4L NC. 2 bowel movements over the past 24H. CBC, Coag panel and BMP significant for RBC 2.55, Hg 7.4, Hct 22.8, INR 1.2, APTT 37.7, Na 134, K 3.4, Cl 96, bicarb 34, Cr 0.57, glu 111, Ca 7.8. CXR done today shows significant improvement in RLL PNA. BP 103/61, HR 74, RR 21, 95% on 4L NC. General: no distress, appears at stated age Derm: warm, dry Head: atraumatic, normocephalic, symmetric Mouth: no lip lesion, mucus membranes moist Cardiovascular: S1 S2 reg. No murmur Lungs: Decreased BS bilaterally, no accessory muscle use Abd: Sluggish bowel sounds appreciated. + ALONSO drain Ext: no gross muscle atrophy, no edema, no contractures. Neuro: No focal neurologic deficits. Psych: Alert and oriented Based on my assessment of this patient, this patient meets a high complexity level of care. Acute hypoxic respiratory failure secondary to RLL PNA versus mucous plugging: Albuterol neb QID scheduled. Mucormyst 200 mg INH TID. Possible bronchoscopy if not improved. Supplemental O2 to maintain O2 sat > 92%. Pulmonary on board. A-fib with RVR: Likely due to acute anemia. Plans to transition Amiodarone drip to Metoprolol today. Continue heparin drip with plans to transition to Eliquis. Monitor APTT. Cardiology on board. Septic shock secondary to gangrenous cholecystitis: Status post ex lap with cholecystectomy and drainage of abscess on 02/26/2025. Intraoperative cultures growing E. coli. Continue Unasyn 3g IV Q6H. Diet advanced per Surgery. ID and Surgery on board. Acute blood loss anemia: Status post 2 unit PRBC. Daily CBC. Transfuse if Hg < 7 . GERD with history of Monet fundoplication: Holding home PPIs, proceed with IV Protonix 40 daily CODE STATUS: FULL CODE DVT Prophylaxis: SCD GI Prophylaxis: Protonix IV Designated medical POA if patient is not able to make medical decisions for themselves: I have reviewed the following market research consultant notes: Cardio I have reviewed the results of the following tests: CBC, BMP, Coag panel I have ordered the following tests: CBC and BMP in the AM. I have discussed the care of this patient with the following independent historian: DILIA. I have independently interpreted the following test below: I have discussed the management of this patient with the following physician: Objective - Vital Signs Vital signs: Vital Signs Temp 98.4 F 03/03/25 08:00 Pulse 74 03/03/25 10:00 Resp 21 03/03/25 10:00 BP 103/61 03/03/25 10:00 Pulse Ox 95 03/03/25 10:00 FiO2 40 03/03/25 04:23 Intake & Output 03/02/25 03/03/25 03/03/25 18:59 06:59 18:59 Intake Total 1380 149.266 798 Output Total 600 470 450 Balance 780 -320.734 348 Weight 88.2 kg Intake: IV 400 100 Ampicillin-Sulbactam 3 gm 200 In Sodium Chloride 0.9% 100 ml @ 200 mls/hr IVPB Q6HR [facility] Rx#:[id number] Magnesium Sulfate-D5w Pmx 200 100 1 gm In Dextrose/Water 1 100ml.bag @ 400 mls/hr IVPB Q15M [facility] Rx#: [id number] Intake, IV Titration 20 49.266 78 Amount Amiodarone 450 mg In 48 Dextrose 5% in Water 250 ml @ 0.5 MG/MIN 16.667 mls/hr IV .Q15H [facility] Rx#: [id number] Heparin Sod,Pork in 0.45% 49.266 NaCl 25,000 unit In 0.45 % NaCl 1 250ml.bag @ 12 UNITS/KG/HR 9.012 mls/hr IV .Q24H [facility] Rx#: [id number] Lactated Ringers 1,000 ml 20 30 @ 20 mls/hr IV .Q24H [facility] Rx#:[id number] Oral 960 720 Output: Drainage 120 30 Left Abdomen 120 30 Urine 600 350 420 Other: Voiding Method External Catheter External Catheter External Catheter # Bowel Movements 2 1 ABP, PAP, CO, CI - Last Documented Arterial Blood Pressure 135/50 - Labs CBC & Chem 7: 03/03/25 05:07 03/03/25 05:07 Labs: Abnormal Lab Results - Last 24 Hours (Table) 03/02/25 03/03/25 03/03/25 Range/Units 19:27 00:37 05:07 RBC 2.55 L (4.40-5.60) 10*6/uL Hgb 7.4 L (13.0-17.0) g/dL Hct 22.8 L (39.6-50.0) % Lymphocytes # 0.88 L (0.90-5.00) 10*3/uL PT 12.9 H (10.0-12.5) sec INR 1.2 H (<1.2) APTT 166.8 H* 32.6 H (22.0-30.0) sec Sodium (137-145) mmol/L Potassium (3.5-5.1) mmol/L Chloride (98-107) mmol/L Carbon Dioxide (22-30) mmol/L Creatinine (0.66-1.25) mg/dL Glucose (74-99) mg/dL Calcium (8.4-10.2) mg/dL 03/03/25 03/03/25 03/03/25 Range/Units 05:07 05:07 08:50 RBC (4.40-5.60) 10*6/uL Hgb (13.0-17.0) g/dL Hct (39.6-50.0) % Lymphocytes # (0.90-5.00) 10*3/uL PT (10.0-12.5) sec INR 1.2 H (<1.2) APTT 37.7 H (22.0-30.0) sec Sodium 134 L (137-145) mmol/L Potassium 3.4 L (3.5-5.1) mmol/L Chloride 96 L (98-107) mmol/L Carbon Dioxide 34 H (22-30) mmol/L Creatinine 0.57 L (0.66-1.25) mg/dL Glucose 111 H (74-99) mg/dL Calcium 7.8 L (8.4-10.2) mg/dL Microbiology - Last 24 Hours (Table) 02/27/25 13:28 Blood Culture - Preliminary Blood
[2025-03-03] MEDS ORDERED: HYDROmorphone 1 MG/ML 1 ML SYRINGE IVP PRN (11:21)
--- NOTE | 2025-03-03 11:21 | P.PN ---
Subjective Progress Note Date: 03/03/25 SURGICAL PROGRESS NOTE CHIEF COMPLAINT: Gangrenous cholecystitis HISTORY OF PRESENT ILLNESS: Patient is postop day #5 status post diagnostic laparoscopy, exploratory laparotomy, cholecystectomy, drainage of abscess. Patient currently in ICU. He reports his abdominal pain is controlled. He is having bowel movements. He tolerated regular diet. Denies any nausea or vomiting. Chest x-ray reported improving pneumonia. ALONSO drain 90 mL serous output. WBC 5.22 Hgb 8.8 down to 7.4 potassium 3.4 and receiving supplement. Cardiology started Eliquis today for his A-fib PHYSICAL EXAM: VITAL SIGNS: Reviewed. GENERAL: Well-developed in no acute distress. HEENT: No sclera icterus. Extraocular movements grossly intact. Moist buccal mucosa. Head is atraumatic, normocephalic. ABDOMEN: Soft. Nondistended. Incisional dressings clean dry and intact. ALONSO drain serous NEUROLOGIC: Awake and alert orientated x 3 ASSESSMENT: 1. Gangrenous cholecystitis with almost complete necrosis of gallbladder, Abscess with 500 mL of purulent fluid, Cholelithiasis 2. Anemia is dilutional PLAN: - Continue regular diet - Continue antibiotics per ID service - Encourage patient to use incentive spirometer - Encourage patient to increase activity level - Potassium being replaced - DVT prophylaxis Eliquis Physician Tower Cleaner note has been reviewed by physician. Signing provider agrees with the documented findings, assessment, and plan of care. Objective - Vital Signs Vital signs: Vital Signs Temp 98.4 F 03/03/25 08:00 Pulse 71 03/03/25 11:00 Resp 25 H 03/03/25 11:00 BP 117/67 03/03/25 11:00 Pulse Ox 99 03/03/25 11:00 FiO2 40 03/03/25 04:23 Intake & Output 03/02/25 03/03/25 03/03/25 18:59 06:59 18:59 Intake Total 1380 149.266 464 Output Total 600 470 450 Balance 780 -320.734 14 Weight 88.2 kg Intake: IV 400 100 Ampicillin-Sulbactam 3 gm 200 In Sodium Chloride 0.9% 100 ml @ 200 mls/hr IVPB Q6HR [facility] Rx#:[id number] Magnesium Sulfate-D5w Pmx 200 100 1 gm In Dextrose/Water 1 100ml.bag @ 400 mls/hr IVPB Q15M [facility] Rx#: [id number] Intake, IV Titration 20 49.266 104 Amount Amiodarone 450 mg In 64 Dextrose 5% in Water 250 ml @ 0.5 MG/MIN 16.667 mls/hr IV .Q15H [facility] Rx#: [id number] Heparin Sod,Pork in 0.45% 49.266 NaCl 25,000 unit In 0.45 % NaCl 1 250ml.bag @ 12 UNITS/KG/HR 9.012 mls/hr IV .Q24H [facility] Rx#: [id number] Lactated Ringers 1,000 ml 20 40 @ 20 mls/hr IV .Q24H [facility] Rx#:[id number] Oral 960 360 Output: Drainage 120 30 Left Abdomen 120 30 Urine 600 350 420 Other: Voiding Method External Catheter External Catheter External Catheter # Voids 0 # Bowel Movements 2 1 ABP, PAP, CO, CI - Last Documented Arterial Blood Pressure 135/50 - Labs CBC & Chem 7: 03/03/25 05:07 03/03/25 05:07 Labs: Abnormal Lab Results - Last 24 Hours (Table) 03/02/25 03/03/25 03/03/25 Range/Units 19:27 00:37 05:07 RBC 2.55 L (4.40-5.60) 10*6/uL Hgb 7.4 L (13.0-17.0) g/dL Hct 22.8 L (39.6-50.0) % Lymphocytes # 0.88 L (0.90-5.00) 10*3/uL PT 12.9 H (10.0-12.5) sec INR 1.2 H (<1.2) APTT 166.8 H* 32.6 H (22.0-30.0) sec Sodium (137-145) mmol/L Potassium (3.5-5.1) mmol/L Chloride (98-107) mmol/L Carbon Dioxide (22-30) mmol/L Creatinine (0.66-1.25) mg/dL Glucose (74-99) mg/dL Calcium (8.4-10.2) mg/dL 03/03/25 03/03/25 03/03/25 Range/Units 05:07 05:07 08:50 RBC (4.40-5.60) 10*6/uL Hgb (13.0-17.0) g/dL Hct (39.6-50.0) % Lymphocytes # (0.90-5.00) 10*3/uL PT (10.0-12.5) sec INR 1.2 H (<1.2) APTT 37.7 H (22.0-30.0) sec Sodium 134 L (137-145) mmol/L Potassium 3.4 L (3.5-5.1) mmol/L Chloride 96 L (98-107) mmol/L Carbon Dioxide 34 H (22-30) mmol/L Creatinine 0.57 L (0.66-1.25) mg/dL Glucose 111 H (74-99) mg/dL Calcium 7.8 L (8.4-10.2) mg/dL Microbiology - Last 24 Hours (Table) 02/27/25 13:28 Blood Culture - Preliminary Blood
--- NOTE | 2025-03-03 11:59 | P.PN ---
Subjective Progress Note Date: 03/03/25 Patient is a 69-year-old male with past medical history significant for atrial fibrillation, hypertension, GERD, hiatal hernia, Monet fundoplication, cholelithiasis. Presented to the emergency department via EMS earlier this morning with chief complaint of right-sided abdominal pain. Also, noted to be weak and lightheaded. Found to be hypotensive in the ED. Blood pressure was 73/40 mmHg. Patient was bolused with 2.5 L of normal saline. Workup including abdominal/pelvis showing markedly distended gallbladder with 2 large stones in the dependent portion, tiny pockets of gas within the gallbladder and possibly within adjacent liver parenchyma, and surrounding mesenteric inflammation. Concerning for abscess versus emphysematous cholecystitis. Remaining workup including a CBC with a WBC count of 7.4, hemoglobin 8, platelets 120. CMP: Sodium 135, potassium 3, chloride 102, serum bicarb 25, BUN 27, creatinine 0.84, glucose 127. Total bilirubin 2.2. LFTs not elevated. Lactic 1.9. Troponin less than 0.012. Patient currently being evaluated in the emergency department. Resting comfortably on room air. Blood pressures currently 100/54 mmHg. Nontachycardic. Lactated Ringer's infusing at 130 mL/h. Abdominal pain is currently rated 3 out of 10 on a 10 point numerical scale. Localized to the right lower abdominal quadrant. No radiation. No nausea or vomiting. He states the pain for started approximately 3 to 4 days ago. He has not had much of an appetite. No nausea or vomiting. Awaiting general surgery recommendation Patient was seen today on 02/27/2025, remains in the ICU, intubated and mechanically ventilated. He is on assist-control rate of 20 tidal volume 450 F iO2 40% PEEP of 5 ABG showed a pO2 of 154 pCO2 4 0 pH of 7.43. Patient still on LR at 150 cc/h norepinephrine at 0.06 mcg/kg/min propofol at 20 mg/kg/min, his hemoglobin this morning is 6, patient is receiving a unit of packed RBCs. Patient has good urine output, his blood pressure is soft/marginal, I think will likely improve after unit of packed RBCs, patient's hemoglobin today is 6. Remains on Zosyn, today I plan to give the patient a weaning trial, will check weaning parameters, and if tolerated may even consider extubating the patient today. Speech ABG was noted and his FiO2 was cut down to 35%. Chest x-ray showed minimal pulmonary vascular congestion with small pleural effusion/atelectasis. Patient was seen today on 02/28/2025, patient is in no distress, doing well, on room air, IV fluid at 130 cc/h and I cut it down to 75 cc/h in the form of LR. Patient is doing well with incentive spirometry, his hemoglobin however drifted down yesterday and he required 2 units of packed RBCs. Remains on antibiotics, continues to have ALONSO drain in place, hemoglobin this morning is 7.1, follow-up was 7.4. Remains on GI and DVT prophylaxis, pain is fairly well-controlled. Antibiotics jean patient is on Zosyn. Patient was seen today on 03/01/2025, remains in the ICU, he had a bit of issues with low blood pressure last night, given fluid boluses did not require pressors, responded well to fluids. This morning his chest x-ray is showing evidence of fluid overload, hence I recommended cutting down the IV fluids and I recommended Lasix x 1 dose. Patient is sitting at the bedside chair, does not seem to be in any distress, he is on room air, hemodynamically stable. Labs were reviewed WBC count is 5.3 hemoglobin 7.3 electrolytes are normal renal profile is normal patient is doing better with incentive spirometry, he does have also some component of atelectasis at the base of his lungs but overall is doing great. Patient was seen today on 03/02/2025, yesterday the patient was downgraded to go to medical surgical floor, however overnight the patient developed opacification of the right t lung, and this is certainly secondary to mucous plugging involving the left mainstem bronchus. Has the patient had to be placed on BiPAP, he is now on chest PT, albuterol with acetylcysteine, and encouraged to use incentive spirometry to clear his own mucous plugs. The right lung is not fully opacified, there is a chance that the patient may not require bronchoscopy however if it does become completely opacified in the next 24 hours and there is no improvement, patient may have to undergo bedside bronchoscopy and suctioning of mucous plugs. Will try conservative measures for now before proceeding with bronchoscopy. Patient looks comfortable, he is not in any distress, and he is moving good tidal volumes on BiPAP. WBC count is 6.5 hemoglobin 8.8 electrolytes are normal bicarb is 34 BUN is 8 creatinine 0.57 antibiotics jean, patient remains on Zosyn. 03/03/2025: Patient is a 69-year-old male admitted to this hospital and ICU on 02/26/2025 for acute cholecystitis, and sepsis status post exploratory laparotomy with cholecystectomy and drainage of abscess by Dr. Dominguez on 02/26/2025. Patient was ultimately intubated and mechanically ventilated on 02/26/2025, sedated with propofol, and was requiring pressors for blood pressure support due to sepsis and acute blood loss. Patient required 2 units of pRBCs for low Hgb < 7. Additional medical history significant for atrial fibrillation, hypertension, GERD, hiatal hernia, Monet fundoplication, cholelithiasis. Patient was extubated on 02/27/2025. Yesterday (03/02/2025) the patient was down graded to go to medical surgical floor, however overnight the patient developed opacification of the right lung likely secondary to mucous plugging involving the right mainstem bronchus. Patient was seen and evluated today on 03/03/2025. He is alert and oriented x3 with no acute complaints. He required bipap on 09/11 at [facility], 50% all night until 6am. This morning he has been on 4L NC with Sp02 of 95%. He is currently on IV heparin drip for atrial fibrillation, but has since converted back to normal sinus rhythm. He still remains on amiodarone drip at 0.5mg /min. IV fluids KVO. Unasyn 3 gm IVPB q6hrs. ALONSO drain is showing serosanguinous fluid. CXR displaying significant improvement of right lower lobe opacity. Labs displaying WBC 5.22, Hgb 7.4, HCt 22.8, plt 147. Na 134, K 3.4, Cl 96, CO 34, BUN 9, Cr .57, glucose 111. Objective - Vital Signs Vital signs: Vital Signs Temp 98.4 F 03/03/25 08:00 Pulse 67 03/03/25 08:00 Resp 14 03/03/25 08:00 BP 113/64 03/03/25 08:00 Pulse Ox 99 03/03/25 08:00 FiO2 40 03/03/25 04:23 Intake & Output 03/02/25 03/03/25 03/03/25 18:59 06:59 18:59 Intake Total 1380 149.266 266 Output Total 600 470 250 Balance 780 -320.734 16 Weight 88.2 kg Intake: IV 400 100 Ampicillin-Sulbactam 3 gm 200 In Sodium Chloride 0.9% 100 ml @ 200 mls/hr IVPB Q6HR [facility] Rx#:[id number] Magnesium Sulfate-D5w Pmx 200 100 1 gm In Dextrose/Water 1 100ml.bag @ 400 mls/hr IVPB Q15M [facility] Rx#: [id number] Intake, IV Titration 20 49.266 26 Amount Amiodarone 450 mg In 16 Dextrose 5% in Water 250 ml @ 0.5 MG/MIN 16.667 mls/hr IV .Q15H [facility] Rx#: [id number] Heparin Sod,Pork in 0.45% 49.266 NaCl 25,000 unit In 0.45 % NaCl 1 250ml.bag @ 12 UNITS/KG/HR 9.012 mls/hr IV .Q24H [facility] Rx#: [id number] Lactated Ringers 1,000 ml 20 10 @ 20 mls/hr IV .Q24H [facility] Rx#:[id number] Oral 960 240 Output: Drainage 120 30 Left Abdomen 120 30 Urine 600 350 220 Other: Voiding Method External Catheter External Catheter External Catheter # Bowel Movements 2 1 ABP, PAP, CO, CI - Last Documented Arterial Blood Pressure 135/50 - Exam Vitals: Signs Reviewed General: nontoxic, no distress, appears at stated age Head: atraumatic, normocephalic, symmetric Eyes: EOMI, anicteric sclera Cardiovascular: S1 S2 reg, no murmur, rubs, or gallops Lungs: CTA bilateral, no rhonchi, no rales, no accessory muscle use Abdominal: mildly tender to palpataion, no appreciable organomegaly Extremities: no gross muscle atrophy, 1+ edema b/l LE edema, trace b/l UE edema Neuro: Alert, Oriented, CNII-XII grossly intact Psych: appropriate affect - Labs CBC & Chem 7: 03/03/25 05:07 03/03/25 05:07 Labs: Abnormal Lab Results - Last 24 Hours (Table) 03/02/25 03/03/25 03/03/25 Range/Units 19:27 00:37 05:07 RBC 2.55 L (4.40-5.60) 10*6/uL Hgb 7.4 L (13.0-17.0) g/dL Hct 22.8 L (39.6-50.0) % Lymphocytes # 0.88 L (0.90-5.00) 10*3/uL PT 12.9 H (10.0-12.5) sec INR 1.2 H (<1.2) APTT 166.8 H* 32.6 H (22.0-30.0) sec Sodium (137-145) mmol/L Potassium (3.5-5.1) mmol/L Chloride (98-107) mmol/L Carbon Dioxide (22-30) mmol/L Creatinine (0.66-1.25) mg/dL Glucose (74-99) mg/dL Calcium (8.4-10.2) mg/dL 03/03/25 03/03/25 Range/Units 05:07 05:07 RBC (4.40-5.60) 10*6/uL Hgb (13.0-17.0) g/dL Hct (39.6-50.0) % Lymphocytes # (0.90-5.00) 10*3/uL PT (10.0-12.5) sec INR 1.2 H (<1.2) APTT (22.0-30.0) sec Sodium 134 L (137-145) mmol/L Potassium 3.4 L (3.5-5.1) mmol/L Chloride 96 L (98-107) mmol/L Carbon Dioxide 34 H (22-30) mmol/L Creatinine 0.57 L (0.66-1.25) mg/dL Glucose 111 H (74-99) mg/dL Calcium 7.8 L (8.4-10.2) mg/dL Microbiology - Last 24 Hours (Table) 02/27/25 13:28 Blood Culture - Preliminary Blood Assessment and Plan Assessment: Impression Acute abdominal sepsis secondary to acute cholecystitis Status post laparoscopic cholecystectomy and abscess drainage of gallbladder. Postoperative day #5 Hypotension secondary to hypovolemia and possible septic shock, requiring pressors and requiring blood transfusion, patient received a total of 2 units of packed RBCs Acute blood loss anemia History of chronic anemia Chronic atrial fibrillation, currently sinus rhythm History of hiatal hernia with previous Monet fundoplication. Right lower lobe pneumonia Plan: Labs, medication, and imaging reviewed Continue Unasyn 3 gm IVP q6hrs IV heparin and IV amiodarone have been discontinued by cardiology Placed on amiodarone 200 mg PO BID and Eliquis 5mg PO BID by cardiology Incentive spirometry, chest PT, albuterol with Mucomyst Will repeat CXR in the morning Gentle diuresis IV fluid to KVO Advance diet as tolerated Ambulate as tolerated Patient will benefit for additional 24 hrs of close monitoring in the ICU with plans of downgrading tomorrow to cardiac stepdown unit.
--- NOTE | 2025-03-03 14:19 | P.PN ---
Subjective Progress Note Date: 03/03/25 Principal diagnosis: Reason for follow-up is gangrenous cholecystitis Patient is a 69-year-old male with a past medical history significant for atrial fibrillation reflux presenting to the hospital for evaluation of diarrhea felt lightheaded complaining of weakness and did have right upper quadrant pain, patient be diagnosed with gangrenous cholecystitis status post open cholecystectomy and drainage of the abscess. On today's evaluation that is 03/03/2025, patient has been afebrile, patient is breathing slightly comfortably and is currently on 4 L nasal cannula oxygen, patient denies having any chest pain and cough is decreased intensity bringing some sputum , patient denies nausea vomiting or diarrhea and no abdominal pain. Patient white count is 5.22, creatinine 0.57 blood culture have been negative Objective - Vital Signs Vital signs: Vital Signs Temp 98.4 F 03/03/25 12:19 Pulse 77 03/03/25 13:00 Resp 11 L 03/03/25 13:00 BP 124/86 03/03/25 12:19 Pulse Ox 95 03/03/25 13:00 FiO2 40 03/03/25 04:23 Intake & Output 03/02/25 03/03/25 03/03/25 18:59 06:59 18:59 Intake Total 1380 149.266 756 Output Total 093 307 8279 Balance 780 -320.734 -294 Weight 88.2 kg Intake: IV 400 100 Ampicillin-Sulbactam 3 gm 200 In Sodium Chloride 0.9% 100 ml @ 200 mls/hr IVPB Q6HR [facility] Rx#:[id number] Magnesium Sulfate-D5w Pmx 200 100 1 gm In Dextrose/Water 1 100ml.bag @ 400 mls/hr IVPB Q15M [facility] Rx#: [id number] Intake, IV Titration 20 49.266 156 Amount Amiodarone 450 mg In 96 Dextrose 5% in Water 250 ml @ 0.5 MG/MIN 16.667 mls/hr IV .Q15H [facility] Rx#: [id number] Heparin Sod,Pork in 0.45% 49.266 NaCl 25,000 unit In 0.45 % NaCl 1 250ml.bag @ 12 UNITS/KG/HR 9.012 mls/hr IV .Q24H [facility] Rx#: [id number] Lactated Ringers 1,000 ml 20 60 @ 20 mls/hr IV .Q24H [facility] Rx#:[id number] Oral 960 600 Output: Drainage 120 30 Left Abdomen 120 30 Urine 943 456 9274 Other: Voiding Method External Catheter External Catheter External Catheter # Voids 1 # Bowel Movements 2 1 ABP, PAP, CO, CI - Last Documented Arterial Blood Pressure 135/50 - Exam GENERAL DESCRIPTION: An elderly male lying in bed in no distress RESPIRATORY SYSTEM: Unlabored breathing , decreased breath sounds at bases HEART: S1 S2 regular rate and rhythm , ABDOMEN: Soft , no tenderness EXTREMITIES: No edema feet - Labs CBC & Chem 7: 03/03/25 05:07 03/03/25 05:07 Labs: Abnormal Lab Results - Last 24 Hours (Table) 03/02/25 03/03/25 03/03/25 Range/Units 19: 00:37 05:07 RBC 2.55 L (4.40-5.60) 10*6/uL Hgb 7.4 L (13.0-17.0) g/dL Hct 22.8 L (39.6-50.0) % Lymphocytes # 0.88 L (0.90-5.00) 10*3/uL PT 12.9 H (10.0-12.5) sec INR 1.2 H (<1.2) APTT 166.8 H* 32.6 H (22.0-30.0) sec Sodium (137-145) mmol/L Potassium (3.5-5.1) mmol/L Chloride (98-107) mmol/L Carbon Dioxide (22-30) mmol/L Creatinine (0.66-1.25) mg/dL Glucose (74-99) mg/dL Calcium (8.4-10.2) mg/dL 03/03/25 03/03/25 03/03/25 Range/Units 05:07 05:07 08:50 RBC (4.40-5.60) 10*6/uL Hgb (13.0-17.0) g/dL Hct (39.6-50.0) % Lymphocytes # (0.90-5.00) 10*3/uL PT (10.0-12.5) sec INR 1.2 H (<1.2) APTT 37.7 H (22.0-30.0) sec Sodium 134 L (137-145) mmol/L Potassium 3.4 L (3.5-5.1) mmol/L Chloride 96 L (98-107) mmol/L Carbon Dioxide 34 H (22-30) mmol/L Creatinine 0.57 L (0.66-1.25) mg/dL Glucose 111 H (74-99) mg/dL Calcium 7.8 L (8.4-10.2) mg/dL Microbiology - Last 24 Hours (Table) 02/27/25 13:28 Blood Culture - Preliminary Blood Assessment and Plan (1) Acute cholecystitis Current Visit: Yes Status: Acute Code(s): K81.0 - ACUTE CHOLECYSTITIS S NOMED Code(s): 38407144 Plan: 1patient presented to hospital with weakness abdominal pain has been diagnosed with gangrenous cholecystitis with empyema in this patient who is status post open cholecystectomy and drainage of the abscess will need to cover for the enteric gram-negative due to the likely pathogen 2-abdominal cultures currently growing E. coli that is a sensitive pathogen 3-patient is afebrile white count has been normal 4patient seem to have improvement in his respiratory status still having a cough sputum has been requested for now continue with Unasyn and monitor clinical course closely Dictation was produced using [employer] dictation software. please excuse any grammatical, word or spelling errors. Time with Patient: Less than 30
[2025-03-03] MEDS: AMIODARONE 200 MG TAB PO SCH (20:02)
[2025-03-03] MEDS ORDERED: MELATONIN 5 MG TABLET PO SCH (21:00)
[2025-03-03] MEDS: HYDROcodone/APAP 5-325MG 1 EACH TAB PO PRN (21:54)
[2025-03-03] MEDS: ZINC OXIDE PASTE (Z-GUARD) 1 APPLIC TOPICAL PRN (21:54)
[2025-03-04 05:05] LABS: HCT 24.2 % (39.6-50.0); HGB 7.5 g/dL (13.0-17.0); MCH 28.1 pg (27.0-32.0); MCV 90.6 fL (80.0-97.0); Mean Platelet Volume 10.3 fL (9.5-12.2); Platelet Count 163 10*3/uL (140-440); RBC 2.67 10*6/uL (4.40-5.60); WBC 5.54 10*3/uL (4.50-10.00)
[2025-03-04 05:23] LABS: African American GFR (CKD) >90 (>60 ml/min/1.73 sqM); Anion Gap 2 mmol/L; Blood Urea Nitrogen 8 mg/dL (9-20); Calcium 7.7 mg/dL (8.4-10.2); Carbon Dioxide 32 mmol/L (22-30); Chloride 103 mmol/L (98-107); Glucose 104 mg/dL (74-99); Non-African American GFR(CKD) >90 (>60 ml/min/1.73 sqM); Potassium 3.8 mmol/L (3.5-5.1); Sodium 137 mmol/L (137-145)
[2025-03-04] MEDS: POTASSIUM CHLORIDE ER 20 MEQ TAB.ER PO SCH (06:06)
--- NOTE | 2025-03-04 07:22 | XR ---
EXAMINATION TYPE: XR chest 1V portable DATE OF EXAM: 03/04/2025 5:10 AM COMPARISON: 03/03/2025 CLINICAL INDICATION: Male, 69 years old with history of f/u right lung opacity; pneumonia, TECHNIQUE: XR chest 1V portable views of the chest are obtained. FINDINGS: Demonstrated are scattered senescent parenchymal change. Stable right lower lobe infiltrate with small effusion suspected as well. The remainder of the lungs are clear. The heart is stable. Hilar and mediastinal structures are within normal limits. Degenerative changes are seen of the dorsal spine. IMPRESSION: 1. Stable right lower lobe infiltrate with small effusion suspected as well. The remainder of the quiana ngs are clear. [facility], , 03/04/2025 7:20 AM
[2025-03-04] MEDS: METOPROLOL TARTRATE 12.5 MG TAB PO SCH (08:09)
--- NOTE | 2025-03-04 08:46 | P.PN ---
Subjective Progress Note Date: 03/04/25 HPI: This gentleman has a known diagnosis of paroxysmal atrial fibrillation but has not been on any anticoagulation given his workup for anemia and he had recent bone marrow. He underwent open cholecystectomy apparently and had postoperative atrial fibrillation with rapid ventricular rate which has now se ttled down and he is in sinus rhythm. He is hemodynamically stable resting well on amiodarone 200 mg twice daily. We will also continue metoprolol as well at this time.. PHYSICIAL EXAM: Vitals are stable he is in sinus rhythm S1-S2 heard normally no significant murmurs lungs reveal decent air entry abdomen is soft Central nervous system no focal deficit. IMPRESSION: 1. Paroxysmal atrial fibrillation now in sinus rhythm. 2. S/p cholecystectomy. 3. Anemia with unclear etiology being worked up. 4.. 5.. RECOMMENDATIONS: Continue amiodarone I will add 12.5 mg of metoprolol tartrate twice daily. See additional recommendations from Dr. Grant on his note from 03/03/2025. Will come back and reevaluate the patient as needed. Objective - Vital Signs Vital signs: Vital Signs Temp 97.8 F 03/04/25 08:00 Pulse 75 03/04/25 08:00 Resp 15 03/04/25 08:00 BP 121/65 03/04/25 08:00 Pulse Ox 98 03/04/25 08:00 FiO2 40 03/03/25 04:23 Intake & Output 03/03/25 03/04/25 03/04/25 18:59 06:59 18:59 Intake Total 1006 736 10 Output Total 1340 910 250 Balance -334 -174 -240 Weight 77.3 kg Intake: Intake, IV Titration 286 346 10 Amount Amiodarone 450 mg In 176 16 Dextrose 5% in Water 250 ml @ 0.5 MG/MIN 16.667 mls/hr IV .Q15H [facility] Rx#: [id number] Ampicillin-Sulbactam 3 gm 300 In Sodium Chloride 0.9% 100 ml @ 200 mls/hr IVPB Q6HR [facility] Rx#:[id number] Lactated Ringers 1,000 ml 110 30 10 @ 20 mls/hr IV .Q24H [facility] Rx#:[id number] Oral 720 390 Output: Drainage 30 60 Left Abdomen 30 60 Urine 1310 850 250 Other: Voiding Method External Catheter External Catheter External Catheter # Voids 1 1 # Bowel Movements 1 ABP, PAP, CO, CI - Last Documented Arterial Blood Pressure 135/50 - Labs CBC & Chem 7: 03/04/25 04:20 03/04/25 04:20 Labs: Abnormal Lab Results - Last 24 Hours (Table) 03/03/25 03/04/25 03/04/25 Range/Units 08:50 04:20 04:20 RBC 2.67 L (4.40-5.60) 10*6/uL Hgb 7.5 L (13.0-17.0) g/dL Hct 24.2 L (39.6-50.0) % MCHC 31.0 L (32.0-37.0) g/dL APTT 37.7 H (22.0-30.0) sec Carbon Dioxide 32 H (22-30) mmol/L BUN 8 L (9-20) mg/dL Creatinine 0.51 L (0.66-1.25) mg/dL Glucose 104 H (74-99) mg/dL Calcium 7.7 L (8.4-10.2) mg/dL Microbiology - Last 24 Hours (Table) 02/27/25 13:28 Blood Culture - Preliminary Blood
--- NOTE | 2025-03-04 11:13 | P.PN ---
Subjective Progress Note Date: 03/04/25 Patient is a 69-year-old male with past medical history significant for atrial fibrillation, hypertension, GERD, hiatal hernia, Monet fundoplication, cholelithiasis. Presented to the emergency department via EMS earlier this morning with chief complaint of right-sided abdominal pain. Also, noted to be w eak and lightheaded. Found to be hypotensive in the ED. Blood pressure was 73/40 mmHg. Patient was bolused with 2.5 L of normal saline. Workup including abdominal/pelvis showing markedly distended gallbladder with 2 large stones in the dependent portion, tiny pockets of gas within the gallbladder and possibly within adjacent liver parenchyma, and surrounding mesenteric inflammation. Concerning for abscess versus emphysematous cholecystitis. Remaining workup including a CBC with a WBC count of 7.4, hemoglobin 8, platelets 120. CMP: Sodium 135, potassium 3, chloride 102, serum bicarb 25, BUN 27, creatinine 0.84, glucose 127. Total bilirubin 2.2. LFTs not elevated. Lactic 1.9. Troponin less than 0.012. Patient currently being evaluated in the emergency department. Resting comfortably on room air. Blood pressures currently 100/54 mmHg. Nontachycardic. Lactated Ringer's infusing at 130 mL/h. Abdominal pain is currently rated 3 out of 10 on a 10 point numerical scale. Localized to the right lower abdominal quadrant. No radiation. No nausea or vomiting. He states the pain for started approximately 3 to 4 days ago. He has not had much of an appetite. No nausea or vomiting. Awaiting general surgery recommendation Patient was seen today on 02/27/2025, remains in the ICU, intubated and mechanically ventilated. He is on assist-control rate of 20 tidal volume 450 Fi O2 40% PEEP of 5 ABG showed a pO2 of 154 pCO2 4 0 pH of 7.43. Patient still on LR at 150 cc/h norepinephrine at 0.06 mcg/kg/min propofol at 20 mg/kg/min, his hemoglobin this morning is 6, patient is receiving a unit of packed RBCs. Patient has good urine output, his blood pressure is soft/marginal, I think will likely improve after unit of packed RBCs, patient's hemoglobin today is 6. Remains on Zosyn, today I plan to give the patient a weaning trial, will check weaning parameters, and if tolerated may even consider extubating the patient today. Speech ABG was noted and his FiO2 was cut down to 35%. Chest x-ray showed minimal pulmonary vascular congestion with small pleural effusion/atelectasis. Patient was seen today on 02/28/2025, patient is in no distress, doing well, on room air, IV fluid at 130 cc/h and I cut it down to 75 cc/h in the form of LR. Patient is doing well with incentive spirometry, his hemoglobin however drifted down yesterday and he required 2 units of packed RBCs. Remains on antibiotics, continues to have ALONSO drain in place, hemoglobin this morning is 7.1, follow-up was 7.4. Remains on GI and DVT prophylaxis, pain is fairly well-controlled. Antibiotics jean patient is on Zosyn. Patient was seen today on 03/01/2025, remains in the ICU, he had a bit of issues with low blood pressure last night, given fluid boluses did not require pressors, responded well to fluids. This morning his chest x-ray is showing evidence of fluid overload, hence I recommended cutting down the IV fluids and I recommended Lasix x 1 dose. Patient is sitting at the bedside chair, does not seem to be in any distress, he is on room air, hemodynamically stable. Labs were reviewed WBC count is 5.3 hemoglobin 7.3 electrolytes are normal renal profile is normal patient is doing better with incentive spirometry, he does have also some component of atelectasis at the base of his lungs but overall is doing great. Patient was seen today on 03/02/2025, yesterday the patient was downgraded to go to medical surgical floor, however overnight the patient developed opacification of the right t lung, and this is certainly secondary to mucous plugging involving the left mainstem bronchus. Has the patient had to be placed on BiPAP, he is now on chest PT, albuterol with acetylcysteine, and encouraged to use incentive spirometry to clear his own mucous plugs. The right lung is not fully opacified, there is a chance that the patient may not require bronchoscopy however if it does become completely opacified in the next 24 hours and there is no improvement, patient may have to undergo bedside bronchoscopy and suctioning of mucous plugs. Will try conservative measures for now before proceeding with bronchoscopy. Patient looks comfortable, he is not in any distress, and he is moving good tidal volumes on BiPAP. WBC count is 6.5 hemoglobin 8.8 electrolytes are normal bicarb is 34 BUN is 8 creatinine 0.57 antibiotics jean, patient remains on Zosyn. 03/03/2025: Patient is a 69-year-old male admitted to this hospital and ICU on 02/26/2025 for acute cholecystitis, and sepsis status post exploratory laparotomy with cholecystectomy and drainage of abscess by Dr. Dominguez on 02/26/2025. Patient was ultimately intubated and mechanically ventilated on 02/26/2025, sedated with propofol, and was requiring pressors for blood pressure support due to sepsis and acute blood loss. Patient required 2 units of pRBCs for low Hgb < 7. Additional medical history significant for atrial fibrillation, hypertension, GERD, hiatal hernia, Monet fundoplication, cholelithiasis. Patient was extubated on 02/27/2025. Yesterday (03/02/2025) the patient was downgraded to go to medical surgical floor, however overnight the patient developed opacification of the right lung likely secondary to mucous plugging involving the right mainstem bronchus. Patient was seen and evluated today on 03/03/2025. He is alert and oriented x3 with no acute complaints. He required bipap on 09/11 at [facility], 50% all night until 6am. This morning he has been on 4L NC with Sp02 of 95%. He is currently on IV heparin drip for atrial fibrillation, but has since converted back to normal sinus rhythm. He still remains on amiodarone drip at 0.5mg /min. IV fluids KVO. Unasyn 3 gm IVPB q6hrs. ALONSO drain is showing serosanguinous fluid. CXR displaying significant improvement of right lower lobe opacity. Labs displaying WBC 5.22, Hgb 7.4, HCt 22.8, plt 147. Na 134, K 3.4, Cl 96, CO 34, BUN 9, Cr .57, glucose 111. Patient was seen and evaluated today on 03/04/2025. He is alert and oriented x3 with no acute complaints. The patient is currently breathing on room air. Heparin drip and amiodarone drip have been discontinued by cardiology. Currently on LR at 20 cc/hr. Placed on amiodarone 200 mg PO BID and eliquis 5 mg PO BID for his atrial fibrillation. Currently on day 02/11 of Unasyn 3 gm IVP q6hrs. ALONSO drain is showing serosanguinous fluid. CXR displaying stable right lower infiltrate, small right pleural effusion. Labs displaying WBC 5.54, Hgb 7.5, HCt 24.2, platelet 163. Sodium 137, potassium 3.8, chloride 103, bicarb 32, BUN 8, creatinine 0.51, glucose 111, calcium 7.7. Objective - Vital Signs Vital signs: Vital Signs Temp 98.5 F 03/03/25 20:00 Pulse 66 03/04/25 06:00 Resp 18 03/04/25 06:00 BP 127/69 03/04/25 06:00 Pulse Ox 100 03/04/25 06:00 FiO2 40 03/03/25 04:23 Intake & Output 03/03/25 03/04/25 03/04/25 18:59 06:59 18:59 Intake Total 1006 736 Output Total 1340 910 Balance -334 -174 Weight 77.3 kg Intake: Intake, IV Titration 286 346 Amount Amiodarone 450 mg In 176 16 Dextrose 5% in Water 250 ml @ 0.5 MG/MIN 16.667 mls/hr IV .Q15H [facility] Rx#: [id number] Ampicillin-Sulbactam 3 gm 300 In Sodium Chloride 0.9% 100 ml @ 200 mls/hr IVPB Q6HR [facility] Rx#:[id number] Lactated Ringers 1,000 ml 110 30 @ 20 mls/hr IV .Q24H [facility] Rx#:[id number] Oral 720 390 Output: Drainage 30 60 Left Abdomen 30 60 Urine 1310 850 Other: Voiding Method External Catheter External Catheter # Voids 1 1 # Bowel Movements 1 ABP, PAP, CO, CI - Last Documented Arterial Blood Pressure 135/50 - Exam Vitals: Signs Reviewed General: nontoxic, no distress, appears at stated age Head: atraumatic, normocephalic, symmetric Eyes: EOMI, anicteric sclera Cardiovascular: S1 S2 reg, no murmur, rubs, or gallops Lungs: CTA bilateral, no rhonchi, no rales, no accessory muscle use Abdominal: mildly tender to palpataion, no appreciable organomegaly Extremities: no gross muscle atrophy, 1+ edema b/l LE edema, trace b/l UE edema Neuro: Alert, Oriented, CNII-XII grossly intact Psych: appropriate affect - Labs CBC & Chem 7: 03/04/25 04:20 03/04/25 04:20 Labs: Abnormal Lab Results - Last 24 Hours (Table) 03/03/25 03/04/25 03/04/25 Range/Units 08:50 04:20 04:20 RBC 2.67 L (4.40-5.60) 10*6/uL Hgb 7.5 L (13.0-17.0) g/dL Hct 24.2 L (39.6-50.0) % MCHC 31.0 L (32.0-37.0) g/dL APTT 37.7 H (22.0-30.0) sec Carbon Dioxide 32 H (22-30) mmol/L BUN 8 L (9-20) mg/dL Creatinine 0.51 L (0.66-1.25) mg/dL Glucose 104 H (74-99) mg/dL Calcium 7.7 L (8.4-10.2) mg/dL Microbiology - Last 24 Hours (Table) 02/27/25 13:28 Blood Culture - Preliminary Blood Assessment and Plan Assessment: Acute abdominal sepsis secondary to acute cholecystitis Status post laparoscopic cholecystectomy and abscess drainage of gallbladder. Postoperative day #6 Hypotension secondary to hypovolemia and possible septic shock, requiring pressors and requiring blood transfusion, patient received a total of 2 units of packed RBCs Acute blood loss anemia History of chronic anemia Chronic atrial fibrillation, currently sinus rhythm History of hiatal hernia with previous Monet fundoplication. Right lower lobe pneumonia Plan: Labs, medication, and imaging reviewed Continue Unasyn 3 gm IVP q6hrs, day 5/7 IV heparin and IV amiodarone have been discontinued by cardiology Continue with amiodarone 200 mg PO BID and Eliquis 5mg PO BID continue with albuterol, Mucomyst will be discontinued Incentive spirometry, chest PT Gentle diuresis IV fluid to KVO Advance diet as tolerated Ambulate as tolerated Patient can be downgraded to general medical floor with no telemetry.
--- NOTE | 2025-03-04 11:29 | P.PN ---
Subjective Progress Note Date: 03/04/25 69 year old M with PMH AFib, GERD presents to the ED for RLQ abdominal pain, generalized weakness, lightheadedness and diarrhea. In the ED he underwent extensive evaluation. BP 73/40, HR 77, T 97.4F, RR 18, 92% on RA. Labs significant for RBC 2.7, Hg 8, Hct 24.7, Plt 120, PT 13.5, INR 1.3, APTT 33.1, Na 135, K 3, BUN 27, glu 127, Ca 8, T. Bili 2.2, alb 2.6. Trop < 0.012. Mag 1.9. Lactic acid 1.9. ABG pH 7.31, pCO2 53, pO2 [address] AP concerning for cholecystitis with abscess versus emphysematous cholecystitis and moderate anasarca. Started on IV hydration, Zosyn and admitted to surgery. Underwent ex lap with cholecystectomy and drainage of abscess on 02/26/2025. Intraoperative cultures growing E. coli, ID consulted, Abx switched to Unasyn. Hospital course complicated by ABLA requiring 2 unit PRBC and post operative dyspnea with CXR showing RLL PNA versus mucous plugging. 03/03 Patient was seen and examined this morning. Went into A-Fib with RVR yesterday, Cardiology consulted, started on Amiodarone drip and Heparin drip. On 4L NC. 2 bowel movements over the past 24H. CBC, Coag panel and BMP significant for RBC 2.55, Hg 7.4, Hct 22.8, INR 1.2, APTT 37.7, Na 134, K 3.4, Cl 96, bicarb 34, Cr 0.57, glu 111, Ca 7.8. CXR done today shows significant improvement in RLL PNA. 03/04 Patient was seen and examined. Feeling well. Tolerating diet well. No shortness of breath. 1 bowel movements over the past 24H. CBC and BMP significant for RBC 2.67, Hg 7.5, Hct 24.2, bicarb 32, BUN 8, Cr 0.51, glu 104, Ca 7.7. CXR done today shows significant improvement in RLL PNA. BP 120/78, HR 71, RR 18, 95% on RA. General: no distress, appears at stated age Derm: warm, dry Head: atraumatic, normocephalic, symmetric Mouth: no lip lesion, mucus membranes moist Cardiovascular: S1 S2 reg. No murmur Lungs: Decreased BS bilaterally, no accessory muscle use Abd: Sluggish bowel sounds appreciated. + ALONSO drain Ext: no gross muscle atrophy, no edema, no contractures. Neuro: No focal neurologic deficits. Psych: Alert and oriented Based on my assessment of this patient, this patient meets a high complexity level of care. Acute hypoxic respiratory failure secondary to RLL PNA versus mucous plugging: Albuterol neb QID scheduled. Mucormyst 200 mg INH TID. Supplemental O2 to maintain O2 sat > 92%. Pulmonary on board. A-fib with RVR: Likely due to acute anemia. Amiodarone 200 mg PO BID and taper. Eliquis 5 mg PO BID. Cardiology on board. Septic shock secondary to gangrenous cholecystitis: Status post ex lap with cholecystectomy and drainage of abscess on 02/26/2025. Intraoperative cultures g rowing E. coli. Continue Unasyn 3g IV Q6H. Diet advanced per Surgery. ID and Surgery on board. Acute blood loss anemia: Status post 2 unit PRBC. Daily CBC. Transfuse if Hg < 7. GERD with history of Monet fundoplication: Holding home PPIs, proceed with IV Protonix 40 daily CODE STATUS: FULL CODE DVT Prophylaxis: SCD GI Prophylaxis: Protonix IV Designated medical POA if patient is not able to make medical decisions for themselves: I have reviewed the following call center consultant notes: Cardio, Pulmonary I have reviewed the results of the following tests: CBC, BMP I have ordered the following tests: I have discussed the care of this patient with the following independent historian: I have independently interpreted the following test below: I have discussed the management of this patient with the following physician: Objective - Vital Signs Vital signs: Vital Signs Temp 97.8 F 03/04/25 08:00 Pulse 71 03/04/25 09:00 Resp 18 03/04/25 09:00 BP 120/78 03/04/25 09:00 Pulse Ox 95 03/04/25 09:00 FiO2 40 03/03/25 04:23 Intake & Output 03/03/25 03/04/25 03/04/25 18:59 06:59 18:59 Intake Total 1006 736 20 Output Total 1340 910 250 Balance -334 -174 -230 Weight 77.3 kg Intake: Intake, IV Titration 286 346 20 Amount Amiodarone 450 mg In 176 16 Dextrose 5% in Water 250 ml @ 0.5 MG/MIN 16.667 mls/hr IV .Q15H [facility] Rx#: [id number] Ampicillin-Sulbactam 3 gm 300 In Sodium Chloride 0.9% 100 ml @ 200 mls/hr IVPB Q6HR [facility] Rx#:[id number] Lactated Ringers 1,000 ml 110 30 20 @ 20 mls/hr IV .Q24H [facility] Rx#:[id number] Oral 720 390 Output: Drainage 30 60 Left Abdomen 30 60 Urine 1310 850 250 Other: Voiding Method External Catheter External Catheter External Catheter # Voids 1 1 # Bowel Movements 1 ABP, PAP, CO, CI - Last Documented Arterial Blood Pressure 135/50 - Labs CBC & Chem 7: 03/04/25 04:20 03/04/25 04:20 Labs: Abnormal Lab Results - Last 24 Hours (Table) 03/04/25 03/04/25 Range/Units 04:20 04:20 RBC 2.67 L (4.40-5.60) 10*6/uL Hgb 7.5 L (13.0-17.0) g/dL Hct 24.2 L (39.6-50.0) % MCHC 31.0 L (32.0-37.0) g/dL Carbon Dioxide 32 H (22-30) mmol/L BUN 8 L (9-20) mg/dL Creatinine 0.51 L (0.66-1.25) mg/dL Glucose 104 H (74-99) mg/dL Calcium 7.7 L (8.4-10.2) mg/dL
--- NOTE | 2025-03-04 12:19 | P.PN ---
Subjective Progress Note Date: 03/04/25 SURGICAL PROGRESS NOTE CHIEF COMPLAINT: Gangrenous cholecystitis HISTORY OF PRESENT ILLNESS: Patient is postop day #6 status post diagnostic laparoscopy, exploratory laparotomy, cholecystectomy, drainage of abscess. Patient currently in ICU. Patient has no new complaints. His abdominal pain is controlled. Denies any nausea or vomiting. Tolerating diet. He did have 3 loose stools yesterday. Afebrile. WBC is 5 Hgb 7.5 ALONSO drain 60 mL serosanguineous output PHYSICAL EXAM: VITAL SIGNS: Reviewed. GENERAL: Well-developed in no acute distress. HEENT: No sclera icterus. Extraocular movements grossly intact. Moist buccal mucosa. Head is atraumatic, normocephalic. ABDOMEN: Soft. Nondistended. Incisional dressings clean dry and intact. ALONSO drain serosanguineous NEUROLOGIC: Awake and alert orientated x 3 ASSESSMENT: 1. Gangrenous cholecystitis with almost complete necrosis of gallbladder, Abscess with 500 mL of purulent fluid, Cholelithiasis 2. Anemia is dilutional PLAN: - Continue regular diet - Continue antibiotics per ID service - Encourage patient to use incentive spirometer - Encourage patient to increase activity level - Patient being transferred to regular medical floor today - DVT prophylaxis [employer] Physician Dance [employer] Manager note has been reviewed by physician. Signing provider agrees with the documented findings, assessment, and plan of care. Objective - Vital Signs Vital signs: Vital Signs Temp 97.8 F 03/04/25 08:00 Pulse 71 03/04/25 11:39 Resp 18 03/04/25 09:00 BP 120/78 03/04/25 09:00 Pulse Ox 95 03/04/25 09:00 FiO2 40 03/03/25 04:23 Intake & Output 03/03/25 03/04/25 03/04/25 18:59 06:59 18:59 Intake Total 1006 736 20 Output Total 1340 910 950 Balance -334 174 -930 Weight 77.3 kg Intake: Intake, IV Titration 286 346 20 Amount Amiodarone 450 mg In 176 16 Dextrose 5% in Water 250 ml @ 0.5 MG/MIN 16.667 mls/hr IV .Q15H [facility] Rx#: [id number] Ampicillin-Sulbactam 3 gm 300 In Sodium Chloride 0.9% 100 ml @ 200 mls/hr IVPB Q6HR [facility] Rx#:[id number] Lactated Ringers 1,000 ml 110 30 20 @ 20 mls/hr IV .Q24H [facility] Rx#:[id number] Oral 720 390 Output: Drainage 30 60 Left Abdomen 30 60 Urine 1310 850 950 Other: Voiding Method External Catheter External Catheter External Catheter # Voids 1 1 # Bowel Movements 1 ABP, PAP, CO, CI - Last Documented Arterial Blood Pressure 135/50 - Labs CBC & Chem 7: 03/04/25 04:20 03/04/25 04:20 Labs: Abnormal Lab Results - Last 24 Hours (Table) 03/04/25 03/04/25 Range/Units 04:20 04:20 RBC 2.67 L (4.40-5.60) 10*6/uL Hgb 7.5 L (13.0-17.0) g/dL Hct 24.2 L (39.6-50.0) % MCHC 31.0 L (32.0-37.0) g/dL Carbon Dioxide 32 H (22-30) mmol/L BUN 8 L (9-20) mg/dL Creatinine 0.51 L (0.66-1.25) mg/dL Glucose 104 H (74-99) mg/dL Calcium 7.7 L (8.4-10.2) mg/dL
[2025-03-05 03:37] LABS: HCT 23.4 % (39.6-50.0); HGB 7.5 g/dL (13.0-17.0); MCH 28.8 pg (27.0-32.0); MCHC 32.1 g/dL (32.0-37.0); Mean Platelet Volume 10.1 fL (9.5-12.2); Platelet Count 157 10*3/uL (140-440); RDW 20.4 % (11.5-14.5); WBC 5.29 10*3/uL (4.50-10.00)
[2025-03-05 03:52] LABS: African American GFR (CKD) >90 (>60 ml/min/1.73 sqM); Anion Gap 2 mmol/L; Blood Urea Nitrogen 9 mg/dL (9-20); Carbon Dioxide 32 mmol/L (22-30); Chloride 102 mmol/L (98-107); Glucose 98 mg/dL (74-99); Non-African American GFR(CKD) >90 (>60 ml/min/1.73 sqM); Potassium 4.3 mmol/L (3.5-5.1); Sodium 136 mmol/L (137-145)
--- NOTE | 2025-03-05 11:41 | P.PN ---
Subjective Progress Note Date: 03/05/25 SURGICAL PROGRESS NOTE CHIEF COMPLAINT: Gangrenous cholecystitis HISTORY OF PRESENT ILLNESS: Patient is postop day #7 status post diagnostic laparoscopy, exploratory laparotomy, cholecystectomy, drainage of abscess. Patient tolerating regular medical floor. He reports a decreased appetite this morning. He has been having bowel movements. Denies any nausea or vomiting. Pain is tolerable. ALONSO drain 70 mL serosanguineous output. Afebrile. no new labs PHYSICAL EXAM: VITAL SIGNS: Reviewed. GENERAL: Well-developed in no acute distress. HEENT: No sclera icterus. Extraocular movements grossly intact. Moist buccal mucosa. Head is atraumatic, normocephalic. ABDOMEN: Soft. Nondistended. Incisional dressings clean dry and intact. ALONSO drain serosanguineous NEUROLOGIC: Awake and alert orientated x 3 ASSESSMENT: 1. Gangrenous cholecystitis with almost complete necrosis of gallbladder, Abs cess with 500 mL of purulent fluid, Cholelithiasis 2. Anemia is dilutional 3. Severe protein calorie malnutrition PLAN: - Continue regular diet - Add Ensure for protein supplement - Continue antibiotics per ID service - Encourage patient to use incentive spirometer - Encourage patient to increase activity level - DVT prophylaxis Zaid Physician Certified Legal Investigator note has been reviewed by physician. Signing provider agrees with the documented findings, assessment, and plan of care. Objective - Vital Signs Vital signs: Vital Signs Temp 97.9 F 03/05/25 07:27 Pulse 80 03/05/25 08:43 Resp 18 03/05/25 07:27 BP 133/68 03/05/25 07:27 Pulse Ox 92 L 03/05/25 07:27 FiO2 40 03/03/25 04:23 Intake & Output 03/04/25 03/05/25 03/05/25 18:59 06:59 18:59 Intake Total 120 Output Total 1010 1420 Balance -890 -1420 Weight 81.5 kg Intake: Intake, IV Titration 120 Amount Ampicillin-Sulbactam 3 gm 100 In Sodium Chloride 0.9% 100 ml @ 200 mls/hr IVPB Q6HR [facility] Rx#:[id number] Lactated Ringers 1,000 ml 20 @ 20 mls/hr IV .Q24H [facility] Rx#:[id number] Output: Drainage 60 70 Left Abdomen 60 70 Urine 950 1350 Other: Voiding Method External Catheter External Catheter Incontinent # Bowel Movements 1 ABP, PAP, CO, CI - Last Documented Arterial Blood Pressure 135/50 - Labs CBC & Chem 7: 03/05/25 02:47 03/05/25 02:47 Labs: Abnormal Lab Results - Last 24 Hours (Table) 03/05/25 03/05/25 Range/Units 02:47 02:47 RBC 2.60 L (4.40-5.60) 10*6/uL Hgb 7.5 L (13.0-17.0) g/dL Hct 23.4 L (39.6-50.0) % RDW 20.4 H (11.5-14.5) % Sodium 136 L (137-145) mmol/L Carbon Dioxide 32 H (22-30) mmol/L Calcium 8.0 L (8.4-10.2) mg/dL Microbiology - Last 24 Hours (Table) 03/03/25 22:10 Gram Stain - Preliminary Sputum 02/27/25 13:28 Blood Culture - Final Blood
[2025-03-05] MEDS: FUROSEMIDE 10 MG/ML 4 ML VIAL IV SCH (12:44)
--- NOTE | 2025-03-05 12:53 | P.PN ---
Subjective Progress Note Date: 03/05/25 69 year old M with PMH AFib, GERD presents to the ED for RLQ abdominal pain, generalized weakness, lightheadedness and diarrhea. In the ED he underwent extensive evaluation. BP 73/40, HR 77, T 97.4F, RR 18, 92% on RA. Labs significant for RBC 2.7, Hg 8, Hct 24.7, Plt 120, PT 13.5, INR 1.3, APTT 33.1, Na 135, K 3, BUN 27, glu 127, Ca 8, T. Bili 2.2, alb 2.6. Trop < 0.012. Mag 1.9. Lactic acid 1.9. ABG pH 7.31, pCO2 53, pO2 [address] AP concerning for cholecystitis with abscess versus emphysematous cholecystitis and moderate anasarca. Started on IV hydration, Zosyn and admitted to surgery. Underwent ex lap with cholecystectomy and drainage of abscess on 02/26/2025. Intraoperative cultures growing E. coli, ID consulted, Abx switched to Unasyn. Hospital course complicated by ABLA requiring 2 unit PRBC and post operative dyspnea with CXR showing RLL PNA versus mucous plugging. 03/03 Patient was seen and examined this morning. Went into A-Fib with RVR yesterday, Cardiology consulted, started on Amiodarone drip and Heparin drip. On 4L NC. 2 bowel movements over the past 24H. CBC, Coag panel and BMP significant for RBC 2.55, Hg 7.4, Hct 22.8, INR 1.2, APTT 37.7, Na 134, K 3.4, Cl 96, bicarb 34, Cr 0.57, glu 111, Ca 7.8. CXR done today shows significant improvement in RLL PNA. 03/04 Patient was seen and examined. Feeling well. Tolerating diet well. No shortness of breath. 1 bowel movements over the past 24H. CBC and BMP significant for RBC 2.67, Hg 7.5, Hct 24.2, bicarb 32, BUN 8, Cr 0.51, glu 104, Ca 7.7. CXR done today shows significant improvement in RLL PNA. 03/05 Patient was seen and examined. He reports difficulty ambulating and feeling weak. Also reports lower extremity swelling. CBC and BMP significant for RBC 2.6, Hg 7.5, Hct 23.4, Na 136, bicarb 32, Ca 8. BP 133/68, HR 67, RR 18, 92% on RA, T97.9F. General: no distress, appears at stated age Derm: warm, dry Head: atraumatic, normocephalic, symmetric Mouth: no lip lesion, mucus membranes moist Cardiovascular: S1 S2 reg. No murmur Lungs: Decreased BS bilaterally, no accessory muscle use Abd: Sluggish bowel sounds appreciated. + ALONSO drain Ext: no gross muscle atrophy, 2+ LE pitting edema, no contractures. Neuro: No focal neurologic deficits. Psych: Alert and oriented Based on my assessment of this patient, this patient meets a high complexity level of care. Lower extremity edema: Volume overloaded. Echo 12/2024 shows EF 55-60%. Start Lasix 40 mg IV BID. Monitor renal function and e-lytes daily. Acute hypoxic respiratory failure secondary to RLL PNA versus mucous plugging: Albuterol neb QID scheduled. Mucormyst 200 mg INH TID. Supplemental O2 to maintain O2 sat > 92%. Pulmonary on board. A-fib with RVR: Likely due to acute anemia. Amiodarone 200 mg PO BID and taper. Eliquis 5 mg PO BID. Cardiology on board. Septic shock secondary to gangrenous cholecystitis: Status post ex lap with cholecystectomy and drainage of abscess on 02/26/2025. Intraoperative cultures growing E. coli. Continue Unasyn 3g IV Q6H. Diet advanced per Surgery. ID and Surgery on board. Acute blood loss anemia: Status post 2 unit PRBC. Daily CBC. Transfuse if Hg < 7. GERD with history of Monet fundoplication: Holding home PPIs, proceed with IV Protonix [address] Ken, 7 days Augmentin on discharge. Discussed with Dr. Estes, continue to monitor ALONSO output. Discussed with case management, plans for SNF pending insurance authorization. CODE STATUS: FULL CODE DVT Prophylaxis: SCD GI Prophylaxis: Protonix IV Designated medical POA if patient is not able to make medical decisions for themselves: I have reviewed the following data warehouse consultant notes: Surgery. I have reviewed the results of the following tests: CBC, BMP. I have ordered the following tests: BMP and Mag in the AM. I have discussed the care of this patient with the following independent historian: Case management. I have independently interpreted the following test below: I have discussed the management of this patient with the following physician: Dr. Estes, Dr. Ken. Objective - Vital Signs Vital signs: Vital Signs Temp 97.9 F 03/05/25 07:27 Pulse 80 03/05/25 12:07 Resp 18 03/05/25 07:27 BP 133/68 03/05/25 07:27 Pulse Ox 92 L 03/05/25 07:27 FiO2 40 03/03/25 04:23 Intake & Output 03/04/25 03/05/25 03/05/25 18:59 06:59 18:59 Intake Total 120 Output Total 1010 1420 Balance -890 -1420 Weight 81.5 kg Intake: Intake, IV Titration 120 Amount Ampicillin-Sulbactam 3 gm 100 In Sodium Chloride 0.9% 100 ml @ 200 mls/hr IVPB Q6HR [facility] Rx#:[id number] Lactated Ringers 1,000 ml 20 @ 20 mls/hr IV .Q24H [facility] Rx#:[id number] Output: Drainage 60 70 Left Abdomen 60 70 Urine 950 1350 Other: Voiding Method External Catheter External Catheter Incontinent # Bowel Movements 1 ABP, PAP, CO, CI - Last Documented Arterial Blood Pressure 135/50 - Labs CBC & Chem 7: 03/05/25 02:47 03/05/25 02:47 Labs: Abnormal Lab Results - Last 24 Hours (Table) 03/05/25 03/05/25 Range/Units 02:47 02:47 RBC 2.60 L (4.40-5.60) 10*6/uL Hgb 7.5 L (13.0-17.0) g/dL Hct 23.4 L (39.6-50.0) % RDW 20.4 H (11.5-14.5) % Sodium 136 L (137-145) mmol/L Carbon Dioxide 32 H (22-30) mmol/L Calcium 8.0 L (8.4-10.2) mg/dL Microbiology - Last 24 Hours (Table) 03/03/25 22:10 Gram Stain - Preliminary Sputum Sputum Culture - Preliminary Minerva albicans 02/27/25 13:28 Blood Culture - Final Blood
--- NOTE | 2025-03-05 13:55 | P.PN ---
Subjective Progress Note Date: 03/05/25 Patient is a 69-year-old male with past medical history significant for atrial fibrillation, hypertension, GERD, hiatal hernia, Monet fundoplication, cholelithiasis. Presented to the emergency department via EMS earlier this morning with chief complaint of right-sided abdominal pain. Also, noted to be weak and lightheaded. Found to be hypotensive in the ED. Blood pressure was 73/40 mmHg. Patient was bolused with 2.5 L of normal saline. Workup including abdominal/pelvis showing markedly distended gallbladder with 2 large stones in the dependent portion, tiny pockets of gas within the gallbladder and possibly within adjacent liver parenchyma, and surrounding mesenteric inflammation. Concerning for abscess versus emphysematous cholecystitis. Remaining workup including a CBC with a WBC count of 7.4, hemoglobin 8, platelets 120. CMP: Sodium 135, potassium 3, chloride 102, serum bicarb 25, BUN 27, creatinine 0.84, glucose 127. Total bilirubin 2.2. LFTs not elevated. Lactic 1.9. Troponin less than 0.012. Patient currently being evaluated in the emergency department. Resting comfortably on room air. Blood pressures currently 100/54 mmHg. Nontachycardic. Lactated Ringer's infusing at 130 mL/h. Abdominal pain is currently rated 3 out of 10 on a 10 point numerical scale. Localized to the right lower abdominal quadrant. No radiation. No nausea or vomiting. He states the pain for started approximately 3 to 4 days ago. He has not had much of an appetite. No nausea or vomiting. Awaiting general surgery recommendation Patient was seen today on 02/27/2025, remains in the ICU, intubated and mechanically ventilated. He is on assist-control rate of 20 tidal volume 450 F iO2 40% PEEP of 5 ABG showed a pO2 of 154 pCO2 4 0 pH of 7.43. Patient still on LR at 150 cc/h norepinephrine at 0.06 mcg/kg/min propofol at 20 mg/kg/min, his hemoglobin this morning is 6, patient is receiving a unit of packed RBCs. Patient has good urine output, his blood pressure is soft/marginal, I think will likely improve after unit of packed RBCs, patient's hemoglobin today is 6. Remains on Zosyn, today I plan to give the patient a weaning trial, will check weaning parameters, and if tolerated may even consider extubating the patient today. Speech ABG was noted and his FiO2 was cut down to 35%. Chest x-ray showed minimal pulmonary vascular congestion with small pleural effusion/atelectasis. Patient was seen today on 02/28/2025, patient is in no distress, doing well, on room air, IV fluid at 130 cc/h and I cut it down to 75 cc/h in the form of LR. Patient is doing well with incentive spirometry, his hemoglobin however drifted down yesterday and he required 2 units of packed RBCs. Remains on antibiotics, continues to have ALONSO drain in place, hemoglobin this morning is 7.1, follow-up was 7.4. Remains on GI and DVT prophylaxis, pain is fairly well-controlled. Antibiotics jean patient is on Zosyn. Patient was seen today on 03/01/2025, remains in the ICU, he had a bit of issues with low blood pressure last night, given fluid boluses did not require pressors, responded well to fluids. This morning his chest x-ray is showing evidence of fluid overload, hence I recommended cutting down the IV fluids and I recommended Lasix x 1 dose. Patient is sitting at the bedside chair, does not seem to be in any distress, he is on room air, hemodynamically stable. Labs were reviewed WBC count is 5.3 hemoglobin 7.3 electrolytes are normal renal profile is normal patient is doing better with incentive spirometry, he does have also some component of atelectasis at the base of his lungs but overall is doing great. Patient was seen today on 03/02/2025, yesterday the patient was downgraded to go to medical surgical floor, however overnight the patient developed opacification of the right t lung, and this is certainly secondary to mucous plugging involving the left mainstem bronchus. Has the patient had to be placed on BiPAP, he is now on chest PT, albuterol with acetylcysteine, and encouraged to use incentive spirometry to clear his own mucous plugs. The right lung is not fully opacified, there is a chance that the patient may not require bronchoscopy however if it does become completely opacified in the next 24 hours and there is no improvement, patient may have to undergo bedside bronchoscopy and suctioning of mucous plugs. Will try conservative measures for now before proceeding with bronchoscopy. Patient looks comfortable, he is not in any distress, and he is moving good tidal volumes on BiPAP. WBC count is 6.5 hemoglobin 8.8 electrolytes are normal bicarb is 34 BUN is 8 creatinine 0.57 antibiotics jean, patient remains on Zosyn. 03/03/2025: Patient is a 69-year-old male admitted to this hospital and ICU on 02/26/2025 for acute cholecystitis, and sepsis status post exploratory laparotomy with cholecystectomy and drainage of abscess by Dr. Dominguez on 02/26/2025. Patient was ultimately intubated and mechanically ventilated on 02/26/2025, sedated with propofol, and was requiring pressors for blood pressure support due to sepsis and acute blood loss. Patient required 2 units of pRBCs for low Hgb < 7. Additional medical history significant for atrial fibrillation, hypertension, GERD, hiatal hernia, Monet fundoplication, cholelithiasis. Patient was extubated on 02/27/2025. Yesterday (03/02/2025) the patient was down graded to go to medical surgical floor, however overnight the patient developed opacification of the right lung likely secondary to mucous plugging involving the right mainstem bronchus. Patient was seen and evluated today on 03/03/2025. He is alert and oriented x3 with no acute complaints. He required bipap on 09/11 at [facility], 50% all night until 6am. This morning he has been on 4L NC with Sp02 of 95%. He is currently on IV heparin drip for atrial fibrillation, but has since converted back to normal sinus rhythm. He still remains on amiodarone drip at 0.5mg /min. IV fluids KVO. Unasyn 3 gm IVPB q6hrs. ALONSO drain is showing serosanguinous fluid. CXR displaying significant improvement of right lower lobe opacity. Labs displaying WBC 5.22, Hgb 7.4, HCt 22.8, plt 147. Na 134, K 3.4, Cl 96, CO 34, BUN 9, Cr .57, glucose 111. Patient was seen and evaluated today on 03/04/2025. He is alert and oriented x3 with no acute complaints. The patient is currently breathing on room air. Heparin drip and amiodarone drip have been discontinued by cardiology. Currently on LR at 20 cc/hr. Placed on amiodarone 200 mg PO BID and eliquis 5 mg PO BID for his atrial fibrillation. Currently on day 02/11 of Unasyn 3 gm IVP q6hrs. ALONSO drain is showing serosanguinous fluid. CXR displaying stable right lower infiltrate, small right pleural effusion. Labs displaying WBC 5.54, Hgb 7.5, HCt 24.2, platelet 163. Sodium 137, potassium 3.8, chloride 103, bicarb 32, BUN 8, creatinine 0.51, glucose 111, calcium 7.7. The patient is seen today March 05, 2025 in follow-up on the regular medical floor. He was transferred out of the intensive care unit yesterday. He is currently sitting up in bed. Awake and alert in no acute distress. Maintaining good O2 saturations in the 90s on room air oxygen. Has normal saline at 10 mL/h. Wound culture was positive for E. coli. Blood culture revealed no growth. Sputum culture was positive for Minerva only. White count 5.2. Hemoglobin 7.5. Platelets 157. Sodium 136. Potassium 4.3. Bicarb 32. BUN 9. Creatinine 0.67. Glucose 98. He is status post 2 units of packed red blood cells this admission. Current hemoglobin 7.5. Platelets 157. White count 5.2. Sodium 136. Potassium 4.3. Bicarb 32. BUN 9. Creatinine 0.67. Glucose 98. He remains on Unasyn. Anticoagulated with Eliquis. Continued on IV diuretics. Currently in a -2.3 L balance. Follow-up chest x-ray revealed a stable right lower lobe infiltrate with small effusion. Remainder of the lungs were clear. Objective - Vital Signs Vital signs: Vital Signs Temp 97.9 F 03/05/25 07:27 Pulse 80 03/05/25 12:07 Resp 18 03/05/25 07:27 BP 133/68 03/05/25 07:27 Pulse Ox 92 L 03/05/25 07:27 FiO2 40 03/03/25 04:23 Intake & Output 03/04/25 03/05/25 03/05/25 18:59 06:59 18:59 Intake Total 120 Output Total 1010 1420 800 Balance -890 -1420 -800 Weight 81.5 kg Intake: Intake, IV Titration 120 Amount Ampicillin-Sulbactam 3 gm 100 In Sodium Chloride 0.9% 100 ml @ 200 mls/hr IVPB Q6HR [facility] Rx#:[id number] Lactated Ringers 1,000 ml 20 @ 20 mls/hr IV .Q24H [facility] Rx#:[id number] Output: Drainage 60 70 Left Abdomen 60 70 Urine 950 1350 800 Other: Voiding Method External Catheter External Catheter Incontinent # Bowel Movements 1 ABP, PAP, CO, CI - Last Documented Arterial Blood Pressure 135/50 - Exam GENERAL EXAM: Alert, pleasant, weak 69-year-old male patient, on room air oxygen, fairly comfortable in no apparent distress. HEAD: Normocephalic. EYES: Normal reaction of pupils, equal size. NOSE: Clear with pink turbinates. THROAT: No erythema or exudates. NECK: No masses, no JVD. CHEST: No chest wall deformity. LUNGS: Equal air entry with no crackles, wheeze, rhonchi or dullness. CVS: S1 and S2 normal with no audible murmur, regular rhythm. ABDOMEN: Surgical dressings clean dry and intact. ALONSO drain in place. Normal bowel sounds, no guarding or rigidity. SPINE: No scoliosis or deformity SKIN: No rashes CENTRAL NERVOUS SYSTEM: No focal deficits, tone is normal in all 4 extremities. EXTREMITIES: There is no peripheral edema. No clubbing, no cyanosis. Peripheral pulses are intact. - Labs CBC & Chem 7: 03/05/25 02:47 03/05/25 02:47 Labs: Abnormal Lab Results - Last 24 Hours (Table) 03/05/25 03/05/25 Range/Units 02:47 02:47 RBC 2.60 L (4.40-5.60) 10*6/uL Hgb 7.5 L (13.0-17.0) g/dL Hct 23.4 L (39.6-50.0) % RDW 20.4 H (11.5-14.5) % Sodium 136 L (137-145) mmol/L Carbon Dioxide 32 H (22-30) mmol/L Calcium 8.0 L (8.4-10.2) mg/dL Microbiology - Last 24 Hours (Table) 03/03/25 22:10 Gram Stain - Preliminary Sputum Sputum Culture - Preliminary Minerva albicans 02/27/25 13:28 Blood Culture - Final Blood Assessment and Plan Assessment: Acute abdominal sepsis secondary to acute cholecystitis Status post laparoscopic cholecystectomy and abscess drainage of gallbladder. Postoperative day #7 Hypotension secondary to hypovolemia and possible septic shock, requiring pressors and requiring blood transfusion, patient received a total of 2 units of packed RBCs Acute blood loss anemia History of chronic anemia Chronic atrial fibrillation, currently sinus rhythm. Anticoagulated with Eliquis History of hiatal hernia with previous Monet fundoplication. Right lower lobe pneumonia Plan: The patient was seen and evaluated Labs and medications reviewed Currently stable on room air oxygen Increase his activity as tolerated Increase the use of the incentive spirometer Bronchodilators as needed Remains on Unasyn per ID service Remains on IV diuretics Remains in a negative balance Anticoagulated with Eliquis Working with PT/OT Will need subacute rehabilitation Plan is for possible [place] tomorrow We will continue to follow I have personally seen and examined the patient, performed the documentation and the assessment and plan as written. Number of minutes spent on the visit: 10 Dictation was produced using [employer] dictation software. Please excuse any grammatical, word or spelling errors.
[2025-03-05 15:47] VITALS: BMI 25.7
--- NOTE | 2025-03-05 17:01 | P.PN ---
Subjective Progress Note Date: 03/04/25 Principal diagnosis: Reason for follow-up is gangrenous cholecystitis Patient is a 69-year-old male with a past medical history significant for atrial fibrillation reflux presenting to the hospital for evaluation of diarrhea felt lightheaded complaining of weakness and did have right upper quadrant pain, patient be diagnosed with gangrenous cholecystitis status post open cholecystectomy and drainage of the abscess. On today's evaluation that is 03/04/2025, Patient is afebrile this morning patient denies having any chest pain shortness of breath and cough is decreased intensity, the patient is currently on 2 L nasal oxygen, patient denies any abdominal pain no diarrhea no nausea no vomiting Patient white count is 5.54, creatinine 0.51 Objective - Vital Signs Vital signs: Vital Signs Temp 97.8 F 03/04/25 08:00 Pulse 71 03/04/25 11:39 Resp 18 03/04/25 09:00 BP 120/78 03/04/25 09:00 Pulse Ox 95 03/04/25 09:00 FiO2 40 03/03/25 04:23 Intake & Output 03/03/25 03/04/25 03/04/25 18:59 06:59 18:59 Intake Total 1006 736 20 Output Total 1340 910 950 Balance -334 174 -930 Weight 77.3 kg Intake: Intake, IV Titration 286 346 20 Amount Amiodarone 450 mg In 176 16 Dextrose 5% in Water 250 ml @ 0.5 MG/MIN 16.667 mls/hr IV .Q15H [facility] Rx#: [id number] Ampicillin-Sulbactam 3 gm 300 In Sodium Chloride 0.9% 100 ml @ 200 mls/hr IVPB Q6HR [facility] Rx#:[id number] Lactated Ringers 1,000 ml 110 30 20 @ 20 mls/hr IV .Q24H [facility] Rx#:[id number] Oral 720 390 Output: Drainage 30 60 Left Abdomen 30 60 Urine 1310 850 950 Other: Voiding Method External Catheter External Catheter External Catheter # Voids 1 1 # Bowel Movements 1 ABP, PAP, CO, CI - Last Documented Arterial Blood Pressure 135/50 - Exam GENERAL DESCRIPTION: An elderly male lying in bed in no distress RESPIRATORY SYSTEM: Unlabored breathing , decreased breath sounds at bases HEART: S1 S2 regular rate and rhythm , ABDOMEN: Soft , no tenderness EXTREMITIES: No edema feet - Labs CBC & Chem 7: 03/05/25 02:47 03/05/25 02:47 Labs: Abnormal Lab Results - Last 24 Hours (Table) 03/04/25 03/04/25 Range/Units 04:20 04:20 RBC 2.67 L (4.40-5.60) 10*6/uL Hgb 7.5 L (13.0-17.0) g/dL Hct 24.2 L (39.6-50.0) % MCHC 31.0 L (32.0-37.0) g/dL Carbon Dioxide 32 H (22-30) mmol/L BUN 8 L (9-20) mg/dL Creatinine 0.51 L (0.66-1.25) mg/dL Glucose 104 H (74-99) mg/dL Calcium 7.7 L (8.4-10.2) mg/dL Assessment and Plan (1) Acute cholecystitis Current Visit: Yes Status: Acute Code(s): K81.0 - ACUTE CHOLECYSTITIS SNOMED Code(s): 93684020 Plan: 1patient presented to hospital with weakness abdominal pain has been diagnosed with gangrenous cholecystitis with empyema in this patient who is status post open cholecystectomy and drainage of the abscess will need to cover for the enteric gram-negative due to the likely pathogen 2-abdominal cultures currently growing E. coli that is a sensitive pathogen 3-patient is afebrile white count has been normal 4patient slowly clinical improvement, to continue with Unasyn and monitor clinical course closely Dictation was produced using [employer] dictation software. please excuse any grammatical, word or spelling errors. Time with Patient: Less than 30
--- NOTE | 2025-03-05 17:02 | P.PN ---
Subjective Progress Note Date: 03/05/25 Principal diagnosis: Reason for follow-up is gangrenous cholecystitis Patient is a 69-year-old male with a past medical history significant for atrial fibrillation reflux presenting to the hospital for evaluation of diarrhea felt lightheaded complaining of weakness and did have right upper quadrant pain, patient be diagnosed with gangrenous cholecystitis status post open cholecystectomy and drainage of the abscess. On today's evaluation that is 03/05/2025,the patient denies any fever or any chills, patient is breathing comfortably on room air, the patient denies chest pain shortness of breath and cough is decreased in intensity, patient denies abdominal pain, no nausea vomiting or diarrhea. Patient white count is 5.29, creatinine 0.67 Objective - Vital Signs Vital signs: Vital Signs Temp 97.9 F 03/05/25 07:27 Pulse 80 03/05/25 08:43 Resp 18 03/05/25 07:27 BP 133/68 03/05/25 07:27 Pulse Ox 92 L 03/05/25 07:27 FiO2 40 03/03/25 04:23 Intake & Output 03/04/25 03/05/25 03/05/25 18:59 06:59 18:59 Intake Total 120 Output Total 1010 1420 Balance -890 -1420 Weight 81.5 kg Intake: Intake, IV Titration 120 Amount Ampicillin-Sulbactam 3 gm 100 In Sodium Chloride 0.9% 100 ml @ 200 mls/hr IVPB Q6HR [facility] Rx#:[id number] Lactated Ringers 1,000 ml 20 @ 20 mls/hr IV .Q24H [facility] Rx#:[id number] Output: Drainage 60 70 Left Abdomen 60 70 Urine 950 1350 Other: Voiding Method External Catheter External Catheter Incontinent # Bowel Movements 1 ABP, PAP, CO, CI - Last Documented Arterial Blood Pressure 135/50 - Exam GENERAL DESCRIPTION: An elderly male lying in bed in no distress RESPIRATORY SYSTEM: Unlabored breathing , decreased breath sounds at bases HEART: S1 S2 regular rate and rhythm , ABDOMEN: Soft , no tenderness EXTREMITIES: No edema feet - Labs CBC & Chem 7: 03/05/25 02:47 03/05/25 02:47 Labs: Abnormal Lab Results - Last 24 Hours (Table) 03/05/25 03/05/25 Range/Units 02:47 02:47 RBC 2.60 L (4.40-5.60) 10*6/uL Hgb 7.5 L (13.0-17.0) g/dL Hct 23.4 L (39.6-50.0) % RDW 20.4 H (11.5-14.5) % Sodium 136 L (137-145) mmol/L Carbon Dioxide 32 H (22-30) mmol/L Calcium 8.0 L (8.4-10.2) mg/dL Microbiology - Last 24 Hours (Table) 03/03/25 22:10 Gram Stain - Preliminary Sputum 02/27/25 13:28 Blood Culture - Final Blood Assessment and Plan (1) Acute cholecystitis Current Visit: Yes Status: Acute Code(s): K81.0 - ACUTE CHOLECYSTITIS SNOMED Code(s): 35518212 Plan: 1patient presented to hospital with weakness abdominal pain has been diagnosed with gangrenous cholecystitis with empyema in this patient who is status post open cholecystectomy and drainage of the abscess will need to cover for the enteric gram-negative due to the likely pathogen 2-abdominal cultures currently growing E. coli that is a sensitive pathogen 3-patient is afebrile white count has been normal 4patient has shown clinical improvement of supplemental oxygen, to continue with Unasyn and plan to finish therapy with oral Augmentin x 7 days discussed with admitting physician Dictation was produced using [employer] dictation software. please excuse any grammatical, word or spelling errors. Time with Patient: Less than 30
[2025-03-05] MEDS: LACTOBACILLUS ACIDOPHILUS/PECT 1 EACH CAPSULE PO SCH (18:58)
[2025-03-06 08:08] LABS: HCT 24.6 % (39.6-50.0); HGB 7.6 g/dL (13.0-17.0); MCH 27.5 pg (27.0-32.0); MCHC 30.9 g/dL (32.0-37.0); MCV 89.1 FL (80.0-97.0); Mean Platelet Volume 10.5 FL (9.5-12.2); NRBC Per 100 WBC 0 X 10*3/uL (0.00-0.01); Platelet Count 182 X 10*3/uL (140-440); RBC 2.76 X 10*6/uL (4.40-5.60); RDW 20.3 % (11.5-14.5)
[2025-03-06 08:22] LABS: BUN/Creat Ratio 14.43 Ratio (12.00-20.00); Blood Urea Nitrogen 10.1 mg/dL (9.0-27.0); Calcium 8.2 mg/dL (8.7-10.3); Carbon Dioxide 29.2 mmol/L (21.6-31.8); Chloride 100 mmol/L (96-109); Glucose 102 mg/dL (70-110); Potassium 3.7 mmol/L (3.5-5.5); Sodium 140 mmol/L (135-145)
--- NOTE | 2025-03-06 09:17 | P.PN ---
Subjective Progress Note Date: 03/06/25 Patient states he feels better. He is tolerating diet. The patient's ALONSO drain has a slight tinge of bile in it today. It had previously been serosanguineous. On exam vital signs appear stable. Abdomen is soft incisions clean dry intact. Status post open cholecystectomy for gangrenous purulent gallbladder. Patient ALONSO drain quality has changed. He will be observed. If he has significant bilious drainage he will require ERCP. Objective - Vital Signs Vital signs: Vital Signs Temp 97.8 F 03/06/25 07:10 Pulse 66 03/06/25 07:10 Resp 18 03/06/25 07:10 BP 107/54 03/06/25 07:10 Pulse Ox 93 L 03/06/25 07:10 FiO2 40 03/03/25 04:23 Intake & Output 03/05/25 03/06/25 03/06/25 18:59 06:59 18:59 Output Total 1830 3100 80 Balance -1830 -3100 -80 Weight 81.5 kg 89.5 kg Output: Drainage 30 80 Left Abdomen 30 80 Urine 1800 3100 Other: Voiding Method Incontinent External Catheter Incontinent # Bowel Movements 1 ABP, PAP, CO, CI - Last Documented Arterial Blood Pressure 135/50 - Labs CBC & Chem 7: 03/06/25 05:32 03/06/25 05:32 Labs: Abnormal Lab Results - Last 24 Hours (Table) 03/06/25 03/06/25 Range/Units 05:32 05:32 RBC 2.76 L (4.40-5.60) X 10*6/uL Hgb 7.6 L (13.0-17.0) g/dL Hct 24.6 L (39.6-50.0) % MCHC 30.9 L (32.0-37.0) g/dL RDW 20.3 H (11.5-14.5) % Calcium 8.2 L (8.7-10.3) mg/dL Microbiology - Last 24 Hours (Table) 03/03/25 22:10 Gram Stain - Final Sputum Sputum Culture - Final Minerva albicans
--- NOTE | 2025-03-06 13:10 | P.PN ---
Subjective Progress Note Date: 03/06/25 Patient is a 69-year-old male with past medical history significant for atrial fibrillation, hypertension, GERD, hiatal hernia, Monet fundoplication, cholelithiasis. Presented to the emergency department via EMS earlier this morning with chief complaint of right-sided abdominal pain. Also, noted to be weak and lightheaded. Found to be hypotensive in the ED. Blood pressure was 73/40 mmHg. Patient was bolused with 2.5 L of normal saline. Workup including abdominal/pelvis showing markedly distended gallbladder with 2 large stones in the dependent portion, tiny pockets of gas within the gallbladder and possibly within adjacent liver parenchyma, and surrounding mesenteric inflammation. Concerning for abscess versus emphysematous cholecystitis. Remaining workup including a CBC with a WBC count of 7.4, hemoglobin 8, platelets 120. CMP: Sodium 135, potassium 3, chloride 102, serum bicarb 25, BUN 27, creatinine 0.84, glucose 127. Total bilirubin 2.2. LFTs not elevated. Lactic 1.9. Troponin less than 0.012. Patient currently being evaluated in the emergency department. Resting comfortably on room air. Blood pressures currently 100/54 mmHg. Nontachycardic. Lactated Ringer's infusing at 130 mL/h. Abdominal pain is currently rated 3 out of 10 on a 10 point numerical scale. Localized to the right lower abdominal quadrant. No radiation. No nausea or vomiting. He states the pain for started approximately 3 to 4 days ago. He has not had much of an appetite. No nausea or vomiting. Awaiting general surgery recommendation Patient was seen today on 02/27/2025, remains in the ICU, intubated and mechanically ventilated. He is on assist-control rate of 20 tidal volume 450 F iO2 40% PEEP of 5 ABG showed a pO2 of 154 pCO2 4 0 pH of 7.43. Patient still on LR at 150 cc/h norepinephrine at 0.06 mcg/kg/min propofol at 20 mg/kg/min, his hemoglobin this morning is 6, patient is receiving a unit of packed RBCs. Patient has good urine output, his blood pressure is soft/marginal, I think will likely improve after unit of packed RBCs, patient's hemoglobin today is 6. Remains on Zosyn, today I plan to give the patient a weaning trial, will check weaning parameters, and if tolerated may even consider extubating the patient today. Speech ABG was noted and his FiO2 was cut down to 35%. Chest x-ray showed minimal pulmonary vascular congestion with small pleural effusion/atelectasis. Patient was seen today on 02/28/2025, patient is in no distress, doing well, on room air, IV fluid at 130 cc/h and I cut it down to 75 cc/h in the form of LR. Patient is doing well with incentive spirometry, his hemoglobin however drifted down yesterday and he required 2 units of packed RBCs. Remains on antibiotics, continues to have ALONSO drain in place, hemoglobin this morning is 7.1, follow-up was 7.4. Remains on GI and DVT prophylaxis, pain is fairly well-controlled. Antibiotics jean patient is on Zosyn. Patient was seen today on 03/01/2025, remains in the ICU, he had a bit of issues with low blood pressure last night, given fluid boluses did not require pressors, responded well to fluids. This morning his chest x-ray is showing evidence of fluid overload, hence I recommended cutting down the IV fluids and I recommended Lasix x 1 dose. Patient is sitting at the bedside chair, does not seem to be in any distress, he is on room air, hemodynamically stable. Labs were reviewed WBC count is 5.3 hemoglobin 7.3 electrolytes are normal renal profile is normal patient is doing better with incentive spirometry, he does have also some component of atelectasis at the base of his lungs but overall is doing great. Patient was seen today on 03/02/2025, yesterday the patient was downgraded to go to medical surgical floor, however overnight the patient developed opacification of the right t lung, and this is certainly secondary to mucous plugging involving the left mainstem bronchus. Has the patient had to be placed on BiPAP, he is now on chest PT, albuterol with acetylcysteine, and encouraged to use incentive spirometry to clear his own mucous plugs. The right lung is not fully opacified, there is a chance that the patient may not require bronchoscopy however if it does become completely opacified in the next 24 hours and there is no improvement, patient may have to undergo bedside bronchoscopy and suctioning of mucous plugs. Will try conservative measures for now before proceeding with bronchoscopy. Patient looks comfortable, he is not in any distress, and he is moving good tidal volumes on BiPAP. WBC count is 6.5 hemoglobin 8.8 electrolytes are normal bicarb is 34 BUN is 8 creatinine 0.57 antibiotics jean, patient remains on Zosyn. 03/03/2025: Patient is a 69-year-old male admitted to this hospital and ICU on 02/26/2025 for acute cholecystitis, and sepsis status post exploratory laparotomy with cholecystectomy and drainage of abscess by Dr. Dominguez on 02/26/2025. Patient was ultimately intubated and mechanically ventilated on 02/26/2025, sedated with propofol, and was requiring pressors for blood pressure support due to sepsis and acute blood loss. Patient required 2 units of pRBCs for low Hgb < 7. Additional medical history significant for atrial fibrillation, hypertension, GERD, hiatal hernia, Monet fundoplication, cholelithiasis. Patient was extubated on 02/27/2025. Yesterday (03/02/2025) the patient was down graded to go to medical surgical floor, however overnight the patient developed opacification of the right lung likely secondary to mucous plugging involving the right mainstem bronchus. Patient was seen and evluated today on 03/03/2025. He is alert and oriented x3 with no acute complaints. He required bipap on 09/11 at [facility], 50% all night until 6am. This morning he has been on 4L NC with Sp02 of 95%. He is currently on IV heparin drip for atrial fibrillation, but has since converted back to normal sinus rhythm. He still remains on amiodarone drip at 0.5mg /min. IV fluids KVO. Unasyn 3 gm IVPB q6hrs. ALONSO drain is showing serosanguinous fluid. CXR displaying significant improvement of right lower lobe opacity. Labs displaying WBC 5.22, Hgb 7.4, HCt 22.8, plt 147. Na 134, K 3.4, Cl 96, CO 34, BUN 9, Cr .57, glucose 111. Patient was seen and evaluated today on 03/04/2025. He is alert and oriented x3 with no acute complaints. The patient is currently breathing on room air. Heparin drip and amiodarone drip have been discontinued by cardiology. Currently on LR at 20 cc/hr. Placed on amiodarone 200 mg PO BID and eliquis 5 mg PO BID for his atrial fibrillation. Currently on day 5 of Unasyn 3 gm IVP q6hrs. ALONSO drain is showing serosanguinous fluid. CXR displaying stable right lower infiltrate, small right pleural effusion. Labs displaying WBC 5.54, Hgb 7.5, HCt 24.2, platelet 163. Sodium 137, potassium 3.8, chloride 103, bicarb 32, BUN 8, creatinine 0.51, glucose 111, calcium 7.7. The patient is seen today March 05, 2025 in follow-up on the regular medical floor. He was transferred out of the intensive care unit yesterday. He is currently sitting up in bed. Awake and alert in no acute distress. Maintaining good O2 saturations in the 90s on room air oxygen. Has normal saline at 10 mL/h. Wound culture was positive for E. coli. Blood culture revealed no growth. Sputum culture was positive for Minerva only. White count 5.2. Hemoglobin 7.5. Platelets 157. Sodium 136. Potassium 4.3. Bicarb 32. BUN 9. Creatinine 0.67. Glucose 98. He is status post 2 units of packed red blood cells this admission. Current hemoglobin 7.5. Platelets 157. White count 5.2. Sodium 136. Potassium 4.3. Bicarb 32. BUN 9. Creatinine 0.67. Glucose 98. He remains on Unasyn. Anticoagulated with Eliquis. Continued on IV diuretics. Currently in a -2.3 L balance. Follow-up chest x-ray revealed a stable right lower lobe infiltrate with small effusion. Remainder of the lungs were clear. The patient is seen today March 06, 2025 in follow-up on the regular medical floor. He is currently sitting up in bed. Awake and alert in no acute distress. Maintaining good O2 saturations in the 90s on room air oxygen. White count 6.2. Hemoglobin 7.6. Platelets 182. Sodium 140. Potassium 3.7. Bicarb 29. BUN 10. Creatinine 0.7. Glucose 102. Stool for occult blood was n egative. C. difficile screen was negative. ALONSO drain now showing some bile colored fluid versus previous serosanguineous drainage. Surgical services aware. He remains on Unasyn. Anticoagulated with Eliquis. Remains on IV diuretics. Currently in a -4.9 L balance. Objective - Vital Signs Vital signs: Vital Signs Temp 97.8 F 03/06/25 07:10 Pulse 90 03/06/25 12:57 Resp 18 03/06/25 07:10 BP 107/54 03/06/25 07:10 Pulse Ox 95 03/06/25 09:40 FiO2 40 03/03/25 04:23 Intake & Output 03/05/25 03/06/25 03/06/25 18:59 06:59 18:59 Output Total 1830 3100 80 Balance -1830 -3100 -80 Weight 81.5 kg 89.5 kg Output: Drainage 30 80 Left Abdomen 30 80 Urine 1800 3100 Other: Voiding Method Incontinent External Catheter Incontinent # Bowel Movements 1 ABP, PAP, CO, CI - Last Documented Arterial Blood Pressure 135/50 - Exam GENERAL EXAM: Alert, pleasant 69-year-old male patient, on room air oxygen, comfortable in no apparent distress. HEAD: Normocephalic. EYES: Normal reaction of pupils, equal size. NOSE: Clear with pink turbinates. THROAT: No erythema or exudates. NECK: No masses, no JVD. CHEST: No chest wall deformity. LUNGS: Equal air entry with no crackles, wheeze, rhonchi or dullness. CVS: S1 and S2 normal with no audible murmur, regular rhythm. ABDOMEN: Surgical dressings clean dry and intact. ALONSO drain in place. Bile colored substance no noted. Normal bowel sounds, no guarding or rigidity. SPINE: No scoliosis or deformity SKIN: No rashes CENTRAL NERVOUS SYSTEM: No focal deficits, tone is normal in all 4 extremities. EXTREMITIES: There is no peripheral edema. No clubbing, no cyanosis. Peripheral pulses are intact. - Labs CBC & Chem 7: 03/06/25 05:32 03/06/25 05:32 Labs: Abnormal Lab Results - Last 24 Hours (Table) 03/06/25 03/06/25 Range/Units 05:32 05:32 RBC 2.76 L (4.40-5.60) X 10*6/uL Hgb 7.6 L (13.0-17.0) g/dL Hct 24.6 L (39.6-50.0) % MCHC 30.9 L (32.0-37.0) g/dL RDW 20.3 H (11.5-14.5) % Calcium 8.2 L (8.7-10.3) mg/dL Microbiology - Last 24 Hours (Table) 03/03/25 22:10 Gram Stain - Final Sputum Sputum Culture - Final Minerva albicans Assessment and Plan Assessment: Acute abdominal sepsis secondary to acute cholecystitis Status post laparoscopic cholecystectomy and abscess drainage of gallbladder. Postoperative day #8 Hypotension secondary to hypovolemia and possible septic shock, requiring pressors and requiring blood transfusion, patient received a total of 2 units of packed RBCs Acute blood loss anemia History of chronic anemia Chronic atrial fibrillation, currently sinus rhythm. Anticoagulated with Eliquis History of hiatal hernia with previous Monet fundoplication. Right lower lobe pneumonia Plan: The patient was seen and evaluated Labs and medications reviewed Currently stable on room air oxygen ALONSO drain has bile colored fluid now If continues may need ERCP Increase his activity as tolerated Continue the incentive spirometer Bronchodilators as needed Remains on Unasyn Remains on IV diuretics Remains in a negative balance Anticoagulated with Eliquis Plan is for [facility] at discharge I have personally seen and examined the patient, performed the documentation and the assessment and plan as written. Number of minutes spent on the visit: 10 Dictation was produced using [employer] dictation software. Please excuse any grammatical, word or spelling errors.
--- NOTE | 2025-03-06 15:10 | P.PN ---
Subjective Progress Note Date: 03/06/25 69 year old M with PMH AFib, GERD presents to the ED for RLQ abdominal pain, generalized weakness, lightheadedness and diarrhea. In the ED he underwent extensive evaluation. BP 73/40, HR 77, T 97.4F, RR 18, 92% on RA. Labs significant for RBC 2.7, Hg 8, Hct 24.7, Plt 120, PT 13.5, INR 1.3, APTT 33.1, Na 135, K 3, BUN 27, glu 127, Ca 8, T. Bili 2.2, alb 2.6. Trop < 0.012. Mag 1.9. Lactic acid 1.9. ABG pH 7.31, pCO2 53, pO2 [address] AP concerning for cholecystitis with abscess versus emphysematous cholecystitis and moderate anasarca. Started on IV hydration, Zosyn and admitted to surgery. Underwent ex lap with cholecystectomy and drainage of abscess on 02/26/2025. Intraoperative cultures growing E. coli, ID consulted, Abx switched to Unasyn. Hospital course complicated by ABLA requiring 2 unit PRBC and post operative dyspnea with CXR showing RLL PNA versus mucous plugging. 03/03 Patient was seen and examined this morning. Went into A-Fib with RVR yesterday, Cardiology consulted, started on Amiodarone drip and Heparin drip. On 4L NC. 2 bowel movements over the past 24H. CBC, Coag panel and BMP significant for RBC 2.55, Hg 7.4, Hct 22.8, INR 1.2, APTT 37.7, Na 134, K 3.4, Cl 96, bicarb 34, Cr 0.57, glu 111, Ca 7.8. CXR done today shows significant improvement in RLL PNA. 03/04 Patient was seen and examined. Feeling well. Tolerating diet well. No shortness of breath. 1 bowel movements over the past 24H. CBC and BMP significant for RBC 2.67, Hg 7.5, Hct 24.2, bicarb 32, BUN 8, Cr 0.51, glu 104, Ca 7.7. CXR done today shows significant improvement in RLL PNA. 03/05 Patient was seen and examined. He reports difficulty ambulating and feeling weak. Also reports lower extremity swelling. CBC and BMP significant for RBC 2.6, Hg 7.5, Hct 23.4, Na 136, bicarb 32, Ca 8. 5/30 Patient was seen and examined. Plans for SNF on discharge. Surgery wants to monitor ALONSO output, may need ERCP. Maintained on Lasix 40 mg IV BID, 4.9L urine output over the past 24H. CBC and BMP significant for RBC 2.76, Hg 7.6, Hct 24.6, Ca 8.2. Stool occult neg. C. diff neg. BP 107/54, HR 66, RR 18, 93% on RA, T97.8F. General: no distress, appears at stated age Derm: warm, dry Head: atraumatic, normocephalic, symmetric Mouth: no lip lesion, mucus membranes moist Cardiovascular: S1 S2 reg. No murmur Lungs: Decreased BS bilaterally, no accessory muscle use Abd: Sluggish bowel sounds appreciated. + ALONSO drain Ext: no gross muscle atrophy, 2+ LE pitting edema, no contractures. Neuro: No focal neurologic deficits. Psych: Alert and oriented Based on my assessment of this patient, this patient meets a high complexity level of care. Lower extremity edema: Volume overloaded. Echo 12/2024 shows EF 55-60%. Decrease Lasix dose from 40 mg IV BID to QD. Monitor renal function and e-lytes daily. Acute hypoxic respiratory failure secondary to RLL PNA versus mucous plugging: Albuterol neb QID scheduled. Mucormyst 200 mg INH TID. Supplemental O2 to maintain O2 sat > 92%. Pulmonary on board. A-fib with RVR: Likely due to acute anemia. Amiodarone 200 mg PO BID and taper. Eliquis 5 mg PO BID. Cardiology on board. Septic shock secondary to gangrenous cholecystitis: Status post ex lap with cholecystectomy and drainage of abscess on 02/26/2025. Intraoperative cultures growing E. coli. Continue Unasyn 3g IV Q6H. Diet advanced per Surgery. ID and Surgery on board. Acute blood loss anemia: Status post 2 unit PRBC. Daily CBC. Transfuse if Hg < 7. GERD with history of Monet fundoplication: Holding home PPIs, proceed with IV Protonix [address] Ken, 7 days Augmentin on discharge. Discussed with Dr. Estes, continue to monitor ALONSO output. Discussed with case management, plans for SNF when cleared by Surgery. CODE STATUS: FULL CODE DVT Prophylaxis: SCD GI Prophylaxis: Protonix IV Designated medical POA if patient is not able to make medical decisions for themselves: I have reviewed the following automotive consultant notes: Pulm, Surgery. I have reviewed the results of the following tests: CBC, BMP. I have ordered the following tests: BMP in the AM. I have discussed the care of this patient with the following independent historian: Case management. I have independently interpreted the following test below: I have discussed the management of this patient with the following physician: Objective - Vital Signs Vital signs: Vital Signs Temp 97.8 F 03/06/25 07:10 Pulse 88 03/06/25 13:08 Resp 18 03/06/25 07:10 BP 107/54 03/06/25 07:10 Pulse Ox 95 03/06/25 09:40 FiO2 40 03/03/25 04:23 Intake & Output 03/05/25 03/06/25 03/06/25 18:59 06:59 18:59 Output Total 1830 3100 1300 Balance -1830 -3100 -1300 Weight 81.5 kg 89.5 kg Output: Drainage 30 80 Left Abdomen 30 80 Urine 1800 3100 1220 Other: Voiding Method Incontinent External Catheter Incontinent # Bowel Movements 1 ABP, PAP, CO, CI - Last Documented Arterial Blood Pressure 135/50 - Labs CBC & Chem 7: 03/06/25 05:32 03/06/25 05:32 Labs: Abnormal Lab Results - Last 24 Hours (Table) 03/06/25 03/06/25 Range/Units 05:32 05:32 RBC 2.76 L (4.40-5.60) X 10*6/uL Hgb 7.6 L (13.0-17.0) g/dL Hct 24.6 L (39.6-50.0) % MCHC 30.9 L (32.0-37.0) g/dL RDW 20.3 H (11.5-14.5) % Calcium 8.2 L (8.7-10.3) mg/dL Microbiology - Last 24 Hours (Table) 03/03/25 22:10 Gram Stain - Final Sputum Sputum Culture - Final Minerva albicans
--- NOTE | 2025-03-06 15:55 | P.PN ---
Subjective Progress Note Date: 03/06/25 Principal diagnosis: Reason for follow-up is gangrenous cholecystitis Patient is a 69-year-old male with a past medical history significant for atrial fibrillation reflux presenting to the hospital for evaluation of diarrhea felt lightheaded complaining of weakness and did have right upper quadrant pain, patient be diagnosed with gangrenous cholecystitis status post open cholecystectomy and drainage of the abscess. On today's evaluation that is 03/06/2025,the patient remains to be afebrile, patient is on room air not requiring supplemental oxygen and denies any s hortness of breath no chest pain or cough.Patient denies having any nausea or vomiting, no abdominal pain and did have some diarrhea Patient white count 6.20 creatinine 0.7, stool for C. difficile negative Objective - Vital Signs Vital signs: Vital Signs Temp 97.8 F 03/06/25 07:10 Pulse 88 03/06/25 13:08 Resp 18 03/06/25 07:10 BP 107/54 03/06/25 07:10 Pulse Ox 95 03/06/25 09:40 FiO2 40 03/03/25 04:23 Intake & Output 03/05/25 03/06/25 03/06/25 18:59 06:59 18:59 Output Total 1830 3100 1300 Balance -1830 -3100 -1300 Weight 81.5 kg 89.5 kg Output: Drainage 30 80 Left Abdomen 30 80 Urine 1800 3100 1220 Other: Voiding Method Incontinent External Catheter Incontinent # Bowel Movements 1 ABP, PAP, CO, CI - Last Documented Arterial Blood Pressure 135/50 - Exam GENERAL DESCRIPTION: An elderly male lying in bed in no distress RESPIRATORY SYSTEM: Unlabored breathing , decreased breath sounds at bases HEART: S1 S2 regular rate and rhythm , ABDOMEN: Soft , no tenderness EXTREMITIES: No edema feet - Labs CBC & Chem 7: 03/06/25 05:32 03/06/25 05:32 Labs: Abnormal Lab Results - Last 24 Hours (Table) 03/06/25 03/06/25 Range/Units 05:32 05:32 RBC 2.76 L (4.40-5.60) X 10*6/uL Hgb 7.6 L (13.0-17.0) g/dL Hct 24.6 L (39.6-50.0) % MCHC 30.9 L (32.0-37.0) g/dL RDW 20.3 H (11.5-14.5) % Calcium 8.2 L (8.7-10.3) mg/dL Microbiology - Last 24 Hours (Table) 03/03/25 22:10 Gram Stain - Final Sputum Sputum Culture - Final Minerva albicans Assessment and Plan (1) Acute cholecystitis Current Visit: Yes Status: Acute Code(s): K81.0 - ACUTE CHOLECYSTITIS SNOMED Code(s): 51550233 Plan: 1patient presented to hospital with weakness abdominal pain has been diagnosed with gangrenous cholecystitis with empyema in this patient who is status post open cholecystectomy and drainage of the abscess will need to cover for the enteric gram-negative due to the likely pathogen 2-abdominal cultures currently growing E. coli that is a sensitive pathogen 3-patient is afebrile white count has been normal, has received adequate Unasyn will transition to oral Augmentin short course Dictation was produced using [employer] dictation software. please excuse any grammatical, word or spelling errors. Time with Patient: Less than 30
--- NOTE | 2025-03-06 17:51 | CDI ---
Documentation Clarification Form Date: 03/06/2025 04:45:09 PM From: Cate Cartwright RN, CCDS Phone: [phone] Admit Date: 02/26/2025 06:06:00 AM Patient Name: Bebeto Harris Visit Number: [id number] Discharge Date: ATTENTION: The Clinical Documentation Specialists (CDI) and [facility] Coding Staff appreciate your assistance in clarifying documentation. Please respond to the clarification below the line at the bottom and electronically sign. The CDI & [facility] Coding staff will review the response and follow-up if needed. Please note: Queries are made part of the Legal Health Record. If you have any questions, please contact the author of this message via ITS. Provider: Awa Cespedes PA-C The patient has sepsis secondary to acute gangrenous cholecystitis in the Pulmonary and Medical consult and progress notes. Based on this information and the findings below, is there an additional diagnosis that is clinically appropriate for this patient? History/Risk Factors: Atrial Fibrillation, Hypertension, Clinical Indicators: 69-year-old male present for abdominal pain on 02/26 CT of abdomen finding suggest cholecystitis 02/26 WBC 7.36, Neutrophils 6.64, HGB 8.0 HCT 24.7 02/27 Blood cultures: No growth after 5 days 02/26 Vital signs: (03:20) 73/40 77 18 97.4 92% RA, (08:00) 92/57 64 22 02/26Pulmonary consult: Patient is presenting with acute cholecystitis, possible abscess involving the gallbladder, patient is also hypotensive, septic looking. I will admit the patient to the ICU because of his septic picture, fluid boluses were given in ER, so far, not requiring any pressor. 02/27 Pulmonary progress note: Acute abdominal sepsis secondary to acute cholecystitis. Hypotension secondary to hypovolemia and possible septic shock, requiring pressor and requiring blood transfusion. Acute blood loss anemia. 02/26 IM: Sepsis secondary to acute gangrenous cholecystitis, abscess status post ex lap with cholecystectomy and drainage of abscess on 02/26/202502/27 ID Consult: "patient presented to hospital with weakness abdominal pain has been diagnosed with gangrenous cholecystitis with empyema in this patient who is status post open cholecystectomy and drainage of the abscess" Treatment: Cardiac /Telemetry monitoring (ICU) .9NS 1,000 ML Bolus x2 Zosyn 3.375 GM IVPB Q 8 HRS 02/26-02/28 Unasyn 3 GM IVPB 02/28-03/06> PO Q 12 03/06 Norepinephrine 4 mg Drip (per orders) 02/26-02/27 Daily CBC and CMP IV Fluids with LR at 130hr 02/26- Is there an additional diagnosis that is clinically appropriate for this patient? [ x ] Sepsis, secondary to acute gangrenous cholecystitis with abscess [ ] Sepsis, Ruled out [ ] Other, please specify [ ] Unable to determine SIRS Criteria: 2 or more of the following may indicate SIRS Temperature < 96.8F (36C) or > 101.0F (38.3C) Heart Rate > 90 bpm Respiratory Rate > 20 breaths/min or PaCO2 < 32 mmHg White Blood Cell Count > 12,000 or < 4,000 cells/mm3 or > 10% bands (Template Last Reviewed: October 2022) MTDD
[2025-03-06] MEDS: AMOXIC-POT CLAV 875-125MG 1 EACH TAB PO SCH (21:25)
[2025-03-07 05:49] LABS: African American GFR (CKD) >90 (>60 ml/min/1.73 sqM); Anion Gap 5 mmol/L; Blood Urea Nitrogen 16 mg/dL (9-20); Calcium 8.4 mg/dL (8.4-10.2); Carbon Dioxide 32 mmol/L (22-30); Chloride 96 mmol/L (98-107); Glucose 97 mg/dL (74-99); Non-African American GFR(CKD) >90 (>60 ml/min/1.73 sqM); Potassium 3.7 mmol/L (3.5-5.1); Sodium 133 mmol/L (137-145)
--- NOTE | 2025-03-07 09:26 | P.PN ---
Subjective Progress Note Date: 03/07/25 69 year old M with PMH AFib, GERD presents to the ED for RLQ abdominal pain, generalized weakness, lightheadedness and diarrhea. In the ED he underwent extensive evaluation. BP 73/40, HR 77, T 97.4F, RR 18, 92% on RA. Labs significant for RBC 2.7, Hg 8, Hct 24.7, Plt 120, PT 13.5, INR 1.3, APTT 33.1, Na 135, K 3, BUN 27, glu 127, Ca 8, T. Bili 2.2, alb 2.6. Trop < 0.012. Mag 1.9. Lactic acid 1.9. ABG pH 7.31, pCO2 53, pO2 [address] AP concerning for cholecystitis with abscess versus emphysematous cholecystitis and moderate anasarca. Started on IV hydration, Zosyn and admitted to surgery. Underwent ex lap with cholecystectomy and drainage of abscess on 02/26/2025. Intraoperative cultures growing E. coli, ID consulted, Abx switched to Unasyn. Hospital course complicated by ABLA requiring 2 unit PRBC and post operative dyspnea with CXR showing RLL PNA versus mucous plugging. 03/03 Patient was seen and examined this morning. Went into A-Fib with RVR yesterday, Cardiology consulted, started on Amiodarone drip and Heparin drip. On 4L NC. 2 bowel movements over the past 24H. CBC, Coag panel and BMP significant for RBC 2.55, Hg 7.4, Hct 22.8, INR 1.2, APTT 37.7, Na 134, K 3.4, Cl 96, bicarb 34, Cr 0.57, glu 111, Ca 7.8. CXR done today shows significant improvement in RLL PNA. 03/04 Patient was seen and examined. Feeling well. Tolerating diet well. No shortness of breath. 1 bowel movements over the past 24H. CBC and BMP significant for RBC 2.67, Hg 7.5, Hct 24.2, bicarb 32, BUN 8, Cr 0.51, glu 104, Ca 7.7. CXR done today shows significant improvement in RLL PNA. 03/05 Patient was seen and examined. He reports difficulty ambulating and feeling weak. Also reports lower extremity swelling. CBC and BMP significant for RBC 2.6, Hg 7.5, Hct 23.4, Na 136, bicarb 32, Ca 8. 03/06 Patient was seen and examined. Plans for SNF on discharge. Surgery wants to monitor ALONSO output, may need ERCP. Maintained on Lasix 40 mg IV BID, 4.9L urine output over the past 24H. CBC and BMP significant for RBC 2.76, Hg 7.6, Hct 24.6, Ca 8.2. Stool occult neg. C. diff neg. 03/07 Patient was seen and examined. Doing well. Reports improved LE swelling but still with scrotal edema. Maintained on Lasix 40 mg IV QD, 2.689 L urine output over the past 24H. BMP significant for Na 133, Cl 96, bicarb 32. BP 96/67, HR 69, RR 17, 93% on RA, T98.9F. General: no distress, appears at stated age Derm: warm, dry Head: atraumatic, normocephalic, symmetric Mouth: no lip lesion, mucus membranes moist Cardiovascular: S1 S2 reg. No murmur Lungs: Decreased BS bilaterally, no accessory muscle use Abd: Sluggish bowel sounds appreciated. + ALONSO drain Ext: no gross muscle atrophy, 1-2+ LE pitting edema, no contractures. Neuro: No focal neurologic deficits. Psych: Alert and oriented Based on my assessment of this patient, this patient meets a high complexity level of care. Lower extremity edema: Volume overloaded. Echo 12/2024 shows EF 55-60%. Continue Lasix 40 mg IV QD. Monitor renal function and e-lytes daily. Acute hypoxic respiratory failure secondary to RLL PNA versus mucous plugging: Albuterol neb QID scheduled. Mucormyst 200 mg INH TID. Supplemental O2 to maintain O2 sat > 92%. Pulmonary on board. A-fib with RVR: Likely due to acute anemia. Amiodarone 200 mg PO BID and taper. Eliquis 5 mg PO BID. Cardiology on board. Septic shock secondary to gangrenous cholecystitis: Status post ex lap with cho lecystectomy and drainage of abscess on 02/26/2025. Intraoperative cultures growing E. coli. Unasyn 3g IV Q6H switched to Augmentin 875-125 mg PO BID. Diet advanced per Surgery. ID and Surgery on board. Acute blood loss anemia: Status post 2 unit PRBC. Daily CBC. Transfuse if Hg < 7. GERD with history of Monet fundoplication: Holding home PPIs, proceed with IV Protonix [address] Ken, 7 days Augmentin on discharge. Discussed with Dr. Estes, continue to monitor ALONSO output. Discussed with case management, plans for SNF when cleared by Surgery. CODE STATUS: FULL CODE DVT Prophylaxis: SCD GI Prophylaxis: Protonix IV Designated medical POA if patient is not able to make medical decisions for themselves: I have reviewed the following payroll consultant notes: I have reviewed the results of the following tests: BMP I have ordered the following tests: BMP in the AM. I have discussed the care of this patient with the following independent historian: I have independently interpreted the following test below: I have discussed the management of this patient with the following physician: Objective - Vital Signs Vital signs: Vital Signs Temp 98.9 F 03/07/25 07:13 Pulse 69 03/07/25 07:13 Resp 17 03/07/25 07:13 BP 96/67 03/07/25 07:13 Pulse Ox 93 L 03/07/25 07:13 FiO2 40 03/03/25 04:23 Intake & Output 03/06/25 03/07/25 03/07/25 18:59 06:59 18:59 Output Total 1744 945 Balance -1744 -945 Output: Drainage 124 45 Left Abdomen 124 45 Urine 1620 900 Other: Voiding Method Incontinent External Catheter ABP, PAP, CO, CI - Last Documented Arterial Blood Pressure 135/50 - Labs CBC & Chem 7: 03/06/25 05:32 03/07/25 04:44 Labs: Abnormal Lab Results - Last 24 Hours (Table) 03/07/25 Range/Units 04:44 Sodium 133 L (137-145) mmol/L Chloride 96 L (98-107) mmol/L Carbon Dioxide 32 H (22-30) mmol/L Microbiology - Last 24 Hours (Table) 03/03/25 22:10 Gram Stain - Final Sputum Sputum Culture - Final Minerva albicans
[2025-03-07] MEDS: FUROSEMIDE 10 MG/ML 4 ML VIAL IV SCH (10:32)
--- NOTE | 2025-03-07 11:08 | P.PN ---
Subjective Progress Note Date: 03/07/25 The patient states he feels well. Per the nursing staff he is had some relative hypotension. The patient is blood pressure medications and Lasix have been held. On exam vital signs appear stable. Abdomen soft. There is a slight bile tinge to the ALONSO drain. It is less than yesterday. Patient was given a liter of normal saline. It is presumed his hypotension may be from overdiuresis. The patient will be observed. Objective - Vital Signs Vital signs: Vital Signs Temp 98.9 F 03/07/25 07:13 Pulse 69 03/07/25 07:13 Resp 17 03/07/25 07:13 BP 78/48 03/07/25 10:37 Pulse Ox 93 L 03/07/25 07:13 FiO2 40 03/03/25 04:23 Intake & Output 03/06/25 03/07/25 03/07/25 18:59 06:59 18:59 Output Total 1744 945 20 Balance -1744 -945 -20 Output: Drainage 124 45 20 Left Abdomen 124 45 20 Urine 1620 900 Other: Voiding Method Incontinent External Catheter External Catheter ABP, PAP, CO, CI - Last Documented Arterial Blood Pressure 135/50 - Labs CBC & Chem 7: 03/06/25 05:32 03/07/25 04:44 Labs: Abnormal Lab Results - Last 24 Hours (Table) 03/07/25 Range/Units 04:44 Sodium 133 L (137-145) mmol/L Chloride 96 L (98-107) mmol/L Carbon Dioxide 32 H (22-30) mmol/L Microbiology - Last 24 Hours (Table) 03/03/25 22:10 Gram Stain - Final Sputum Sputum Culture - Final Minerva albicans
[2025-03-07] MEDS: SODIUM CHLORIDE 0.9% 1,000 ML IV ONE (11:34)
[2025-03-07 11:44] LABS: HCT 24.7 % (39.6-50.0); HGB 7.7 g/dL (13.0-17.0); MCH 28.6 pg (27.0-32.0); MCHC 31.2 g/dL (32.0-37.0); MCV 91.8 fL (80.0-97.0); Mean Platelet Volume 10.2 fL (9.5-12.2); Platelet Count 187 10*3/uL (140-440); RBC 2.69 10*6/uL (4.40-5.60); RDW 20.6 % (11.5-14.5); WBC 6.32 10*3/uL (4.50-10.00)
--- NOTE | 2025-03-07 13:57 | P.PN ---
Subjective Progress Note Date: 03/07/25 Patient is a 69-year-old male with past medical history significant for atrial fibrillation, hypertension, GERD, hiatal hernia, Monet fundoplication, cholelithiasis. Presented to the emergency department via EMS earlier this morning with chief complaint of right-sided abdominal pain. Also, noted to be weak and lightheaded. Found to be hypotensive in the ED. Blood pressure was 73/40 mmHg. Patient was bolused with 2.5 L of normal saline. Workup including abdominal/pelvis showing markedly distended gallbladder with 2 large stones in the dependent portion, tiny pockets of gas within the gallbladder and possibly within adjacent liver parenchyma, and surrounding mesenteric inflammation. Concerning for abscess versus emphysematous cholecystitis. Remaining workup including a CBC with a WBC count of 7.4, hemoglobin 8, platelets 120. CMP: Sodium 135, potassium 3, chloride 102, serum bicarb 25, BUN 27, creatinine 0.84, glucose 127. Total bilirubin 2.2. LFTs not elevated. Lactic 1.9. Troponin less than 0.012. Patient currently being evaluated in the emergency department. Resting comfortably on room air. Blood pressures currently 100/54 mmHg. Nontachycardic. Lactated Ringer's infusing at 130 mL/h. Abdominal pain is currently rated 3 out of 10 on a 10 point numerical scale. Localized to the right lower abdominal quadrant. No radiation. No nausea or vomiting. He states the pain for started approximately 3 to 4 days ago. He has not had much of an appetite. No nausea or vomiting. Awaiting general surgery recommendation Patient was seen today on 02/27/2025, remains in the ICU, intubated and mechanically ventilated. He is on assist-control rate of 20 tidal volume 450 F iO2 40% PEEP of 5 ABG showed a pO2 of 154 pCO2 4 0 pH of 7.43. Patient still on LR at 150 cc/h norepinephrine at 0.06 mcg/kg/min propofol at 20 mg/kg/min, his hemoglobin this morning is 6, patient is receiving a unit of packed RBCs. Patient has good urine output, his blood pressure is soft/marginal, I think will likely improve after unit of packed RBCs, patient's hemoglobin today is 6. Remains on Zosyn, today I plan to give the patient a weaning trial, will check weaning parameters, and if tolerated may even consider extubating the patient today. Speech ABG was noted and his FiO2 was cut down to 35%. Chest x-ray showed minimal pulmonary vascular congestion with small pleural effusion/atelectasis. Patient was seen today on 02/28/2025, patient is in no distress, doing well, on room air, IV fluid at 130 cc/h and I cut it down to 75 cc/h in the form of LR. Patient is doing well with incentive spirometry, his hemoglobin however drifted down yesterday and he required 2 units of packed RBCs. Remains on antibiotics, continues to have ALONSO drain in place, hemoglobin this morning is 7.1, follow-up was 7.4. Remains on GI and DVT prophylaxis, pain is fairly well-controlled. Antibiotics jean patient is on Zosyn. Patient was seen today on 03/01/2025, remains in the ICU, he had a bit of issues with low blood pressure last night, given fluid boluses did not require pressors, responded well to fluids. This morning his chest x-ray is showing evidence of fluid overload, hence I recommended cutting down the IV fluids and I recommended Lasix x 1 dose. Patient is sitting at the bedside chair, does not seem to be in any distress, he is on room air, hemodynamically stable. Labs were reviewed WBC count is 5.3 hemoglobin 7.3 electrolytes are normal renal profile is normal patient is doing better with incentive spirometry, he does have also some component of atelectasis at the base of his lungs but overall is doing great. Patient was seen today on 03/02/2025, yesterday the patient was downgraded to go to medical surgical floor, however overnight the patient developed opacification of the right t lung, and this is certainly secondary to mucous plugging involving the left mainstem bronchus. Has the patient had to be placed on BiPAP, he is now on chest PT, albuterol with acetylcysteine, and encouraged to use incentive spirometry to clear his own mucous plugs. The right lung is not fully opacified, there is a chance that the patient may not require bronchoscopy however if it does become completely opacified in the next 24 hours and there is no improvement, patient may have to undergo bedside bronchoscopy and suctioning of mucous plugs. Will try conservative measures for now before proceeding with bronchoscopy. Patient looks comfortable, he is not in any distress, and he is moving good tidal volumes on BiPAP. WBC count is 6.5 hemoglobin 8.8 electrolytes are normal bicarb is 34 BUN is 8 creatinine 0.57 antibiotics jean, patient remains on Zosyn. 03/03/2025: Patient is a 69-year-old male admitted to this hospital and ICU on 02/26/2025 for acute cholecystitis, and sepsis status post exploratory laparotomy with cholecystectomy and drainage of abscess by Dr. Dominguez on 02/26/2025. Patient was ultimately intubated and mechanically ventilated on 02/26/2025, sedated with propofol, and was requiring pressors for blood pressure support due to sepsis and acute blood loss. Patient required 2 units of pRBCs for low Hgb < 7. Additional medical history significant for atrial fibrillation, hypertension, GERD, hiatal hernia, Monet fundoplication, cholelithiasis. Patient was extubated on 02/27/2025. Yesterday (03/02/2025) the patient was down graded to go to medical surgical floor, however overnight the patient developed opacification of the right lung likely secondary to mucous plugging involving the right mainstem bronchus. Patient was seen and evluated today on 03/03/2025. He is alert and oriented x3 with no acute complaints. He required bipap on 09/11 at Fio2, 50% all night until 6am. This morning he has been on 4L NC with Sp02 of 95%. He is currently on IV heparin drip for atrial fibrillation, but has since converted back to normal sinus rhythm. He still remains on amiodarone drip at 0.5mg /min. IV fluids KVO. Unasyn 3 gm IVPB q6hrs. ALONSO drain is showing serosanguinous fluid. CXR displaying significant improvement of right lower lobe opacity. Labs displaying WBC 5.22, Hgb 7.4, HCt 22.8, plt 147. Na 134, K 3.4, Cl 96, CO 34, BUN 9, Cr .57, glucose 111. Patient was seen and evaluated today on 03/04/2025. He is alert and oriented x3 with no acute complaints. The patient is currently breathing on room air. Heparin drip and amiodarone drip have been discontinued by cardiology. Currently on LR at 20 cc/hr. Placed on amiodarone 200 mg PO BID and eliquis 5 mg PO BID for his atrial fibrillation. Currently on day 5 of Unasyn 3 gm IVP q6hrs. ALONSO drain is showing serosanguinous fluid. CXR displaying stable right lower infiltrate, small right pleural effusion. Labs displaying WBC 5.54, Hgb 7.5, HCt 24.2, platelet 163. Sodium 137, potassium 3.8, chloride 103, bicarb 32, BUN 8, creatinine 0.51, glucose 111, calcium 7.7. The patient is seen today March 05, 2025 in follow-up on the regular medical floor. He was transferred out of the intensive care unit yesterday. He is currently sitting up in bed. Awake and alert in no acute distress. Maintaining good O2 saturations in the 90s on room air oxygen. Has normal saline at 10 mL/h. Wound culture was positive for E. coli. Blood culture revealed no growth. Sputum culture was positive for Mienrva only. White count 5.2. Hemoglobin 7.5. Platelets 157. Sodium 136. Potassium 4.3. Bicarb 32. BUN 9. Creatinine 0.67. Glucose 98. He is status post 2 units of packed red blood cells this admission. Current hemoglobin 7.5. Platelets 157. White count 5.2. Sodium 136. Potassium 4.3. Bicarb 32. BUN 9. Creatinine 0.67. Glucose 98. He remains on Unasyn. Anticoagulated with Eliquis. Continued on IV diuretics. Currently in a -2.3 L balance. Follow-up chest x-ray revealed a stable right lower lobe infiltrate with small effusion. Remainder of the lungs were clear. The patient is seen today March 06, 2025 in follow-up on the regular medical floor. He is currently sitting up in bed. Awake and alert in no acute distress. Maintaining good O2 saturations in the 90s on room air oxygen. White count 6.2. Hemoglobin 7.6. Platelets 182. Sodium 140. Potassium 3.7. Bicarb 29. BUN 10. Creatinine 0.7. Glucose 102. Stool for occult blood was n egative. C. difficile screen was negative. ALONSO drain now showing some bile colored fluid versus previous serosanguineous drainage. Surgical services aware. He remains on Unasyn. Anticoagulated with Eliquis. Remains on IV diuretics. Currently in a -4.9 L balance. The patient is seen today March 07, 2025 in follow-up on the regular medical floor. He is awake and alert in no acute distress. Up in a chair at the bedside. Maintaining good O2 saturation in the 90s on room air oxygen. He is blood pressures were soft this morning. He received a liter bolus of normal saline with improvement. Diuretics on hold. White count 6.3. Hemoglobin 7.7. Platelets 187. Sodium 133. Potassium 3.7. Bicarb 32. BUN 16. Creatinine 0.74. Glucose 97. He remains on albuterol inhalations. Anticoagulated with Eliquis. Currently on Augmentin. Objective - Vital Signs Vital signs: Vital Signs Temp 98.9 F 03/07/25 07:13 Pulse 76 03/07/25 11:43 Resp 17 03/07/25 07:13 BP 78/48 03/07/25 10:37 Pulse Ox 93 L 03/07/25 07:13 FiO2 40 03/03/25 04:23 Intake & Output 03/06/25 03/07/25 03/07/25 18:59 06:59 18:59 Output Total 8871 945 740 Balance -1741 -945 -740 Output: Drainage 124 45 40 Left Abdomen 124 45 40 Urine 1620 900 700 Other: Voiding Method Incontinent External Catheter External Catheter ABP, PAP, CO, CI - Last Documented Arterial Blood Pressure 135/50 - Exam GENERAL EXAM: Alert, 69-year-old male patient, on room air oxygen, comfortable i n no apparent distress. HEAD: Normocephalic. EYES: Normal reaction of pupils, equal size. NOSE: Clear with pink turbinates. THROAT: No erythema or exudates. NECK: No masses, no JVD. CHEST: No chest wall deformity. LUNGS: Equal air entry with no crackles, wheeze, rhonchi or dullness. CVS: S1 and S2 normal with no audible murmur, regular rhythm. ABDOMEN: Surgical dressings clean dry and intact. ALONSO drain in place. Bile colored substance noted. Normal bowel sounds, no guarding or rigidity. SPINE: No scoliosis or deformity SKIN: No rashes CENTRAL NERVOUS SYSTEM: No focal deficits, tone is normal in all 4 extremities. EXTREMITIES: There is no peripheral edema. No clubbing, no cyanosis. Periphe ral pulses are intact. - Labs CBC & Chem 7: 03/07/25 04:44 03/07/25 04:44 Labs: Abnormal Lab Results - Last 24 Hours (Table) 03/07/25 03/07/25 Range/Units 04:44 04:44 RBC 2.69 L (4.40-5.60) 10*6/uL Hgb 7.7 L (13.0-17.0) g/dL Hct 24.7 L (39.6-50.0) % MCHC 31.2 L (32.0-37.0) g/dL RDW 20.6 H (11.5-14.5) % Sodium 133 L (137-145) mmol/L Chloride 96 L (98-107) mmol/L Carbon Dioxide 32 H (22-30) mmol/L Assessment and Plan Assessment: Acute abdominal sepsis secondary to acute cholecystitis Status post laparoscopic cholecystectomy and abscess drainage of gallbladder. Postoperative day #9 Hypotension secondary to hypovolemia and possible septic shock, requiring pressors and requiring blood transfusion, patient received a total of 2 units of packed RBCs Acute blood loss anemia History of chronic anemia Chronic atrial fibrillation, currently sinus rhythm. Anticoagulated with Eliquis History of hiatal hernia with previous Monet fundoplication. Right lower lobe pneumonia Plan: The patient was seen and evaluated Labs and medications reviewed Currently stable on room air oxygen ALONSO drain has bile colored fluid now If continues may need ERCP Continue the incentive spirometer Continue bronchodilators Currently on Augmentin Some hypotension this a.m. Received 1 L fluid resuscitation Diuretics on hold Remains in a negative 2.6 L balance Anticoagulated with Eliquis Plan is for Lobo at discharge I have personally seen and examined the patient, performed the documentation and the assessment and plan as written. Number of minutes spent on the visit: 10 Dictation was produced using [email or web address] dictation software. Please excuse any grammatical, word or spelling errors.
[2025-03-07] MEDS: TAMSULOSIN 0.4 MG CAP.ER.24H PO SCH (15:34)
--- NOTE | 2025-03-07 15:41 | P.PN ---
Subjective Progress Note Date: 03/07/25 Principal diagnosis: Reason for follow-up is gangrenous cholecystitis Patient is a 69-year-old male with a past medical history significant for atrial fibrillation reflux presenting to the hospital for evaluation of diarrhea felt lightheaded complaining of weakness and did have right upper quadrant pain, patient be diagnosed with gangrenous cholecystitis status post open cholecystectomy and drainage of the abscess. On today's evaluation that is 03/07/2025, the patient continues to be afebrile, the patient is on room air and breathing comfortably however did complain of weakness and shortness of breath this morning, the Pt denies having any chest pain or cough, the patient denies having any abdominal pain no vomiting or any diarrhea has been reported by the nursing staff. Patient white count is 6.32, creatinine 0.74 stool for C. difficile is negative Objective - Vital Signs Vital signs: Vital Signs Temp 97.4 F L 03/07/25 13:51 Pulse 70 03/07/25 13:51 Resp 18 03/07/25 13:51 BP 92/43 03/07/25 13:51 Pulse Ox 96 03/07/25 13:51 FiO2 40 03/03/25 04:23 Intake & Output 03/06/25 03/07/25 03/07/25 18:59 06:59 18:59 Output Total 8459 594 886 Balance -0791 -779 -819 Output: Drainage 124 45 40 Left Abdomen 124 45 40 Urine 1620 900 700 Other: Voiding Method Incontinent External Catheter External Catheter ABP, PAP, CO, CI - Last Documented Arterial Blood Pressure 135/50 - Exam GENERAL DESCRIPTION: An elderly male lying in bed in no distress RESPIRATORY SYSTEM: Unlabored breathing , decreased breath sounds at bases HEART: S1 S2 regular rate and rhythm , ABDOMEN: Soft , no tenderness EXTREMITIES: No edema feet - Labs CBC & Chem 7: 03/07/25 04:44 03/07/25 04:44 Labs: Abnormal Lab Results - Last 24 Hours (Table) 03/07/25 03/07/25 Range/Units 04:44 04:44 RBC 2.69 L (4.40-5.60) 10*6/uL Hgb 7.7 L (13.0-17.0) g/dL Hct 24.7 L (39.6-50.0) % MCHC 31.2 L (32.0-37.0) g/dL RDW 20.6 H (11.5-14.5) % Sodium 133 L (137-145) mmol/L Chloride 96 L (98-107) mmol/L Carbon Dioxide 32 H (22-30) mmol/L Assessment and Plan (1) Acute cholecystitis Current Visit: Yes Status: Acute Code(s): K81.0 - ACUTE CHOLECYSTITIS SNOMED Code(s): 73534144 Plan: 1patient presented to hospital with weakness abdominal pain has been diagnosed with gangrenous cholecystitis with empyema in this patient who is status post open cholecystectomy and drainage of the abscess will need to cover for the enteric gram-negative due to the likely pathogen 2-abdominal cultures currently growing E. coli that is a sensitive pathogen 3-patient is afebrile white count has been normal, patient is currently on oral Augmentin to continue and monitor clinical course closely Dictation was produced using [employer] dictation software. please excuse any gramm atical, word or spelling errors. Time with Patient: Less than 30
--- NOTE | 2025-03-08 09:41 | P.PN ---
Subjective Progress Note Date: 03/08/25 Patient still feels tired. He is still relatively hypotensive. His systolics are in the 100 range. His ALONSO drain has had decreased output. There is still slight bile tinge to it. On exam vital signs appear stable. Abdomen is soft. Patient will be observed. He is not ready for discharge yet. Objective - Vital Signs Vital signs: Vital Signs Temp 98 F 03/08/25 08:40 Pulse 76 03/08/25 09:38 Resp 18 03/08/25 08:40 BP 91/51 03/08/25 08:40 Pulse Ox 96 03/08/25 09:26 FiO2 40 03/03/25 04:23 Intake & Output 03/07/25 03/08/25 03/08/25 18:59 06:59 18:59 Output Total 2955 20 Balance -2955 -20 Output: Drainage 55 20 Left Abdomen 55 20 Urine 2900 Straight 1100 Other: Voiding Method External Catheter External Catheter # Voids 4 ABP, PAP, CO, CI - Last Documented Arterial Blood Pressure 135/50 - Labs CBC & Chem 7: 03/07/25 04:44 03/07/25 04:44 Labs: Abnormal Lab Results - Last 24 Hours (Table) 03/07/25 Range/Units 04:44 RBC 2.69 L (4.40-5.60) 10*6/uL Hgb 7.7 L (13.0-17.0) g/dL Hct 24.7 L (39.6-50.0) % MCHC 31.2 L (32.0-37.0) g/dL RDW 20.6 H (11.5-14.5) %
--- NOTE | 2025-03-08 11:38 | P.PN ---
Subjective Progress Note Date: 03/08/25 69 year old M with PMH AFib, GERD presents to the ED for RLQ abdominal pain, generalized weakness, lightheadedness and diarrhea. In the ED he underwent extensive evaluation. BP 73/40, HR 77, T 97.4F, RR 18, 92% on RA. Labs significant for RBC 2.7, Hg 8, Hct 24.7, Plt 120, PT 13.5, INR 1.3, APTT 33.1, Na 135, K 3, BUN 27, glu 127, Ca 8, T. Bili 2.2, alb 2.6. Trop < 0.012. Mag 1.9. Lactic acid 1.9. ABG pH 7.31, pCO2 53, pO2 [address] AP concerning for cholecystitis with abscess versus emphysematous cholecystitis and moderate anasarca. Started on IV hydration, Zosyn and admitted to surgery. Underwent ex lap with cholecystectomy and drainage of abscess on 02/26/2025. Intraoperative cultures growing E. coli, ID consulted, Abx switched to Unasyn. Hospital course complicated by ABLA requiring 2 unit PRBC and post operative dyspnea with CXR showing RLL PNA versus mucous plugging. 03/03 Went into A-Fib with RVR yesterday, Cardiology consulted, started on Amiodarone drip and Heparin drip. On 4L NC, CXR done today shows significant improvement in RLL PNA. 2 bowel movements over the past 24H. 03/04 Tolerating diet well. No shortness of breath. 1 bowel movements over the past 24H. 03/05 He reports difficulty ambulating and feeling weak. Also reports lower extremity swelling, started on Lasix IV. 03/06 Plans for SNF on discharge. Surgery wants to monitor ALNOSO output, may need ERCP. Maintained on Lasix 40 mg IV BID, 4.9L urine output over the past 24H. 03/07 Reports improved LE swelling but still with scrotal edema. Maintained on Lasix 40 mg IV QD, 2.689 L urine output over the past 24H. 03/08 Patient was seen and examined. Retaining about 1L of urine yesterday requiring straight cath. Also started on Flomax 0.4 mg PO BID. Had borderline low BP yesterday, Lasix/Metoprolol/Amiodarone was held. No new labs done today. BP 91/51, HR 66, RR 18, 95% on RA, T98F. General: no distress, appears at stated age Derm: warm, dry Head: atraumatic, normocephalic, symmetric Mouth: no lip lesion, mucus membranes moist Cardiovascular: good distal perfusion in all 4 extremities Lungs: breathing comfortably, no accessory muscle use Ext: no gross muscle atrophy, 1+ LE pitting edema, no contractures. Neuro: No focal neurologic deficits. Psych: Alert and oriented Based on my assessment of this patient, this patient meets a high complexity level of care. Urinary retention: Straight cath 03/07. Started on Flomax 0.4 mg PO BID. Consult Urology. Lower extremity edema: Volume overloaded. Echo 12/2024 shows EF 55-60%. Continue Lasix 40 mg IV QD if BP permits. Monitor renal function and e-lytes daily. Acute hypoxic respiratory failure secondary to RLL PNA versus mucous plugging: Albuterol neb QID scheduled. Mucormyst 200 mg INH TID. Supplemental O2 to maintain O2 sat > 92%. Pulmonary on board. A-fib with RVR: Likely due to acute anemia. Amiodarone 200 mg PO BID and taper. Metoprolol 12.5 mg PO BID. Eliquis 5 mg PO BID. Cardiology on board. Septic shock secondary to gangrenous cholecystitis: Status post ex lap with cholecystectomy and drainage of abscess on 02/26/2025. Intraoperative cultures growing E. coli. Continue Augmentin 875-125 mg PO BID. Diet advanced per Surgery. ID and Surgery on board. Acute blood loss anemia: Status post 2 unit PRBC. Daily CBC. Transfuse if Hg < 7. GERD with history of Monet fundoplication: Holding home PPIs, proceed with IV Protonix [address] Ken recommends 7 days Augmentin on discharge. Dr. Estes recommends continued ALONSO output monitoring. Plans for SNF when cleared by Surgery. Accepted at [facility]. CODE STATUS: FULL CODE DVT Prophylaxis: Eliquis GI Prophylaxis: Protonix IV Designated medical POA if patient is not able to make medical decisions for themselves: I have reviewed the following workforce management consultant notes: Surgery. ID. I have reviewed the results of the following tests: I have ordered the following tests: CBC and BMP in the AM. I have discussed the care of this patient with the following independent historian: I have independently interpreted the following test below: I have discussed the management of this patient with the following physician: Objective - Vital Signs Vital signs: Vital Signs Temp 98 F 03/08/25 08:40 Pulse 76 03/08/25 09:38 Resp 18 03/08/25 08:40 BP 91/51 03/08/25 08:40 Pulse Ox 96 03/08/25 09:26 FiO2 40 03/03/25 04:23 Intake & Output 03/07/25 03/08/25 03/08/25 18:59 06:59 18:59 Output Total 2955 20 Balance -2955 -20 Output: Drainage 55 20 Left Abdomen 55 20 Urine 2900 Straight 1100 Other: Voiding Method External Catheter External Catheter External Catheter # Voids 4 ABP, PAP, CO, CI - Last Documented Arterial Blood Pressure 135/50 - Labs CBC & Chem 7: 03/07/25 04:44 03/07/25 04:44 Labs: Abnormal Lab Results - Last 24 Hours (Table) 03/07/25 Range/Units 04:44 RBC 2.69 L (4.40-5.60) 10*6/uL Hgb 7.7 L (13.0-17.0) g/dL Hct 24.7 L (39.6-50.0) % MCHC 31.2 L (32.0-37.0) g/dL RDW 20.6 H (11.5-14.5) %
--- NOTE | 2025-03-08 14:41 | P.GSCN ---
History of Present Illness Consult date: 03/08/25 Reason for Consult: Urinary retention Requesting physician: Jalen Ivory History of present illness: The patient is a 69-year-old white male who underwent an exploratory laparotomy, cholecystectomy, and drainage of intra-abdominal abscess on February 26, 2025. He was straight catheterized yesterday for 1 L of urine. Postvoid residuals are being monitored, and he has not required catheterization today. He is currently receiving tamsulosin 0.4 mg twice daily. At the time of admission, he was noted to be taking Myrbetriq 50 mg daily. The patient is known to Dr. Gaona. He underwent insertion of an [employer] sacral neuromodulator 1 to 2 years ago. He states that his urinary stream has been weak, but he has never previously required catheterization. Review of Systems - Genitourinary Reports as per HPI Past Medical History Past Medical History: Atrial Fibrillation, Eye Disorder, GERD/Reflux Additional Past Medical History / Comment(s): HIATAL HERNIA, SOMETIMES FOOD COMES BACK UP WHEN EATING, LOOSE STOOLS History of Any Multi-Drug Resistant Organisms: None Reported Past Surgical History: Adenoidectomy, Hernia Repair, Orthopedic Surgery, Tonsillectomy Additional Past Surgical History / Comment(s): UMBILICAL HERNIA, KAREN.INGUINAL HERNIA , EGD /COLONOSCOPY 04/20/15, LT WRIST SURGERY Past Anesthesia/Blood Transfusion Reactions: No Reported Reaction Past Psychological History: Anxiety Smoking Status: Former smoker Past Alcohol Use History: None Reported - Past Family History Sister(s) Family Medical History: Diabetes Mellitus Mother Family Medical History: Dementia, Neurologic Disorder Additional Family Medical History / Comment(s): HX PARKINSON'S. Father Family Medical History: Coronary Artery Disease (CAD), CVA/TIA Medications and Allergies Home Medications Medication Instructions Recorded Confirmed Type Mirabegron [Myrbetriq] 50 mg PO DAILY 01/04/25 02/26/25 History Metoprolol Tartrate [Lopressor] 25 mg PO BID 30 Days #60 tab 01/05/25 02/26/25 Rx Dicyclomine [Bentyl] 10 mg PO AC-TID 02/03/25 02/26/25 History Multivitamin [Multivitamins Adult 1 tab PO DAILY 02/03/25 02/26/25 History Gummies] Cetirizine HCl [Zyrtec] 10 mg PO DAILY 02/26/25 02/26/25 History Allergies Allergy/AdvReac Type Severity Reaction Status Date / Time oxytetracycline AdvReac "PAIN OF Verified 02/26/25 08:00 [From Terramycin] SKIN" VERY WEAK oxytetracycline HCl AdvReac "PAIN OF Verified 02/26/25 08:00 [From Terramycin] SKIN" VERY WEAK Surgical - Exam Vital Signs Temp Pulse Resp BP Pulse Ox 97.4 F L 77 18 73/40 92 L 02/26/25 03:20 02/26/25 03:20 02/26/25 03:20 02/26/25 03:20 02/26/25 03:20 - General well developed, well nourished, no distress - Respiratory normal respiratory effort - Psychiatric oriented to time, oriented to person, oriented to place, speech is normal, memory intact Results - Labs 03/07/25 04:44 03/07/25 04:44 Abnormal Lab Results - Last 24 Hours (Table) 03/08/25 Range/Units 11:04 Crossmatch See Detail Assessment and Plan (1) Retention of urine, unspecified Current Visit: Yes Status: Acute Code(s): R33.9 - RETENTION OF URINE, UNSPECIFIED SNOMED Code(s): 784775180 Plan: - Continue tamsulosin. - Patient is not currently receiving an overactive bladder medication. - Continue to monitor postvoid residuals. Would reinsert Wright catheter if postvoid residual exceeds 500 cc. Time with Patient: Greater than 30
--- NOTE | 2025-03-08 14:44 | P.PN ---
Subjective Progress Note Date: 03/08/25 Principal diagnosis: Reason for follow-up is gangrenous cholecystitis Patient is a 69-year-old male with a past medical history significant for atrial fibrillation reflux presenting to the hospital for evaluation of diarrhea felt lightheaded complaining of weakness and did have right upper quadrant pain, patient be diagnosed with gangrenous cholecystitis status post open cholecystectomy and drainage of the abscess. On today's evaluation that is 03/08/2025, Patient is afebrile patient is currently on room air and denies having any shortness of breath, the patient denies any chest pain or cough, the patient denies any nausea vomiting did not have any abdominal pain and no diarrhea. Did have urine retention requiring urology evaluation Patient white count is 6.32 as of yesterday no CBC was done today Objective - Vital Signs Vital signs: Vital Signs Temp 98.1 F 03/08/25 14:17 Pulse 82 03/08/25 14:17 Resp 18 03/08/25 14:17 BP 87/53 03/08/25 14:17 Pulse Ox 98 03/08/25 14:17 FiO2 40 03/03/25 04:23 Intake & Output 03/07/25 03/08/25 03/08/25 18:59 06:59 18:59 Intake Total 0 Output Total 2955 20 Balance -2955 -20 0 Intake: Blood Product 0 Unit 0 Output: Drainage 55 20 Left Abdomen 55 20 Urine 2900 Straight 1100 Other: Voiding Method External Catheter External Catheter External Catheter # Voids 4 ABP, PAP, CO, CI - Last Documented Arterial Blood Pressure 135/50 - Exam GENERAL DESCRIPTION: An elderly male lying in bed in no distress RESPIRATORY SYSTEM: Unlabored breathing , decreased breath sounds at bases HEART: S1 S2 regular rate and rhythm , ABDOMEN: Soft , no tenderness EXTREMITIES: No edema feet - Labs CBC & Chem 7: 03/07/25 04:44 03/07/25 04:44 Labs: Abnormal Lab Results - Last 24 Hours (Table) 03/08/25 Range/Units 11:04 Crossmatch See Detail Assessment and Plan (1) Acute cholecystitis Current Visit: Yes Status: Acute Code(s): K81.0 - ACUTE CHOLECYSTITIS SNOMED Code(s): 33416561 Plan: 1patient presented to hospital with weakness abdominal pain has been diagnosed with gangrenous cholecystitis with empyema in this patient who is status post open cholecystectomy and drainage of the abscess will need to cover for the enteric gram-negative due to the likely pathogen 2-abdominal cultures currently growing E. coli that is a sensitive pathogen 3-patient is afebrile white count has been normal, patient currently on a oral Augmentin to continue and monitor clinical course closely Dictation was produced using [employer] dictation software. please excuse any grammatical, word or spelling errors. Time with Patient: Less than 30
[2025-03-09 06:32] LABS: HCT 25.1 % (39.6-50.0); HGB 8.2 g/dL (13.0-17.0); MCH 29.3 pg (27.0-32.0); MCHC 32.7 g/dL (32.0-37.0); MCV 89.6 fL (80.0-97.0); Mean Platelet Volume 9.7 fL (9.5-12.2); Platelet Count 166 10*3/uL (140-440); RDW 19.5 % (11.5-14.5); WBC 4.86 10*3/uL (4.50-10.00)
[2025-03-09 06:48] LABS: African American GFR (CKD) >90 (>60 ml/min/1.73 sqM); Anion Gap 3 mmol/L; Blood Urea Nitrogen 15 mg/dL (9-20); Calcium 8.6 mg/dL (8.4-10.2); Carbon Dioxide 32 mmol/L (22-30); Chloride 99 mmol/L (98-107); Glucose 95 mg/dL (74-99); Magnesium 1.9 mg/dL (1.6-2.3); Non-African American GFR(CKD) >90 (>60 ml/min/1.73 sqM); Potassium 3.9 mmol/L (3.5-5.1); Sodium 134 mmol/L (137-145)
--- NOTE | 2025-03-09 08:41 | P.PN ---
Subjective No acute overnight event, he is voiding into a diaper. Denies any gross hematuria or dysuria Objective - Vital Signs Vital signs: Vital Signs Temp 97.4 F L 03/09/25 07:14 Pulse 61 03/09/25 07:14 Resp 17 03/09/25 07:14 BP 123/70 03/09/25 07:14 Pulse Ox 99 03/09/25 07:14 FiO2 40 03/03/25 04:23 Intake & Output 03/08/25 03/09/25 03/09/25 18:59 06:59 18:59 Intake Total 310 Output Total 25 Balance 310 -25 Intake: Blood Product 310 Rc As-1 Unit 310 [id number] Output: Drainage 25 Left Abdomen 25 Other: Voiding Method External Catheter Diaper # Voids 4 4 # Bowel Movements 2 ABP, PAP, CO, CI - Last Documented Arterial Blood Pressure 135/50 - Constitutional General appearance: Present: no acute distress - Gastrointestinal General gastrointestinal: Absent: distended - Psychiatric Psychiatric: Present: A&O x's 3 - Labs CBC & Chem 7: 03/09/25 05:56 03/09/25 05:56 Labs: Abnormal Lab Results - Last 24 Hours (Table) 03/08/25 03/09/25 03/09/25 Range/Units 11:04 05:56 05:56 RBC 2.80 L (4.40-5.60) 10*6/uL Hgb 8.2 L (13.0-17.0) g/dL Hct 25.1 L (39.6-50.0) % RDW 19.5 H (11.5-14.5) % Sodium 134 L (137-145) mmol/L Carbon Dioxide 32 H (22-30) mmol/L Crossmatch See Detail Assessment and Plan Assessment: 69-year-old male history of overactive bladder, status post sacral neuromodulator. He is status post cholecystectomy, patient has had a prolonged hospital course. He did develop retention but he is now voiding on Flomax. From urology standpoint recommend continuing to monitor his postvoid residual, if greater than 500 mL then patient can be straight cathed, recommend continuing Flomax for now. Discussed with him his symptoms are worsened due to his deconditioning, no changes need to be made for sacral neuromodulator for now, he can follow-up as an outpatient in 3 to 4 weeks and we will reassess at that time
--- NOTE | 2025-03-09 10:51 | P.PN ---
Subjective Progress Note Date: 03/09/25 Hospital Course: 69 year old M with PMH AFib, GERD presents to the ED for RLQ abdominal pain, g eneralized weakness, lightheadedness and diarrhea. In the ED he underwent extensive evaluation. BP 73/40, HR 77, T 97.4F, RR 18, 92% on RA. Labs significant for RBC 2.7, Hg 8, Hct 24.7, Plt 120, PT 13.5, INR 1.3, APTT 33.1, Na 135, K 3, BUN 27, glu 127, Ca 8, T. Bili 2.2, alb 2.6. Trop < 0.012. Mag 1.9. Lactic acid 1.9. ABG pH 7.31, pCO2 53, pO2 [address] AP concerning for cholecystitis with abscess versus emphysematous cholecystitis and moderate anasarca. Started on IV hydration, Zosyn and admitted to surgery. Underwent ex lap with cholecystectomy and drainage of abscess on 02/26/2025. Intraoperative cultures growing E. coli, ID consulted, Abx switched to Unasyn. Hospital course complicated by ABLA requiring 2 unit PRBC and post operative dyspnea with CXR showing RLL PNA versus mucous plugging. 03/02 patient went into A-fib with RVR, cardiology consulted and patient was started on amiodarone and heparin drips, switched to oral amiodarone with plan for 4 weeks taper and then stop completely, metoprolol 12.5 p.o. twice daily, Eliquis 5 mg p.o. twice daily. Patient developed significant lower extremity edema requiring IV Lasix, plan for SNF on discharge, [facility] transitioned to oral Augmentin Hospital course was complicated by acute urinary retention, urology consulted, patient is apparently status post sacral neuromodulator. He was started on Flomax, per urology, continue to monitor postvoid residual, if greater than 500 cc, proceed with straight cath. Follow-up in 3 to 4 weeks. 03/09/2025: Patient seen examined at bedside, no acute events overnight, feels generally better, abdominal pain is tolerable, had bowel movement yesterday, no nausea or vomiting. On exam still significant pitting bilateral lower extremity edema present, will continue IV Lasix while inpatient with plan to transition to oral at discharge once cleared by surgical team. His WBC count is santa and hemoglobin is stable at 8.2, BMP with mild hyponatremia 134, bicarb 32, normal creatinine and magnesium. Pertinent positives and negatives as discussed above, a complete review of systems was performed and all other systems are negative. Vitals Signs Reviewed. Afebrile heart rate in 60s, BP 123/70, satting well on room air. General: [nontoxic], [no distress], [appears at stated age] Derm: [warm], [dry] Head: [atraumatic], [normocephalic], [symmetric] Eyes: [EOMI], [no lid lag], [anicteric sclera] Mouth: [no lip lesion], [mucus membranes moist] Cardiovascular: [S1S2 reg], [no murmur] Lungs: [CTA bilateral], [no rhonchi, no rales] , [no accessory muscle use] Abdominal: [Abdominal bandage in place, bowel sounds active Ext: [no gross muscle atrophy], [bilateral 1-2+ lower extremity pitting edema [no contractures] Neuro: [ CN II-XI grossly intact], [no focal neuro deficits] Psych: [Alert], [oriented], [appropriate affect] Assessment and Plan: Urinary retention Overactive bladder s/p sacral neuromodulator -Neurology consulted, appreciate recommendations, follow-up in 3 to 4 weeks, continue Flomax 0.4 twice daily, monitor postvoid residual, straight cath for more than 500 cc Bilateral lower extremity edema secondary to volume overload -TTE 12/2024 with EF of 55 to 60%, denies dyspnea, orthopnea -Continue IV Lasix daily while inpatient, plan to switch to oral at discharge, monitor electrolytes and kidney function daily while on IV diuresis Acute hypoxic respiratory failure secondary to RLL PNA versus mucous plugging, resolved -Continue albuterol neb QID scheduled. Mucormyst 200 mg INH TID. Supplemental O2 to maintain O2 sat > 92%. Pulmonary signed off, follow-up as needed Paroxysmal A-fib with RVR -Continue amiodarone taper per cardiology 200 mg p.o. twice daily, plan for 4 weeks therapy and then stop completely -Continue metoprolol 12.5 mg p.o. twice daily, Eliquis 5 mg p.o. twice daily, cardiology on board Septic shock secondary to gangrenous cholecystitis, resolved, status post ex lap with cholecystectomy and drainage of the abscess on 02/26/2025, cultures positive for E. coli -ID following, continue Augmentin 875/125 mg p.o. twice daily -Surgery following -On regular diet Acute blood loss anemia -Status post 2 units of PRBC, hemoglobin has been stable over the past several days, can stop daily CBC GERD with history of Monet fundoplication, continue with IV Protonix 40 daily DVT ppx: Eliquis Code status: Full code I have reviewed the following business operations consultant notes: General surgery, ID I have reviewed the results of the following tests: As above I have ordered the following tests: BMP and magnesium in the morning I have discussed the care of this patient with the following independent historian: I have independently interpreted the following test below: I have discussed the management of this patient with the following physician: Objective - Vital Signs Vital signs: Vital Signs Temp 97.4 F L 03/09/25 07:14 Pulse 61 03/09/25 07:14 Resp 17 03/09/25 07:14 BP 123/70 03/09/25 07:14 Pulse Ox 99 03/09/25 07:14 FiO2 40 03/03/25 04:23 Intake & Output 03/08/25 03/09/25 03/09/25 18:59 06:59 18:59 Intake Total 310 Output Total 25 Balance 310 -25 Intake: Blood Product 310 Rc As-1 Unit 310 [id number] Output: Drainage 25 Left Abdomen 25 Other: Voiding Method External Catheter Diaper Diaper # Voids 4 4 1 # Bowel Movements 2 ABP, PAP, CO, CI - Last Documented Arterial Blood Pressure 135/50 - Labs CBC & Chem 7: 03/09/25 05:56 03/09/25 05:56 Labs: Abnormal Lab Results - Last 24 Hours (Table) 03/08/25 03/09/25 03/09/25 Range/Units 11:04 05:56 05:56 RBC 2.80 L (4.40-5.60) 10*6/uL Hgb 8.2 L (13.0-17.0) g/dL Hct 25.1 L (39.6-50.0) % RDW 19.5 H (11.5-14.5) % Sodium 134 L (137-145) mmol/L Carbon Dioxide 32 H (22-30) mmol/L Crossmatch See Detail
--- NOTE | 2025-03-09 13:27 | P.DS ---
Providers Date of admission: 02/26/25 06:06 Expected date of discharge: 03/09/25 Attending physician: Brian Estes Consults: 02/26/25 06:04 Consult Physician Routine Consulting Provider: Natanael Escalera Consult Reason/Comments: medicine consult Do you want consulting provider notified?: Yes Consult Physician Stat Consulting Provider: Venu Chester Consult Reason/Comments: icu patient Do you want consulting provider notified?: Yes 02/27/25 10:51 Consult Physician Routine Consulting Provider: Eben Ken Consult Reason/Comments: Gangrenous gallbladder Do you want consulting provider notified?: Yes 03/02/25 17:23 Consult Physician Stat Consulting Provider: Davie Grant Consult Reason/Comments: AFIB RVR Do you want consulting provider notified?: Already Contacted 03/08/25 11:33 Consult Physician Routine Consulting Provider: Mukul Mejia Consult Reason/Comments: urinary retention Do you want consulting provider notified?: Yes Primary care physician: Mirna Sarah [facility] Course: Discharge diagnosis 1. Gangrenous cholecystitis with almost complete necrosis of gallbladder, Abscess with 500 mL of purulent fluid, Cholelithiasis 2. Anemia is dilutional 3. Severe protein calorie malnutrition 4. History of overactive bladder status post sacral neuromodulator now with urinary retention. Seen by urology. Patient currently able to urinate and on Flomax Hospital course This is a 69-year-old male who presented to the ER with weakness and hypotension. CT scan abdomen pelvis had reported findings of cholecystitis. Tiny pockets of gas within the gallbladder and possibly within the adjacent liver parenchyma suggest abscess versus emphysematous cholecystitis. Patient is status post diagnostic laparoscopy, exploratory laparotomy, cholecystectomy and drainage of abscess. Patient has tolerated surgery well. His pain is controlled. He is tolerating diet. He is having bowel movements. He has been up and ambulating. He is afebrile. He is stable for discharge. Infectious disease recommending 7 more days of Augmentin. Patient seen by urology and will follow-up outpatient. Patient is stable for discharge. Please refer to chart for any further details. Physician Chapter Relations Administrator note has been reviewed by physician. Signing provider agrees with the documented findings, assessment, and plan of care. Patient Condition at Discharge: Stable Plan - Discharge Summary New Discharge Prescriptions: New Amoxic-Pot Clav 875-125Mg [Augmentin 875-125] 1 tab PO BID 7 Days #14 tab HYDROcodone/APAP 5-325MG [Castell 5-325] 1 tab PO Q6HR PRN 3 Days #12 tab PRN Reason: Pain No Action Mirabegron [Myrbetriq] 50 mg PO DAILY Metoprolol Tartrate [Lopressor] 25 mg PO BID 30 Days #60 tab Cetirizine HCl [Zyrtec] 10 mg PO DAILY Dicyclomine [Bentyl] 10 mg PO AC-TID Multivitamin [Multivitamins Adult Gummies] 1 tab PO DAILY Discharge Medication List Mirabegron [Myrbetriq] 50 mg PO DAILY 01/04/25 [History] Metoprolol Tartrate [Lopressor] 25 mg PO BID 30 Days #60 tab 01/05/25 [Rx] Dicyclomine [Bentyl] 10 mg PO AC-TID 02/03/25 [History] Multivitamin [Multivitamins Adult Gummies] 1 tab PO DAILY 02/03/25 [History] Cetirizine HCl [Zyrtec] 10 mg PO DAILY 02/26/25 [History] Amoxic-Pot Clav 875-125Mg [Augmentin 875-125] 1 tab PO BID 7 Days #14 tab 03/09/25 [Rx] HYDROcodone/APAP 5-325MG [Castell 5-325] 1 tab PO Q6HR PRN 3 Days #12 tab 03/09/25 [Rx] Follow up Appointment(s)/Referral(s): Willie Gaona MD [STAFF PHYSICIAN] - 3 Weeks Mirna Sarah MD [Primary Care Provider] - 1-2 days [facility] Nurse, [NON-STAFF] - 1 Week Brian Estes MD [STAFF PHYSICIAN] - 1 Week Activity/Diet/Wound Care/Special Instructions: No driving while taking Castell No lifting over 10 pounds You may shower. No soaking or tub baths for 2 weeks Keep a log of ALONSO drain output and bring with you to your follow-up appointment Milk/strip drains 2-3 times a day Discharge/Stand Alone Forms: Who Do I Call? Discharge Disposition: TRANSFER TO SNF/ECF
[2025-03-09 14:32] VITALS: BP 94/52; PULSE 72; RESP 16; TEMP 97.7
--- NOTE | 2025-03-09 17:50 | P.PN ---
Subjective Progress Note Date: 03/09/25 On 03/09/2025, the patient is stable. The patient is on room air oxygen. Denies having any specific complaints. He is feeling weak and the patient is being considered to be released to [facility] for further rehabilitation. He is having no significant abdominal distention. He has positive flatus and positive bowel movement activity and the surgical wound site is dry clean and intact. The patient has had no events overnight. No significant abdominal pain. Hemodynamically stable. Blood work shows a white cell count of 4.8 with a hemoglobin 8.2 and a platelet count of 166. Electrolytes are all within normal limits. BUN is 15 with a creatinine of 0.7. In terms of antibiotic coverage, the patient is currently on Augmentin and this will be completed on outpatient basis. No other significant events otherwise for now. No respiratory difficulties and the patient is using his incentive spirometer. Objective - Vital Signs Vital signs: Vital Signs Temp 97.4 F L 03/09/25 07:14 Pulse 68 03/09/25 11:57 Resp 17 03/09/25 07:14 BP 123/70 03/09/25 07:14 Pulse Ox 96 03/09/25 11:49 FiO2 40 03/03/25 04:23 Intake & Output 03/08/25 03/09/25 03/09/25 18:59 06:59 18:59 Intake Total 310 Output Total 25 Balance 310 -25 Intake: Blood Product 310 Rc As-1 Unit 310 [id number] Output: Drainage 25 Left Abdomen 25 Other: Voiding Method External Catheter Diaper Diaper # Voids 4 4 1 # Bowel Movements 2 1 ABP, PAP, CO, CI - Last Documented Arterial Blood Pressure 135/50 - Exam GENERAL EXAM: Alert, 69-year-old male patient, on room air oxygen, comfortable in no apparent distress. HEAD: Normocephalic. EYES: Normal reaction of pupils, equal size. NOSE: Clear with pink turbinates. THROAT: No erythema or exudates. NECK: No masses, no JVD. CHEST: No chest wall deformity. LUNGS: Equal air entry with no crackles, wheeze, rhonchi or dullness. CVS: S1 and S2 normal with no audible murmur, regular rhythm. ABDOMEN: Surgical dressings clean dry and intact. ALONSO drain in place. Bile colored substance noted. Normal bowel sounds, no guarding or rigidity. SPINE: No scoliosis or deformity SKIN: No rashes CENTRAL NERVOUS SYSTEM: No focal deficits, tone is normal in all 4 extremities. EXTREMITIES: There is no peripheral edema. No clubbing, no cyanosis. Peripheral pulses are intact. - Labs CBC & Chem 7: 03/09/25 05:56 03/09/25 05:56 Labs: Abnormal Lab Results - Last 24 Hours (Table) 03/08/25 03/09/25 03/09/25 Range/Units 11:04 05:56 05:56 RBC 2.80 L (4.40-5.60) 10*6/uL Hgb 8.2 L (13.0-17.0) g/dL Hct 25.1 L (39.6-50.0) % RDW 19.5 H (11.5-14.5) % Sodium 134 L (137-145) mmol/L Carbon Dioxide 32 H (22-30) mmol/L Crossmatch See Detail Assessment and Plan Plan: Acute abdominal sepsis secondary to acute cholecystitis, recovered and the patie nt is postcholecystectomy Status post laparoscopic cholecystectomy and abscess drainage of gallbladder. Hypotension secondary to hypovolemia and possible septic shock, requiring pressors and requiring blood transfusion, patient received a total of 2 units of packed RBCs, stable hemoglobin, stable hemodynamics. Acute blood loss anemia History of chronic anemia Chronic atrial fibrillation, currently sinus rhythm. Anticoagulated with Eliquis History of hiatal hernia with previous Monet fundoplication. Right lower lobe pneumonia Plan: Continues incentive spirometer Currently stable on room air oxygen Continue bronchodilators Currently on Augmentin Generalized weakness and the patient will benefit from rehabilitation. Based on that, the patient is being discharged to [facility]. Anticoagulated with Eliquis Plan is for [facility] at discharge
--- NOTE | 2025-03-10 17:12 | P.PN ---
Subjective Progress Note Date: 03/09/25 Principal diagnosis: Reason for follow-up is gangrenous cholecystitis Patient is a 69-year-old male with a past medical history significant for atrial fibrillation reflux presenting to the hospital for evaluation of diarrhea felt lightheaded complaining of weakness and did have right upper quadrant pain, patient be diagnosed with gangrenous cholecystitis status post open cholecystectomy and drainage of the abscess. On today's evaluation that is 03/09/2025, patient has been afebrile, patient is breathing comfortably and is currently on room air, patient denies having any chest pain and cough, patient denies nausea vomiting or diarrhea and no abdominal pain. Patient white count is 4.86, creatinine 0.70 Objective - Vital Signs Vital signs: Vital Signs Temp 97.4 F L 03/09/25 07:14 Pulse 68 03/09/25 11:57 Resp 17 03/09/25 07:14 BP 123/70 03/09/25 07:14 Pulse Ox 96 03/09/25 11:49 FiO2 40 03/03/25 04:23 Intake & Output 03/08/25 03/09/25 03/09/25 18:59 06:59 18:59 Intake Total 310 Output Total 25 Balance 310 -25 Intake: Blood Product 310 Rc As-1 Unit 310 [id number] Output: Drainage 25 Left Abdomen 25 Other: Voiding Method External Catheter Diaper Diaper # Voids 4 4 1 # Bowel Movements 2 1 ABP, PAP, CO, CI - Last Documented Arterial Blood Pressure 135/50 - Exam GENERAL DESCRIPTION: An elderly male lying in bed in no distress RESPIRATORY SYSTEM: Unlabored breathing , decreased breath sounds at bases HEART: S1 S2 regular rate and rhythm , ABDOMEN: Soft , no tenderness EXTREMITIES: No edema feet - Labs CBC & Chem 7: 03/09/25 05:56 03/09/25 05:56 Labs: Abnormal Lab Results - Last 24 Hours (Table) 03/08/25 03/09/25 03/09/25 Range/Units 11:04 05:56 05:56 RBC 2.80 L (4.40-5.60) 10*6/uL Hgb 8.2 L (13.0-17.0) g/dL Hct 25.1 L (39.6-50.0) % RDW 19.5 H (11.5-14.5) % Sodium 134 L (137-145) mmol/L Carbon Dioxide 32 H (22-30) mmol/L Crossmatch See Detail Assessment and Plan (1) Acute cholecystitis Status: Acute Code(s): K81.0 - ACUTE CHOLECYSTITIS SNOMED Code(s): 48559289 Plan: 1patient presented to hospital with weakness abdominal pain has been diagnosed with gangrenous cholecystitis with empyema in this patient who is status post open cholecystectomy and drainage of the abscess will need to cover for the enteric gram-negative due to the likely pathogen 2-abdominal cultures currently growing E. coli that is a sensitive pathogen 3-patient is afebrile white count has been normal, 4patient to finish therapy with short course of oral Augmentin discussed with the TRANSCRIBING OPERATORS SUPERVISOR for surgical team working on discharge Dictation was produced using [employer] dictation software. please excuse any grammatical, word or spelling errors. Time with Patient: Less than 30
== END 2025-03-09 15:15 | DRG 853 ==
LOC: EC 03:17 → 2SICU 06:06 → 4SSUR 03-04 17:29
PROVIDERS: ADMIT Surgery; ATTEND Surgery
PROC: 0FT40ZZ Resection of Gallbladder, Open Approach (ICD-10-PCS; principal; 2025-02-26 10:15)
PROC: 0W9G3ZZ Drainage of Peritoneal Cavity, Percutaneous Approach (ICD-10-PCS; principal; 2025-02-26 10:15)
PROC: 3E033XZ Introduction of Vasopressor into Peripheral Vein, Percutaneous Approach (ICD-10-PCS; 2025-02-27)
PROC: 30233N1 Transfusion of Nonautologous Red Blood Cells into Peripheral Vein, Percutaneous Approach (ICD-10-PCS; 2025-02-27)
PROC: 0BH17EZ Insertion of Endotracheal Airway into Trachea, Via Natural or Artificial Opening (ICD-10-PCS; 2025-02-27)
PROC: 5A1935Z Respiratory Ventilation, Less than 24 Consecutive Hours (ICD-10-PCS; 2025-02-27)
DX: A41.51 Sepsis due to Escherichia coli [E. coli] (principal); E43 Unspecified severe protein-calorie malnutrition; J96.01 Acute respiratory failure with hypoxia; K65.1 Peritoneal abscess; R65.21 Severe sepsis with septic shock; J18.9 Pneumonia, unspecified organism; T17.990A Other foreign object in respiratory tract, part unspecified in causing asphyxiation, initial encounter; D69.6 Thrombocytopenia, unspecified; R16.2 Hepatomegaly with splenomegaly, not elsewhere classified; I10 Essential (primary) hypertension; Z68.38 Body mass index [BMI] 38.0-38.9, adult; D62 Acute posthemorrhagic anemia; K80.00 Calculus of gallbladder with acute cholecystitis without obstruction; E87.1 Hypo-osmolality and hyponatremia; I48.0 Paroxysmal atrial fibrillation; Z11.52 Encounter for screening for COVID-19; K82.A1 Gangrene of gallbladder in cholecystitis; E86.1 Hypovolemia; B96.20 Unspecified Escherichia coli [E. coli] as the cause of diseases classified elsewhere; I95.89 Other hypotension; Z87.19 Personal history of other diseases of the digestive system; E87.6 Hypokalemia; F41.9 Anxiety disorder, unspecified; I49.3 Ventricular premature depolarization; J98.4 Other disorders of lung; R33.8 Other retention of urine; K21.9 Gastro-esophageal reflux disease without esophagitis; K82.8 Other specified diseases of gallbladder; N32.81 Overactive bladder; N50.89 Other specified disorders of the male genital organs; Z79.01 Long term (current) use of anticoagulants; Z79.899 Other long term (current) drug therapy; Z82.49 Family history of ischemic heart disease and other diseases of the circulatory system; Z87.891 Personal history of nicotine dependence; Z88.8 Allergy status to other drugs, medicaments and biological substances; Z96.82 Presence of neurostimulator; E87.70 Fluid overload, unspecified; T50.2X5A Adverse effect of carbonic-anhydrase inhibitors, benzothiadiazides and other diuretics, initial encounter; X58.XXXA Exposure to other specified factors, initial encounter
CPT/HCPCS: 36415; 36600; 70450; 71045; 74177; 80048; 80053; 82272; 82805; 83605; 83735; 84132; 84484; 85025; 85027; 85610; 85730; 86850; 86900; 86901; 86920; 87040; 87070; 87077; 87186; 87205; 87324; 87636; 88300; 88304; 93005; 94002; 94003; 94640; 94660; 94664; 94667; 94668; 94760; 96361; 96365; 96366; 96367; 96375; 99291

== ENCOUNTER 2025-04-28 12:56 | Emergency (ER) | payer MEDICARE ==
[2025-04-28 13:01] VITALS: TEMP 97.4
--- NOTE | 2025-04-28 13:26 | ED ---
General Adult HPI - General Chief complaint: Dizziness Stated complaint: Dizziness Time Seen by Provider: 04/28/25 13:14 Source: patient, RN notes reviewed Mode of arrival: wheelchair Limitations: no limitations - History of Present Illness Initial comments: Patient is a 69-year-old male presenting to the emergency department with concerns with dizziness. Symptoms have been occurring for several weeks, worse today. Patient was in the hospital for a month with gallbladder problems. Patient had associated anemia and was just cleared with Dr. Anthony with Evaluation for this. Dizziness is lightheadedness, no spinning type sensation. No weakness or confusion. Symptoms are mild sitting in bed and while at rest. Symptoms are worse with getting up and movement. - Related Data Home Medications Medication Instructions Recorded Confirmed Mirabegron [Myrbetriq] 50 mg PO DAILY 01/04/25 04/28/25 Dicyclomine [Bentyl] 10 mg PO AC-TID 02/03/25 04/28/25 Multivitamin [Multivitamins Adult 1 tab PO DAILY 02/03/25 04/28/25 Gummies] Cetirizine HCl [Zyrtec] 10 mg PO DAILY 02/26/25 04/28/25 Albuterol Sulfate [Albuterol 2 puff INHALATION RT-Q6H PRN 04/28/25 04/28/25 Sulfate Hfa] Amiodarone [Cordarone] 100 mg PO DAILY 04/28/25 04/28/25 Furosemide [Lasix] 20 mg PO DAILY 04/28/25 04/28/25 Metoprolol Tartrate [Lopressor] 12.5 mg PO BID 04/28/25 04/28/25 Midodrine HCl 10 mg PO TID 04/28/25 04/28/25 Previous Rx's Medication Instructions Recorded Tamsulosin [Flomax] 0.4 mg PO BID 30 Days #60 cap 03/09/25 Allergies Allergy/AdvReac Type Severity Reaction Status Date / Time oxytetracycline AdvReac "PAIN OF Verified 04/28/25 15:46 [From Terramycin] SKIN" VERY WEAK oxytetracycline HCl AdvReac "PAIN OF Verified 04/28/25 15:46 [From Terramycin] SKIN" VERY WEAK Review of Systems ROS Statement: Those systems with pertinent positive or pertinent negative responses have been documented in the HPI. ROS Other: All systems not noted in ROS Statement are negative. Constitutional: Denies: fever Eyes: Denies: eye pain ENT: Denies: ear pain Respiratory: Denies: cough, dyspnea Cardiovascular: Denies: chest pain Endocrine: Denies: fatigue Gastrointestinal: Denies: abdominal pain Neurological: Reports: as per HPI. Denies: headache Past Medical History Past Medical History: Atrial Fibrillation, Eye Disorder, GERD/Reflux Additional Past Medical History / Comment(s): HIATAL HERNIA, SOMETIMES FOOD COMES BACK UP WHEN EATING, LOOSE STOOLS History of Any Multi-Drug Resistant Organisms: None Reported Past Surgical History: Adenoidectomy, Hernia Repair, Orthopedic Surgery, Tonsillectomy Additional Past Surgical History / Comment(s): UMBILICAL HERNIA, KAREN.INGUINAL HERNIA , EGD /COLONOSCOPY 04/20/15, LT WRIST SURGERY Past Anesthesia/Blood Transfusion Reactions: No Reported Reaction Past Psychological History: Anxiety Smoking Status: Former smoker Past Alcohol Use History: None Reported - Past Family History Sister(s) Family Medical History: Diabetes Mellitus Mother Family Medical History: Dementia, Neurologic Disorder Additional Family Medical History / Comment(s): HX PARKINSON'S. Father Family Medical History: Coronary Artery Disease (CAD), CVA/TIA General Exam Limitations: no limitations General appearance: alert, in no apparent distress Head exam: Present: atraumatic Eye exam: Present: normal appearance, PERRL, EOMI. Absent: nystagmus Neck exam: Present: normal inspection. Absent: tenderness Respiratory exam: Present: normal lung sounds bilaterally Cardiovascular Exam: Present: bradycardia GI/Abdominal exam: Present: soft. Absent: tenderness Extremities exam: Present: normal inspection. Absent: calf tenderness Neurological exam: Present: alert, oriented X3, CN II-XII intact. Absent: motor sensory deficit Expanded Neurological exam: Present: protecting the airway Speech: Present: fluid speech Cranial nerves: EOM's Intact: Normal Motor strength exam: RUE: 5, LUE: 5, RLE: 5, LLE: 5 Eye Response: (4) open spontaneously Motor Response: (6) obeys commands Verbal Response: (5) oriented Psychiatric exam: Present: normal affect, normal mood Skin exam: Present: normal color Course Vital Signs 04/28/25 04/28/25 04/28/25 12:57 13:25 13:27 Temperature 97.4 F L Pulse Rate 49 L Pulse Rate [ 67 68 Pulse Oximetery ] Respiratory 18 16 18 Rate Blood Pressure 113/64 Blood Pressure 108/64 [Right Arm Sitting] Blood Pressure [Right Arm Standing] Blood Pressure 120/65 [Right Arm Supine] O2 Sat by Pulse 97 100 98 Oximetry 04/28/25 13:29 Temperature Pulse Rate Pulse Rate [ 48 L Pulse Oximetery ] Respiratory 18 Rate Blood Pressure Blood Pressure [Right Arm Sitting] Blood Pressure 100/52 [Right Arm Standing] Blood Pressure [Right Arm Supine] O2 Sat by Pulse 100 Oximetry EKG Findings - EKG Results: EKG: interpreted by ERMD, sinus rhythm, normal axis, normal QRS, normal ST/T EKG shows: bradycardia Medical Decision Making - Medical Decision Making Was pt. sent in by a medical professional or institution (, PA, PURCHASING OFFICER, urgent care, hospital, or prison...) When possible be specific @ -No Did you speak to anyone other than the patient for history (EMS, parent, family, police, friend...)? What history was obtained from this source @ -No Did you review nursing and triage notes (agree or disagree)? Why? @ -I reviewed and agree with nursing and triage notes Were old charts reviewed (outside hosp., previous admission, EMS record, old EKG, old radiological studies, urgent care reports/EKG's, prison records)? Report findings @ -No old charts were reviewed Differential Diagnosis (chest pain, altered mental status, abdominal pain women, abdominal pain men, vaginal bleeding, weakness, fever, dyspnea, syncope, headache, dizziness, GI bleed, back pain, seizure, CVA, palpatations, mental health, musculoskeletal)? @ -Differential Dizziness: Benign paroxysmal positional Vertigo, Meniere's disease, otitis media, acoustic neuroma, vertebrobasilar insufficiency, cerebellar stroke, encephalitis, hypovo lemic, arrhythmia, coronary artery syndrome, anemia, this is not meant to be an all-inclusive list EKG interpreted by me (3pts min.). @ -As above X-rays interpreted by me (1pt min.). @ -Chest x-ray shows no acute process CT interpreted by me (1pt min.). @ -CT brain without acute abnormality U/S interpreted by me (1pt. min.). @ -None done What testing was considered but not performed or refused? (CT, X-rays, U/S, labs)? Why? @ -None What meds were considered but not given or refused? Why? @ -None Did you discuss the management of the patient with other professionals (professionals i.e. , PA, PURCHASING OFFICER, lab, RT, psych nurse, renal social worker, scientific process operator, teacher, college service officer, case packer and sealer)? Give summary @ -No Was smoking cessation discussed for >3mins.? @ -No Was critical care preformed (if so, how long)? @ -No Were there social determinants of health that impacted care today? How? (Home lessness, low income, unemployed, alcoholism, drug addiction, transportation, low edu. Level, literacy, decrease access to med. care, usp, rehab)? @ -No Was there de-escalation of care discussed even if they declined (Discuss DNR or withdrawal of care, Hospice)? DNR status @ -No What co-morbidities impacted this encounter? (DM, HTN, Smoking, COPD, CAD, Cancer, CVA, ARF, Chemo, Hep., AIDS, mental health diagnosis, sleep apnea, morbid obesity)? @ -None Was patient admitted / discharged? Hospital course, mention meds given and route, prescriptions, significant lab abnormalities, going to OR and other pertinent info. @ -Patient presents with lightheadedness. Patient is borderline orthostatic. Patient reevaluated and feels much better. Patient only had trace symptoms when he stood up. Patient is comfortable and would like to be discharged home. Patient is informed of concerns regarding overlying orthostasis as well as concerns for heart rate being borderline low. Patient was recommended close follow-up with this. Patient is advised he may need medication changes or potentially pacemaker Undiagnosed new problem with uncertain prognosis? @ -No Drug Therapy requiring intensive monitoring for toxicity (Heparin, Nitro, Insulin, Cardizem)? @ -No Were any procedures done? @ -No Diagnosis/symptom? @ -Lightheadedness Acute, or Chronic, or Acute on Chronic? @ -Acute Uncomplicated (without systemic symptoms) or Complicated (systemic symptoms)? @ -Default Side effects of treatment? @ -No Exacerbation, Progression, or Severe Exacerbation? @ -No Poses a threat to life or bodily function? How? (Chest pain, [place], AL, pneumonia, PE, COPD, DKA, ARF, appy, cholecystitis, CVA, Diverticulitis, Homicidal, Suicidal, threat to staff... and all critical care pts) @ -No - Lab Data Result diagrams: 04/28/25 13:42 04/28/25 13:42 Lab Results 04/28/25 04/28/25 04/28/25 Range/Units 13:42 13:42 13:42 WBC 4.10 L (4.50-10.00) 10*3/uL RBC 2.86 L (4.40-5.60) 10*6/uL Hgb 9.1 L (13.0-17.0) g/dL Hct 27.3 L (39.6-50.0) % MCV 95.5 (80.0-97.0) fL MCH 31.8 (27.0-32.0) pg MCHC 33.3 (32.0-37.0) g/dL Plt Count 109 L (140-440) 10*3/uL MPV 9.5 (9.5-12.2) fL Immature Gran % (Auto) 0.5 % Neutrophils % 57.0 % Lymphocytes % 33.7 % Monocytes % 5.6 % Eosinophils % 2.7 % Basophils % 0.5 % Immature Gran # 0.02 (0.00-0.04) 10*3/uL Neutrophils # 2.34 (1.80-7.70) 10*3/uL Lymphocytes # 1.38 (0.90-5.00) 10*3/uL Monocytes # 0.23 (0.20-1.00) 10*3/uL Eosinophils # 0.11 (0.04-0.35) 10*3/uL Basophils # 0.02 (0.00-0.10) 10*3/uL PT 11.1 (10.0-12.5) sec INR 1.0 (<1.2) APTT 40.6 H (22.0-30.0) sec Sodium 138 (137-145) mmol/L Potassium 4.7 (3.5-5.1) mmol/L Chloride 104 (98-107) mmol/L Carbon Dioxide 25 (22-30) mmol/L Anion Gap 9 mmol/L BUN 28 H (9-20) mg/dL Creatinine 1.33 H (0.66-1.25) mg/dL Est GFR (CKD-EPI)AfAm 63 (>60 ml/min/1.73 sqM) Est GFR (CKD-EPI)NonAf 54 (>60 ml/min/1.73 sqM) Glucose 82 (74-99) mg/dL Plasma Lactic Acid Seng (0.7-2.0) mmol/L Calcium 9.3 (8.4-10.2) mg/dL Magnesium 2.5 H (1.6-2.3) mg/dL Total Bilirubin 2.1 H (0.2-1.3) mg/dL AST 33 (17-59) U/L ALT 27 (4-49) U/L Alkaline Phosphatase 96 (38-126) U/L Troponin I (0.000-0.034) ng/mL Total Protein 7.5 (6.3-8.2) g/dL Albumin 4.4 (3.5-5.0) g/dL Urine Color Urine Appearance (Clear) Urine pH (5.0-8.0) Ur Specific [place] (1.001-1.035) Urine Protein (Negative) Urine Glucose (UA) (Negative) Urine Ketones (Negative) Urine Blood (Negative) Urine Nitrite (Negative) Urine Bilirubin (Negative) Urine Urobilinogen (<2.0) mg/dL Ur Leukocyte Esterase (Negative) 04/28/25 04/28/25 04/28/25 Range/Units 13:42 13:42 14:20 WBC (4.50-10.00) 10*3/uL RBC (4.40-5.60) 10*6/uL Hgb (13.0-17.0) g/dL Hct (39.6-50.0) % MCV (80.0-97.0) fL MCH (27.0-32.0) pg MCHC (32.0-37.0) g/dL Plt Count (140-440) 10*3/uL MPV (9.5-12.2) fL Immature Gran % (Auto) % Neutrophils % % Lymphocytes % % Monocytes % % Eosinophils % % Basophils % % Immature Gran # (0.00-0.04) 10*3/uL Neutrophils # (1.80-7.70) 10*3/uL Lymphocytes # (0.90-5.00) 10*3/uL Monocytes # (0.20-1.00) 10*3/uL Eosinophils # (0.04-0.35) 10*3/uL Basophils # (0.00-0.10) 10*3/uL PT (10.0-12.5) sec INR (<1.2) APTT (22.0-30.0) sec Sodium (137-145) mmol/L Potassium (3.5-5.1) mmol/L Chloride (98-107) mmol/L Carbon Dioxide (22-30) mmol/L Anion Gap mmol/L BUN (9-20) mg/dL Creatinine (0.66-1.25) mg/dL Est GFR (CKD-EPI)AfAm (>60 ml/min/1.73 sqM) Est GFR (CKD-EPI)NonAf (>60 ml/min/1.73 sqM) Glucose (74-99) mg/dL Plasma Lactic Acid Seng 0.8 (0.7-2.0) mmol/L Calcium (8.4-10.2) mg/dL Magnesium (1.6-2.3) mg/dL Total Bilirubin (0.2-1.3) mg/dL AST (17-59) U/L ALT (4-49) U/L Alkaline Phosphatase (38-126) U/L Troponin I <0.012 (0.000-0.034) ng/mL Total Protein (6.3-8.2) g/dL Albumin (3.5-5.0) g/dL Urine Color Yellow Urine Appearance Clear (Clear) Urine pH 6.0 (5.0-8.0) Ur Specific [place] 1.011 (1.001-1.035) Urine Protein Negative (Negative) Urine Glucose (UA) Negative (Negative) Urine Ketones Negative (Negative) Urine Blood Negative (Negative) Urine Nitrite Negative (Negative) Urine Bilirubin Negative (Negative) Urine Urobilinogen 2.0 (<2.0) mg/dL Ur Leukocyte Esterase Negative (Negative) Disposition Clinical Impression: Lightheadedness Disposition: HOME SELF-CARE Instructions (If sedation given, give patient instructions): Dizziness (ED) Additional Instructions: Please do follow-up closely with your primary care physician in the next day or 2 for recheck. Monitor your heart rate as you may need medication changes or potentially pacemaker. Return for increased dizziness, weakness or confusion, worsening or changing symptoms or any other concerns Is patient prescribed a controlled substance at d/c from ED?: No Referrals: Mirna Sarah MD [Primary Care Provider] - 1-2 days Time of Disposition: 15:57
[2025-04-28 14:04] LABS: Basophils # (A) 0.02 10*3/uL (0.00-0.10); Basophils % (A) 0.5 %; Eosinophils # (A) 0.11 10*3/uL (0.04-0.35); Eosinophils % (A) 2.7 %; HCT 27.3 % (39.6-50.0); HGB 9.1 g/dL (13.0-17.0); Lymphocytes # (A) 1.38 10*3/uL (0.90-5.00); Lymphocytes % (A) 33.7 %; MCH 31.8 pg (27.0-32.0); MCHC 33.3 g/dL (32.0-37.0); MCV 95.5 fL (80.0-97.0); Monocytes # (A) 0.23 10*3/uL (0.20-1.00); Monocytes % (A) 5.6 %; Neutrophils # (A) 2.34 10*3/uL (1.80-7.70); Neutrophils % (A) 57.0 %; Platelet Count 109 10*3/uL (140-440); RBC 2.86 10*6/uL (4.40-5.60); RDW 21.8 % (11.5-14.5); WBC 4.10 10*3/uL (4.50-10.00)
--- NOTE | 2025-04-28 14:16 | CT ---
EXAMINATION TYPE: CT brain wo con CT DLP: 1156.4 mGycm, Automated exposure control for dose reduction was used. DATE OF EXAM: 04/28/2025 2:09 PM COMPARISON: None. CLINICAL INDICATION:Male, 69 years old with history of dizziness, DIZZINESS TECHNIQUE: Brain: Multiple axial CT images of the brain were obtained without IV contrast. . Coronal and sagitta l reformats reviewed. FINDINGS: Brain: Extra-axial spaces: No abnormal extra-axial fluid collections. Ventricular system: Within normal limits Cerebral parenchyma: No acute intraparenchymal hemorrhage or mass effect. The bullock-white junction is well differentiated. Scattered hypoattenuating areas are seen within the periventricular white matte r. Nonspecific bilateral basal ganglia calcifications. Cerebellum: Unremarkable. Mass effect: No evidence of midline shift. Intracranial vasculature: Atherosclerotic calcifications of the intracranial vessels. Soft tissues: Normal. Calvarium/osseous structures: No depressed skull fracture. Paranasal sinuses and mastoid air cells: Clear Visualized orbits: Orbital contents are intact. IMPRESSION: 1. No acute intracranial process. 2. Nonspecific white matter changes, likely secondary to chronic small vessel ischemic disease. [facility], , 04/28/2025 2:14 PM
[2025-04-28 14:17] LABS: ALT 27 U/L (4-49); AST 33 U/L (17-59); African American GFR (CKD) 63 (>60 ml/min/1.73 sqM); Albumin 4.4 g/dL (3.5-5.0); Alkaline Phosphatase 96 U/L (38-126); Anion Gap 9 mmol/L; Blood Urea Nitrogen 28 mg/dL (9-20); Calcium 9.3 mg/dL (8.4-10.2); Carbon Dioxide 25 mmol/L (22-30); Chloride 104 mmol/L (98-107); Glucose 82 mg/dL (74-99); Magnesium 2.5 mg/dL (1.6-2.3); Non-African American GFR(CKD) 54 (>60 ml/min/1.73 sqM); Potassium 4.7 mmol/L (3.5-5.1); Sodium 138 mmol/L (137-145); Total Protein 7.5 g/dL (6.3-8.2)
[2025-04-28] MEDS: SODIUM CHLORIDE 0.9% 1,000 ML IV SCH (14:18)
[2025-04-28 14:34] LABS: Bilirubin,Urine Negative (Negative); Blood,Urine Negative (Negative); Color,Urine Yellow; Glucose,Urine (UA) Negative (Negative); Ketones,Urine Negative (Negative); Leukocyte Esterase,Urine Negative (Negative); Nitrite,Urine Negative (Negative); PH, Urine 6.0 (5.0-8.0); Protein,Urine Negative (Negative); Specific Gravity,Urine 1.011 (1.001-1.035); Urobilinogen,Urine 2.0 mg/dL (<2.0)
--- NOTE | 2025-04-28 14:48 | XR ---
EXAMINATION TYPE: XR chest 2V DATE OF EXAM: 04/28/2025 2:02 PM COMPARISON: 03/04/2025 CLINICAL INDICATION: Male, 69 years old with history of Weakness, , TECHNIQUE: AP and lateral views FINDINGS: The heart is upper limits of normal in size. Mild hyperinflation. Aorta and pulmonary vasculature wit hin normal limits. No consolidation or pleural effusion. IMPRESSION: Possible underlying COPD. No acute process seen. [facility], , 04/28/2025 2:46 PM
[2025-04-28 15:12] LABS: INR 1.0 (<1.2); Partial Thromboplastin Time 40.6 sec (22.0-30.0); Prothrombin Time 11.1 sec (10.0-12.5)
[2025-04-28] MEDS: SODIUM CHLORIDE 0.9% 500 ML 500 ML IV STA (15:54)
[2025-04-28 16:20] VITALS: BP 108/57; PULSE 58; RESP 20
== END 2025-04-28 16:34 | disposition home or self-care (01) ==
LOC: EC 12:56
DX: R42 Dizziness and giddiness (principal); D64.9 Anemia, unspecified; Z87.891 Personal history of nicotine dependence; Z88.8 Allergy status to other drugs, medicaments and biological substances
CPT/HCPCS: 36415; 70450; 71046; 80053; 81003; 83605; 83735; 84484; 85025; 85610; 85730; 93005; 96360; 96361; 99285